=== PATIENT | female | born 1975 | race Caucasian/White ===

== ENCOUNTER 2023-06-22 08:17 | Outpatient (OUT) | payer OTHER, SELFPAY ==
--- NOTE | 2023-06-22 08:23 | MM_ITS ---
Patient Name: YAO HUYNH MR#: [id number] : 1975 Exam Date: 06/22/2023 Ordering Doctor: Non-Staff Physician RADIOLOGY REPORT PROCEDURE: MM TOMOSYNTHESIS SCREENING BI COMPARISON: MG MAMM SCREEN 3D MARIE CAD, 06/11/2022. MG MAMM SCREEN 3D MARIE CAD, 06/03/2021. MG MAMM SCREEN MARIE W CAD, 04/30/2020. MG MAMM MARIE SCRN W CAD DIG, 08/24/2013. INDICATIONS: Screening Calculator Name NCI Breast Cancer Risk Assessment Tool 5 Year Breast Cancer Risk Not Reported. Lifetime Breast Cancer Risk Not Reported. Personal Breast Cancer No Personal Ovarian Cancer No Treatments None Family Cancers None LOCATION: [facility] BREAST COMPOSITION: Extremely dense, which lowers the sensitivity of mammography. FINDINGS: DIAGNOSTIC CATEGORY 1--NEGATIVE. RIGHT BREAST: No significant suspicious finding. No significant change has occurred. LEFT BREAST: No significant suspicious finding. No significant change has occurred. RECOMMENDATIONS: ROUTINE MAMMOGRAM AND CLINICAL EVALUATION IN 12 MONTHS. PLEASE NOTE: A NORMAL MAMMOGRAM DOES NOT EXCLUDE THE POSSIBILITY OF BREAST CANCER. A CLINICALLY SUSPICIOUS PALPABLE LUMP SHOULD BE BIOPSIED. Dictated by: Jefry Fuentes M.D. on 06/22/2023 at 12:28 Approved by: Jefry Fuentes M.D. on 06/22/2023 at 12:30
== END 2023-06-22 08:18 | disposition home or self-care (01) ==
LOC: MAMMO 08:17
DX: Z12.31 Encounter for screening mammogram for malignant neoplasm of breast (principal)
CPT/HCPCS: 77063; 77067

== ENCOUNTER 2024-06-23 10:16 | Outpatient (OUT) | payer OTHER, SELFPAY ==
--- NOTE | 2024-06-23 10:19 | MM_ITS ---
Patient Name: YAO HUYNH MR#: [id number] : 1975 Exam Date: 06/23/2024 Ordering Doctor: Kaykay Adame RADIOLOGY REPORT PROCEDURE: MM TOMOSYNTHESIS SCREENING BI COMPARISON: MM TOMOSYNTHESIS SCREENING BI, 06/22/2023. MG MAMM SCREEN 3D MARIE CAD, 06/11/2022. MG MAMM SCREEN 3D MARIE CAD, 06/03/2021. MG MAMM MARIE SCRN W CAD DIG, 08/24/2013. INDICATIONS: Screening Calculator Name NCI Breast Cancer Risk Assessment Tool 5 Year Breast Cancer Risk Not Reported. Lifetime Breast Cancer Risk Not Reported. Personal Breast Cancer No Personal Ovarian Cancer No Treatments None Family Cancers None LOCATION: [facility] BREAST COMPOSITION: The breasts are extremely dense, which lowers the sensitivity of mammography. FINDINGS: DIAGNOSTIC CATEGORY 1--NEGATIVE. RIGHT BREAST: No significant suspicious finding. No significant change has occurred. LEFT BREAST: No significant suspicious finding. No significant change has occurred. RECOMMENDATIONS: ROUTINE MAMMOGRAM AND CLINICAL EVALUATION IN 12 MONTHS. PLEASE NOTE: A NORMAL MAMMOGRAM DOES NOT EXCLUDE THE POSSIBILITY OF BREAST CANCER. A CLINICALLY SUSPICIOUS PALPABLE LUMP SHOULD BE BIOPSIED. Dictated by: Jefry Fuentes M.D. on 06/23/2024 at 15:42 Approved by: Jefry Fuentes M.D. on 06/23/2024 at 15:44
--- OUTSIDE RECORDS SUMMARY | 2024-06-23 10:34 | XMS_ITS | CCD ---
Author Organization [facility] ion [facility] Care Team Providers Care Insight Leader Name Role Phone Poncho, Todd L Primary Care Provider [phone] MISC, DR ADDISON Attending Unavailable MISC, DR ADDISON Primary Care Unavailable MISC, DR ADDISON Admitting Unavailable BOSTON, DR CHALINO Baxter Consulting Unavailable MISC, DR ADDISON Consulting Unavailable Yonley DO, Todd L Primary Care Provider [phone] Yonley DO, Todd L. Primary Care Provider [phone] Yonley DO, Todd L. Primary Care Provider YONLEY, TODD L Referring Unavailable YONLEY, TODD L Primary Care Unavailable YONLEY, TODD L Primary Care Unavailable CARMEN JORGENSEN Attending Unavailable CARMEN JORGENSEN Admitting Unavailable YONLEY, TODD L. Primary Care Unavailable YONLEY, TODD L Primary Care Unavailable Yonley DO, Todd L Primary Care Provider [place], [place] Referring Unavailable YONLEY, TODD L Primary Care Unavailable YONLEY, TODD L Primary Care Unavailable [place], [place] Referring Unavailable [place], [place] Referring Unavailable YONLEY, TODD L Primary Care Unavailable JAELYN RAMON A Referring Unavailable YONLEY, TODD L Primary Care Unavailable TRISTEN, JAELYN A Referring Unavailable YONLEY, TODD L Primary Care Unavailable YONLEY, TODD L Referring Unavailable YONLEY, TODD L Primary Care Unavailable TRISTEN, JAELYN Referring Unavailable YONLEY, TODD L Primary Care Unavailable [place], [place] Referring Unavailable YONLEY, TODD L Primary Care Unavailable [place], [place] Referring Unavailable YONLEY, TODD L Primary Care Unavailable YONLEY, TODD L Referring Unavailable YONLEY, TODD L Primary Care Unavailable YONLEY, TODD L Referring Unavailable YONLEY, TODD L Primary Care Unavailable YONLEY, TODD L. Primary Care Unavailable ADLYWILNERNJ ADLY [place] Attending Unava ilable YOGURJITEY, TODD L. Referring Unavailable YONLEY, TODD L. Primary Care Unavailable JAELYN RAMON Attending Unavailable YONLEY, TODD L. Primary Care Unavailable ADLY, [place] ADLY [place] Attending Unava ilable YOGURJITEY, TODD L. Primary Care Unavailable ADLY, [place] ADLY [place] Attending Unava ilable YOGURJITEY, TODD L. Primary Care Unavailable ADLY, [place] ADLY [place] Attending Unava ilable Allergies Allergy Classification Reported Allergen(s) Allergy Type Date of Onset Reaction(s) Facility Macrolides (antibiotic) (1 source) Erythromycin Drug Allergy 07-14-2011 [facility] Penicillins (antibiotic) (1 source) Penicillins Drug Allergy 05-09-2020 [facility] (20 sources) Erythromycin; Translations: [ERYTHROMYCIN] Drug Allergy 07-14-2011 [place], [place] (3 sources) Penicillins; Translations: [PENICILLINS] Propensity to adverse reactions to drug 05-09-2020 [place], [place] (20 sources) Penicillins Propensity to adverse reactions to drug 05-09-2020 [facility] Medications Current Medications Medication Drug Class(es) Dates Sig (Normalized) Sig (Original) cephalexin 500 mg oral capsule (1 source) Cephalosporin Antibacterial Start: 05-06-2020 cephALEXin (KEFLEX) 500 MG capsule diclofenac sodium 75 mg delayed release oral tablet (6 sources) Nonsteroidal Anti-inflammatory Drug Start: 02-29-2020 diclofenac (VOLTAREN) 75 MG EC tablet 1 tab BID 0 02/29/2020 Active DULoxetine 60 mg delayed release oral capsule (20 sources) Serotonin and Norepinephrine Reuptake Inhibitor Start: 09-28-2023 take 1 capsule by mouth once daily DULoxetine (CYMBALTA) 60 MG extended release capsule 60 mg po daily 90 capsule 1 09/28/2023 Active Start: 08-19-2022 End: 11-27-2023 take 1 capsule by mouth once daily DULoxetine (CYMBALTA) 30 MG capsule 30 mg po daily 0 10/27/2022 11/27/2023 Discontinued (Patient's Request) hydrocortisone valerate 2 mg/ml topical cream (7 sources) Corticosteroid Start: 09-29-2013 hydrocortisone (WESTCORT) 0.2 % cream Apply topically 2 times daily. 60 g 3 09/29/2013 Active magnesium hydroxide 80 mg/ml oral suspension (20 sources) Start: 09-16-2021 magnesium hydroxide (MOM) 400 mg/5 mL Susp 30 mL po daily up to twice a week as needed for constipation 09/16/2021 Active methIMAzole 5 mg oral tablet (7 sources) Thyroid Hormone Synthesis Inhibitor Start: 08-28-2023 End: 03-16-2025 take 1 tablet by mouth once daily methIMAzole (TAPAZOLE) 5 MG tablet Indications: Hyperthyroidism Take 1 (one) tablet (5 mg total) by mouth daily . 30 tablet 11 03/16/2024 03/16/2025 Active 24 hr metoprolol succinate 50 mg extended release oral tablet (20 sources) beta-Adrenergic Manasa Start: 09-28-2023 take 1 tablet by mouth once daily metoprolol succinate (TOPROL XL) 50 MG extended release tablet Take 1 tablet by mouth daily 90 tablet 1 09/28/2023 Active Start: 11-03-2022 metoprolol suc cinate (TOPROL-XL) 50 MG 24 hr tablet 11/03/2022 Active Start: 10-27-2022 take 1 tablet by tre th once daily metoprolol succinate (TOPROL XL) 50 MG extended release tablet Take 1 tablet by mouth daily 90 tablet 3 10/27/2022 Active Start: 10-12-2020 take 1 tablet by tre th once daily metoprolol succinate (TOPROL XL) 50 MG extended release tablet Take 1 tablet by mouth daily 90 tablet 3 10/12/2020 Active Start: 04-26-2020 take 1 tablet by tre th once daily metoprolol succinate (TOPROL XL) 50 MG extended release tablet Take 1 tablet by mouth daily 90 tablet 3 04/26/2020 Active Start: 02-22-2020 take 1 tablet by tre th once daily metoprolol succinate (TOPROL XL) 50 MG extended release tablet 1 po qd 0 02/22/2020 Active phentermine hydrochloride 37.5 mg oral tablet (16 sources) Sympathomimetic Amine Anorectic Start: 10-27-2022 End: 11-27-2023 take 1 tablet by mouth once daily before breakfast phentermine (ADIPEX-P) 37.5 mg tablet TAKE 1 TABLET BY MOUTH EVERY MORNING before breakfast for 30 days 0 12/26/2022 11/27/2023 Discontinued (Patient's Request) polyethylene glycol 3350 15312 mg powder for oral solution (20 sources) Osmotic Laxative Start: 09-16-2021 polyethylene glycol (GLYCOLAX) 17 gram/dose powder 1/2 capful daily 09/16/2021 Active Start: 09-16-2021 polyethylene g lycol (GLYCOLAX) 17 GM/SCOOP powder 1/2 capful daily 510 g 09/16/2021 Active tacrolimus 0.001 mg/mg topical ointment (8 sources) Calcineurin Inhibitor Immunosuppressant Start: 12-26-2022 End: 11-27-2023 tacrolimus (PROTOPIC) 0.1 % ointment Apply topically 2 times daily. 60 g 1 12/26/2022 Active tiZANidine 4 mg oral tablet (6 sources) Central alpha-2 Adrenergic Agonist Start: 02-29-2020 tiZANidine (ZANAFLEX) 4 MG tablet 1 tab BID 0 02/29/2020 Active traMADol hydrochloride 50 mg oral tablet (5 sources) Opioid Agonist Start: 03-07-2020 traMADol (ULTR AM) 50 MG tablet 1-2 every 6 hours as needed for back pain 0 03/07/2020 Active triamcinolone acetonide 0.001 mg/mg topical ointment (16 sources) Corticosteroid Start: 10-27-2022 End: 11-27-2023 triamcinolone (KENALOG) 0.1 % ointment APPLY topically TWICE DAILY NEEDED for rash 0 10/27/2022 11/27/2023 Discontinued (Patient's Request) Start: 10-27-2022 triamcinolone (KENALOG) 0.1 % ointment Apply topically 2 times daily as needed (rash) 30 g 1 10/27/2022 Active Completed/Discontinued Medications Medication Drug Class(es) Dates Sig (Normalized) Sig (Original) ethinyl estradiol 0.035 mg / norethindrone 1 mg oral tablet (20 sources) Estrogen Start: 05-14-2022 take 1 tablet by mouth once daily NORTREL 1/35, 28, 1-35 MG-MCG per tablet TAKE 1 TABLET BY MOUTH DAILY 84 tablet 3 05/14/2022 Active Start: 05-14-2022 End: 08-28-2023 take 1 tablet by mouth once daily, then take [id number] tablet by mouth once norethindrone-ethinyl estradiol (Nortrel 1/35, 28,) 1-35 mg-mcg per tablet Take 1 (one) tablet by mouth daily . 0 05/14/2022 08/28/2023 Discontinued Start: 10-12-2020 take 1 tablet by tre th once daily, then take 0.64792404869654370-84 tablets by mouth once norethindrone-ethinyl estradiol (ORTHO-NOVUM 1/35, 28,) 1-35 MG-MCG per tablet Take 1 tablet by mouth daily 84 tablet 3 10/12/2020 Active Start: 04-26-2020 take 1 tablet by tre th once daily, then take 0.21636269265781242-05 tablets by mouth once norethindrone-ethinyl estradiol (ORTHO-NOVUM 1/35, 28,) 1-35 MG-MCG per tablet Take 1 tablet by mouth daily 84 tablet 3 04/26/2020 Active Start: 09-29-2013 take 1 tablet by tre th once daily, then take 0.76440273071400663-27 tablets by mouth once norethindrone-ethinyl estradiol (ORTHO-NOVUM 1/35, 28,) 1-35 MG-MCG per tablet Take 1 tablet by mouth daily. 84 tablet 3 09/29/2013 Active Problems Active Problems Problem Classification Problem Date Documented Da te Episodic/Chronic Diabetes mellitus without complication (1 source) Abnormal glucose level; Translations: [Other abnormal glucose] Episodic Headache; including migraine (19 sources) Migraine without aura, not refractory ; Translations: [Migraine without aura, not intractable, without status migrainosus] Onset: 07-14-2011 03-14-2020 Chronic Other female genital disorders (1 source) Vaginal discharge; Translations: [Vaginal discharge] Episodic Other nutritional; endocrine; and metabolic disorders (1 source) Weight gain; Translations: [Abnormal weight gain] Episodic Other screening for suspected conditions (not mental disorders or infectious disease) (10 sources) Encounter for screening mammogram for malignant neoplasm of breast; Translations: [Patient encounter status] Onset: 06-11-2022 Episodic Thyroid disorders (16 sources) Goiter; Translations: [Iodine-deficiency related diffuse (endemic) goiter] Onset: 12-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 Chronic Unclassified (1 source) Cancer cervix screening status; Translations: [Cervical cancer screening] Past or Other Problems Problem Classification Problem Date Documented Da te Episodic/Chronic Allergic reactions (20 sources) Contact dermatitis; Translations: [Unspecified contact dermatitis, unspecified cause] Onset: 07-14-2011 Resolved: 03-14-2020 03-14-2020 Episodic Other circulatory disease (10 sources) Feeling of lump in throat; Translations: [Other specified symptoms and signs involving the circulatory and respiratory systems] Onset: 01-08-2023 01-08-2023 Episodic Other ear and sense organ disorders (12 sources) Tinnitus of right ear; Translations: [Tinnitus, right ear] Onset: 01-08-2023 01-08-2023 Episodic Other gastrointestinal disorders (10 sources) Dysphagia; Translations: [Dysphagia, unspecified] Onset: 01-08-2023 01-08-2023 Episodic Otitis media and related conditions (10 sources) Disorder of right tympanic membrane; Translations: [Unspecified disorder of tympanic membrane, right ear] Onset: 01-08-2023 01-08-2023 Episodic Spondylosis; intervertebral disc disorders; other back problems (20 sources) Chronic low back pain; Translations: [Lumbago with sciatica, right side] Onset: 03-14-2020 03-14-2020 Episodic Results Test Name Value Interpretation Reference Range Facility Liver Profileon 05-20-2024 Albumin [Mass/Vol] 4.3 g/dL Normal 3.5-5.2 [facility] Comment on above: Performed By: #### T 3, FT4 #### [employer] [facility] [address] [place], [place] [id number] [employer]: Yadiel Torres MD #### TSH, LIVP #### [facility] [address] [place], [place] [id number] [employer]: Chalino Palmer MD Alkaline Phos 132 U/L High 35-104 [facility] Comment on above: Performed By: #### T 3, FT4 #### [facility] [address] [place] [address] [employer]: Yadiel Torres MD #### TSH, LIVP #### [facility] [address] [place] [address] [employer]: Chalino Palmer MD ALT [Catalytic activity/Vol] 53 U/L High 5-33 [facility] Comment on above: Performed By: #### T 3, FT4 #### [address] [address] [employer]: Yadiel Torres MD #### TSH, LIVP #### [facility] [address] [place] [address] [employer]: Chalino Palmer MD AST [Catalytic activity/Vol] 34 U/L High <32 [facility] Comment on above: Performed By: #### T 3, FT4 #### [address] [address] [employer]: Yadiel Torres MD #### TSH, LIVP #### [facility] [address] [place] [address] [employer]: Chalino Palmer MD Bilirubin [Mass/Vol] 0.2 mg/dL Low 0.3-1.2 [facility] Comment on above: Performed By: #### T 3, FT4 #### [address] [address] [employer]: Yadiel Torres MD #### TSH, LIVP #### [facility] [address] [place] [address] [employer]: Chalino Palmer MD Bilirubin, Indirect Can not be calculated Normal 0.0-1.0 [facility] Comment on above: Performed By: #### T 3, FT4 #### [facility] [address] [place], [place] [id number] [employer]: Yadiel Torres MD #### TSH, LIVP #### [facility] [address] [place], [place] [id number] [employer]: Chalino Palmer MD Bilirubin.indirect [Mass/Vol] mg/dL Normal <0.3 [facility] Comment on above: Performed By: #### T 3, FT4 #### [address] [id number] [employer]: Yadiel Torres MD #### TSH, LIVP #### [facility] [address] [place] [address] [employer]: Chalino Palmer MD Protein [Mass/Vol] 7.0 g/dL Normal 6.4-8.3 [facility] Comment on above: Performed By: #### T 3, FT4 #### [facility] [address] [place] [address] [id number] [employer]: Yadiel Torres MD #### TSH, LIVP #### [facility] [address] [place], [place] [phone] [employer]: Chalino Palmer MD Thyroid Stim. Horm.on 2023 Thyroid Stim. Horm. 1.71 uIU/mL Normal 0.30-5.00 [facility] Comment on above: Performed By: #### T 3, FT4 #### [address] [id number] [employer]: Yadiel Torres MD #### TSH, LIVP #### [facility] [address] [place] [address] [employer]: Chalino Palmer MD Thyroxine, Freeon 05-20-2024 Thyroxine, Free 0.9 ng/dL Low 0.92-1.68 [facility] Comment on above: Performed By: #### T 3, FT4 #### [address] [address] [employer]: Yadiel Torres MD #### TSH, LIVP #### [facility] [address] [place] [address] [employer]: Chalino Palmer MD Triiodothyronine T3on 2023 Triiodothyronine T3 87 ng/dL Normal 80-200 [facility] Comment on above: Performed By: #### T 3, FT4 #### [address] [address] [employer]: Yadiel Torres MD #### TSH, LIVP #### [facility] [address] [place] [address] [employer]: Chalino Palmer MD Liver Profileon 04-01-2024 Albumin [Mass/Vol] 4.1 g/dL Normal 3.5-5.2 [facility] Comment on above: Performed By: #### T 3, FT4 #### [address] [address] [employer]: Yadiel Torres MD #### TSH, LIVP #### [facility] [address] [place] [address] [employer]: Chalino Palmer MD Alkaline Phos 112 U/L High 35-104 [facility] Comment on above: Performed By: #### T 3, FT4 #### [address] [address] [employer]: Yadiel Torres MD #### TSH, LIVP #### [facility] [address] [place], [place] [phone] [employer]: Chalino Palmer MD ALT [Catalytic activity/Vol] 21 U/L Normal 5-33 [facility] Comment on above: Performed By: #### T 3, FT4 #### [address] [place] [address] [employer]: Yadiel Torres MD #### TSH, LIVP #### [facility] [address] [place], [place] [phone] [employer]: Chalino Palmer MD AST [Catalytic activity/Vol] 20 U/L Normal <32 [facility] Comment on above: Performed By: #### T 3, FT4 #### [address] [address] [employer]: Yadiel Torres MD #### TSH, LIVP #### [facility] [address] [place], [place] [phone] [employer]: Chalino Palmer MD Bilirubin [Mass/Vol] 0.4 mg/dL Normal 0.3-1.2 [facility] Comment on above: Performed By: #### T 3, FT4 #### [address] [address] [employer]: Yadiel Torres MD #### TSH, LIVP #### [facility] [address] [place] [address] [employer]: Chalino Palmer MD Bilirubin, Indirect Can not be calculated Normal 0.0-1.0 [facility] Comment on above: Performed By: #### T 3, FT4 #### [address] [address] [employer]: Yadiel Torres MD #### TSH, LIVP #### [facility] [address] [place] [place], [place] [phone] [employer]: Chalino Palmer MD Bilirubin.indirect [Mass/Vol] mg/dL Normal <0.3 [facility] Comment on above: Performed By: #### T 3, FT4 #### [facility] [address] [place], [place] [phone] [employer]: Yadiel Torres MD #### TSH, LIVP #### [facility] [address] [place] [place], [place] [id number] [employer]: Chalino Palmer MD Protein [Mass/Vol] 6.7 g/dL Normal 6.4-8.3 [facility] Comment on above: Performed By: #### T 3, FT4 #### [facility] [address] [place], [place] [phone] [employer]: Yadiel Torres MD #### TSH, LIVP #### [facility] [address] [place] [address] [employer]: Chalino Palmer MD Hepatic Function Panelon Albumin [Mass/Vol] 3.9 g/dL 3.5 - 5.2 g/dL [facility] ALP [Catalytic activity/Vol] 136 U/L High 35 - 104 U/L [facility] ALT [Catalytic activity/Vol] 68 U/L High 5 - 33 U/L [facility] AST [Catalytic activity/Vol] 49 U/L High NINF - 32 U/L [facility] Bilirubin [Mass/Vol] 0.3 mg/dL 0.3 - 1 .2 mg/dL [facility] Bilirubin.direct [Mass/Vol] mg/dL NINF - 0.3 mg/dL [facility] Bilirubin.indirect [Mass/Vol] Can not be calculated 0.0 - 1.0 mg/dL [facility] Interpretation and review of laboratory results Abnormal [facility] Protein [Mass/Vol] 6.7 g/dL 6.4 - 8.3 g/dL [facility] Liver Profileon 03-17-2024 Albumin [Mass/Vol] 3.9 g/dL Normal 3.5-5.2 [facility] Comment on above: Performed By: #### T 3, FT4 #### [facility] [address] [place] [address] [employer]: Yadiel Torres MD #### TSH, LIVP #### [facility] [address] [place] [address] [employer]: Chalino Palmer MD Alkaline Phos 136 U/L High 35-104 [facility] Comment on above: Performed By: #### T 3, FT4 #### [facility] [address] [place] [address] [employer]: Yadiel Torres MD #### TSH, LIVP #### [facility] [address] [place] [address] [employer]: Chalino Palmer MD ALT [Catalytic activity/Vol] 68 U/L High 5-33 [facility] Comment on above: Performed By: #### T 3, FT4 #### [facility] [address] [place] [address] [employer]: Yadiel Torres MD #### TSH, LIVP #### [facility] [address] [place] [address] [employer]: Chalino Palmer MD AST [Catalytic activity/Vol] 49 U/L High <32 [facility] Comment on above: Performed By: #### T 3, FT4 #### [facility] [address] [place] [address] [employer]: Yadiel Torres MD #### TSH, LIVP #### [facility] [address] [place] [address] [employer]: Chalino Palmer MD Bilirubin [Mass/Vol] 0.3 mg/dL Normal 0.3-1.2 [facility] Comment on above: Performed By: #### T 3, FT4 #### [facility] [address] [place] [address] [employer]: Yadiel Torres MD #### TSH, LIVP #### [facility] [address] [place], [place] [phone] [employer]: Chalino Palmer MD Bilirubin, Indirect Can not be calculated Normal 0.0-1.0 [facility] Comment on above: Performed By: #### T 3, FT4 #### [address] [place] [address] [employer]: Yadiel Torres MD #### TSH, LIVP #### [facility] [address] [place], [place] [phone] [employer]: Chalino Palmer MD Bilirubin.indirect [Mass/Vol] mg/dL Normal <0.3 [facility] Comment on above: Performed By: #### T 3, FT4 #### [address] [place] [address] [employer]: Yadiel Torres MD #### TSH, LIVP #### [facility] [address] [place], [place] [phone] [employer]: Chalino Palmer MD Protein [Mass/Vol] 6.7 g/dL Normal 6.4-8.3 [facility] Comment on above: Performed By: #### T 3, FT4 #### [address] [address] [employer]: Yadiel Torres MD #### TSH, LIVP #### [facility] [address] [place], [place] [phone] [employer]: Chalino Palmer MD No Panel Informationon 03-17 [facility] T3on 03-17-2024 T3 [Mass/Vol] 88 ng/dL 80 - 200 ng/dL [facility] T4, Freeon 03-17-2024 Free T4 [Mass/Vol] 1.0 ng/dL 0.92 - 1. 68 ng/dL [facility] TSHon 03-17-2024 TSH Qn 0.64 m[IU]/L [facility] Thyroid Stim. Horm.on 2023 Thyroid Stim. Horm. 0.64 uIU/mL Normal 0.30-5.00 [facility] Comment on above: Performed By: #### T 3, FT4 #### [address] [place] [address] [employer]: Yadiel Torres MD #### TSH, LIVP #### [facility] [address] [place], [place] [phone] [employer]: Chalino Palmer MD Thyroxine, Freeon 03-17-2024 Thyroxine, Free 1.0 ng/dL Normal 0.92-1.68 [facility] Comment on above: Performed By: #### T 3, FT4 #### [address] [place], [place] [phone] [employer]: Yadiel Torres MD #### TSH, LIVP #### [facility] [address] [place], [place] [phone] [employer]: Chalino Palmer MD Triiodothyronine T3on 2023 Triiodothyronine T3 88 ng/dL Normal 80-200 [facility] Comment on above: Performed By: #### T 3, FT4 #### [address] [id number] [employer]: Yadiel Torres MD #### TSH, LIVP #### [facility] [address] [place], [place] [phone] [employer]: Chalino Palmer MD Liver Profileon 02-01-2024 Albumin [Mass/Vol] 4.2 g/dL Normal 3.5-5.2 [facility] Comment on above: Performed By: #### T 3, FT4 #### [facility] [address] [place] [address] [employer]: Yadiel Torres MD #### TSH, LIVP #### [facility] [address] [place] [address] [employer]: Chalino Palmer MD Alkaline Phos 127 U/L High 35-104 [facility] Comment on above: Performed By: #### T 3, FT4 #### [facility] [address] [place] [address] [employer]: Yadiel Torres MD #### TSH, LIVP #### [facility] [address] [place] [address] [employer]: Chalino Palmer MD ALT [Catalytic activity/Vol] 25 U/L Normal 5-33 [facility] Comment on above: Performed By: #### T 3, FT4 #### [facility] [address] [place] [address] [employer]: Yadiel Torres MD #### TSH, LIVP #### [facility] [address] [place] [address] [employer]: Chalino Palmer MD AST [Catalytic activity/Vol] 24 U/L Normal <32 [facility] Comment on above: Performed By: #### T 3, FT4 #### [facility] [address] [place] [address] [employer]: Yadiel Torres MD #### TSH, LIVP #### [facility] [address] [place] [address] [employer]: Chalino Palmer MD Bilirubin [Mass/Vol] 0.5 mg/dL Normal 0.3-1.2 [facility] Comment on above: Performed By: #### T 3, FT4 #### [address] [id number] [employer]: Yadiel Torres MD #### TSH, LIVP #### [facility] [address] [place], [place] [phone] [employer]: Chalino Palmer MD Bilirubin, Indirect Can not be calculated Normal 0.0-1.0 [facility] Comment on above: Performed By: #### T 3, FT4 #### [address] [address] [employer]: Yadiel Torres MD #### TSH, LIVP #### [facility] [address] [place], [place] [phone] [employer]: Chalino Palmer MD Bilirubin.indirect [Mass/Vol] mg/dL Normal <0.3 [facility] Comment on above: Performed By: #### T 3, FT4 #### [address] [address] [employer]: Yadiel Torres MD #### TSH, LIVP #### [facility] [address] [place], [place] [id number] Fisher Swordfish: Chalino Palmer MD Protein [Mass/Vol] 6.8 g/dL Normal 6.4-8.3 [facility] Comment on above: Performed By: #### T 3, FT4 #### [address] [address] Fisher [employer]fish: Yadiel Torres MD #### TSH, LIVP #### [facility] [address] [place] [address] Fisher [employer]fish: Chalino Palmer MD Thyroid Stim. Horm.on 2023 Thyroid Stim. Horm. 0.08 uIU/mL Low 0.30-5.00 [facility] Comment on above: Performed By: #### T 3, FT4 #### [address] [place], [place] [id number] Fisher [employer]fish: Yadiel Torres MD #### TSH, LIVP #### [facility] [address] [place], [place] [id number] Fisher [employer]fish: Chalino Palmer MD Thyroxine, Freeon 02-01-2024 Thyroxine, Free 1.2 ng/dL Normal 0.92-1.68 [facility] Comment on above: Performed By: #### T 3, FT4 #### [facility] [address] [place], [place] [id number] Fisher Swordfish: Yadiel Torres MD #### TSH, LIVP #### [facility] [address] [place], [place] [id number] Fisher [employer]fish: Chalino Palmer MD Triiodothyronine T3on 2023 Triiodothyronine T3 90 ng/dL Normal 80-200 [facility] Comment on above: Performed By: #### T 3, FT4 #### [address] [id number] Fisher [employer]: Yadiel Torres MD #### TSH, LIVP #### [facility] [address] [place], [place] [phone] Fisher [employer]fish: Chalino Palmer MD Hepatic Function Panelon Albumin [Mass/Vol] 4.1 g/dL 3.5 - 5.2 g/dL [facility] ALP [Catalytic activity/Vol] 114 U/L High 35 - 104 U/L [facility] ALT [Catalytic activity/Vol] 29 U/L 5 - 33 U/L [facility] AST [Catalytic activity/Vol] 26 U/L [facility] - 32 U/L [facility] Bilirubin [Mass/Vol] 0.4 mg/dL 0.3 - 1 .2 mg/dL [facility] Bilirubin.direct [Mass/Vol] mg/dL NINF - 0.3 mg/dL [facility] Bilirubin.indirect [Mass/Vol] Can not be calculated 0.0 - 1.0 mg/dL [facility] Protein [Mass/Vol] 6.2 g/dL Low 6.4 - 8.3 g/dL [facility] Liver Profileon 12-21-2023 Albumin [Mass/Vol] 4.1 g/dL Normal 3.5-5.2 [facility] Comment on above: Performed By: #### T 3, FT4 #### [facility] [address] [place] [address] Fisher [employer]fish: Yadiel Torres MD #### TSH, LIVP #### [facility] [address] [place], [place] [id number] Fisher [employer]fish: Chalino Palmer MD Alkaline Phos 114 U/L High 35-104 [facility] Comment on above: Performed By: #### T 3, FT4 #### [address] [address] Fisher [employer]fish: Yadiel Torres MD #### TSH, LIVP #### [facility] [address] [place], [place] [id number] Fisher Swordfish: Chalino Palmer MD ALT [Catalytic activity/Vol] 29 U/L Normal 5-33 [facility] Comment on above: Performed By: #### T 3, FT4 #### [facility] [address] [place] [address] Fisher [employer]: Yadiel Torres MD #### TSH, LIVP #### [facility] [address] [place], [place] [phone] Fisher [employer]fish: Chalino Palmer MD AST [Catalytic activity/Vol] 26 U/L Normal <32 [facility] Comment on above: Performed By: #### T 3, FT4 #### [address] [address] [employer]fish: Yadiel Torres MD #### TSH, LIVP #### [facility] [address] [place], [place] [phone] Fisher [employer]fish: Chalino Palmer MD Bilirubin [Mass/Vol] 0.4 mg/dL Normal 0.3-1.2 [facility] Comment on above: Performed By: #### T 3, FT4 #### [address] [phone] [employer]: Yadiel Torres MD #### TSH, LIVP #### [facility] [address] [place], [place] [phone] Fisher [employer]fish: Chalino Palmer MD Bilirubin, Indirect Can not be calculated Normal 0.0-1.0 [facility] Comment on above: Performed By: #### T 3, FT4 #### [address] [id number] Fisher [employer]: Yadiel Torres MD #### TSH, LIVP #### [facility] [address] [place], [place] [phone] Fisher [employer]fish: Chalino Palmer MD Bilirubin.indirect [Mass/Vol] mg/dL Normal <0.3 [facility] Comment on above: Performed By: #### T 3, FT4 #### [address] [address] Fisher [employer]fish: Yadiel Torres MD #### TSH, LIVP #### [facility] [address] [place], [place] [phone] Fisher [employer]fish: Chalino Palmer MD Protein [Mass/Vol] 6.2 g/dL Low 6.4-8.3 [facility] Comment on above: Performed By: #### T 3, FT4 #### [address] [address] Fisher [employer]: Yadiel Torres MD #### TSH, LIVP #### [facility] [address] [place], [place] 1744990 Fisher [employer]fish: Chalino Palmer MD No Panel Informationon 12-20 [facility] Interpretation and review of laboratory results Abnormal [facility] T3on 12-21-2023 T3 [Mass/Vol] 100 ng/dL 80 - 200 ng/dL [facility] T4, Freeon 12-21-2023 Free T4 [Mass/Vol] 1.1 ng/dL 0.92 - 1. 68 ng/dL [facility] TSHon 12-21-2023 TSH Qn 0.01 m[IU]/L Low [facility] Thyroid Stim. Horm.on 2023 Thyroid Stim. Horm. 0.01 uIU/mL Low 0.30-5.00 [facility] Comment on above: Performed By: #### T 3, FT4 #### [address] [id number] Fisher [employer]fish: Yadiel Torres MD #### TSH, LIVP #### [facility] [address] [place] [address] Fisher Swordfish: Chalino Palmer MD Thyroxine, Freeon 12-21-2023 Thyroxine, Free 1.1 ng/dL Normal 0.92-1.68 [facility] Comment on above: Performed By: #### T 3, FT4 #### [address] [address] Fisher [employer]fish: Yadiel Torres MD #### TSH, LIVP #### [facility] [address] [place] [address] Fisher [employer]fish: Chalino Palmer MD Triiodothyronine T3on 2023 Triiodothyronine T3 100 ng/dL Normal 80-200 [facility] Comment on above: Performed By: #### T 3, FT4 #### [address] [address] Fisher [employer]fish: Yadiel Torres MD #### TSH, LIVP #### [facility] [address] [place] [address] Fisher [employer]fish: Chalino Palmer MD Liver Profileon 11-23-2023 Albumin [Mass/Vol] 3.8 g/dL Normal 3.5-5.2 [facility] Comment on above: Performed By: #### T 3, FT4 #### [address] [place] [address] Fisher [employer]fish: Yadiel Torres MD #### TSH, LIVP #### [facility] [address] [place], [place] [phone] Fisher [employer]fish: Chalino Palmer MD Alkaline Phos 138 U/L High 35-104 [facility] Comment on above: Performed By: #### T 3, FT4 #### [address] [address] Fisher [employer]fish: Yadiel Torres MD #### TSH, LIVP #### [facility] [address] [place] [address] Fisher [employer]fish: Chalino Palmer MD ALT [Catalytic activity/Vol] 51 U/L High 5-33 [facility] Comment on above: Performed By: #### T 3, FT4 #### [address] [address] Fisher [employer]fish: Yadiel Torres MD #### TSH, LIVP #### [facility] [address] [place] [address] Fisher Swordfish: Chlaino Palmer MD AST [Catalytic activity/Vol] 38 U/L High <32 [facility] Comment on above: Performed By: #### T 3, FT4 #### [address] [address] Fisher [employer]fish: Yadiel Torres MD #### TSH, LIVP #### [facility] [address] [place], [place] [phone] Fisher [employer]fish: Chalino Palmer MD Bilirubin [Mass/Vol] 0.3 mg/dL Normal 0.3-1.2 [facility] Comment on above: Performed By: #### T 3, FT4 #### [address] [address] Fisher [employer]fish: Yadiel Torres MD #### TSH, LIVP #### [facility] [address] [place], [place] [phone] Fisher Swordfish: Chalino Palmer MD Bilirubin, Indirect Can not be calculated Normal 0.0-1.0 [facility] Comment on above: Performed By: #### T 3, FT4 #### [address] [id number] Fisher [employer]: Yadiel Torres MD #### TSH, LIVP #### [facility] [address] [place], [place] [phone] Fisher [employer]fish: Chalino Palmer MD Bilirubin.indirect [Mass/Vol] mg/dL Normal <0.3 [facility] Comment on above: Performed By: #### T 3, FT4 #### [address] [address] Fisher [employer]fish: Yadiel Torres MD #### TSH, LIVP #### [facility] [address] [place], [place] 1223490 Fisher Swordfish: Chalino Palmer MD Protein [Mass/Vol] 6.6 g/dL Normal 6.4-8.3 [facility] Comment on above: Performed By: #### T 3, FT4 #### [address] [address] Fisher [employer]fish: Yadiel Torres MD #### TSH, LIVP #### [facility] [address] [place] [address] Fisher Swordfish: Chalino Palmer MD Thyroid Stim. Horm.on 2023 Thyroid Stim. Horm. 0.01 uIU/mL Low 0.30-5.00 [facility] Comment on above: Performed By: #### T 3, FT4 #### [address] [id number] Fisher [employer]fish: Yadiel Torres MD #### TSH, LIVP #### [facility] [address] [place] [address] Fisher Swordfish: Chalino Palmer MD Thyroxine, Freeon 11-23-2023 Thyroxine, Free 1.3 ng/dL Normal 0.92-1.68 [facility] Comment on above: Performed By: #### T 3, FT4 #### [address] [id number] Fisher [employer]fish: Yadiel Torres MD #### TSH, LIVP #### [facility] [address] [place] [address] Fisher [employer]fish: Chalino Palmer MD Triiodothyronine T3on 2023 Triiodothyronine T3 102 ng/dL Normal 80-200 [facility] Comment on above: Performed By: #### T 3, FT4 #### [address] [id number] Fisher [employer]fish: Yadiel Torres MD #### TSH, LIVP #### [facility] [address] [place] [address] Fisher Swordfish: Chalino Palmer MD Thyroid Stim. Horm.on 2023 Thyroid Stim. Horm. <0.01 Low 0.30-5.00 [facility] Comment on above: Performed By: #### T 3, FT4 #### [address] [id number] Fisher [employer]fish: Yadiel Torres MD #### TSH, LIVP #### [facility] [address] [place] [address] Fisher Swordfish: Chalino Palmer MD Thyroxine, Freeon 10-26-2023 Thyroxine, Free 1.3 ng/dL Normal 0.92-1.68 [facility] Comment on above: Performed By: #### T 3, FT4 #### [facility] [address] [place] [address] Fisher Swordfish: Yadiel Torres MD #### TSH, LIVP #### [facility] [address] [place] [address] Fisher Swordfish: Chalino Palmer MD Triiodothyronine T3on 2023 Triiodothyronine T3 106 ng/dL Normal 80-200 [facility] Comment on above: Performed By: #### T 3, FT4 #### [address] [place] [address] Fisher Swordfish: Yadiel Torres MD #### TSH, LIVP #### [facility] [address] [place] [address] Fisher Swordfish: Chalino Palmer MD SURGICALon 10-22-2023 SURGICAL [place] SARA HUYNH [id number] Assoc. Page 1 of [address] [place] [address] PROC: 10/22/2023 [facility] RECV: 10/28/2023 [address] 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 Received in formalin is an unoriented punch biopsy of skin measuring about 0.3 cm in diameter x 0.2 cm. The specimen is submitted as received. 1 ns. ALP/DKR:[id number] Microscopic Examination: Sections show a mildly acanthotic and spongiotic epidermis with patchy parakeratosis. Within the superficial dermis is a brisk perivascular and interstitial infiltrate of lymphocytes and histiocytes. There are no eosinophils. Foci of erythrocyte extravasation are noted. 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 And eczematous process such as atopic or contact dermatitis cannot be excluded. Clinical correlation is recommended. [id number] BEE MENDOZA M.D., F.C.A.P [facility] Printed on: 10/29/[address] [place] [address] Original print date: 10/29/2023 Normal [facility] Liver Profileon 09-28-2023 Albumin [Mass/Vol] 3.9 g/dL Normal 3.5-5.2 [facility] Comment on above: Performed By: #### T 3, FT4 #### [address] [place] [address] Fisher [employer]fish: Yadiel Torres MD #### TSH, LIVP #### [facility] [address] [place] [address] Fisher Swordfish: Chalino Palmer MD Alkaline Phos 139 U/L High 35-104 [facility] Comment on above: Performed By: #### T 3, FT4 #### [facility] [address] [place] [address] Fisher Swordfish: Yadiel Torres MD #### TSH, LIVP #### [facility] [address] [place] [address] Fisher Swordfish: Chalino Palmer MD ALT [Catalytic activity/Vol] 39 U/L High 5-33 [facility] Comment on above: Performed By: #### T 3, FT4 #### [facility] [address] [place] [address] Fisher [employer]fish: Yadiel Torres MD #### TSH, LIVP #### [facility] [address] [place] [address] Fisher Swordfish: Chalino Palmer MD AST [Catalytic activity/Vol] 25 U/L Normal <32 [facility] Comment on above: Performed By: #### T 3, FT4 #### [facility] [address] [place] [address] Fisher [employer]fish: Yadiel Torres MD #### TSH, LIVP #### [facility] [address] [place] [address] Fisher Swordfish: Chalino Palmer MD Bilirubin [Mass/Vol] 0.5 mg/dL Normal 0.3-1.2 [facility] Comment on above: Performed By: #### T 3, FT4 #### [facility] [address] [place] [address] Fisher [employer]fish: Yadiel Torres MD #### TSH, LIVP #### [facility] [address] [place] [address] Fisher Swordfish: Chalino Palmer MD Bilirubin, Indirect Can not be calculated Normal 0.0-1.0 [facility] Comment on above: Performed By: #### T 3, FT4 #### [facility] [address] [place] [address] Fisher [employer]fish: Yadiel Torres MD #### TSH, LIVP #### [facility] [address] [place] [address] Fisher [employer]fish: Chalino Palmer MD Bilirubin.indirect [Mass/Vol] mg/dL Normal <0.3 [facility] Comment on above: Performed By: #### T 3, FT4 #### [facility] [address] [place] [address] Fisher [employer]fish: Yadiel Torres MD #### TSH, LIVP #### [facility] [address] [place], [place] [phone] Fisher Swordfish: Chalino Palmer MD Protein [Mass/Vol] 6.2 g/dL Low 6.4-8.3 [facility] Comment on above: Performed By: #### T 3, FT4 #### [address] [address] Fisher [employer]fish: Yadiel Torres MD #### TSH, LIVP #### [facility] [address] [place], [place] [id number] Fisher [employer]fish: Chalino Palmer MD Thyroid Stim. Horm.on 2023 Thyroid Stim. Horm. 0.01 uIU/mL Low 0.30-5.00 [facility] Comment on above: Performed By: #### T 3, FT4 #### [address] [address] Fisher Swordfish: Yadiel Torres MD #### TSH, LIVP #### [facility] [address] [place], [place] 1186090 Fisher Swordfish: Chalino Palmer MD Thyroxine, Freeon 09-28-2023 Thyroxine, Free 1.4 ng/dL Normal 0.93-1.70 [facility] Comment on above: Performed By: #### T 3, FT4 #### [address] [address] Fisher Swordfish: Yadiel Torres MD #### TSH, LIVP #### [facility] [address] [place], [place] [id number] Fisher Swordfish: Chalino Palmer MD Triiodothyronine T3on 2023 Triiodothyronine T3 120 ng/dL Normal 80-200 [facility] Comment on above: Performed By: #### T 3, FT4 #### [facility] [address] [place] [address] Fisher Swordfish: Yadiel Torres MD #### TSH, LIVP #### [facility] [address] [place] [address] Fisher Swordfish: Chalino Palmer MD Thyroid stimulating immunogl obulinon 09-01-2023 Interpretation and review of laboratory results Abnormal [facility] Thyroid Stimulating Immumoglobulin 5.2 High NINF [facility] Comment on above: Test Performed by: [facility] [address] [place] [address] Fisher [employer]fish: Laz Landon M.D. Ph.D.; CLIA# [id number] [facility] CBC panel Auto (Bld)on 08-28 Erythrocyte distribution width (RBC) [Entitic vol] 12.8 % 11.6 - 14.8 % [facility] Hematocrit (Bld) [Volume fraction] 45.5 % 36.0 - 46.0 % [facility] Hemoglobin (Bld) [Mass/Vol] 14.3 g/dL 12.0 - 16.0 g/dL [facility] MCH (RBC) [Entitic mass] 29.0 pg 26.0 - 34.0 pg [facility] MCHC (RBC) [Mass/Vol] 31.4 g/dL 31.0 - 37.0 g/dL [facility] MCV (RBC) [Entitic vol] 92.3 fL 80.0 - 100.0 fL [facility] Nucleated RBC (Bld) [#/Vol] 0.00 10*3/uL [facility] Nucleated RBC/100 WBC (Bld) [Ratio] 0.0 % [facility] Platelet mean volume (Bld) [Entitic vol] 9.8 fL 9.4 - 12.4 fL [facility] Platelets (Bld) [#/Vol] 251 10*3/uL [facility] RBC (Bld) [#/Vol] 4.93 10*6/uL [facility] WBC (Bld) [#/Vol] 4.91 10*3/uL [facility] 2000 panelo n 08-28-2023 Albumin [Mass/Vol] 3.7 g/dL 3.2 - 5.2 g/dL [facility] ALP [Catalytic activity/Vol] 142 U/L 40 - 150 U/L [facility] ALT [Catalytic activity/Vol] 112 U/L High 14 - 65 U/L [facility] AST [Catalytic activity/Vol] 74 U/L High 0-35 U/L [facility] Bilirubin [Mass/Vol] 0.5 mg/dL 0.0 - 1 .3 mg/dL [facility] Bilirubin.conjugated [Mass/Vol] 0.1 mg/dL 0.0 - 0.4 mg/dL [facility] Protein [Mass/Vol] 6.8 g/dL 6.0 - 8.0 g/dL [facility] No Panel Informationon 08-28 Interpretation and review of laboratory results Abnormal [facility] T3on 08-28-2023 T3 [Mass/Vol] 242 ng/dL High 72 - 170 ng/dL [facility] T3 [Mass/Vol]on 08-28-2023 Interpretation and review of laboratory results Abnormal [facility] T4, freeon 08-28-2023 Free T4 [Mass/Vol] 2.2 ng/dL High 0.7 - 1.7 ng/dL [facility] TSH DL <= 0.005 mIU/L Qnon 0 08-28-2023 TSH Qn Low [facility] Thyroid Antibodieson 024 Anti-Thy Peroxidase 79.0 IU/mL High 0.0-25.0 [facility] Comment on above: Result Comment: Reference Range: <25.0 Negative 25.0-35.0 Equivocal >35.0 Positive When results are Equivocal, it is recommended to retest after 8-12 weeks. Performed By: #### T SH #### [facility] [address] [place] [address] Fisher [employer]fish: Chalino Palmer MD #### ATRAB #### [facility] [address] [place] [address] [employer]fish: Yevgeniy Cueto MD #### THYAMS, FT3, FT4 #### [employer] [address] [place] [address] [id number] Fisher [employer]fish: Yadiel Torres MD Thyroglobulin Ab Qn 275.0 [IU]/mL High 0.0-40.0 [facility] Comment on above: Result Comment: Reference Range: <40.0 Negative 40.0-60.0 Equivocal >60.0 Positive When results are Equivocal, it is recommended to retest after 8-12 weeks. Performed By: #### T SH #### [facility] [address] [place] [address] [employer]fish: Chalino Palmer MD #### ATRAB #### [address] [address] [employer]: Yevgeniy Cueto MD #### THYAMS, FT3, FT4 #### [address] [address] [employer]fish: Yadiel Torres MD Thyroid Stm.Physical Design Engineer Abon 08-18 TRABA 4.96 IU/L High <=1.75 [facility] Comment on above: Result Comment: (NOT E) Performed By: [facility] [address] [place] [address] [employer] Supervisor: Mikey Fritz MD, PhD CLIA Number: [id number] Performed By: #### T 3, FT4 #### [address] [id number] [employer]: Yadiel Torres MD #### TSH, LIVP #### [facility] [address] [place] [address] Fisher Swordfish: Chalino Palmer MD T3, Freeon 08-17-2023 Free T3 [Mass/Vol] 6.03 pg/mL High 2.02-4.43 [facility] Comment on above: Performed By: #### T SH #### [facility] [address] [place] [address] Fisher Swordfish: Chalino Palmer MD #### ATRAB #### [facility] [address] [place], [place] [id number] Fisher [employer]fish: Yevgeniy Cueto MD #### THYAMS, FT3, FT4 #### [address] [id number] [employer]: Yadiel Torres MD Thyroid Stim. Horm.on 2023 Thyroid Stim. Horm. <0.01 Low 0.30-5.00 [facility] Comment on above: Performed By: #### T SH #### [facility] [address] [place] [address] Fisher Swordfish: Chalino Palmer MD #### ATRAB #### [facility] [address] [place], [place] [id number] Fisher Swordfish: Yevgeniy Cueto MD #### THYAMS, FT3, FT4 #### [address] [id number] [employer]: Yadiel Torres MD Thyroxine, Freeon 08-17-2023 Thyroxine, Free 2.2 ng/dL High 0.9-1.7 [facility] Comment on above: Performed By: #### T SH #### [facility] [address] [place], [place] [phone] Fisher Swordfish: Chalino Palmer MD #### ATRAB #### [facility] [address] [place], [place] [id number] [employer]: Yevgeniy Cueto MD #### THYAMS, FT3, FT4 #### [address] [id number] Fisher [employer]: Yadiel Torres MD Thyroid Stim. Horm.on 2022 Thyroid Stim. Horm. 0.01 uIU/mL Low 0.30-5.00 [facility] Comment on above: Performed By: #### F T4 #### [address] [place] [address] Fisher [employer]fish: Yadiel Torres MD #### TSH #### [facility] [address] [place] [address] Fisher Swordfish: Chalino Palmer MD Thyroxine, Freeon 07-03-2023 Thyroxine, Free 1.8 ng/dL High 0.9-1.7 [facility] Comment on above: Performed By: #### F T4 #### [facility] [address] [place] [address] Fisher [employer]fish: Yadiel Torres MD #### TSH #### [facility] [address] [place] [address] Fisher Swordfish: Chalino Palmer MD HCG Screen, Bloodon 06-17-20 HCG Screen, Blood Negative Normal NEG [facility] Comment on above: Result Comment: Spec imens with hCG levels near the threshold of the test (25 mIU/mL) may give a negative or indeterminate result. In such cases, another test should be performed with a new specimen in 48-72 hours. If early is suspected clinically in this setting, correlation with quantitative serum b-hCG level is suggested. [facility] has confirmed the use of plasma for this test. This has not been cleared or approved by the U.S. Food and Drug Administration. The FDA has determined that such clearance is not necessary. Performed By: #### H CG #### [facility] [address] [place] [address] Fisher Swordfish: Chalino Palmer MD Surgical Pathology Reporton 06-17-2023 Surgical Pathology Report (NOTE) Path Number: [id number] -- Diagnosis -- POLYP, SIGMOID COLON, POLYPECTOMY:-POLYPO IDAL COLONIC MUCOSA WITH SLIGHT HYPERPLASTIC CHANGES AND SUBEPITHELIAL LYMPHOID AGGREGATES. Deysi Weiner Electronically Signed Out /06/23/2023 Clinical Information Pre-op Diagnosis: COLON CANCER SCREENING Operative Findings: SIGMOID POLYP Operation Performed: COLONOSCOPY POLYPECTOMY SNARE/COLD BIOPSY kb Source of Specimen A: SIGMOID POLYP Gross Description SARA HEIBERTSHAUSEN, SIGMOID POLYP Received in formalin are two pink-sullivan tissue fragments, 0.2 and 0.6 cm and are 0.8 x 0.3 x 0.2 cm in aggregate. Entirely 1 cs. jj mj SF/kb2:06/18/2023 Microscopic Description Microscopic evaluation performed. Processing Lab: [address] [id number] Interpretation Performed at [address] [id number] SURGICAL PATHOLOGY CONSULTATION Patient Name: SARA HUYNH Rec: [id number] [facility] ANATOMIC PATHOLOGY [address] [place] [id number] Normal [facility] US THYROIDon 12-02-2022 US THYROID EXAMINATION: THYROID ULTRASOUND 12/01/2022 COMPARISON: None. HISTORY: ORDERING SYSTEM PROVIDED HISTORY: Thyromegaly TECHNOLOGIST PROVIDED HISTORY: This procedure can be scheduled via [employer]. Access your [employer] account by visiting [employer]. thyromegaly FINDINGS: Right thyroid lobe: 50 x 12 x 18 mm Left thyroid lobe: 46 x 13 x 16 mm Isthmus: 2 mm Thyroid Gland: Thyroid gland demonstrates normal echotexture and vascularity. Nodules: No thyroid nodules are present. Cervical lymphadenopathy: No abnormal lymph nodes in the imaged portions of the neck. IMPRESSION: Unremarkable thyroid ultrasound. Interpreted by: Dannie Nicole DO Signed by: Dannie Nicole DO 12/02/22 Final result Normal [facility] Unremarkable thyroid ultrasound. [facility] EXAMINATION: THYROID ULTRASOUND 12/01/2022 COMPARISON: None. HISTORY: ORDERING SYSTEM PROVIDED HISTORY: Thyromegaly TECHNOLOGIST PROVIDED HISTORY: This procedure can be scheduled via [employer]. Access your [employer] account by visiting [employer]. thyromegaly FINDINGS: Right thyroid lobe: 50 x 12 x 18 mm Left thyroid lobe: 46 x 13 x 16 mm Isthmus: 2 mm Thyroid Gland: Thyroid gland demonstrates normal echotexture and vascularity. Nodules: No thyroid nodules are present. Cervical lymphadenopathy: No abnormal lymph nodes in the imaged portions of the neck. [facility] Dannie Nicole DO - 12/02/2022 EXAMINATION: THYROID ULTRASOUND 12/01/2022 COMPARISON: None. HISTORY: ORDERING SYSTEM PROVIDED HISTORY: Thyromegaly TECHNOLOGIST PROVIDED HISTORY: This procedure can be scheduled via [employer]. Access your [employer] account by visiting [employer]. thyromegaly FINDINGS: Right thyroid lobe: 50 x 12 x 18 mm Left thyroid lobe: 46 x 13 x 16 mm Isthmus: 2 mm Thyroid Gland: Thyroid gland demonstrates normal echotexture and vascularity. Nodules: No thyroid nodules are present. Cervical lymphadenopathy: No abnormal lymph nodes in the imaged portions of the neck. IMPRESSION: Unremarkable thyroid ultrasound. [employer] Phone: US THYROIDOrdered By: Dannie Nicole on 12-02-2022 [employer] Phone: US THYROIDon 12-01-2022 Radiology Study observation (narrative) [employer] Phone: Basic Metabolic Panelon - Anion gap [Moles/Vol] 8 mmol/L Low 9 - 17 mmol/L [employer] Calcium [Mass/Vol] 8.5 mg/dL Low 8.6 - 10. 4 mg/dL [employer] Chloride [Moles/Vol] 103 mmol/L 98 - 10 7 mmol/L [employer] CO2 [Moles/Vol] 25 mmol/L 20 - 31 mmol/L [employer] [facility] Creatinine [Mass/Vol] 0.76 mg/dL 0.50 - 0.90 mg/dL [employer] GFR/1.73 sq M.predicted MDRD (S/P/Bld) [Vol rate/Area] - PINF [employer] Comment on above: These results are not intended for use in patients <18 years of age. eGFR results are calculated without a race factor using the 2020 CKD-EPI equation. Careful clinical correlation is recommended, particularly when comparing to results calculated using previous equations. The CKD-EPI equation is less accurate in patients with extremes of muscle mass, extra-renal metabolism of creatine, excessive creatine ingestion, or following therapy that affects renal tubular secretion. Glucose [Mass/Vol] 103 mg/dL High 70 - 99 mg/dL [facility] Interpretation and review of laboratory results Abnormal [facility] Potassium [Moles/Vol] 4.3 mmol/L 3.7 - 5.3 mmol/L [facility] Sodium [Moles/Vol] 136 mmol/L 135 - 144 mmol/L [facility] Urea nitrogen [Mass/Vol] 13 mg/dL 6 - 20 mg/dL [facility] Urea nitrogen/Creatinine (Bld) [Mass ratio] 17 9 - 20 [facility] Hemoglobin A1Con 10-27-2022 Average glucose Estimated from glycated hemoglobin (Bld) [Mass/Vol] 108 mg/dL [facility] Comment on above: The ADA and AACC rec ommend providing the estimated average glucose result to permit better patient understanding of their HBA1c result. HbA1c (Bld) [Mass fraction] 5.4 % 4.0 - 6.0 % [facility] No Panel Informationon 10-27 [facility] TSH with Reflexon 10-27-2022 TSH Qn 2.27 m[IU]/L [facility] MG MAMM SCREEN 3D MARIE CADon 06-11-2022 MG MAMM SCREEN 3D MARIE CAD Patient: SARA HUYNH Exam Date: 06/11/2022 : 1975 Gender:F Ordering : DR. TODD ISAAC D.O. Admission #: [id number] Family : Order #: [id number] CLICK HERE TO VIEW EXAM RADIOLOGY REPORT PROCEDURE: MAMMOGRAM SCREENING 3D BILATERAL CAD COMPARISON: MG MAMM SCREEN 3D MARIE CAD, 06/03/2021. MG MAMM SCREEN MARIE W CAD, 04/30/2020. INDICATIONS: Screening mammography Calculator Name NCI Breast Cancer Risk Assessment Tool 5 Year Breast Cancer Risk Not Reported. Lifetime Breast Cancer Risk Not Reported. Personal Breast Cancer No Personal Ovarian Cancer No Treatments None Family Cancers None LOCATION: [facility] BREAST COMPOSITION: Extremely dense, which lowers the sensitivity of mammography. FINDINGS: DIAGNOSTIC CATEGORY 1--NEGATIVE. NO CHANGE FROM COMPARISON ASSESSMENT. Scattered benign-appearing calcifications are present. Scattered benign-appearing lymph nodes are present. RIGHT BREAST: No significant suspicious finding. LEFT BREAST: No significant suspicious finding. RECOMMENDATIONS: ROUTINE MAMMOGRAM AND CLINICAL EVALUATION IN 12 MONTHS. PLEASE NOTE: A NORMAL MAMMOGRAM DOES NOT EXCLUDE THE POSSIBILITY OF BREAST CANCER. A CLINICALLY SUSPICIOUS PALPABLE LUMP SHOULD BE BIOPSIED. Dictated by: Chalino Tao MD on 06/11/2022 at 10:39 Approved by: Chalino Tao MD on 06/11/2022 at 10:40 Normal [facility] MRI LUMBAR SPINE WO CONTRAST Ordered By: Todd Isaac on 12-14-2020 1. 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 Radiographic correlation would be recommended prior to any potential intervention. 2. At the L4/L5 level there is a small midline disc protrusion with annular fissure causing slight effacement of the ventral thecal sac. 3. At the L5/S1 level there is disc space narrowing, disc bulging, and a small midline disc protrusion causing slight effacement of the ventral thecal sac and mild encroachment upon the left neural foramen. 4. No acute osseous abnormality. [employer] Phone: EXAM: MRI LUMBAR SPINE WO CONTRAST HISTORY: Reason for exam:->severe low back pain. COMPARISON: Lumbar radiograph 01/13/2020. TECHNIQUE: Multiplanar, multisequence MR imaging of the lumbar spine was performed without intravenous contrast. FINDINGS: There is transitional anatomy at the lumbosacral junction with partial lumbarization of the presumed S1 vertebral body and a small rudimentary disc space at S1/S2. Lumbar spine is in anatomic alignment with preservation of the vertebral body heights and disc spaces. Bone marrow signal is within normal limits with no acute fracture or dislocation. The conus terminates at lower L1 level and is unremarkable in contour and signal. No paraspinal mass or fluid collection. The visualized abdominal aorta is unremarkable in contour. The upper sacroiliac joint spaces are unremarkable. T2 hyperintense lesions are seen within the kidneys, not fully characterized but statistically most likely reflecting cysts. T12/L1: Negative. L1/L2: Negative. L2/L3: Negative. L3/L4: Negative. L4/L5: Disc space narrowing, disc bulging, and a small broad-based midline disc protrusion with annular fissure causing slight effacement of the ventral thecal sac. L5/S1: Disc space narrowing, disc bulging, facet arthropathy, and small midline disc protrusion causing slight effacement of the ventral thecal sac and mild encroachment upon the left neural foramen. S1/S2: Small rudimentary disc space. No stenosis. [employer] Work Phone: Roque, pn Incoming Radiant Results From [employer] - 12/14/2020 4:33 PM EDT EXAM: MRI LUMBAR SPINE WO CONTRAST HISTORY: Reason for exam:->severe low back pain. COMPARISON: Lumbar radiograph 01/13/2020. TECHNIQUE: Multiplanar, multisequence MR imaging of the lumbar spine was performed without intravenous contrast. FINDINGS: There is transitional anatomy at the lumbosacral junction with partial lumbarization of the presumed S1 vertebral body and a small rudimentary disc space at S1/S2. Lumbar spine is in anatomic alignment with preservation of the vertebral body heights and disc spaces. Bone marrow signal is within normal limits with no acute fracture or dislocation. The conus terminates at lower L1 level and is unremarkable in contour and signal. No paraspinal mass or fluid collection. The visualized abdominal aorta is unremarkable in contour. The upper sacroiliac joint spaces are unremarkable. T2 hyperintense lesions are seen within the kidneys, not fully characterized but statistically most likely reflecting cysts. T12/L1: Negative. L1/L2: Negative. L2/L3: Negative. L3/L4: Negative. L4/L5: Disc space narrowing, disc bulging, and a small broad-based midline disc protrusion with annular fissure causing slight effacement of the ventral thecal sac. L5/S1: Disc space narrowing, disc bulging, facet arthropathy, and small midline disc protrusion causing slight effacement of the ventral thecal sac and mild encroachment upon the left neural foramen. S1/S2: Small rudimentary disc space. No stenosis. IMPRESSION: 1. 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 Radiographic correlation would be recommended prior to any potential intervention. 2. At the L4/L5 level there is a small midline disc protrusion with annular fissure causing slight effacement of the ventral thecal sac. 3. At the L5/S1 level there is disc space narrowing, disc bulging, and a small midline disc protrusion causing slight effacement of the ventral thecal sac and mild encroachment upon the left neural foramen. 4. No acute osseous abnormality. [employer] Work Phone: [employer] Work Phone: XR LUMBAR SPINE (MIN 4 VIEWS )on 03-15-2020 1. No acute fracture or malalignment. 2. 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 Mild facet arthropathy in the lower lumbar spine. [employer] EXAM: XR LUMBAR SPINE (MIN 4 VIEWS) HISTORY: Reason for exam:->pain COMPARISON: None. TECHNIQUE: 5 views of the lumbar spine were obtained. FINDINGS: There is transitional type vertebral anatomy with partial sacralization of L5 and no ribs at T12. No acute fracture or malalignment. Mild facet arthropathy is present in the lower lumbar spine. Intervertebral disc spaces are maintained. Sacroiliac joints appear unremarkable. Osseous structures are well mineralized. Visualized bowel gas pattern appears unremarkable. [employer] Roque, [employer] Incoming Radiant Results From [employer] - 03/15/2020 3:24 PM EDT EXAM: XR LUMBAR SPINE (MIN 4 VIEWS) HISTORY: Reason for exam:->pain COMPARISON: None. TECHNIQUE: 5 views of the lumbar spine were obtained. FINDINGS: There is transitional type vertebral anatomy with partial sacralization of L5 and no ribs at T12. No acute fracture or malalignment. Mild facet arthropathy is present in the lower lumbar spine. Intervertebral disc spaces are maintained. Sacroiliac joints appear unremarkable. Osseous structures are well mineralized. Visualized bowel gas pattern appears unremarkable. IMPRESSION: 1. No acute fracture or malalignment. 2. 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 Mild facet arthropathy in the lower lumbar spine. [employer] Vital Signs Date Time Vital Sign Value Performing Clinician Faci lity 03-22-2024 08:00-0400 Body mass index (BMI) [Ratio] 27.41 kg/m2 Nj Paul MD Work Phone: [facility] 03-22-2024 08:00-0400 Body weight 84.19 kg Nj Paul MD Work Phone: [facility] 03-22-2024 08:00-0400 Diastolic blood pressure 74 mm[Hg] Nj Paul MD Work Phone: [facility] 03-22-2024 08:00-0400 Heart rate 58 /min Nj Paul MD Work Phone: [facility] 03-22-2024 08:00-0400 Systolic blood pressure 111 mm[Hg] Nj Paul MD Work Phone: [facility] 11-27-2023 07:54-0400 Body mass index (BMI) [Ratio] 26.82 kg/m2 Nj Paul MD Work Phone: [facility] 11-27-2023 07:54-0400 Body weight 82.37 kg Nj Paul MD Work Phone: [facility] 11-27-2023 07:54-0400 Diastolic blood pressure 67 mm[Hg] Nj Paul MD Work Phone: [facility] 11-27-2023 07:54-0400 Heart rate 71 /min Nj Paul MD Work Phone: [facility] 11-27-2023 07:54-0400 Systolic blood pressure 102 mm[Hg] Nj Paul MD Work Phone: [facility] 08-28-2023 09:36-0500 Body height 175.3 cm Jaelyn Ramon CNP Work Phone: [facility] 08-28-2023 09:36-0500 Body mass index (BMI) [Ratio] 27.91 kg/m2 Jaelyn Ramon CNP Work Phone: [facility] 08-28-2023 09:36-0500 Body weight 85.73 kg Jaelyn Ramon CNP Work Phone: [facility] 08-28-2023 09:36-0500 Diastolic blood pressure 77 mm[Hg] Jaelyn Ramon CNP Work Phone: [facility] 08-28-2023 09:36-0500 Heart rate 73 /min Jaelyn Ramon WIN Work Phone: [facility] 08-28-2023 09:36-0500 Systolic blood pressure 112 mm[Hg] Jaelyn Ramon PLUMBING ASSEMBLER INSTALLER Work Phone: [facility] 01-08-2023 09:35-0400 Body height 176.5 cm Wenceslao Becker DO Work Phone: [facility] 01-08-2023 09:35-0400 Body mass index (BMI) [Ratio] 33.77 kg/m2 Wenceslao Solorzanode DO Work Phone: [facility] 01-08-2023 09:35-0400 Body temperature 97.9 [degF] Wenceslao Solorzanode DO Work Phone: [facility] 01-08-2023 09:35-0400 Body weight 105.23 kg Wenceslao Becker DO Work Phone: [facility] 01-08-2023 09:35-0400 Diastolic blood pressure 84 mm[Hg] Wenceslao Solorzanode DO Work Phone: [facility] 01-08-2023 09:35-0400 Heart rate 83 /min Wenceslao Becker DO Work Phone: [facility] 01-08-2023 09:35-0400 Systolic blood pressure 122 mm[Hg] Wenceslao Solorzanode DO Work Phone: [facility] Encounters Encounter Date Encounter Type Care Provider Facility Start: 05-23-2024 ambulatory TODD DomiTheo [facility] Ambulatory Start: 05-20-2024 End: 05-20-2024 ambulatory [facility] Start: 04-01-2024 End: 04-01-2024 ambulatory [place] [facility] Start: 03-22-2024 End: 03-22-2024 Office outpatient visit 15 minutes Nj Paul MD Work Phone: [facility] Comment on above: Graves disease (Prim lila Dx); Elevated LFTs Start: 03-22-2024 End: 03-22-2024 ambulatory TODD L. [facility] Start: 03-17-2024 End: 03-17-2024 ambulatory [place] [facility] Start: 03-17-2024 End: 03-17-2024 Subsequent hospital visit by physician Todd Isaac DO Work Phone: [facility] Start: 03-16-2024 End: 03-16-2024 Refill Jaelyn Ramon CNP Work Phone: [facility] Comment on above: Hyperthyroidism (Tanisha torie Dx) Start: 02-01-2024 End: 02-01-2024 ambulatory TODD [facility]OWELLEVA [facility] Start: 12-30-2023 ambulatory TODD Fink [facility]ulatory Start: 12-21-2023 End: 12-21-2023 ambulatory [place] [facility] Start: 12-21-2023 End: 12-21-2023 Subsequent hospital visit by physician Todd Isaac DO Work Phone: [facility] Start: 11-27-2023 End: 11-27-2023 Office outpatient visit 25 minutes Nj Paul MD Work Phone: [facility] Comment on above: Graves disease (Prim lila Dx) Start: 11-27-2023 End: 11-27-2023 ambulatory TODD Fink [facility] Start: 11-23-2023 End: 11-23-2023 ambulatory JAELYN [facility] Start: 10-30-2023 Orders Only Jaelyn irby CNP Work Phone: [facility] Comment on above: Graves disease (Prim lila Dx) Start: 10-27-2023 ambulatory TODD Duron [facility] Start: 10-26-2023 End: 10-26-2023 ambulatory JAELYN [facility] Start: 10-22-2023 End: 10-22-2023 ambulatory TODD [facility]VA [facility] Start: 09-28-2023 End: 09-28-2023 ambulatory JAELYN [facility] Start: 08-28-2023 End: 09-01-2023 ambulatory TODD Fink [facility] Start: 08-28-2023 End: 08-28-2023 Office outpatient new 60 minutes Jaelyn Ramon [employer]UMBING [employer]SEMBLER INSTALLER Work Phone: [facility] Comment on above: Hyperthyroidism (Tanisha torie Dx) Start: 08-28-2023 End: 08-28-2023 ambulatory TODD Fink [facility] Start: 08-17-2023 End: 08-17-2023 ambulatory [facility]D [facility] Start: 07-03-2023 End: 07-03-2023 ambulatory [facility] Start: 06-17-2023 End: 06-17-2023 [facility] Start: 01-08-2023 End: 01-08-2023 Clinical Support Sana Moreno Work Phone: [facility] Comment on above: Tinnitus of right ea r (Primary Dx); Right-sided tinnitus Start: 01-08-2023 End: 01-08-2023 Office outpatient new 45 minutes Wenceslao Nicolejun Eugenio DO Work Phone: [facility] ENT Physicians Comment on above: Globus sensation (Pr imary Dx); Right-sided tinnitus; Abnormal tympanic membrane of right ear; Dysphagia, unspecified type Start: 12-12-2022 End: 12-12-2022 Subsequent hospital visit by physician Nickie Correa PT [facility] Comment on above: Arrived Start: 12-04-2022 End: 12-04-2022 Subsequent hospital visit by physician Renetta Alvarez [facility] Comment on above: Arrived Start: 12-01-2022 End: 12-04-2022 ambulatory TODD L PONCHO [facility] Start: 12-01-2022 End: 12-03-2022 Subsequent hospital visit by physician [facility] Ultrasound Room [facility] Ultrasound Comment on above: Thyromegaly Start: 12-01-2022 End: 12-01-2022 Subsequent hospital visit by physician Renetta Alvarez [facility] Comment on above: Arrived Start: 11-24-2022 End: 11-24-2022 Subsequent hospital visit by physician Renetta Alvarez [facility] Comment on above: Arrived Start: 11-20-2022 End: 11-20-2022 Subsequent hospital visit by physician Nickie Correa PT [facility] Comment on above: Arrived Start: 11-19-2022 End: 11-19-2022 Subsequent hospital visit by physician Nickie Correa PT [facility] Comment on above: Arrived Start: 11-11-2022 End: 11-11-2022 Subsequent hospital visit by physician Nickie Correa PT [facility] Comment on above: Arrived Start: 11-07-2022 End: 11-07-2022 Subsequent hospital visit by physician Nickie Correa PT [facility] Comment on above: Arrived Start: 10-27-2022 End: 10-27-2022 Subsequent hospital visit by physician Todd Isaac DO Work Phone: [facility] Comment on above: Weight gain; Abnormal glucose; Screening for cardiovascular condition Start: 06-11-2022 End: 06-12-[address] DOCTOR SCOTT Facility: Start: 12-14-2020 End: 12-16-2020 Subsequent hospital visit by physician [facility] Mri [facility]anner [facility] MRI Comment on above: 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; Severe low back pain Start: 05-09-2020 End: 05-09-2020 Subsequent hospital visit by physician Todd Isaac [facility] Comment on above: Vaginal discharge; Cervical cancer screening Start: 04-02-2020 End: 04-02-2020 Subsequent hospital visit by physician Nickie Correa [facility] Comment on above: Arrived Start: 03-27-2020 End: 03-27-2020 Subsequent hospital visit by physician Nickie Correa [facility] Comment on above: Arrived Start: 03-19-2020 End: 03-19-2020 Subsequent hospital visit by physician Nickie Correa [facility] Comment on above: Arrived Start: 03-14-2020 End: 03-16-2020 Subsequent hospital visit by physician [facility] Additional Xray At [facility] Comment on above: Chronic bilateral lo w back pain without sciatica Procedures Date Procedure Procedure Detail Performing Clinician Start: 03-17-2024 Assay of free thyroxine Nj Paul MD Work Phone: Start: 03-17-2024 Hepatic function panel Nj Paul MD Work Phone: Start: 12-21-2023 Assay of free thyroxine Nj Paul MD Work Phone: Start: 12-21-2023 Hepatic function panel Nj Paul MD Work Phone: Start: 08-28-2023 Assay of free thyroxine Jaelyn Ramon [employer]SEM[employer]ER Work Phone: Start: 08-28-2023 Hepatic function panel Jaelyn Ramon [employer]UMB[employer] ASSEM[employer]ER INSTALLER Work Phone: Start: 06-22-2023 Mammography Jaelyn varela [employer]SEM[employer] IN[employer]ER Work Phone: Start: 06-17-2023 Colonoscopy Todd avina DO Work Phone: Start: 12-01-2022 Us soft tissue head & neck real time imge docm Todd Isaac DO Work Phone: Start: 10-27-2022 Basic metabolic pane l calcium total Todd Isaac DO Work Phone: Start: 05-21-2021 Microscopic observat ion [Identifier] in Cervix by Cyto stain Todd Isaac DO Work Phone: Start: 12-14-2020 Mri spinal canal lum bar w/o contrast material Todd Isaac DO Work Phone: Start: 03-14-2020 Radex spine lumbosac ral minimum 4 views Todd Isaac Work Phone: Plan of Treatment Date Care Activity Detail Author Start: 06-17-2033 Screening for malignant neoplasm of colon [facility] Start: 06-19-2028 Lipid panel Lipids [facility] Start: 05-21-2026 Screening for malignant neoplasm of cervix [facility] Start: 10-27-2025 Diabetes screen Diabetes screen [facility] Start: 06-22-2025 Screening for malignant neoplasm of breast Breast cancer screen [facility] Start: 09-28-2024 Depression Screen Depression Screen [facility] Start: 07-04-2024 End: 07-04-2024 Patient encounter procedure 07/04/2024 8:45 AM EST Office Visit [facility] [address] [facility] [place] [address] Nj Paul MD [address] [place] [id number] [facility] Start: 06-22-2024 Screening for malignant neoplasm of breast Mammogram [facility] Start: 05-21-2024 Screening for malignant neoplasm of cervix Pap smear [facility] Start: 04-03-2024 Influenza vaccination Influenza Vaccine (#1) [facility] Start: 03-28-2024 End: 03-28-2024 Patient encounter procedure 03/28/2024 8:00 AM EDT Office Visit [facility] BILL [address] [place] [address] Todd Isaac, [address] [place] [address] 6 mos - Anxiety [facility] BILL Comment on above: 6 mos - Anxiety Start: 03-22-2024 End: 03-22-2024 Patient encounter procedure 03/22/2024 8:00 AM EDT [facility] [facility] [address] [facility] [place] [address] Nj Paul MD [address] [place] [address] [id number] [facility] Start: 03-03-2024 Influenza vaccination Flu vaccine (#1) [facility] Start: 11-27-2023 End: 11-27-2023 Patient encounter procedure 11/27/2023 8:00 AM EDT Office Visit [facility] [address] [facility] [place] [address] Nj Paul MD [address] [place] [address] [facility] Start: 11-23-2023 End: 10-29-2024 Hepatic function 2000 panel - Serum or Plasma Hepatic function panel Lab Routine Graves disease Expected: 11/23/2023, Expires: 10/29/2024 [facility] Work Phone: Comment on above: Expected: 11/23/2023, Expires: Start: 10-28-2023 Depression Screen Depression Screen [facility] Start: 2023 Administration of herpes zoster vaccine Zoster Vaccines (1 of 2) [facility] Start: 2023 Screening for malignant neoplasm of colon Flexible sigmoidoscopy [facility] Start: 2023 Shingles vaccine (1 of 2) Shingles vaccine (1 of 2) [facility] Start: 06-17-2023 End: 06-17-2023 Admission to same day surgery center 06/17/2023 Surgery IP Unit Carmen Jorgensen MD [address] [place] [id number] COLORECTAL CANCER SCREENING, HIGH RISK [facility] Comment on above: COLORECTAL CANCER SCREENING, HIGH RISK Start: 06-17-2023 End: 06-17-2023 Colorectal scrn; hi risk ind COLORECTAL CANCER SCREENING, HIGH RISK Colon cancer screening 06/17/2023 2:45 PM [facility] Start: 06-17-2023 Subsequent hospital visit by physician 06/17/2023 Hospital Encounter IP Unit Carmen Jorgensen MD [address] [place] [address] [facility] Start: 04-03-2023 COVID-19 Vaccine () COVID-19 Vaccine () [facility] Start: 12-26-2022 End: 12-26-2022 Patient encounter procedure 12/26/2022 Office Visit Family Medicine Todd Isaac, DO [address] [place] [id number] [facility] Start: 12-12-2022 End: 12-12-2022 Patient encounter procedure 12/12/2022 Appointment Physical Therapy Nickie Correa, PT [facility] Start: 12-09-2022 End: 12-09-2022 Patient encounter procedure [facility] Start: 12-08-2022 End: 12-08-2022 Patient encounter procedure 12/08/2022 Appointment Physical Therapy Renetta Alvarez [facility] Start: 12-04-2022 End: 12-04-2022 Patient encounter procedure 12/04/2022 Appointment Physical Therapy Renetta Alvarez [facility] Start: 12-04-2022 Subsequent hospital visit by physician 12/04/2022 Hospital Encounter Physical Renetta Mckeon [facility] Start: 12-01-2022 End: 12-01-2022 Patient encounter procedure 12/01/2022 Appointment Physical Renetta Mckeon [facility] Start: 11-28-2022 End: 11-28-2022 Patient encounter procedure 11/28/2022 Appointment Physical Therapy Nickie Correa, PT [facility] Start: 11-26-2022 End: 11-26-2022 Patient encounter procedure 11/26/2022 Office Visit Family Todd Solomon, DO [address] [place] [phone] [facility] Start: 11-24-2022 End: 11-24-2022 Patient encounter procedure 11/24/2022 Appointment Physical Therapy Renetta Alvarez [facility] Start: 11-20-2022 End: 11-20-2022 Patient encounter procedure 11/20/2022 Appointment Physical Therapy Nickie Correa, PT [facility] Start: 11-19-2022 End: 11-19-2022 Patient encounter procedure 11/19/2022 Appointment Physical Therapy Nickie Correa, PT [facility] Start: 11-13-2022 End: 11-13-2022 Patient encounter procedure 11/13/2022 Appointment Physical Therapy Nickie Correa, PT [facility] Start: 11-11-2022 End: 11-11-2022 Patient encounter procedure 11/11/2022 Appointment Physical Therapy Nickie Correa, PT [facility] Start: 05-21-2022 History and physical examination, annual for health maintenance Wellness Visit [facility] Start: 05-09-2021 DTaP/Tdap/Td vaccine (1 - Tdap) DTaP/Tdap/Td vaccine (1 - Tdap) [place] Comment on above: Postponed from 1992 (Patient Refus ed) Start: 05-09-2021 Influenza vaccination [place] Comment on above: Postponed from 04/03/2020 (Patient Refus ed) Postponed from 04/03 (Patient Refused) Start: 05-09-2021 Screening for malignant neoplasm of cervix Cervical cancer screen [facility] [employer] Work Phone: Start: 04-25-2020 End: 04-25-2020 Office Visit 04/25/2020 Office Visit Family Medicine Todd Isaac DO [address] [place] [address] [facility] Start: 04-03-2020 Influenza vaccination Flu vaccine (#1) [place] Start: 04-02-2020 End: 04-02-2020 Appointment 04/02/2020 Appointment Physical Therapy Nickie Correa, PT [facility] Start: 03-27-2020 End: 03-27-2020 Appointment 03/27/2020 Appointment Physical Therapy Nickie Correa, PT [facility] Start: 03-19-2020 End: 03-19-2020 Appointment 03/19/2020 Appointment Physical Therapy Nickie Correa, PT [facility] Start: 2018 Screening for malignant neoplasm of colon [facility] [employer] Start: 09-26-2016 Screening for malignant neoplasm of cervix Cervical cancer screen [place] Start: 2013 Diabetes screen Diabetes screen [place] Start: 2013 Lipid panel [facility] Start: 2013 Screening for malignant neoplasm of breast Mammogram [facility] Start: 2003 Screening for malignant neoplasm of cervix [facility] Start: 1994 Screening for malignant neoplasm of cervix Pap Smear [facility] Start: 1992 DTaP/Tdap/Td vaccine (1 - Tdap) DTaP/Tdap/Td vaccine (1 - Tdap) [facility] Start: 1992 Hepatitis B vaccine (1 of 3 - 19+ 3-dose series) Hepatitis B vaccine (1 of 3 - 19+ 3-dose series) [facility] Start: 1991 Hepatitis C screening [facility] Start: 1988 HIV screening [facility] Start: 1985 Depression screening using PHQ-9 (Patient Health Questionnaire 9) score [facility] Start: 1973 Hepatitis B vaccine (1 of 3 - 3-dose series) Hepatitis B vaccine (1 of 3 - 3-dose series) [facility] Start: 1973 Hepatitis C screening Hepatitis C screen [facility] [employer] Work Phone: Start: 1973 Screening for malignant neoplasm of cervix Pap Smear [facility] Start: 1973 Screening for malignant neoplasm of colon [facility] Start: 1973 Tetanus vaccination Tetanus: Every 10yrs [facility] End: 05-09-2020 Chlamydia/GC DNA, Thin Prep Chlamydia/GC DNA, Thin Prep Microbiology Routine Vaginal discharge 1 Occurrences starting 05/09/2020 until 05/09/2020 [place] Comment on above: 1 Occurrences starting 05/09/2020 until 05/09/2020 Chlamydia/GC DNA, Th in Prep Chlamydia/GC DNA, Thin Prep Microbiology Routine Vaginal discharge 05/09/2020 11:07 AM EDT [facility] End: 05-09-2020 Cytopathology procedure, preparation of smear, genital source PAP Smear Lab Routine Cervical cancer screening 1 Occurrences starting 05/09/2020 until 05/09[facility]: 1 Occurrences starting 05/09/2020 until 05/09/2020 Hepatic function 200 0 panel - Serum or Plasma Hepatic function panel Lab Routine Hyperthyroidism Ordered: 09/02/2023 [facility] Work Phone: Comment on above: Ordered: 09/02/2023 End: 11-26-2024 Hepatic function 2000 panel - Serum or Plasma Hepatic function panel Lab Routine Graves disease 12 Occurrences starting 11/27/2023 until 11/26/2024 [facility] Comment on above: 12 Occurrences starting 11/27/2023 until 11/26/2024 Thyrotropin [Units/volume] in Serum or Plasma TSH Lab Routine Hyperthyroidism Ordered: 09/02/2023 [facility] Comment on above: Ordered: 09/02/2023 End: 11-26-2024 Thyrotropin [Units/volume] in Serum or Plasma TSH Lab Routine Graves disease 12 Occurrences starting 11/27/2023 until 11/26/2024 [facility] Work Phone: Comment on above: 12 Occurrences starting 11/27/2023 until 11/26/2024 Thyroxine (T4) free [Mass/volume] in Serum or Plasma T4, free Lab Routine Hyperthyroidism Ordered: 09/02/2023 [facility] Comment on above: Ordered: 09/02/2023 End: 11-26-2024 Thyroxine (T4) free [Mass/volume] in Serum or Plasma T4, free Lab Routine Graves disease 12 Occurrences starting 11/27/2023 until 11/26/2024 [facility] Comment on above: 12 Occurrences starting 11/27/2023 until 11/26/2024 Triiodothyronine (T3 ) [Mass/volume] in Serum or Plasma T3 Lab Routine Hyperthyroidism Ordered: 09/02/2023 [facility] Comment on above: Ordered: 09/02/2023 End: 11-26-2024 Triiodothyronine (T3) [Mass/volume] in Serum or Plasma T3 Lab Routine Graves disease 12 Occurrences starting 11/27/2023 until 11/26/2024 [facility] Comment on above: 12 Occurrences starting 11/27/2023 until 11/26/2024 Immunizations Immunization Date Immunization Notes Care Provider Deanna casey 06-19-2023 influenza, injectabl e, quadrivalent, preservative free Todd Yonley DO Work Phone: [facility] 06-19-2023 influenza virus vaccine, unspecified formulation Jaelyn Ramon [employer] Work Phone: [facility] 05-30-2022 influenza, injectabl e, quadrivalent, preservative free Todd Yonley DO [facility] Phone[facility] Work Phone: 05-24-2021 influenza, injectabl e, quadrivalent, preservative free Todd Yonley DO Work Phone[facility] Work Phone: 05-24-2021 Pfizer SARS-CoV-2 Vaccination Wenceslao Becker DO Work Phone: [facility] 11-23-2020 COVID-19, Pfizer, PF , 30mcg/0.3mL [facility] 11-02-2020 COVID-19, Pfizer, PF , 30mcg/0.3mL Mwh [facility] Work Phone: Payers Date Payer Category Payer Private Health Insurance MAYA TREJO [id number] 2022-Present [phone] [id number] [place] [id number] 1975 Unknown [id number] [id number] .593 1973 Unknown [id number] 2.16.840.1.345347.3.579.2 .173 1973 Unknown [id number] 2.16.840.1.377134.3.579.2 .173 1973 Unknown [id number] 2.16.840.1.164747.3.579.2 .903 1973 Unknown [id number] 2.16.840.1.582074.3.579.2 .93 1973 Unknown [id number] 2.16.840.1.412161.3.579.2 .174 1973 Unknown [id number] 2.16.840.1.786967.3.579.2 .174 1973 Unknown [id number] 2.16.840.1.769093.3.579.2 .174 1973 Unknown [id number] 2.16.840.1.853652.3.579.2 .174 1973 Unknown [id number] 2.16.840.1.090459.3.579.2 .174 1973 Unknown [id number] 2.16.840.1.238215.3.579.2 .174 1973 Unknown [id number] 2.16.840.1.721170.3.579.2 .174 1973 Unknown [id number] 2.16.840.1.248289.3.579.2 .174 1973 Unknown [id number] 2.16.840.1.574212.3.579.2 .174 1973 Unknown [id number] 2.16.840.1.053554.3.579.2 .174 1973 Unknown [id number] 2.16.840.1.059742.3.579.2 .174 1973 Unknown [id number] 2.16.840.1.239955.3.579.2 .903 1973 Unknown [id number] 2.16.840.1.765353.3.579.2 .903 1973 Unknown [id number] 2.16.840.1.536988.3.579.2 .903 1973 Unknown [id number] 2.16.840.1.695783.3.579.2 .903 1973 Unknown [id number] 2.16.840.1.804478.3.579.2 .903 1959 Unknown [id number] .[id number] Social History Date Type Detail Facility Start: 03-14-2020 End: 01-08-2023 Tobacco smoking status NHIS [facility] smoker [facility] [place] Start: 03-14-2020 End: 01-08-2023 Tobacco use and exposure Never used [place] Start: 03-14-2020 End: 03-22-2024 Alcohol intake Current drinker of alcohol (finding) [place] Start: 1975 Sex Assigned At Not on file [place] Start: 04-25-2020 End: 10-27-2022 History SDOH Financial 5 [facility] [place] Start: 04-25-2020 End: 10-27-2022 History SDOH Food Worry 1 [facility] [place] Start: 10-27-2022 History SDOH Transpo rt Non-Med 2 [employer] Work Phone: Start: 01-08-2023 [facility] Start: 01-08-2023 End: 11-27-2023 Gender identity Not on file [facility] Start: 01-08-2023 End: 11-27-2023 History of Social function [facility] Start: 08-28-2023 Alcohol Comment socially [facility] How hard is it for y ou to pay for the very basics like food, housing, medical care, and heating Not hard at all [employer] (I/We) worried wheth er (my/our) food would run out before (I/we) got money to buy more. Never true [employer] At any time in the past 12 months, were you homeless or living in [facility] [including now]? No [employer] Clinical Notes 11-07-2022 to 03-22-2024 Patient InstructionsNj Paul MD - 03/22/2024 8:00 AM EDTTelephone Encounter - Jaelyn RamonWIN - 03/16/2024 4:23 PM EDTPatient InstructionsPatient Instructions Note Date & Type Note Facility 03-22-2024 Instructions Nj Paul MD - 03/22/2024 8:28 AM EDT Keep on methimazole 5 mg daily for now. Please have the liver function tests repeated in ~1-2 weeks to make sure they are not worsening. Let me know in case of abdominal pain, nausea/vomiting, change in eye/urine/stool color. Have the thyroid tests repeated in ~2 months if symptoms are stable. In case of change in symptoms as discussed today, please have the thyroid labs checked sooner. documented in this encounter [facility] 03-22-2024 History of Present illness Narrative Images from the original note were not included. Reason for visit/chief complaint: hyperthyroidism Date: 03/22/2024 Referring Provider: No ref. provider found Primary Care Provider: Todd Isaac DO HPI: Interval hx/subjective: 03/22/2024: She has been on MMI 5 mg daily. No missed doses. No side effects. No abdominal pain, nausea, decreased appetite, bloating, change in urine/stool/eye color. No fatigue, palpitations, tremors. No heat/cold intolerance. Bms are normal. Weight has been stable. No hair loss, dry skin. Leg rash is improving. No eye symptoms. No neck compressive symptoms. No biotin/MVI. No E supplementation. 11/27/2023: She has not been taking any biotin/MVI supplements even before she started having those abnormal thyroid labs. She has been on MMI 5 mg daily since 08/2023. No missed doses. No side effects noticed. No fatigue, palpitations, tremors, heat/cold intolerance. Has chronic constipation (stable over long time). She has been intentionally working on losing weight. No dry skin/hair loss. Doesn't smoke and no one smokes at home. No eye symptoms. No neck compressive symptoms. She takes metoprolol for many years for migraine. She had leg rash biopsy and saw dermatology who didn't think it's related to Graves. No estrogen supplements. Background from the initial consult note from 08/28/2023: Ms. Huynh is a 48 y.o. female with hx of Migraine, chronic back pain and newly found hyperthyroidism. Hyperthyroidism was initially noted on workplace health screening labs in June of 2023. Prior to these labs, she had normal TSH levels in 2019 and october of 2022. Patient notes in December of 2022, PCP felt neck looked enlarged. Thyroid ultrasound was ordered at that time. No nodules or increased vascularity or enlargement noted. Patient denies symptoms or complaints of changes in her neck/dysphagia, etc. at the time of the ultrasound. Her TSH was normal in October of 2022 (and the next available TSH was suppressed in June of 2023.). No biotin supplements. No hormone therapy (OC stopped in January). No recent steroids. Ms. Huynh endorses constipation and tremors palpitations--chronic constipation and occ palpitations, mild, both unchanged for years now. The tremor is new/very slight when applying eye makeup. Does note increased facial sweating post showering since the summer--odd for her in the winter. Rash bilateral lower extremities since spring. No fatigue, cold intolerance, constipation, dry skin, hair loss, muscle weakness/pain, menstrual abnormalities, diarrhea/hyperdefecation, heat intolerance, excessive anxiety/nervousness, or weight change. Has gradually lost weight , explained by efforts to lose she states, no unexplained weight loss. She has No red/dry eyes, bulging eyes, or double vision. In regards to mechanical/obstructive symptoms, She endorses No neck lump/swelling, neck pain, dysphagia, choking on food, voice changes, or pressure/choking sensation. Rash anterior bilateral shins--itchy intermittent, since spring--has tried topical steroids without improvement Risk factors: -Hx of autoimmune diseases: no -Family hx of thyroid disease/cancer: father hypothyroid, maternal aunt thyroid disorder/cousin's daughter thyroid cancer -Hx of thyroid surgery: no -Hx of high risk/interfering medications: no -Recent URI/: no/ no (LMP 08/17/23 dari) -Hx of head/neck irradiation: no -Smoking: no Prior liver or hematologic disorders: None Review of Systems: as per HPI Medical History: Past Medical History: Diagnosis Date Anxiety Migraines Seizures (HCC) Surgical History: Past Surgical History: Procedure Laterality Date TONSILLECTOMY WISDOM TOOTH EXTRACTION Family History: Family History Problem Relation Age of Onset Hypothyroidism Father Cancer Sister Cancer Maternal Aunt Cancer Maternal Grandmother Social History: Social History Socioeconomic History Marital status: Tobacco Use Smoking status: Never Smokeless tobacco: Never Vaping Use Vaping status: Never Used Substance and Sexual Activity Alcohol use: Yes Comment: socially Drug use: Never Social Determinants of Health Financial Resource Strain: Low Risk (10/27/2022) Received from [facility] Overall Financial Resource Strain (CARDIA) Difficulty of Paying Living Expenses: Not hard at all Food Insecurity: No Food Insecurity (10/27/2022) Received from [facility] Hunger Vital Sign Worried About Running Out of Food in the Last Year: Never true Ran Out of Food in the Last Year: Never true Transportation Needs: Unknown (10/27/2022) Received from [facility] PRAPARE - Transportation Lack of Transportation (Non-Medical): No Housing Stability: Unknown (10/27/2022) Received from [facility] Housing Stability Vital Sign Unstable Housing in the Last Year: No Allergies: Allergies Allergen Reactions Erythromycin Hives Penicillins Hives Current Medications: Current Outpatient Medications Medication Sig Dispense Refill DULoxetine (CYMBALTA) 60 MG capsule Take 1 (one) capsule (60 mg total) by mouth daily . magnesium hydroxide (MOM) 400 mg/5 mL Susp 30 mL po daily up to twice a week as needed for constipation methIMAzole (TAPAZOLE) 5 MG tablet Take 1 (one) tablet (5 mg total) by mouth daily . 30 tablet 11 metoprolol succinate (TOPROL-XL) 50 MG 24 hr tablet polyethylene glycol (GLYCOLAX) 17 gram/dose powder 1/2 capful daily No current facility-administered medications for this visit. Patient is not taking Norethindrone since 01/23. Physical Exam: Vitals: BP 111/74 Pulse (!) 58 Wt 84.2 kg (185 lb 9.6 oz) BMI 27.41 kg/m , Body mass index is 27.41 kg/m ., Wt Readings from Last 3 Encounters: 03/22/24 84.2 kg (185 lb 9.6 oz) 11/27/23 82.4 kg (181 lb 9.6 oz) 08/28/23 85.7 kg (189 lb) General/Constitutional: , well-developed and in no distress Eyes: no proptosis, mild redness Cardiovascular: regular rhythm Pulmonary/Chest: effort normal Neurological: alert and oriented, no focal deficits, no tremors, DTRs normal Skin: warm, tiny dark spot on the R leg only Psychiatric: appropriate affect Lab/Imaging Data: Lab Results Component Value Date WBC 4.91 08/28/2023 HGB 14.3 08/28/2023 HCT 45.5 08/28/2023 MCV 92.3 08/28/2023 PLT 251 08/28/2023 No results found for: GLUCOSE , NA , K , CL , BUN , CREATININE Lab Results Component Value Date ALT 112 (H) 08/28/2023 AST 74 (H) 08/28/2023 ALKPHOS 142 08/28/2023 BILITOT 0.5 08/28/2023 Lab Results Component Value Date TSH <0.01 (L) 08/28/2023 [id number] 242 (H) 08/28/2023 No results found for: PTH , CALCIUM , YUDITH , PHOS No results found for: LDLCALC , CHOL , HDL , TRIG , CHOLHDL THYROID ULTRASOUND 12/01/2022: COMPARISON: None. HISTORY: ORDERING SYSTEM PROVIDED HISTORY: Thyromegaly TECHNOLOGIST PROVIDED HISTORY: This procedure can be scheduled via [employer]. Access your [employer] account by visiting [employer]. thyromegaly FINDINGS: Right thyroid lobe: 50 x 12 x 18 mm Left thyroid lobe: 46 x 13 x 16 mm Isthmus: 2 mm Thyroid Gland: Thyroid gland demonstrates normal echotexture and vascularity. Nodules: No thyroid nodules are present. Cervical lymphadenopathy: No abnormal lymph nodes in the imaged portions of the neck. 03/03/2019: TSH 2.260, creatinine 0.7, AST 17, ALT 11, alkaline phosphatase 61, total bilirubin 0.43. 10/27/2022: TSH 2.27, creatinine 0.76, EGFR greater than 60. 06/19/2023: TSH 0.01 07/03/2023: TSH 0.015, free T4 1.8 (0.9-1.7) 08/17/23: TSH less than 0.01, free T4 2.2 (0.9-1.7), free T3 6.03 (2.02-4.43), TRAb 4.96 (<1.75), TPO 79, thyroglobulin antibody 275 08/28/23: TSH <0.01, free T4-2.2, T3 242. AST 74, ALT 112, total bilirubin 0.5, direct bili 0.1, alkaline phosphatase 142. White blood cell count 4.91, hemoglobin 14.3, platelets 251,000. Thyroid-stimulating immunoglobulin, 5.2. 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 And eczematous process such as atopic or contact dermatitis cannot be excluded. Clinical correlation is recommended. 12/21/2023: TSH 0.01, FT4 1.1, T3 100, alb 4.1, marie 0.4, ALT 29, AST 26, ALP 114 (high, improving, range <104) 02/01/2024: TSH 0.08, FT4 1.2, T3 90, ALP 127 (range <104), other LFTs normal 03/17/2024: TSH 0.64, FT4 1, T3 88, ALP 136 (high, range <104), AST 49 (high, range <32), ALT 68 (high, range <33), marie 0.3, albumin 3.9 Assessment and plan: Ms. Huynh is a 48 y.o. female with hx of Migraines and chronic low back pain. She was recently found to have a low TSH on workplace screening labs late in 2022. Subsequent evaluation by PCP revealed suppressed TSH with elevated FT4 and FT3 and positive TRAB. She has minimal symptoms that may be related to hyperthyroidism but denies severe symptoms and by clinical examination appears euthyroid. Her thyroid gland is mildly irregular to palpation but does not feel enlarged or nodular. She did have a thyroid ultrasound done in December of 2022--this was prior to known abnormal thyroid function tests (noted in June of 2023). No nodules, enlargement or increased vascularity noted on December 2022 thyroid ultrasound. Her findings are most consistent with Graves hyperthyroidism with TSH suppression, elevated FT4 and 3 and postive TRAB. Today will check TFTs with TSI and baseline CBC and LFTs in anticipation of methimazole initiation. May consider repeat thyroid ultrasound as prior was done before abnormal TFTs were found. Increased vascularity on the ultrasound and elevated TSI would also support diagnosis of Graves disease. Discussed with patient the causes of hyperthyroidism and treatment options including anti-thyroid medication (methimazole) or RUEDA therapy. We discussed that methimazole treatment for 1-2 years is preferred with hope that she would go into remission. Reviewed possible side effects of methimazole and medication precautions during treatment. We also discussed other possible manifestations of Graves disease to monitor for and report (especially changes in the appearance of eyes or vision changes). Will follow up with patient after additional test results rec'd. Patient prefers to do future labs/imaging at local facility. Post visit labs 08/28/23: TSH less than 0.01, free T4-2.2, T3 242. AST 74, ALT 112, total bilirubin 0.5, direct bili 0.1, alkaline phosphatase 142. White blood cell count 4.91, hemoglobin 14.3, platelets 251,000. Thyroid-stimulating immunoglobulin, 5.2. Reviewed with Dr. Paul: We do not need to repeat the ultrasound given positive antibodies indicative of Graves'. Will start methimazole 5 mg once daily. Elevated liver function test could possibly be related to her hyperthyroidism, will monitor closely and hopefully will improve with improved thyroid levels. Patient notified via [employer] message. Repeat liver enzymes, TFT orders mailed to patient to do in 4 weeks. Patient is advised to notify us of any symptom changes or possible signs of side effects related to the medication interim. 11/27/2023: FT4 and T3 have normalized after starting MMI 5 mg daily in late 08/2023, and remained stable till now, TSH is still low fluctuating between <001 and 0.01; last result was 0.01 in 11/2023. Since TSH can take a long time to normalize, I will keep her on same Mmi dose of 5 mg daily for now. LFTs still show some mild elevation in enzymes with normal marie and alb (already had some elevation before starting MMI, but without high ALP). Will repeat TFTs along with LFTs in 1 month. Instructed patient to to hold the medicine and let us know right away in case of developing concerning side effects. She saw dermatology for her leg rash and was not thought to be related to Graves per patient. 03/22/2024: TFTs continued to improve and in 03/2024, TSH normalized on the same MMI dose 5 mg daily. LFTs show some elevation in enzymes (below or at 2 times ULN, but ALT/AST increased compared to last time) with normal marie and albumin. Will keep on same MMI dose for now and keep a close eye on LFTs; will repeat LFTs after ~1-2 weeks to make sure not worsening, and planning to repeat TFTs after 2 months to make sure they will remain stable; sooner in case of change in symptoms. Counseled on avoiding exposure to smoking. Return in about 4 months (around 07/22/2024) for Graves f/u. Time spent reviewing chart, during the encounter, putting orders and coordinating care on the encounter day is 20 minutes. Nj Paul MD Endocrinology documented in this encounter [facility] 03-22-2024 Note Reason for visit/chi ef complaint: hyperthyroidism Date: 03/22/2024 Referring Provider: No ref. provider found Primary Care Provider: Todd Isaac DO HPI: Interval hx/subjective: 03/22/2024: She has been on MMI 5 mg daily. No missed doses. No side effects. No abdominal pain, nausea, decreased appetite, bloating, change in urine/stool/eye color. No fatigue, palpitations, tremors. No heat/cold intolerance. Bms are normal. Weight has been stable. No hair loss, dry skin. Leg rash is improving. No eye symptoms. No neck compressive symptoms. No biotin/MVI. No E supplementation. 11/27/2023: She has not been taking any biotin/MVI supplements even before she started having those abnormal thyroid labs. She has been on MMI 5 mg daily since 08/2023. No missed doses. No side effects noticed. No fatigue, palpitations, tremors, heat/cold intolerance. Has chronic constipation (stable over long time). She has been intentionally working on losing weight. No dry skin/hair loss. Doesn't smoke and no one smokes at home. No eye symptoms. No neck compressive symptoms. She takes metoprolol for many years for migraine. She had leg rash biopsy and saw dermatology who didn't think it's related to Graves. No estrogen supplements. Background from the initial consult note from 08/28/2023: Ms. Huynh is a 48 y.o. female with hx of Migraine, chronic back pain and newly found hyperthyroidism. Hyperthyroidism was initially noted on workplace health screening labs in June of 2023. Prior to these labs, she had normal TSH levels in 2018 and october of 2022. Patient notes in December of 2022, PCP felt neck looked enlarged. Thyroid ultrasound was ordered at that time. No nodules or increased vascularity or enlargement noted. Patient denies symptoms or complaints of changes in her neck/dysphagia, etc. at the time of the ultrasound. Her TSH was normal in October of 2022 (and the next available TSH was suppressed in June of 2023.). No biotin supplements. No hormone therapy (OC stopped in January). No recent steroids. Ms. Huynh endorses constipation and tremors palpitations--chronic constipation and occ palpitations, mild, both unchanged for years now. The tremor is new/very slight when applying eye makeup. Does note increased facial sweating post showering since the summer--odd for her in the winter. Rash bilateral lower extremities since spring. No fatigue, cold intolerance, constipation, dry skin, hair loss, muscle weakness/pain, menstrual abnormalities, diarrhea/hyperdefecation, heat intolerance, excessive anxiety/nervousness, or weight change. Has gradually lost weight , explained by efforts to lose she states, no unexplained weight loss. She has No red/dry eyes, bulging eyes, or double vision. In regards to mechanical/obstructive symptoms, She endorses No neck lump/swelling, neck pain, dysphagia, choking on food, voice changes, or pressure/choking sensation. Rash anterior bilateral shins--itchy intermittent, since spring--has tried topical steroids without improvement Risk factors: -Hx of autoimmune diseases: no -Family hx of thyroid disease/cancer: father hypothyroid, maternal aunt thyroid disorder/cousin's daughter thyroid cancer -Hx of thyroid surgery: no -Hx of high risk/interfering medications: no -Recent URI/: no/ no (LMP 08/17/23 dari) -Hx of head/neck irradiation: no -Smoking: no Prior liver or hematologic disorders: None Review of Systems: as per HPI Medical History: Past Medical History: Diagnosis Date Anxiety Migraines Seizures (HCC) Surgical History: Past Surgical History: Procedure Laterality Date TONSILLECTOMY WISDOM TOOTH EXTRACTION Family History: Family History Problem Relation Age of Onset Hypothyroidism Father Cancer Sister Cancer Maternal Aunt Cancer Maternal Grandmother Social History: Social History Socioeconomic History Marital status: Tobacco Use Smoking status: Never Smokeless tobacco: Never Vaping Use Vaping status: Never Used Substance and Sexual Activity Alcohol use: Yes Comment: socially Drug use: Never Social Determinants of Health Financial Resource Strain: Low Risk (10/27/2022) Re[facility] from [facility] Overall Financial Resource Strain (CARDIA) Difficulty of Paying Living Expenses: Not hard at all Food Insecurity: No Food Insecurity (10/27/2022) Received from [facility] Hunger Vital Sign Worried About Running Out of Food in the Last Year: Never true Ran Out of Food in the Last Year: Never true Transportation Needs: Unknown (10/27/2022) Received from [facility] PRAPARE - Transportation Lack of Transportation (Non-Medical): No Housing Stability: Unknown (10/27/2022) Received from [facility] (more content not included)... [facility] 03-16-[address] Paul, could you please renew for patient since you saw patient last? Thank you [facility] 03-16-[address] Paul, could you please renew for patient since you saw patient last? Thank you documented in this encounter [facility] 11-27-2023 Instructions Nj Paul MD - 11/27/2023 8:40 AM EDT Please have labs repeated in 1 month (liver and thyroid). Methimazole: This medicine is usually well tolerated, but you need to be aware of possible side effects including decrease in blood cell counts, liver dysfunction, joint/muscle aches, rash, nausea, altered taste sensation. Let me know if you develop sore throat, fever, any infection, abdominal pain/bloating, loss of appetite, nausea, vomiting, change in urine/stool color, yellowish eye discoloration (if, so you will also need to hold methimazole transiently till we make sure your labs are good). Let me know right away if you develop any concerning side effects otherwise. documented in this encounter [facility] 11-27-2023 History of Present illness Narrative Images from the original note were not included. Reason for visit/chief complaint: hyperthyroidism Date: 11/27/2023 Referring Provider: No ref. provider found Primary Care Provider: Todd Isaac DO HPI: Interval hx/subjective: 11/27/2023: She has not been taking any biotin/MVI supplements even before she started having those abnormal thyroid labs. She has been on MMI 5 mg daily since 08/2023. No missed doses. No side effects noticed. No fatigue, palpitations, tremors, heat/cold intolerance. Has chronic constipation (stable over long time). She has been intentionally working on losing weight. No dry skin/hair loss. Doesn't smoke and no one smokes at home. No eye symptoms. No neck compressive symptoms. She takes metoprolol for many years for migraine. She had leg rash biopsy and saw dermatology who didn't think it's related to Graves. No estrogen supplements. Background from the initial consult note from 08/28/2023: Ms. Huynh is a 48 y.o. female with hx of Migraine, chronic back pain and newly found hyperthyroidism. Hyperthyroidism was initially noted on workplace health screening labs in June of 2023. Prior to these labs, she had normal TSH levels in 2018 and october of 2022. Patient notes in December of 2022, PCP felt neck looked enlarged. Thyroid ultrasound was ordered at that time. No nodules or increased vascularity or enlargement noted. Patient denies symptoms or complaints of changes in her neck/dysphagia, etc. at the time of the ultrasound. Her TSH was normal in October of 2022 (and the next available TSH was suppressed in June of 2023.). No biotin supplements. No hormone therapy (OC stopped in January). No recent steroids. Ms. Huynh endorses constipation and tremors palpitations--chronic constipation and occ palpitations, mild, both unchanged for years now. The tremor is new/very slight when applying eye makeup. Does note increased facial sweating post showering since the summer--odd for her in the winter. Rash bilateral lower extremities since spring. No fatigue, cold intolerance, constipation, dry skin, hair loss, muscle weakness/pain, menstrual abnormalities, diarrhea/hyperdefecation, heat intolerance, excessive anxiety/nervousness, or weight change. Has gradually lost weight , explained by efforts to lose she states, no unexplained weight loss. She has No red/dry eyes, bulging eyes, or double vision. In regards to mechanical/obstructive symptoms, She endorses No neck lump/swelling, neck pain, dysphagia, choking on food, voice changes, or pressure/choking sensation. Rash anterior bilateral shins--itchy intermittent, since spring--has tried topical steroids without improvement Risk factors: -Hx of autoimmune diseases: no -Family hx of thyroid disease/cancer: father hypothyroid, maternal aunt thyroid disorder/cousin's daughter thyroid cancer -Hx of thyroid surgery: no -Hx of high risk/interfering medications: no -Recent URI/: no/ no (LMP 08/17/23 dari) -Hx of head/neck irradiation: no -Smoking: no Prior liver or hematologic disorders: None Review of Systems: as per HPI Medical History: Past Medical History: Diagnosis Date Anxiety Migraines Seizures (HCC) Surgical History: Past Surgical History: Procedure Laterality Date TONSILLECTOMY WISDOM TOOTH EXTRACTION Family History: Family History Problem Relation Age of Onset Hypothyroidism Father Cancer Sister Cancer Maternal Aunt Cancer Maternal Grandmother Social History: Social History Socioeconomic History Marital status: Tobacco Use Smoking status: Never Smokeless tobacco: Never Vaping Use Vaping Use: Never used Substance and Sexual Activity Alcohol use: Yes Comment: socially Drug use: Never Allergies: Allergies Allergen Reactions Erythromycin Hives Penicillins Hives Current Medications: Current Outpatient Medications Medication Sig Dispense Refill DULoxetine (CYMBALTA) 60 MG capsule Take 1 (one) capsule (60 mg total) by mouth daily . magnesium hydroxide (MOM) 400 mg/5 mL Susp 30 mL po daily up to twice a week as needed for constipation methIMAzole (TAPAZOLE) 5 MG tablet Take 1 (one) tablet (5 mg total) by mouth daily . 30 tablet 6 metoprolol succinate (TOPROL-XL) 50 MG 24 hr tablet polyethylene glycol (GLYCOLAX) 17 gram/dose powder 1/2 capful daily No current facility-administered medications for this visit. Patient is not taking Norethindrone since 01/23. Physical Exam: Vitals: BP 102/67 (BP Location: Right arm) Pulse 71 Wt 82.4 kg (181 lb 9.6 oz) BMI 26.82 kg/m , Body mass index is 26.82 kg/m ., Wt Readings from Last 3 Encounters: 11/27/23 82.4 kg (181 lb 9.6 oz) 08/28/23 85.7 kg (189 lb) 01/08/23 105.2 kg (232 lb) General/Constitutional: , well-developed and in no distress Eyes: no lid retraction (stare), no remarkable proptosis, non-icteric, no limitation in eye movement, mild redness Neck: supple, normal range of motion. No remarkable thyromegaly appreciated Cardiovascular: regular rhythm Pulmonary/Chest: effort normal Neurological: alert and oriented, no focal deficits, no tremors, DTRs normal Skin: warm and dry, small rough pinkish areas on shins Psychiatric: appropriate affect Lab/Imaging Data: Lab Results Component Value Date WBC 4.91 08/28/2023 HGB 14.3 08/28/2023 HCT 45.5 08/28/2023 MCV 92.3 08/28/2023 PLT 251 08/28/2023 No results found for: GLUCOSE , NA , K , CL , BUN , CREATININE Lab Results Component Value Date ALT 112 (H) 08/28/2023 AST 74 (H) 08/28/2023 ALKPHOS 142 08/28/2023 BILITOT 0.5 08/28/2023 Lab Results Component Value Date TSH <0.01 (L) 08/28/2023 [id number] 242 (H) 08/28/2023 No results found for: PTH , CALCIUM , YUDITH , PHOS No results found for: LDLCALC , CHOL , HDL , TRIG , CHOLHDL THYROID ULTRASOUND 12/01/2022: COMPARISON: None. HISTORY: ORDERING SYSTEM PROVIDED HISTORY: Thyromegaly TECHNOLOGIST PROVIDED HISTORY: This procedure can be scheduled via [employer]. Access your [employer] account by visiting [employer]. thyromegaly FINDINGS: Right thyroid lobe: 50 x 12 x 18 mm Left thyroid lobe: 46 x 13 x 16 mm Isthmus: 2 mm Thyroid Gland: Thyroid gland demonstrates normal echotexture and vascularity. Nodules: No thyroid nodules are present. Cervical lymphadenopathy: No abnormal lymph nodes in the imaged portions of the neck. 03/03/2019: TSH 2.260, creatinine 0.7, AST 17, ALT 11, alkaline phosphatase 61, total bilirubin 0.43. 10/27/2022: TSH 2.27, creatinine 0.76, EGFR greater than 60. 06/19/2023: TSH 0.01 07/03/2023: TSH 0.015, free T4 1.8 (0.9-1.7) 08/17/23: TSH less than 0.01, free T4 2.2 (0.9-1.7), free T3 6.03 (2.02-4.43), TRAb 4.96 (<1.75), TPO 79, thyroglobulin antibody 275 08/28/23: TSH <0.01, free T4-2.2, T3 242. AST 74, ALT 112, total bilirubin 0.5, direct bili 0.1, alkaline phosphatase 142. White blood cell count 4.91, hemoglobin 14.3, platelets 251,000. Thyroid-stimulating immunoglobulin, 5.2. 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 And eczematous process such as atopic or contact dermatitis cannot be excluded. Clinical correlation is recommended. Assessment and plan: Ms. Huynh is a 48 y.o. female with hx of Migraines and chronic low back pain. She was recently found to have a low TSH on workplace screening labs late in 2022. Subsequent evaluation by PCP revealed suppressed TSH with elevated FT4 and FT3 and positive TRAB. She has minimal symptoms that may be related to hyperthyroidism but denies severe symptoms and by clinical examination appears euthyroid. Her thyroid gland is mildly irregular to palpation but does not feel enlarged or nodular. She did have a thyroid ultrasound done in December of 2022--this was prior to known abnormal thyroid function tests (noted in June of 2023). No nodules, enlargement or increased vascularity noted on December 2022 thyroid ultrasound. Her findings are most consistent with Graves hyperthyroidism with TSH suppression, elevated FT4 and 3 and postive TRAB. Today will check TFTs with TSI and baseline CBC and LFTs in anticipation of methimazole initiation. May consider repeat thyroid ultrasound as prior was done before abnormal TFTs were found. Increased vascularity on the ultrasound and elevated TSI would also support diagnosis of Graves disease. Discussed with patient the causes of hyperthyroidism and treatment options including anti-thyroid medication (methimazole) or RUEDA therapy. We discussed that methimazole treatment for 1-2 years is preferred with hope that she would go into remission. Reviewed possible side effects of methimazole and medication precautions during treatment. We also discussed other possible manifestations of Graves disease to monitor for and report (especially changes in the appearance of eyes or vision changes). Will follow up with patient after additional test results rec'd. Patient prefers to do future labs/imaging at local facility. Post visit labs 08/28/23: TSH less than 0.01, free T4-2.2, T3 242. AST 74, ALT 112, total bilirubin 0.5, direct bili 0.1, alkaline phosphatase 142. White blood cell count 4.91, hemoglobin 14.3, platelets 251,000. Thyroid-stimulating immunoglobulin, 5.2. Reviewed with Dr. Paul: We do not need to repeat the ultrasound given positive antibodies indicative of Graves'. Will start methimazole 5 mg once daily. Elevated liver function test could possibly be related to her hyperthyroidism, will monitor closely and hopefully will improve with improved thyroid levels. Patient notified via [employer] message. Repeat liver enzymes, TFT orders mailed to patient to do in 4 weeks. Patient is advised to notify us of any symptom changes or possible signs of side effects related to the medication interim. 11/27/2023: FT4 and T3 have normalized after starting MMI 5 mg daily in late 08/2023, and remained stable till now, TSH is still low fluctuating between <001 and 0.01; last result was 0.01 in 11/2023. Since TSH can take a long time to normalize, I will keep her on same Mmi dose of 5 mg daily for now. LFTs still show some mild elevation in enzymes with normal marie and alb (already had some elevation before starting MMI, but without high ALP). Will repeat TFTs along with LFTs in 1 month. Instructed patient to to hold the medicine and let us know right away in case of developing concerning side effects. She saw dermatology for her leg rash and was not thought to be related to Graves per patient. Return in about 3 months (around 03/03/2024) for Graves f/u. Time spent reviewing chart, during the encounter, putting orders and coordinating care on the encounter day is 35 minutes. Nj Paul MD Endocrinology I am managing Sara Huynh for complex chronic condition(s) serving as the focal point for the patient's care for consistency and continuity over time. . documented in this encounter [facility] 08-28-2023 Instructions Jaelyn Ramon CNP - 08/28/2023 10:20 AM EST Please have labs done today. documented in this encounter [facility] 08-28-2023 History of Present illness Narrative Reason for visit/chief complaint: hyperthyroidism Date: 08/28/2023 Referring Provider: Todd Isaac DO Primary Care Provider: Todd Isaac DO HPI: Ms. Huynh is a 48 y.o. female with hx of Migraine, chronic back pain and newly found hyperthyroidism. Hyperthyroidism was initially noted on workplace health screening labs in June of 2023. Prior to these labs, she had normal TSH levels in 2018 and october of 2022. Patient notes in December of 2022, PCP felt neck looked enlarged. Thyroid ultrasound was ordered at that time. No nodules or increased vascularity or enlargement noted. Patient denies symptoms or complaints of changes in her neck/dysphagia, etc. at the time of the ultrasound. Her TSH was normal in October of 2022 (and the next available TSH was suppressed in June of 2023.). No biotin supplements. No hormone therapy (OC stopped in January). No recent steroids. Ms. Huynh endorses constipation and tremors palpitations--chronic constipation and occ palpitations, mild, both unchanged for years now. The tremor is new/very slight when applying eye makeup. Does note increased facial sweating post showering since the summer--odd for her in the winter. Rash bilateral lower extremities since spring. No fatigue, cold intolerance, constipation, dry skin, hair loss, muscle weakness/pain, menstrual abnormalities, diarrhea/hyperdefecation, heat intolerance, excessive anxiety/nervousness, or weight change. Has gradually lost weight , explained by efforts to lose she states, no unexplained weight loss. She has No red/dry eyes, bulging eyes, or double vision. In regards to mechanical/obstructive symptoms, She endorses No neck lump/swelling, neck pain, dysphagia, choking on food, voice changes, or pressure/choking sensation. Risk factors: -Hx of autoimmune diseases: no -Family hx of thyroid disease/cancer: father hypothyroid, maternal aunt thyroid disorder/cousin's daughter thyroid cancer -Hx of thyroid surgery: no -Hx of high risk/interfering medications: no -Recent URI/: no/ no (LMP 08/17/23 dari) -Hx of head/neck irradiation: no -Smoking: no Prior liver or hematologic disorders: None Review of Systems: as per HPI, otherwise negative Rash anterior bilateral shins--itchy intermittent, since spring--has tried topical steroids without improvement Medical History: Past Medical History: Diagnosis Date Anxiety Migraines Seizures (HCC) Surgical History: Past Surgical History: Procedure Laterality Date TONSILLECTOMY WISDOM TOOTH EXTRACTION Family History: Family History Problem Relation Age of Onset Hypothyroidism Father Cancer Sister Cancer Maternal Aunt Cancer Maternal Grandmother Social History: Social History Socioeconomic History Marital status: Tobacco Use Smoking status: Never Smokeless tobacco: Never Vaping Use Vaping Use: Never used Substance and Sexual Activity Alcohol use: Yes Comment: socially Drug use: Never Allergies: Allergies Allergen Reactions Erythromycin Hives Penicillins Hives Current Medications: Current Outpatient Medications Medication Sig Dispense Refill DULoxetine (CYMBALTA) 60 MG capsule Take 1 (one) capsule (60 mg total) by mouth daily . magnesium hydroxide (MOM) 400 mg/5 mL Susp 30 mL po daily up to twice a week as needed for constipation metoprolol succinate (TOPROL-XL) 50 MG 24 hr tablet polyethylene glycol (GLYCOLAX) 17 gram/dose powder 1/2 capful daily triamcinolone (KENALOG) 0.1 % ointment APPLY topically TWICE DAILY NEEDED for rash DULoxetine (CYMBALTA) 30 MG capsule 30 mg po daily phentermine (ADIPEX-P) 37.5 mg tablet TAKE 1 TABLET BY MOUTH EVERY MORNING before breakfast for 30 days tacrolimus (PROTOPIC) 0.1 % ointment Apply topically 2 times daily. No current facility-administered medications for this visit. Patient is not taking Norethindrone since 01/23. Physical Exam: Vitals: BP 112/77 (BP Location: Left arm, Patient Position: Sitting, BP Cuff Size: Adult) Pulse 73 Ht 5' 9 Wt 85.7 kg (189 lb) BMI 27.91 kg/m , Body mass index is 27.91 kg/m ., Wt Readings from Last 3 Encounters: 08/28/23 85.7 kg (189 lb) 01/08/23 105.2 kg (232 lb) General/Constitutional: , well-developed and in no distress. Head: atrautmatic, no facial leasions observed Mouth/Throat: mucus membranes moist Eyes: no lid retraction (stare), no proptosis, no lid lag, non-icteric, no limitation in eye movement. Neck: supple, normal range of motion. no thyromegaly present, no pain, no bruit. Thyroid gland is slightly irregular without discrete nodularity palpable. Cardiovascular: normal rate, regular rhythm, normal heart sounds , no edema. Pulmonary/Chest: effort normal and breath sounds normal, no respiratory distress Musculoskeletal: normal muscle mass and strength, ambulatory Neurological: alert and oriented, no focal deficits, very minimal tremor outstretched hands, DTRs normal--lower extremities brisk and 2+ bilateral; upper extremities 1+ bilateral. Skin: warm and dry, flat patches bilateral upper anterior tibia, no scale, minimal redness. Psychiatric: appropriate affect Lab/Imaging Data: THYROID ULTRASOUND 12/01/2022 COMPARISON: None. HISTORY: ORDERING SYSTEM PROVIDED HISTORY: Thyromegaly TECHNOLOGIST PROVIDED HISTORY: This procedure can be scheduled via [employer]. Access your [employer] account by visiting [employer]. thyromegaly FINDINGS: Right thyroid lobe: 50 x 12 x 18 mm Left thyroid lobe: 46 x 13 x 16 mm Isthmus: 2 mm Thyroid Gland: Thyroid gland demonstrates normal echotexture and vascularity. Nodules: No thyroid nodules are present. Cervical lymphadenopathy: No abnormal lymph nodes in the imaged portions of the neck. No results found for: WBC , HGB , HCT , MCV , PLT No results found for: GLUCOSE , NA , K , CL , BUN , CREATININE No results found for: ALT , AST , GGT , ALKPHOS , BILITOT No results found for: TSH , Y9HNTWR , THYROIDAB No results found for: PTH , CALCIUM , YUDITH , PHOS No results found for: LDLCALC , CHOL , HDL , TRIG , CHOLHDL 03/03/2019: TSH 2.260, creatinine 0.7, AST 17, ALT 11, alkaline phosphatase 61, total bilirubin 0.43. 10/27/2022: TSH 2.27, creatinine 0.76, EGFR greater than 60. 06/19/2023: TSH 0.01 07/03/2023: TSH 0.015, free T4 1.8 (0.9-1.7) 08/17/23: TSH less than 0.01, free T4 2.2 (0.9-1.7), free T3 6.03 (2.02-4.43), TRAb 4.96 (<1.75), TPO 79, thyroglobulin antibody 275 Assessment and plan: Ms. Huynh is a 48 y.o. female with hx of Migraines and chronic low back pain. She was recently found to have a low TSH on workplace screening labs late in 2022. Subsequent evaluation by PCP revealed suppressed TSH with elevated FT4 and FT3 and positive TRAB. She has minimal symptoms that may be related to hyperthyroidism but denies severe symptoms and by clinical examination appears euthyroid. Her thyroid gland is mildly irregular to palpation but does not feel enlarged or nodular. She did have a thyroid ultrasound done in December of 2022--this was prior to known abnormal thyroid function tests (noted in June of 2023). No nodules, enlargement or increased vascularity noted on December 2022 thyroid ultrasound. Her findings are most consistent with Graves hyperthyroidism with TSH suppression, elevated FT4 and 3 and postive TRAB. Today will check TFTs with TSI and baseline CBC and LFTs in anticipation of methimazole initiation. May consider repeat thyroid ultrasound as prior was done before abnormal TFTs were found. Increased vascularity on the ultrasound and elevated TSI would also support diagnosis of Graves disease. Discussed with patient the causes of hyperthyroidism and treatment options including anti-thyroid medication (methimazole) or RUEDA therapy. We discussed that methimazole treatment for 1-2 years is preferred with hope that she would go into remission. Reviewed possible side effects of methimazole and medication precautions during treatment. We also discussed other possible manifestations of Graves disease to monitor for and report (especially changes in the appearance of eyes or vision changes). Will follow up with patient after additional test results rec'd. Patient prefers to do future labs/imaging at local facility. Return in about 3 months (around 11/27/2023) for MD visit. Post visit labs 08/28/23: TSH less than 0.01, free T4-2.2, T3 242. AST 74, ALT 112, total bilirubin 0.5, direct bili 0.1, alkaline phosphatase 142. White blood cell count 4.91, hemoglobin 14.3, platelets 251,000. Thyroid-stimulating immunoglobulin, 5.2. Reviewed with Dr. Paul: We do not need to repeat the ultrasound given positive antibodies indicative of Graves'. Will start methimazole 5 mg once daily. Elevated liver function test could possibly be related to her hyperthyroidism, will monitor closely and hopefully will improve with improved thyroid levels. Patient notified via [employer] message. Repeat liver enzymes, TFT orders mailed to patient to do in 4 weeks. Patient is advised to notify us of any symptom changes or possible signs of side effects related to the medication interim. . documented in this encounter [facility] 01-30-2023 History of Present illness Narrative Images from the original note were not included. 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 (+) decreased hearing Also, has abnormal TM, right ear. Pressure/discomfort in right ear x 3 months tinnitus Patient states she feels soreness on right neck. Sometimes, she has to stop speaking due to sensation her airway is cut off. She states this feeling started before the right ear complaint. She denies sore throats, denies swallowing difficulty. 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 The following portions of the patient's history were reviewed and updated as appropriate: allergies, current medications, past family history, past medical history, past social history, past surgical history, and problem list. Review of Systems Constitutional: Negative for chills and diaphoresis. HENT: Positive for sore throat and tinnitus. Negative for ear discharge and ear pain. Eyes: Negative for discharge and redness. Respiratory: Negative for apnea and cough. Cardiovascular: Negative for chest pain and palpitations. Genitourinary: Positive for dysuria. Musculoskeletal: Negative for neck pain and neck stiffness. Skin: Negative for color change and pallor. Allergic/Immunologic: Negative for immunocompromised state. Neurological: Negative for facial asymmetry and numbness. Hematological: Does not bruise/bleed easily. Psychiatric/Behavioral: Negative for agitation and confusion. Objective Physical Exam Vitals and nursing note reviewed. Constitutional: Appearance: Normal appearance. She is well-developed. Comments: The patient is well-developed and well-nourished without obvious deformity. HENT: Head: Normocephalic and atraumatic. Right Ear: Tympanic membrane, ear canal and external ear normal. Left Ear: Tympanic membrane, ear canal and external ear normal. Nose: Nose normal. Mouth/Throat: Mouth: Mucous membranes are moist. Eyes: General: Lids are normal. Conjunctiva/sclera: Conjunctivae normal. Left eye: No chemosis. Pupils: Pupils are equal, round, and reactive to light. Neck: Thyroid: No thyromegaly. Trachea: No tracheal deviation. Cardiovascular: Rate and Rhythm: Normal rate and regular rhythm. Heart sounds: Normal heart sounds. Pulmonary: Effort: Pulmonary effort is normal. Breath sounds: Normal breath sounds. No stridor. Musculoskeletal: Cervical back: Normal range of motion and neck supple. Lymphadenopathy: Head: Right side of head: No submental, submandibular, preauricular, posterior auricular or occipital adenopathy. Left side of head: No submental, submandibular, preauricular, posterior auricular or occipital adenopathy. Cervical: No cervical adenopathy. Right cervical: No superficial cervical adenopathy. Left cervical: No superficial or deep cervical adenopathy. Skin: General: Skin is warm and dry. Neurological: Mental Status: She is alert and oriented to person, place, and time. Coordination: Coordination normal. Gait: Gait normal. Comments: III, IV, : EOM normal V: 1,2,3: normal sensation VII: Normal strength in all divisions. IX, X: Normal voice, palatal elevation and sensation XI: Shoulder strength normal XII: Tongue mobility normal Psychiatric: Mood and Affect: Mood is not anxious. Affect is not angry. Speech: Speech is not delayed or slurred. Behavior: Behavior normal. Behavior is not agitated or aggressive. Behavior is cooperative. Assessment/Plan: Diagnoses and all orders for this visit: Globus sensation Right-sided tinnitus - Ambulatory referral to ENT - Ambulatory referral to Audiology; Future I have discussed the etiology of the patient's tinnitus as it relates to loss of outer hair cells within the cochlea. This loss of cells is testable through the audiogram which was also reviewed with the patient. Unfortunately, there is no cure for tinnitus though 1 in 10 patients have stated they have improvement with lipoflavenoid vitamin supplements. Currently, the best treatment for tinnitus is called masking techniques. This involves background noise to mask or decrease attention on the noise in the ears. This involves having a tv, or radio, or fan on in the background to produce ambient noise. However, any time you start focusing on the sound it will seem louder, if you are startled and your fight or flight system kicks in it will be louder as all your senses are heightened, the more I discuss the sound the more you will focus on it and it will seem louder. I have independently reviewed the patient's audiologic evaluation and discussed the results with them. I spent at least 48 minutes prepping the chart, charting, interviewing and interacting with patient, and post visit charting. Abnormal tympanic membrane of right ear - Ambulatory referral to ENT Normal tympanic membranes bilaterally Dysphagia, unspecified type Likely secondary to elevated stressors through work which we discussed. documented in this encounter [facility] 01-08-2023 Instructions Wenceslao Becker DO - 01/08/2023 10:38 AM EDT Assessment/Plan: Diagnoses and all orders for this visit: Globus sensation Right-sided tinnitus - Ambulatory referral to ENT - Ambulatory referral to Audiology; Future I have discussed the etiology of the patient's tinnitus as it relates to loss of outer hair cells within the cochlea. This loss of cells is testable through the audiogram which was also reviewed with the patient. Unfortunately, there is no cure for tinnitus though 1 in 10 patients have stated they have improvement with lipoflavenoid vitamin supplements. Currently, the best treatment for tinnitus is called masking techniques. This involves background noise to mask or decrease attention on the noise in the ears. This involves having a tv, or radio, or fan on in the background to produce ambient noise. However, any time you start focusing on the sound it will seem louder, if you are startled and your fight or flight system kicks in it will be louder as all your senses are heightened, the more I discuss the sound the more you will focus on it and it will seem louder. Abnormal tympanic membrane of right ear - Ambulatory referral to ENT Normal tympanic membranes bilaterally Dysphagia, unspecified type Likely secondary to elevated stressors through work which we discussed. documented in this encounter [facility] 01-08-2023 Instructions Wenceslao Becker DO - 01/08/2023 10:38 AM EDT Assessment/Plan: Diagnoses and all orders for this visit: Globus sensation Right-sided tinnitus - Ambulatory referral to ENT - Ambulatory referral to Audiology; Future I have discussed the etiology of the patient's tinnitus as it relates to loss of outer hair cells within the cochlea. This loss of cells is testable through the audiogram which was also reviewed with the patient. Unfortunately, there is no cure for tinnitus though 1 in 10 patients have stated they have improvement with lipoflavenoid vitamin supplements. Currently, the best treatment for tinnitus is called masking techniques. This involves background noise to mask or decrease attention on the noise in the ears. This involves having a tv, or radio, or fan on in the background to produce ambient noise. However, any time you start focusing on the sound it will seem louder, if you are startled and your fight or flight system kicks in it will be louder as all your senses are heightened, the more I discuss the sound the more you will focus on it and it will seem louder. Abnormal tympanic membrane of right ear - Ambulatory referral to ENT Normal tympanic membranes bilaterally Dysphagia, unspecified type Likely secondary to elevated stressors through work which we discussed. documented in this encounter [facility] 01-08-2023 History of Present illness Narrative Images from the original note were not included. [facility] [address] [place] [address] Name: Sara Huynh : 1975 Date: 01/08/23 History & Purpose of Evaluation: Ms. Huynh was seen today for audiologic evaluation at the kind request of Dr. Becker. Ms. Huynh reports having tinnitus at right ear and muffled hearing. She reports the tinnitus is constant, high-pitched ringing, and non-bothersome. She also reports having abnormal TM at right ear and pressure/discomfort in right ear for 3 months. Please see below for other pertinent case history information as reported by Ms. Huynh. 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 Skills Ear Surgery R L Vertigo [] [x] Appropriate [x] [] PE Tubes [] [] Dizziness [] [x] In Therapy [] [x] Mastoidectomy [] [] Imbalance [] [x] Social Acoustic Neuroma [] [] Vestibular Rehab [] [x] Depression [] [x] Tympanoplasty [] [] Other: Results: Otoscopy: Performed by Dr. Becker prior to testing. Pure[employer] Air [employer] Bone Conduction Audiometry: Hearing within normal limits, bilaterally. Speech Audiometry: Speech recognition threshold is in good agreement with puretone thresholds, bilaterally. Word recognition is excellent (100%) when assessed at a normal conversational loudness level. Immittance Audiometry: Tympanometry revealed normal tympanic membrane mobility and middle ear pressure, Type A, bilaterally. Distortion Product Otoacoustic Emissions (DPOAE; 1500-6k Hz): Did not assess. Impression: Today's results reveal essentially normal hearing, bilaterally. Ms. Schreibers hearing should be adequate for speech understanding in most listening situations. Middle ear testing is consistent with a normal middle ear system, bilaterally. Ms. Huynh is not hearing aid candidate at this time. Discussed tinnitus management strategies and encouraged her to use them prn. Encouraged use of hearing protection prn. Recommendations: Follow up with Dr. Becker. Re-evaluate upon referral. Use of hearing protection prn and tinnitus management strategies prn is recommended. The above was explained to the patient and/or their guardian and they expressed understanding. Electronically Signed by: Josh Hines, [facility] 01/08/23 9:59 AM documented in this encounter [facility] 01-08-2023 History of Present illness Narrative 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 (+) decreased hearing Also, has abnormal TM, right ear. Pressure/discomfort in right ear x 3 months tinnitus Patient states she feels soreness on right neck. Sometimes, she has to stop speaking due to sensation her airway is cut off. She states this feeling started before the right ear complaint. She denies sore throats, denies swallowing difficulty. 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 The following portions of the patient's history were reviewed and updated as appropriate: allergies, current medications, past family history, past medical history, past social history, past surgical history, and problem list. Review of Systems Constitutional: Negative for chills and diaphoresis. HENT: Positive for sore throat and tinnitus. Negative for ear discharge and ear pain. Eyes: Negative for discharge and redness. Respiratory: Negative for apnea and cough. Cardiovascular: Negative for chest pain and palpitations. Genitourinary: Positive for dysuria. Musculoskeletal: Negative for neck pain and neck stiffness. Skin: Negative for color change and pallor. Allergic/Immunologic: Negative for immunocompromised state. Neurological: Negative for facial asymmetry and numbness. Hematological: Does not bruise/bleed easily. Psychiatric/Behavioral: Negative for agitation and confusion. Objective Physical Exam Vitals and nursing note reviewed. Constitutional: Appearance: Normal appearance. She is well-developed. Comments: The patient is well-developed and well-nourished without obvious deformity. HENT: Head: Normocephalic and atraumatic. Right Ear: Tympanic membrane, ear canal and external ear normal. Left Ear: Tympanic membrane, ear canal and external ear normal. Nose: Nose normal. Mouth/Throat: Mouth: Mucous membranes are moist. Eyes: General: Lids are normal. Conjunctiva/sclera: Conjunctivae normal. Left eye: No chemosis. Pupils: Pupils are equal, round, and reactive to light. Neck: Thyroid: No thyromegaly. Trachea: No tracheal deviation. Cardiovascular: Rate and Rhythm: Normal rate and regular rhythm. Heart sounds: Normal heart sounds. Pulmonary: Effort: Pulmonary effort is normal. Breath sounds: Normal breath sounds. No stridor. Musculoskeletal: Cervical back: Normal range of motion and neck supple. Lymphadenopathy: Head: Right side of head: No submental, submandibular, preauricular, posterior auricular or occipital adenopathy. Left side of head: No submental, submandibular, preauricular, posterior auricular or occipital adenopathy. Cervical: No cervical adenopathy. Right cervical: No superficial cervical adenopathy. Left cervical: No superficial or deep cervical adenopathy. Skin: General: Skin is warm and dry. Neurological: Mental Status: She is alert and oriented to person, place, and time. Coordination: Coordination normal. Gait: Gait normal. Comments: III, IV, : EOM normal V: 1,2,3: normal sensation VII: Normal strength in all divisions. IX, X: Normal voice, palatal elevation and sensation XI: Shoulder strength normal XII: Tongue mobility normal Psychiatric: Mood and Affect: Mood is not anxious. Affect is not angry. Speech: Speech is not delayed or slurred. Behavior: Behavior normal. Behavior is not agitated or aggressive. Behavior is cooperative. Assessment/Plan: Diagnoses and all orders for this visit: Globus sensation Right-sided tinnitus - Ambulatory referral to ENT - Ambulatory referral to Audiology; Future I have discussed the etiology of the patient's tinnitus as it relates to loss of outer hair cells within the cochlea. This loss of cells is testable through the audiogram which was also reviewed with the patient. Unfortunately, there is no cure for tinnitus though 1 in 10 patients have stated they have improvement with lipoflavenoid vitamin supplements. Currently, the best treatment for tinnitus is called masking techniques. This involves background noise to mask or decrease attention on the noise in the ears. This involves having a tv, or radio, or fan on in the background to produce ambient noise. However, any time you start focusing on the sound it will seem louder, if you are startled and your fight or flight system kicks in it will be louder as all your senses are heightened, the more I discuss the sound the more you will focus on it and it will seem louder. I have independently reviewed the patient's audiologic evaluation and discussed the results with them. I spent at least 48 minutes prepping the chart, charting, interviewing and interacting with patient, and post visit charting. Abnormal tympanic membrane of right ear - Ambulatory referral to ENT Normal tympanic membranes bilaterally Dysphagia, unspecified type Likely secondary to elevated stressors through work which we discussed. documented in this encounter [facility] 12-12-2022 History of Present illness Narrative Images from the original note were not included. [facility] Outpatient Physical Therapy Daily Note Date: 12/12/2022 Patient Name: Sara Huynh : 1975 (47 y.o.) Referring Provider (secondary): Dr. Isaac Diagnosis: Chronic bilateral low back pain without sciatica Treatment Diagnosis: Back Pain Onset Date: 10/27/22 PT Insurance Information: [employer] Total # of Visits Approved: 12 Per Physician Order Total # of Visits to Date: 11 Plan of Care/Certification Expiration Date: 12/19/22 Pre-Treatment Pain: 2/10 Assessment Assessment: Patient reports back pain 2/10 today. Pain varies 2-5/10, uncertain why pain acts up at times. Completed therex and manual therapy per Doc Flow. Reviewed HEP, patient independent. Trunk ROM WFL all planes. Strength B LE 5/5. Oswestry score 17/50. Discharged. Plan Discharge Exercises/Modalities/Manual: See DocFlow Sheet Education: Goals (Total # of Visits to Date: 11) Short Term Goals Time Frame for Short Term Goals: 8 Short Term Goal 1: Patient to be independent with HEP to improve trunk flexibility/ ROM-Met Short Term Goal 2: Increase ROM trunk flexion to 75% WFL, hands to schultz bone-met Short Term Goal 3: Increase trunk ROM B rotation to WFL-met Correction Goals Time Frame for Correction Goals : 12 Correction Goal 1: Decrease back pain 2/10 at worst x3 days- Not Met Correction Goal 2: Patient to transfer sit to stand with normal body mechanics without hand support-Met [employer] Goal 3: Improve functional mobility with Oswestry score < 9/45-Not Met Post Treatment Pain: 2/10 Time In: 7:30 Time Out : 8:05 Timed Code Treatment Minutes: 35 Minutes Total Treatment Time: 35 Minutes Nickie Correa, PT Date: 12/12/2022 documented in this encounter [facility] [employer] [facility] [employer] Work Phone: 05-12-2023 Hospital course Narrative Images from the original note were not included. [facility] Outpatient Physical Therapy Discharge Summary Patient: Sara Huynh : 1975 Referring Provider (secondary): Dr. Isaac Diagnosis: Chronic bilateral low back pain without sciatica Date Treatment Initiated: 11/07/22 Date of Last Treatment: 12/12/22 PT Visit Information Onset Date: 10/27/22 PT Insurance Information: [employer] Total # of Visits Approved: 12 Total # of Visits to Date: 11 Plan of Care/Certification Expiration Date: 12/19/22 Frequency/Duration Days: 2 times per week Weeks: 6 weeks Treatment Received Patient Education/HEP, Back Education, Therapeutic Exercise, Manual Therapy: Myofacial Release/Cupping, and Manual Therapy: Mobilization/Manipulation Pain Level: 2 Assessment Assessment: Patient reports back pain 2/10 today. Pain varies 2-5/10, uncertain why pain acts up at times. Completed therex and manual therapy per Doc Flow. Reviewed HEP, patient independent. Trunk ROM WFL all planes. Strength B LE 5/5. Oswestry score 17/50. Discharged. Reason for Discharge Completion of Prescribed visits and Optimal Function Achieved Comments: Thank you for this referral Nickie Correa, PT Date: 12/12/2022 documented in this encounter [facility] [employer] Phone: 12-04-2022 History of Present illness Narrative Images from the original note were not included. [facility] Outpatient Physical Therapy Daily Note Date: 12/04/2022 Patient Name: Sara Huynh : 1975 (47 y.o.) Referring Provider (secondary): Dr. Isaac Diagnosis: Chronic bilateral low back pain without sciatica Treatment Diagnosis: Back Pain Onset Date: 10/27/22 PT Insurance Information: [employer] Total # of Visits Approved: 12 Per Physician Order Total # of Visits to Date: 9 Plan of Care/Certification Expiration Date: 12/19/22 Pre-Treatment Pain: 4-5/10 Assessment Assessment: Pt reports yesterday she had increased thoracic pain and then the lower back pain increased .She is compliant with HEP which she did prior to session. Performed ex's in clinic that she had not yet done at home , progressed with stair hip flexor stretch as pt can perform at home. Manual therapy for thoracic and lumbar moiblity and soft tissue release. Pt with no improvement after session. Plan Continue with current plan of care Exercises/Modalities/Manual: See DocFlow Sheet Education: hip flexor stretch, heat/ice Goals (Total # of Visits to Date: 9) Short Term Goals Time Frame for Short Term Goals: 8 Short Term Goal 1: Patient to be independent with HEP to improve trunk flexibility/ ROM-Met Short Term Goal 2: Increase ROM trunk flexion to 75% WFL, hands to schultz bone-met Short Term Goal 3: Increase trunk ROM B rotation to WFL-met Correction Goals Time Frame for Correction Goals : 12 Correction Goal 1: Decrease back pain 2/10 at worst x3 days [employer] Goal 2: Patient to transfer sit to stand with normal body mechanics without hand support [employer] Goal 3: Improve functional mobility with Oswestry score < 9/45 Post Treatment Pain: 4-5/10 Time In: 0730 Time Out : 0805 Timed and total 35 min Renetta Alvarez DIRECTOR OF CAMPUS RECREATION Date: 12/04/2022 documented in this encounter [facility] [employer] Phone: 12-01-2022 History of Present illness Narrative Images from the original note were not included. [facility] Outpatient Physical Therapy Daily Note Date: 12/01/2022 Patient Name: Sara Huynh : 1975 (47 y.o.) Referring Provider (secondary): Dr. Isaac Diagnosis: Chronic bilateral low back pain without sciatica Treatment Diagnosis: Back Pain Onset Date: 10/27/22 PT Insurance Information: [facility] Total # of Visits Approved: 12 Per Physician Order Total # of Visits to Date: 8 Plan of Care/Certification Expiration Date: 12/19/22 Pre-Treatment Pain: 2-3/10 Assessment Assessment: Pain 2-3/10. She notes feeling like she is over the hump with her pain. Current pain is her normal . Performed ex as outlined for strength and flexibility. Good overall natalio to session after manual therapy pt notes no increased pain. Will cont. Plan Continue with current plan of care Exercises/Modalities/Manual: See DocFlow Sheet Education: posture Goals (Total # of Visits to Date: 8) Short Term Goals Time Frame for Short Term Goals: 8 Short Term Goal 1: Patient to be independent with HEP to improve trunk flexibility/ ROM-Met Short Term Goal 2: Increase ROM trunk flexion to 75% WFL, hands to schultz bone-met Short Term Goal 3: Increase trunk ROM B rotation to WFL-met [employer] Goals Time Frame for [employer] Goals : 12 Correction Goal 1: Decrease back pain 2/10 at worst x3 days Correction Goal 2: Patient to transfer sit to stand with normal body mechanics without hand support Correction Goal 3: Improve functional mobility with Oswestry score < 9/45 Post Treatment Pain: 2-3/10 Time In: 0727 Time Out : 0805 Timed Code Treatment Minutes: 38 Minutes Total Treatment Time: 38 Minutes Renetta Alvarez DIRECTOR OF CAMPUS RECREATION Date: 12/01/2022 documented in this encounter [facility] [employer] Work Phone: 11-24-2022 History of Present illness Narrative Images from the original note were not included. [facility] Outpatient Physical Therapy Daily Note Date: 11/24/2022 Patient Name: Sara Huynh : 1975 (47 y.o.) Referring Provider (secondary): Dr. Isaac Diagnosis: Chronic bilateral low back pain without sciatica Treatment Diagnosis: Back Pain Onset Date: 10/27/22 PT Insurance Information: [facility] Total # of Visits Approved: 12 Per Physician Order Total # of Visits to Date: 6 Plan of Care/Certification Expiration Date: 12/19/22 Pre-Treatment Pain: 3/10 Assessment Assessment: Pt rates pain 3/10, no known cause of increased pain .Overall notes no real progress.She is compliant with HEP. Performed ex as outlined for strength and flexibility, manual therapy for soft tissue release and joint mobility. Will monitor. Plan Continue with current plan of care Exercises/Modalities/Manual: See DocFlow Sheet Education: heat, hydration Goals (Total # of Visits to Date: 6) Short Term Goals Time Frame for Short Term Goals: 8 Short Term Goal 1: Patient to be independent with HEP to improve trunk flexibility/ ROM-Met Short Term Goal 2: Increase ROM trunk flexion to 75% WFL, hands to schultz bone Short Term Goal 3: Increase trunk ROM B rotation to WFL [employer] Goals Time Frame for [employer] Goals : 12 Correction Goal 1: Decrease back pain 2/10 at worst x3 days [employer] Goal 2: Patient to transfer sit to stand with normal body mechanics without hand support [employer] Goal 3: Improve functional mobility with Oswestry score < 9/45 Post Treatment Pain: 4-5/10 Time In: 0729 Time Out : 0809 Timed and total 40 min Renetta Alvarez DIRECTOR OF CAMPUS RECREATION Date: 11/24/2022 documented in this encounter [facility] [employer] Work Phone: 11-20-2022 History of Present illness Narrative Images from the original note were not included. [facility] Outpatient Physical Therapy Daily Note Date: 11/20/2022 Patient Name: Sara Huynh : 1975 (47 y.o.) Referring Provider (secondary): Dr. Isaac Diagnosis: Chronic bilateral low back pain without sciatica Treatment Diagnosis: Back Pain Onset Date: 10/27/22 PT Insurance Information: [facility] Total # of Visits Approved: 12 Per Physician Order Total # of Visits to Date: 5 Plan of Care/Certification Expiration Date: 12/19/22 Pre-Treatment Pain: 08/12 Assessment Assessment: Pain 1/10 low back, feeling a little better. Patient has improved posture with less side shift. However, Trunk flexion 50% limited still. Completed therex and manual therapy per Doc Flow. Pain increased after session 10/10. Plan Continue with current plan of care Exercises/Modalities/Manual: See DocFlow Sheet Education: Goals (Total # of Visits to Date: 5) Short Term Goals Time Frame for Short Term Goals: 8 Short Term Goal 1: Patient to be independent with HEP to improve trunk flexibility/ ROM-Met Short Term Goal 2: Increase ROM trunk flexion to 75% WFL, hands to schultz bone Short Term Goal 3: Increase trunk ROM B rotation to WFL [employer] Goals Time Frame for Correction Goals : 12 [employer] Goal 1: Decrease back pain 2/10 at worst x3 days Correction Goal 2: Patient to transfer sit to stand with normal body mechanics without hand support [employer] Goal 3: Improve functional mobility with Oswestry score < 9/45 Post Treatment Pain: 10 Time In: 7:30 Time Out : 8:14 Timed Code Treatment Minutes: 44 Minutes Total Treatment Time: 44 Minutes Nickie Correa PT Date: 11/20/2022 documented in this encounter [facility] [employer] Phone: 11-19-2022 History of Present illness Narrative Images from the original note were not included. [facility] Outpatient Physical Therapy Daily Note Date: 11/19/2022 Patient Name: Sara Huynh : 1975 (47 y.o.) Referring Provider (secondary): Dr. Isaac Diagnosis: Chronic bilateral low back pain without sciatica Treatment Diagnosis: Back Pain Onset Date: 10/27/22 PT Insurance Information: [employer] Total # of Visits Approved: 12 Per Physician Order Total # of Visits to Date: 4 Plan of Care/Certification Expiration Date: 12/19/22 Pre-Treatment Pain: 2/10 Assessment Assessment: Pain 2/10 low back. Patient reports overall no change in symptoms. Completed therex and manual therapy per Doc Flow. R lumbar thoracic junction stiff/ decrease mobility- concentrated manual therapy on this area. Patient remains fearful and caution with bending forward; she can flex trunk hands to knees/ 50% ROM. Continue per plan. Plan Continue with current plan of care Exercises/Modalities/Manual: See DocFlow Sheet Education: Goals (Total # of Visits to Date: 4) Short Term Goals Time Frame for Short Term Goals: 8 Short Term Goal 1: Patient to be independent with HEP to improve trunk flexibility/ ROM-Met Short Term Goal 2: Increase ROM trunk flexion to 75% WFL, hands to schultz bone Short Term Goal 3: Increase trunk ROM B rotation to WFL Correction Goals Time Frame for [employer] Goals : 12 [employer] Goal 1: Decrease back pain 2/10 at worst x3 days [employer] Goal 2: Patient to transfer sit to stand with normal body mechanics without hand support Correction Goal 3: Improve functional mobility with Oswestry score < 9/45 Post Treatment Pain: 2/10 Time In: 7:28 Time Out : 8:10 Timed Code Treatment Minutes: 42 Minutes Total Treatment Time: 42 Minutes Nickie Correa, PT Date: 11/19/2022 documented in this encounter [facility] [employer] Work Phone: 11-11-2022 History of Present illness Narrative Images from the original note were not included. [facility] Outpatient Physical Therapy Daily Note Date: 11/11/2022 Patient Name: Sara Huynh : 1975 (47 y.o.) Referring Provider (secondary): Dr. Isaac Diagnosis: Chronic bilateral low back pain without sciatica Treatment Diagnosis: Back Pain Onset Date: 10/27/22 PT Insurance Information: [employer] Total # of Visits Approved: 12 Per Physician Order Total # of Visits to Date: 2 Plan of Care/Certification Expiration Date: 12/19/22 Pre-Treatment Pain: 2/10 Assessment Assessment: Pain 2/10 low back today. Reports a little increase pain after last session that lasted one day. Completed manual therapy and therex per Doc Flow. Reviewed HEP and progressed therex with fair tolerance. Pain 4/10 at end of session. Plan Continue with current plan of care Exercises/Modalities/Manual: See DocFlow Sheet Education: Reviewed HEP; education on spinal mechanics for normal motion Goals (Total # of Visits to Date: 2) Short Term Goals Time Frame for Short Term Goals: 8 Short Term Goal 1: Patient to be independent with HEP to improve trunk flexibility/ ROM Short Term Goal 2: Increase ROM trunk flexion to 75% WFL, hands to schultz bone Short Term Goal 3: Increase trunk ROM B rotation to WFL Correction Goals Time Frame for [employer] Goals : 12 [employer] Goal 1: Decrease back pain 2/10 at worst x3 days [employer] Goal 2: Patient to transfer sit to stand with normal body mechanics without hand support Correction Goal 3: Improve functional mobility with Oswestry score < 9/45 Post Treatment Pain: 4/10 Time In: 7:30 Time Out : 8:15 Timed Code Treatment Minutes: 45 Minutes Total Treatment Time: 45 Minutes Nickie Correa PT Date: 11/11/2022 documented in this encounter [facility] [employer] Work Phone: 11-07-2022 History of Present illness Narrative Images from the original note were not included. [facility] Outpatient Physical Therapy Evaluation Date: 11/07/2022 Patient: Sara Huynh : 1975 Referring Provider (secondary): Dr. Isaac Diagnosis: Chronic bilateral low back pain without sciatica Treatment Diagnosis: Back Pain Onset Date: 10/27/22 PT Insurance Information: [employer] Total # of Visits Approved: 12 Per Physician Order Total # of Visits to Date: 1 Subjective Additional Pertinent Hx: Back pain started about 8 years ago, pain was intermittent for years, but now is constant. Pain worse in morning. Sit to stand most painful.See chiropractor regularly, once every 3-4 weeks. Takes muscle relaxer and antiinflammatory as needed. Laying down releives pain. Patient fearful and guarded with movements due to afraid of severe pain flaring up. Pain radiates to buttock, but not down leg. In mornings pain 6-8/10. Pain 1-2/10 throughout day if sitting or laying. Sit to stand 6/10 pain. MRI- . 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 Objective Spine Lumbar: flexion limited 75%, extension limited 25%, Sidebend R limted 50% / L 25% , rotation R limited 50%, L 25% Joint Mobility Spine: very tight L2-L3 and L3-L4, tightness in lower and mid thoracic as well Strength RLE Strength RLE: WFL AROM RLE (degrees) RLE AROM: WFL Strength LLE Strength LLE: WFL AROM LLE (degrees) LLE AROM : WFL AROM RLE (degrees) RLE AROM: WFL AROM LLE (degrees) LLE AROM : WFL PROM LLE (degrees) LLE PROM: WFL PROM RLE (degrees) RLE PROM: WFL Additional Measures Special Tests: Oswestry score 15/45 WB Status: antalgic, poor posture with lateral shift Assessment Body Structures, Functions, Activity Limitations Requiring Skilled Therapeutic Intervention: Decreased functional mobility , Decreased ROM, Increased pain, Decreased posture Assessment: Patient presents with intermiitent chronic back pain with lateral shift and guarded movements due to fearful of pain. Completed manual therapy and therex per Doc Flow. Educated on and issued HEP handout. Plan for therex, HEP, back ed, manual therapy. Therapy Prognosis: Good Clinical Presentation: Evolving The Following Comorbities will impact the patient s progression and Plan of Care: Previous Orthopedic Injury/Surgery Medium Complexity Education: On POC and HEP [employer] Exercises - Cat Cow to Child's Pose - 1 x daily - 7 x weekly - 3 sets - 10 hold - Quadruped Thoracic Rotation - Reach Under - 1 x daily - 7 x weekly - 3 sets - 10 hold - Quadruped Thoracic Lumbar Side Bend - 1 x daily - 7 x weekly - 3 sets - 10 hold - Seated Flexion Stretch - 1 x daily - 7 x weekly - 3 sets - 10 hold - Seated Trunk Rotation Stretch - 1 x daily - 7 x weekly - 3 sets - 10 hold Goals Short Term Goals Time Frame for Short Term Goals: 8 Short Term Goal 1: Patient to be independent with HEP to improve trunk flexibility/ ROM Short Term Goal 2: Increase ROM trunk flexion to 75% WFL, hands to schultz bone Short Term Goal 3: Increase trunk ROM B rotation to WFL Correction Goals Time Frame for [employer] Goals : 12 Correction Goal 1: Decrease back pain 2/10 at worst x3 days Correction Goal 2: Patient to transfer sit to stand with normal body mechanics without hand support Correction Goal 3: Improve functional mobility with Oswestry score < 9/45 Patient's Goal: Patient wants to be rid of back pain and be able to do activities/ movements normally without being fearful of pain Timed Code Treatment Minutes: 20 Minutes Total Treatment Time: 55 Time In: 7:30 Time Out: 8:25 Nickie Correa, PT Date: 11/07/2022 documented in this encounter [employer] Phone: Evaluation note Diagnosis Chronic bilateral low back pain with right-sided sciatica Severe low back pain Lumbago documented in this encounter [employer] Phone: evaluation note* Diagnosis Weight gain Abnormal weight gain Abnormal glucose Other abnormal glucose Screening for cardiovascular condition Screening for other and unspecified cardiovascular conditions documented in this encounter [facility] Phone: evaluation note* Diagnosis Thyromegaly Goiter, unspecified documented in this encounter [employer] [facility] Phone: evaluation note* Diagnosis Globus sensation- Primary Gastrointestinal malfunction arising from mental factors Right-sided tinnitus Unspecified tinnitus Abnormal tympanic membrane of right ear Dysphagia, unspecified type [facility] Tinnitus of right ear- Primary Right-sided tinnitus Unspecified tinnitus [facility] Diagnosis Globus sensation- Primary Gastrointestinal malfunction arising from mental factors Right-sided tinnitus Unspecified tinnitus Abnormal tympanic membrane of right ear Dysphagia, unspecified type [facility]* Diagnosis Hyperthyroidism- Primary Thyrotoxicosis without mention of goiter or other cause, without mention of thyrotoxic crisis or storm [facility]* Diagnosis Graves disease- Primary Toxic diffuse goiter without mention of thyrotoxic crisis or storm [facility]* Diagnosis Graves disease- Primary Toxic diffuse goiter without mention of thyrotoxic crisis or storm [facility] Diagnosis Hyperthyroidism- Primary Thyrotoxicosis without mention of goiter or other cause, without mention of thyrotoxic crisis or storm [facility] Diagnosis Graves disease- Primary Toxic diffuse goiter without mention of thyrotoxic crisis or storm Elevated LFTs Other abnormal blood chemistry documented [facility] encounter [facility] Assessments Diagnosis Chronic bilateral low back pain without sciatica Diagnosis Vaginal discharge Leukorrhea, not specified as infective Cervical cancer screening Screening for malignant neoplasm of the cervix Advance Directives No Advanced Directives Records FoundDocuments on File Type Date Recorded Patient Rn Acls Expl anation Advance Directives and Living Will Power of Claims Account Manager Documents on File Type Date Recorded Patient Rn Acls Expl anation Advance Directives and Living Will Power of Claims Account Manager Documents on File Type Date Recorded Patient Rn Acls Expl anation ACP-Advance Directive ACP-Power of Claims Account Manager Documents on File Type Date Recorded Patient Rn Acls Expl anation ACP-Advance Directive ACP-Power of Claims Account Manager Healthcare Agents on File Name Relationship Healthcare Agent Relationship Communication Redd Sheri Spouse Primary Decision Maker (Mobile) Healthcare Agents on File Name Relationship Healthcare Agent Relationship Communication Redd Sheri Spouse Primary Decision Maker ([employer]) Healthcare Agents on File Name Relationship Healthcare Agent Relationship Communication Redd Sheri Spouse Primary Decision Maker ([employer]) Healthcare Agents on File Name Relationship Healthcare Agent Relationship Communication Redd Sheri Spouse Primary Decision Maker ([employer]) Healthcare Agents on File Name Relationship Healthcare Agent Relationship Communication Redd Huynh Spouse Primary Decision Maker ([employer]) Healthcare Agents on File Name Relationship Healthcare Agent Relationship Communication Redd Huynh Spouse Primary Decision Maker ([employer]) Healthcare Agents on File Name Relationship Healthcare Agent Relationship Communication Redd Huynh Spouse Primary Decision Maker ([employer]) History of Present Illness * Nickie Correa, PT - 03/19/2020 8:00 AM EDT [facility] Outpatient Physical Therapy Evaluation Date: 03/19/2020 Patient: Sara Huynh : 1975 Referring Practitioner: Dr. Todd Isaac Referral Date : 03/14/20 Diagnosis: Chronic bilateral low back pain without sciatica Treatment Diagnosis: Back Pain Onset Date: 03/14/20(Referral) PT Insurance Information: [employer] Total # of Visits Approved: 4 Per Physician Order Total # of Visits to Date: 1 Subjective Additional Pertinent Hx: 4 years ago had started having back pain after bending over and lifting light box. Saw chiropractor, pain resolved. Patient c/o intermittent episodes of recurrent back pain in past 4 years, and each episode more severe. Last episode was end of February 2020, with sit to stand motion causing immediate severe pain across low back. Pain across bilateral back, buttocks and hips 8/10, but denies radiating symptoms. Saw and is taking muscle relaxer and antiinflammatory currently. Pain has let off last week after meds and chirpractor; pain 0/10 today. Patient works at [employer] in [place]. Hx- not significant other than recurrent back pain. 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 Objective Spine Lumbar: WFL Special Tests: SLR- negative Joint Mobility Spine: signs of instability lower lumbar Strength RLE Strength RLE: WFL AROM RLE (degrees) RLE AROM: WFL Strength LLE Strength LLE: WFL AROM LLE (degrees) LLE AROM : WFL AROM RLE (degrees) RLE AROM: WFL AROM LLE (degrees) LLE AROM : WFL PROM LLE (degrees) LLE PROM: WFL PROM RLE (degrees) RLE PROM: WFL Ambulation 1 Quality of Gait: WF Assessment Body structures, Functions, Activity limitations: Decreased functional mobility , Decreased strength, Increased pain, Decreased posture Prognosis: Good Decision Making: Low Complexity History: as above Exam: Oswestry score 4/50 Clinical Presentation: Stable/Uncomplicated The Following Comorbities will impact the patient s progression and Plan of Care: Previous Orthopedic Injury/Surgery Education: On POC and HEP handout Goals Short term goals Time Frame for Short term goals: NA senior living goals Time Frame for senior living goals : 4 senior living goal 1: Patient to be independent with HEP for core strengthening senior living goal 2: Patient to denmonstrate correct body mechanics with lifting following back education long term care social worker goal 3: No pain in low back x 2 week with return to normal activities Patient's Goal: To be able to complete normal activities without recurrence of back pain Timed Code Treatment Minutes: 15 Minutes Total Treatment Time: 45 Time In: 8:00 Time Out: 8:45 Nickie Correa PT Date: 03/19/2020 documented in this encounter* Nickie Correa, PT - 03/27/2020 8:00 AM EDT [facility] Outpatient Physical Therapy Daily Note Date: 03/27/2020 Patient Name: Sara Huynh : 1975 (44 y.o.) Referring Practitioner: Dr. Todd Isaac Referral Date : 03/14/20 Diagnosis: Chronic bilateral low back pain without sciatica Treatment Diagnosis: Back Pain Onset Date: 03/14/20(Referral) PT Insurance Information: [employer] Total # of Visits Approved: 4 Per Physician Order Total # of Visits to Date: 2 Plan of Care/Certification Expiration Date: 04/20/20 Pre-Treatment Pain: 0/10 Assessment Assessment: Patient reports back pain 0/10. Reviewed HEP and progress therex. Educated on and issued second HEP handout and G t-band, Back education on posture and completed therex to facilitate proper posture. Patient educated on correct lifting technique and practiced cratelifts. Plan to review back ed and HEP next session.. Patient to return to walking program at home as tolerated. Chart Reviewed: Yes Plan Plan: Continue with current plan Exercises/Modalities/Manual: See DocFlow Sheet Education: Goals (Total # of Visits to Date: 2) Short Term Goals - Time Frame for Short term goals: NA Correction Goals - Time Frame for senior living goals : 4 senior living goal 1: Patient to be independent with HEP for core strengthening senior living goal 2: Patient to denmonstrate correct body mechanics with lifting following back education long term care social worker goal 3: No pain in low back x 2 week with return to normal activities Post Treatment Pain: 0/10 Time In: 8:00 Time Out : 8:45 Timed Code Treatment Minutes: 45 Minutes Total Treatment Time: 45 Minutes Nickie Correa, PT Date: 03/27/2020 documented in this encounter* Nickie Correa, PT - 04/02/2020 8:00 AM EDT [facility] Outpatient Physical Therapy Daily Note Date: 04/02/2020 Patient Name: Sara Huynh : 1975 (44 y.o.) Referring Practitioner: Dr. Todd Isaac Referral Date : 03/14/20 Diagnosis: Chronic bilateral low back pain without sciatica Treatment Diagnosis: Back Pain Onset Date: 03/14/20(Referral) PT Insurance Information: [employer] Total # of Visits Approved: 4 Per Physician Order Total # of Visits to Date: 3 Plan of Care/Certification Expiration Date: 04/20/20 Pre-Treatment Pain: 0/10 Assessment Assessment: No pain x 2 week per patient. Patient walked a lot this weekend without pain. Completedtherex per Doc Flow. Education on proper body mechanics and HEP. Patient independent and compliant with HEP. Patient met all goals, discharged. Chart Reviewed: Yes Plan Plan: Discharge Exercises/Modalities/Manual: See DocFlow Sheet Education: Goals (Total # of Visits to Date: 3) Short Term Goals - Time Frame for Short term goals: NA [employer] Captain Goals - Time Frame for senior living goals : 4 senior living goal 1: Patient to be independent with HEP for core strengthening-Met long term care social worker goal 2: Patient to denmonstrate correct body mechanics with lifting following back education-[facility] senior living goal 3: No pain in low back x 2 week with return to normal activities-Met Post Treatment Pain: 0/10 Time In: 8:00 Time Out : 8:45 Timed Code Treatment Minutes: 45 Minutes Total Treatment Time: 45 Minutes Nickie Correa PT Date: 04/02/2020 documented in this encounter Hospital Course * Nickie Correa PT - 04/02/2020 8:00 AM EDT [facility] Outpatient Physical Therapy Discharge Summary Patient: Sara Huynh : 1975 Referring Practitioner: Dr. Todd Isaac Diagnosis: Chronic bilateral low back pain without sciatica Date Treatment Initiated: 03/19/20 Date of Last Treatment: 04/02/20 PT Visit Information Onset Date: 03/14/20(Referral) PT Insurance Information: [employer] Total # of Visits Approved: 4 Total # of Visits to Date: 3 Plan of Care/Certification Expiration Date: 04/20/20 Frequency/Duration Days: 1 times per week Weeks: 4 weeks Treatment Received Patient Education/HEP, Back Education and Therapeutic Exercise Assessment Assessment: No pain 0/10 x 2 week per patient. Patient walked a lot this weekend without pain. Education on proper body mechanics and HEP. Patient independent and compliant with HEP. Oswestry score 4/50. Patient met all goals, discharged. Ambulation 1 Quality of Gait: WFL Reason for Discharge Goals Met Comments: Thank you for this referral Nickie Correa Date: 04/02/2020 documented in this encounter Reason for Referral Status Reason Specialty Diagnoses / Procedures Referre d By Contact Referred To Contact Closed Radiology Diagnoses Chronic bilateral low back pain with right-sided sciatica Severe low back pain Procedures MRI LUMBAR SPINE WO CONTRAST [id number] Todd Isaac, DO [address] [address] [facility] [address] [address] Specialty Diagnoses / Procedures Referred By Contac t Referred To Contact Radiology Diagnoses Thyromegaly Procedures US THYROID RayTodd avina, DO [address] [place] [address] Referral ID Status Reason Start Date Expiration Date Visits Re quested Visits Authorized [id number] Open 11/26/2022 11/26/2023 1 1 Specialty Diagnoses / Procedures Referred By Contact Referred To Contact Audiology / Otolaryngology Diagnoses Right-sided tinnitus Eugenio Wenceslao Richardson, DO [address] [place] [address] Sana Ward, AuD [address] [place] [address] Referral ID Status Reason Start Date Expiration Date V isits Requested Visits Authorized [id number] Closed Specialty Services Required/Conchita ent's Best Interest 01/08/2023 01/08/2024 1 1 Summary Purpose Family History No Family History Records FoundNo Family History Records FoundNo Family History Records FoundNo Family History Records FoundNo Family History Records FoundNo Family History Records Found Additional Source Comments Reason for Visit (unrecogniz ed section and content) Status Reason Specialty Diagnoses / Procedures Referred By Contact Referred To Contact Open Specialty Services Required Physical Therapy Diagnoses Chronic bilateral low back pain without sciatica Todd Isaac, DO [address] [place] [address] [facility] [address] [place] [address] Status Reason Specialty Diagnoses / Procedures Referre d By Contact Referred To Contact Closed Radiology Diagnoses Chronic bilateral low back pain with right-sided sciatica Severe low back pain Procedures MRI LUMBAR SPINE WO CONTRAST [id number] Todd Isaac, DO [address] [place] [address] [facility] [address] [place] [address] Specialty Diagnoses / Procedures Referred By Contac t Referred To Contact Physical Therapist / Physical Therapy Diagnoses Chronic bilateral low back pain without sciatica Todd Isaac, DO [address] [place] [address] [facility] [address] [place] [address] Referral ID Status Reason Start Date Expiration Date V isits Requested Visits Authorized [id number] Open Specialty Services Required 10/27/2022 10/27/2023 1 1 Specialty Diagnoses / [facility]erred To Contact Radiology Diagnoses Thyromegaly Procedures US THYROID Todd Isaac, DO [address] [place] [address] Referral ID Status Reason Start Date Expiration Date Visits Re quested Visits Authorized [id number] Open 11/26/2022 11/26/2023 1 1 Reason Comments 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 Isaac refer ral for tinnitus, right ear. (+) decreased hearing Also, has abnormal TM, right ear. Pressure/discomfort in right ear x 3 months tinnitusPatient states she feels soreness on right neck. Sometimes, she has to stop speaking due to sensation her airway is cut off. She states this feeling started before the right ear complaint. She denies sore throats, denies swallowing difficulty. 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 Specialty Diagnoses / Procedures [facility] Referred To Contact Otolaryngology Diagnoses Right-sided tinnitus Abnormal tympanic membrane of right ear Todd Isaac, DO [address] [place] [address] Wenceslao Becker, DO [address] [place] [address] Referral ID Status Reason Start Date Expiration Date V isits Requested Visits Authorized [id number] Closed Specialty Services Required/Conchita ent's Best Interest 01/01/2023 01/01/2024 1 1 Specialty Diagnoses / Procedures Referred By Contact Referred To Contact Audiology / Otolaryngology Diagnoses Right-sided tinnitus Wenceslao Becker, DO [address] [place] [address] Sana Ward, AuD [address] [place] [address] Referral ID Status Reason Start Date Expiration Date V isits Requested Visits Authorized [id number] Closed Specialty Services Required/Conchita ent's Best Interest 01/08/2023 01/08/2024 1 1 Specialty Diagnoses / Procedures Referred By Contac t Referred To Contact Otolaryngology Diagnoses Right-sided tinnitus Abnormal tympanic membrane of right ear Todd Isaac, DO [address] [place] [address] Wenceslao Becker, DO [address] [place] [address] Reason Comments Hyperthyroidism Specialty Diagnoses / Procedures Referred By Contac t Referred To Contact Endocrinology Diagnoses Hyperthyroidism Todd Isaac, DO [address] [place] [address] Nj Paul MD [address] [place] [address] Referral ID Status Reason Start Date Expiration Date Visits Re quested Visits Authorized [id number] Closed 08/25/2023 08/24/2024 1 1 Reason Onset Date Comments Medication Refill 03/16/2024 Reason Comments Graves' Disease INFORMATION SOURCE (unrecogn ized section and content) DATE CREATED AUTHOR 06/16/2022 [facility] DATE CREATED AUTHOR AUTHOR'S ORGANIZ ATION 06/25/2023 [facility] DATE CREATED AUTHOR AUTHOR'S ORGANIZ ATION 09/02/2023 [facility] DATE CREATED AUTHOR AUTHOR'S ORGANIZ ATION 10/30/2023 [facility] DATE CREATED AUTHOR AUTHOR'S ORGANIZ ATION 05/22/2024 [facility] DATE CREATED AUTHOR AUTHOR'S ORGANIZ ATION 05/25/2024 [facility] Teams (unrecognized sec tion and content) Insight Leader Relationship Specialty Start Date End Date Todd Isaac DO [address] [place] [address] PCP - General Family Medicine 03/14/20 Insight Leader Relationship Specialty Start Date End Date Todd Isaac DO [address] [place] [address] PCP - General Family Medicine 03/14/20 Insight Leader Relationship Specialty Start Date End Date Todd Isaac DO [address] [place] [address] PCP - General Family Medicine 03/14/20 Insight Leader Relationship Specialty Start Date End Date Todd Isaac DO [address] [place] [address] PCP - General Family Medicine 03/14/20 Insight Leader Relationship Specialty Start Date End Date Todd Isaac DO [address] [place] [address] PCP - General Family Medicine 03/14/20 Insight Leader Relationship Specialty Start Date End Date Todd Isaac DO [address] [place] [address] PCP - General Family Medicine 01/01/23 Insight Leader Relationship Specialty Start Date End Date Todd Isaac DO [address] [place] [address] PCP - General Family Medicine 01/01/23 Insight Leader Relationship Specialty Start Date End Date Todd Isaac DO [address] [place] [address] PCP - General Family Medicine 01/01/23 Insight Leader Relationship Specialty Start Date End Date Todd Isaac DO [address] [place] [id number] PCP - General Family Medicine 01/01/23 Insight Leader Relationship Specialty Start Date End Date Todd Isaac DO [address] [place] [id number] PCP - General Family Medicine 01/01/23 Insight Leader Relationship Specialty Start Date End Date Todd Isaac DO [address] [place] [id number] PCP - General Family Medicine 01/01/23 Insight Leader Relationship Specialty Start Date End Date Todd Isaac DO [address] [place] [id number] PCP - General Family Medicine 03/14/20 Insight Leader Relationship Specialty Start Date End Date Todd Isaac DO [address] [place] [address] PCP - General Family Medicine 01/01/23 FOR RECORDS PERTAINING TO PATIENTS WHO ARE OR HAVE BEEN ENROLLED IN A CHEMICAL DEPENDENCY/SUBSTANCEABUSE PROGRAM, SOME INFORMATION MAY BE OMITTED. This clinical summary was aggregated from multiple sources. Caution should be exercised in using it in the provision of clinical care. This summary normalizes information from multiple sources, and as a consequence, information in this document may materially change the coding, format and clinical context of patient data. In addition, data may be omitted in some cases. CLINICAL DECISIONS SHOULD BE BASED ON THE PRIMARY CLINICAL RECORDS. [facility] [employer] [facility]. provides no warranty or guarantee of the accuracy or completeness of information in this document.
== END 2024-06-23 10:17 | disposition home or self-care (01) ==
LOC: MAMMO 10:16
PROVIDERS: Visit Provider Student in an Organized Health Care Education/Training Program
DX: Z12.31 Encounter for screening mammogram for malignant neoplasm of breast (principal)
CPT/HCPCS: 77063; 77067

== ENCOUNTER 2025-06-26 10:43 | Outpatient (OUT) | payer OTHER, SELFPAY ==
--- OUTSIDE RECORDS SUMMARY | 2025-06-12 08:00 | XMS_ITS | Encounter Summary ---
Author Organization [facility] Address [address] [place] [address] Care Team Providers Care [employer] Name Role Phone Kaykay Adame DO Primary Care Provider [phone] Reason for Referral * Diagnostic Imaging (Routine) - AuthorizedSpecialtyDiagnoses / Procedures Referred By ContactReferred To ContactRadiology Diagnoses Graves disease Thyroid nodule Procedures US Soft Tissue Neck and Thyroid Nj Paul MD [address] [place] [address] Phone: tel: fax: Referral IDStatusReasonStart DateExpiration DateVisits RequestedVisits [id number] Reason for Visit * ReasonCommentsGraves' Disease Encounter Details DateTypeDepartmentCare Team (Latest Contact Info)Ukilmjlarfg44/10/2025 8:00 AM ESTOffice Visit [facility] [address] [facility] [place] [address] Nj Paul MD [address] [place] [address] Graves disease (Primary Dx); Thyroid nodule Social History Tobacco UseTypesPacks/DayYears UsedDateSmoking Tobacco: NeverSmokeless Tobacco: Never Tobacco Cessation:Counseling Given: Not Answered Alcohol UseStandard Drinks/WeekCommentsYes0 (1 standard drink = 0.6 oz pure alcohol)sociallyCommentsUnknownSex and Gender InformationValueDate RecordedSex Assigned at BirthNot on fileLegal ImcLuavnr68/26/2023 4:55 PM EDT Gender IdentityNot on fileSexual OrientationNot on filedocumented as of this encounter Last Filed Vital Signs Vital SignReadingTime TakenCommentsBlood Tcljieno781/8806/12/2025 7:48 AM EST Jlira772106/12/2025 7:48 AM ESTTemperature--Respiratory Rate--Oxygen Saturation-- Inhaled Oxygen Concentration--Nwcspd043.5 kg (248 lb)06/12/2025 7:48 AM EST Height--Body Mass Index36.62008/28/2023 9:36 AM ESTdocumented in this encounter Patient Instructions * Patient Instructions* Nj Paul MD - 06/12/2025 8:09 AM EST Keep on same methimazole dose. Labs and ultrasound in December 2025 before next visit. Hold biotin supplements for hair/nail health for 1 week before labs (if taking). Hold multivitamins/B-complex with biotin for ~2-3 days before labs (if taking). Let me know sooner in case of change in symptoms (significant fatigue, racing heart, tremors, change in bowel movements, feeling colder/warmer, remarkable weight change,..). Let me know sooner if there is change in neck symptoms like enlarging neck lump, new/worsening difficulty swallowing, voice changes, choking/pressure sensation. Methimazole: -This medicine is usually well tolerated, but you need to be aware of possible side effects including decrease in blood cell counts, liver dysfunction, joint/muscle aches, rash, nausea, altered tastesensation. -Let me know if you develop sore throat, fever, any infection, abdominal pain/bloating, loss of appetite, nausea, vomiting, change in urine/stool color, yellowish eye discoloration (if, so you will also need to hold methimazole transiently till we make sure your labs are good). Let me know if you develop any concerning side effects otherwise. documented in this encounter Progress Notes * Nj Paul MD - 06/12/2025 8:00 AM EST Images from the original note were not included. Reason for visit/chief complaint: hyperthyroidism Date: 06/12/2025 Referring Provider: No ref. provider found Primary Care Provider: Kaykay Adame DO HPI: Interval hx/subjective: 06/12/2025: She has been on MMI 5 mg 4 days a week. Taking regularly. No side effects/change in symptoms. No palpitations/tremors. Bms are normal. No significant fatigue. No heat/cold intolerance. Noneck lumps/compressive symptoms. Noticed eyes are red in the morning. No double vision, bulging eyes or dry eyes. No biotin, MVI, B-complex, no estrogen containing pills. 02/06/2025: She has been on MMI 5 mg 5 days a week. No missed doses. No side effects. No significant fatigue, palpitations, tremors. No heat/cold intolerance. Bms are normal. Has gainedweight compared to last visit. No neck lumps or compressive symptoms, but may just feel pills and food (certain foods) going down her throat without dysphagia (stable compared to last visit, not worsening). No biotin, MVI, B-complex, no estrogen containing pills. 11/22/2024: She has been on MMI 5 mg 5 days a week. No missed doses. No side effects. No significant fatigue, palpitations, tremors. No heat/cold intolerance. Bms are normal. Has been gaining some weight. No hair loss, dry skin. Leg rash went away. No eye symptoms. No exposure to smoking. No neck lumps or compressive symptoms, but may just feel pills and food (certain foods) going down her throat without dysphagia, more often than not in the last ~2 months. No biotin, MVI, B-complex, no estrogen containing pills. 09/20/2024: She has been on MMI 5 mg 5 days a week. No missed doses. No side effects. No significant fatigue, palpitations, tremors. No heat/cold intolerance. Bms are normal. Has gainedsome weight since last visit. No hair loss, dry skin. Leg rash is improving. No eye symptoms. No exposure to smoking. No neck lumps or compressive symptoms. No biotin, MVI, B-complex, no estrogen containing pills. 07/04/2024: She has been on MMI 5 mg 5 days a week since ~05/23/2024 (skipping Mon/thurs). No misseddoses. No side effects. No abdominal pain, nausea, decreased appetite, bloating, change in urine/stool/eye color. No significant fatigue, palpitations, tremors. No heat/cold intolerance. Bms are normal. She has gained some weight which she attributes to stress. No hair loss, dry skin. Leg rash is improving. No eye symptoms. No neck compressive symptoms. Saw eye doctor recently; no concerns. No biotin, MVI, B-complex, no estrogen containing pills. 03/22/2024: She has been on MMI 5 [...] since 08/2023. No missed doses. No side effectsnoticed. No fatigue, palpitations, tremors, heat/cold intolerance. Has chronic constipation (stableover long time). She has been intentionally working [...] the initial consult note from 08/28/2023: Ms. Wade is a 49 y.o. female with hx of Migraine, chronic back pain and newly found hyperthyroidism. Hyperthyroidism was initially noted on workplace health screening labs in June of 2023. Prior to these labs, she had normal TSH levels in 2018 and october of 2022. Patient notes in December of 2022, PCP felt neck looked enlarged. Thyroid ultrasound was ordered at thattime. No nodules or increased vascularity or enlargement noted. Patient denies symptoms or complaints of changes in her neck/dysphagia, etc. at the time of the ultrasound. Her TSH was normal in October of 2022 (and the next available TSH was suppressed in June of 2023.). No biotin supplements. No hormone therapy (OC stopped in January). No recent steroids. Ms. Wade endorses constipation and tremors palpitations--chronic constipation and [...] bilateral shins--itchy intermittent, since spring--has tried topical steroidswithout improvement Risk factors: -Hx of autoimmune diseases: [...] History: Past Medical History: Diagnosis Date Anxiety Graves disease 08/2023 Migraines Seizures (HCC) Surgical History: Past Surgical History: Procedure Laterality Date TONSILLECTOMY US THYROID BIOPSY WITH FNA 12/22/2024 US THYROID BIOPSY WITH FNA 12/22/2024 Danielito Lagunas DO ULTRASOUND WISDOM TOOTH EXTRACTION Family History: Family History Problem Relation Age of Onset Hypothyroidism Father Cancer Sister Cancer Maternal Aunt Cancer Maternal Grandmother Social History: Social History Socioeconomic History Marital status: Tobacco Use Smoking status: Never Smokeless tobacco: Never Vaping Use Vaping status: Never Used Substance and Sexual Activity Alcohol use: Yes Comment: socially Drug use: Never Social Drivers of Health Financial Resource Strain: Low Risk (03/25/2024) Received from [facility] Overall Financial Resource Strain (CARDIA) Difficulty of Paying Living Expenses: Not hard at all Food Insecurity: No Food Insecurity (09/25/2024) Received from [facility] Hunger Vital Sign Worried About Running Out of Food in the Last Year: Never true Ran Out of Food in the Last Year: Never true Transportation Needs: No Transportation Needs (09/25/2024) Received from [facility] PRAPARE - Transportation Lack of Transportation (Medical): No Lack of Transportation (Non-Medical): No Housing Stability: Low Risk (09/25/2024) Received from [facility] Housing Stability Vital Sign Unable to Pay for Housing in the Last Year: No Number of Times Moved in the Last Year: 0 Homeless in the Last Year: No Allergies: Allergies Allergen Reactions Erythromycin Hives Penicillins Hives Current Medications: Current Outpatient Medications Medication Sig Dispense Refill busPIRone (BUSPAR) 5 MG tablet Take 1 (one) tablet (5 mg total) by mouth 2 (two) times a day . DULoxetine (CYMBALTA) 60 MG capsule Take 1 (one) capsule (60 mg total) by mouth daily . magnesium hydroxide (MOM) 400 mg/5 mL Susp 30 mL po daily up to twice a week as needed for constipation methIMAzole (TAPAZOLE) 5 MG tablet Take daily for only 4 days a week and skip 3 days in the week . 18 tablet 11 metoprolol succinate (TOPROL-XL) 50 MG 24 hr tablet polyethylene glycol (GLYCOLAX) 17 gram/dose powder 1/2 capful daily No current facility-administered medications for this visit. Patient is not taking Norethindrone since 01/23. Physical Exam: Vitals: BP (P) 124/88 (Patient Position: Sitting) Pulse 71 Wt 112.5 kg (248 lb) BMI 36.62 kg/m?? , Body mass index is 36.62 kg/m??., Wt Readings from Last 3 Encounters: 06/12/25 112.5 kg (248 lb) 02/06/25 109.3 kg (241 lb) 11/22/24 103 kg (227 lb) General/Constitutional: , well-developed and in no distress Eyes: no proptosis, no jaundice, there is very little congestion Cardiovascular: regular rhythm Pulmonary/Chest: effort normal Neurological: alert and oriented, no focal deficits, no remarkable tremors Skin: warm Psychiatric: appropriate affect Lab/Imaging Data: Lab Results Component Value Date WBC 4.91 08/28/2023 HGB 14.3 08/28/2023 HCT 45.5 08/28/2023 MCV 92.3 08/28/2023 PLT 251 08/28/2023 No results found for: GLUCOSE , NA , K , CL , BUN , CREATININE Lab Results Component Value Date ALT 27 11/16/2024 AST 31 11/16/2024 ALKPHOS 98 11/16/2024 BILITOT 0.4 11/16/2024 Lab Results Component Value Date TSH 0.92 06/03/2025 [id number] 242 (H) 08/28/2023 No results found for: PTH , CALCIUM , YUDITH , PHOS No results found for: LDLCALC , CHOL , HDL , TRIG , CHOLHDL THYROID ULTRASOUND 12/01/2022: COMPARISON: None. HISTORY: ORDERING SYSTEM PROVIDED HISTORY: Thyromegaly TECHNOLOGIST PROVIDED HISTORY: This procedure can be scheduled via Feedtrace. Access your Feedtrace account by visiting [email or web address]. thyromegaly FINDINGS: Right thyroid lobe: 50 x [...] (0.9-1.7), free T3 6.03 (2.02-4.43), TRAb 4.96 (<1.75),TPO 79, thyroglobulin antibody 275 08/28/23: TSH <0.01, free T4-2.2, T3 242. AST 74, ALT 112, total bilirubin 0.5, direct bili 0.1, alkaline phosphatase 142. White blood cell count 4.91, hemoglobin 14.3, platelets 251,000. Thyroid-stimulating immunoglobulin, 5.2. 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 And eczematous process such as atopic or contact dermatitis cannot be excluded. Clinical correlation is recommended. 12/21/2023: TSH 0.01, FT4 1.1, T3 100, alb 4.1, edilia 0.4, ALT 29, AST 26, ALP 114 (high, improving, range <104) 02/01/2024: TSH 0.08, FT4 1.2, T3 90, ALP 127 (range <104), other LFTs normal 03/17/2024: TSH 0.64, FT4 1, T3 88, ALP 136 (high, range <104), AST 49 (high, range <32), ALT 68 (high, range <33), edilia 0.3, albumin 3.9 04/01/2024: AST 20, ALT 21, ALP 112 (high, range 104), edilia 0.4, albumin 4.1 05/20/2024: ALP 132 (high, range < 104), AST 34 (high, range <32), ALT 53 (high, range <33), alb 4.3, edilia 0.2, TSH 1.71, FT4 0.9 (low, range 0.92-1.68), T3 87 (range 80-200) 07/01/2024: alb 4.2, ALT 63 (high), AST 40 (high), ALP 120 (high), edilia 0.3, protein 6.7, TSH 1.27, FT4 1 (range 0.92-1.68), T3 93 (range 80-200). 07/29/2024: LFTs normal except ALP 105 (normal <104) 09/14/2024: LFTs normal, TSH 0.93, FT4 0.9 (low normal), T3 99 (range 80-200), TRAb 2.21 (high, range <1.75), TSI 4.23 (high, range <0.54) 11/16/2024: TSH 0.91, FT4 1, T3 104, LFTs normal, TSI 3.91 (high), TRAb 1.55 (normal) Neck US 11/26/2024: COMPARISON: 12/01/2022 ultrasound report. FINDINGS: Ultrasound of the thyroid and neck. Thyroid gland is normal in size with heterogeneous echotexture and diffuse increased vascularity. Right thyroid lobe measures 4.5 x 1.6 x 1.8 cm. Isthmus measures 0.2 cm in AP dimension. Left thyroidlobe measures 4.5 x 1.3 x 1.5 cm. Left mid thyroid lobe hypoechoic solid nodule measures 2.0 x 0.6 x 0.9 cm. TR4 classification. Mildly prominent left cervical level 1 lymph node measures 1.2 x 0.6 x 1.2 cm with mild lobulation and borderline cortical thickening measuring up to 3 mm. Likely relates to reactive adenopathy. Remaining cervical lymph nodes are unremarkable. IMPRESSION: Normal size, heterogeneous thyroid gland with increased vascularity, suggestive of underlying thyroiditis. Left mid thyroid lobe 2 cm nodule with TR4 classification. Review of 12/01/2022 thyroid ultrasound report mentions no thyroid nodules. Ultrasound-guided biopsy recommended. Mildly prominent left cervical 1 lymph node with lobulation and borderline cortical thickening. Favored to be reactive. Cervical lymph nodes are otherwise unremarkable. Pathology 12/22/24: A. Thyroid, Left Mid, fine needle aspiration (FNA) biopsy: BENIGN Consistent with a benign follicular nodule (includes adenomatoid nodule, colloid nodule, etc.). 01/31/2025: TSH 0.84, FT4 0.9 (low, range 0.92-1.68), T3 123 03/18/25: TSH 0.53, FT4 1, T3 108 06/03/2025: TSH 0.92, FT4 1, T3 117, TRAb 1.35 (normal, range <2), TSI 146 (high, range <140%) Assessment and plan: Ms. Wade is a 49 y.o. female with hx of Migraines and [...] Graves hyperthyroidism with TSH suppression, elevated FT4 and3 and postive TRAB. Today will check TFTs [...] remission. Reviewed possible side effects of methimazole andmedication precautions during treatment. We also discussed other [...] daily. Elevated liver function test could possibly berelated to her hyperthyroidism, will monitor closely and hopefully will improve with improved thyroid levels. Patient notified via Feedtrace message. Repeat liver enzymes, TFT orders mailed [...] some mild elevation in enzymes with normal edilia and alb (already had some elevation before [...] on the same MMI dose 5 mg daily.LFTs show some elevation in enzymes (below or at 2 times ULN, but ALT/AST increased compared to last time) with normal edilia and albumin. Will keep on same MMI dose for now and keep a close eye on LFTs; will repeat LFTs after ~1-2 weeks to make sure not worsening, and planning to repeat TFTs after 2 months to make sure they will remain stable; sooner in case of change in symptoms. Counseled on avoiding exposure to smoking. 07/04/2024: She has been on MMI 5 mg 5 days a week since ~05/23/2024. Repeat TFTs were normal in late 06/2024. LFTs mildly elevated <2 times ULN/fluctuating. Will keep on same MMI dose and repeat TFTs along with Abs/LFTs in 2 months (will also repeat LFTs after 1 more month to make sure they are stable). She will let me know sooner in case of change in symptoms. 09/20/2024: TFTs in 09/2024 are still normal (with low normal FT4/T3) but TRAb/TSI are still high. LFTs are normal. Will keep on same MMI dose 5 mg 5 days a week and repeat TFTs again in 2 more months,sooner in case of change in symptoms. 11/22/2024: Labs from 11/2024 show normal TFTs and LFTs TRAb normalized while TSI was still high (?why redrawn again now). Will keep on same MMI dose 5 mg 5 days a week and repeat labs again in ~3 months, sooner in case of change in symptoms. Planning to repeat Abs around 05/2025. Will get neck US given her swallowing complaints. Counseled on smoking exposure and eye disease. 02/06/2025: US in 11/2024 reported 2 cm ill defined hypoechoic nodule on L side, which was FNAd in 12/2024 and came back benign. Last TFTs from 01/2025 show normal TSH 0.84 and T3 123 but baely low FT4 0.9 (range 0.92-1.68). Will decrease MMI to 5 mg 4 days a week and repeat TFTs in ~6 more weeks at a different lab. Planning to repeat TFTs and Abs in 06/2025 before next visit. Plan is to repeat US in 11/2025, sooner in case of change in symptoms. 06/12/2025: TFTs in -06/2025 were normal, TRAb was -ve in 06/2025 but TSI is still mildly high (seems to have improved remarkably). Will keep patient on same MMI dose 5 mg 4 days a week and repeat TFTs/Abs in 6 months, with repeat US, sooner in case of change in symptoms. She would like to keep onMMI at this time rather than exploring RUEDA/surgery. 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 Return in about 6 months (around 12/10/2025) for Graves and thyroid nodule f/u. Nj Paul MD Endocrinology documented in this encounter Plan of Treatment DateTypeDepartmentCare Team (Latest Contact Info)Dcvbcupidqx91/04/2026 8:00 AM EDTAppointProMedica Fost[facility] Ul[facility] [address] [place] [phone] Nj Paul MD [address] [place] [id number] 12/11/2025 8:00 AM EDTOffice Visit [facility] [address] [place] [address] [place] [address] Nj Paul MD [address] [place] [id number] NameTypePriorityAssociated DiagnosesOrder ScheduleTSHLabRoutine Graves disease Thyroid nodule Expected: 12/01/2025, Expires: 06/12/2026T4, freeLabRoutine Graves disease Thyroid nodule Expected: 12/01/2025, Expires: 06/12/20264098P4FegAdjkslw Graves disease Thyroid nodule Expected: 12/01/2025, Expires: 06/12/2026US Soft Tissue Neck and ThyroidImaging Routine Graves disease Thyroid nodule Expected: 12/01/2025, Expires: 06/12/2026Thyrotropin Receptor AntibodyLabRoutine Graves disease Thyroid nodule Expected: 12/01/2025, Expires: 06/12/2026Thyroid stimulating immunoglobulinLab Routine Graves disease Thyroid nodule Expected: 12/01/2025, Expires: 06/12/2026documented as of this encounter Visit Diagnoses Diagnosis Graves disease- Primary Toxic diffuse goiter without mention of thyrotoxic crisis or storm Thyroid nodule Nontoxic uninodular goiter documented in this encounter Care Teams Team MemberRelationshipSpecialtyStart DateEnd Date Kaykay Adame DO [address] [place] [address] PCP - GeneralFamily Medicine01/01/23documented as of this encounter
--- OUTSIDE RECORDS SUMMARY | 2025-06-26 10:46 | XMS_ITS | Clinical Summary ---
Author Organization [facility] Address [address] [place] [address] Care Team Providers Care [employer] Name Role Phone Wenceslao Rangel MD Primary Care Provider [phone] Social History Tobacco UseTypesPacks/DayYears UsedDateSmoking Tobacco: Never Assessed CommentsUnknownSex and Gender InformationValueDate RecordedSex Assigned at Not on fileLegal TcdEcysfh76/15/2023 7:25 PM EDTGender IdentityNot on fileSexual OrientationNot on file Last Filed Vital Signs Vital SignReadingTime TakenCommentsBlood Teftytjs625/7807 12:00 PM EDT Pulse--Temperature--Respiratory Rate--Oxygen Saturation--Inhaled Oxygen Concentration--Bwheqk03 kg (187 lb 6.4 oz)03/03/2019 12:00 PM KNASstitg976.1 cm (4' 10.7 )02/29/2020 12:00 PM EDTBody Mass Index38.2408 12:00 PM EDT Plan of Treatment Not on file Care Teams Team MemberRelationshipSpecialtyStart DateEnd Date Wenceslao Rangel MD [address] [facility] [address] [place] [address] PCP - GeneralInternal Medicine12/09/22
--- OUTSIDE RECORDS SUMMARY | 2025-06-26 10:46 | XMS_ITS | Clinical Summary ---
Author Organization [facility] Address [address] [place] [address] Care Team Providers Care Health Care Legal Assistant Name Role Phone Kaykay Adame DO Primary Care Provider [phone] Allergies Active AllergyReactionsCriticalityNoted SuonPswvgmzyZanmrydrwmxhUsfzy87/12/2011 FecckgmrlcuPugdm83/07/2020 Medications MedicationSigDispense QuantityRefillsLast FilledStart DateEnd DateStatus magnesium hydroxide (MOM) 400 mg/5 mL Susp 30 mL po daily up to twice a week as needed for ynfdbtgthzus58/14/2022ctive metoprolol succinate (TOPROL-XL) 50 MG 24 hr tablet 11/03/2022ctive polyethylene glycol (GLYCOLAX) 17 gram/dose powder 1/2 capful daily09/16/2021ctive DULoxetine (CYMBALTA) 60 MG capsule Take 1 (one) capsule (60 mg total) by mouth daily .Active busPIRone (BUSPAR) 5 MG tablet Take 1 (one) tablet (5 mg total) by mouth 2 (two) times a day .06/20/2024ctive methIMAzole (TAPAZOLE) 5 MG tablet Indications:HyperthyroidismTake daily for only 4 days a week and skip 3 days in the week . 18 tablet 1105Active Active Problems ProblemNoted DateDiagnosed DateRight-sided heqwboel79/08/2023bnormal tympanic membrane of right ear01/08/2023lobus ozmvolrgi69/08/1401Qrqcqgopo05/08/2023 Encounters DateTypeDepartmentCare GlxgAlzzpuwwmif80/05/2025 8:00 AM ESTOffice Visit [facility] [address] [facility] [place] [address] Nj Paul MD Graves disease (Primary Dx); Thyroid qwcesu7806/07/20253776Ovzswl61/31/2025Travelfrom Last 3 Months Immunizations ImmunizationAdministration DatesNext DuePfizer SARS-CoV-2 Ycixanjvfaj68/22/2021, 11/23/2020,11/02/2020 Family History Medical HistoryRelationCommentsHypothyroidismFatherCancerMaternal AuntCancer Maternal GrandmotherCancerSisterRelationStatusCommentsFatherMaternal Aunt Maternal GrandmotherSister Social History Tobacco UseTypesPacks/DayYears UsedDateSmoking Tobacco: NeverSmokeless Tobacco: Never Tobacco Cessation:Counseling Given: Not Answered Alcohol UseStandard Drinks/WeekCommentsYes0 (1 standard drink = 0.6 oz pure alcohol)sociallyCommentsUnknownSex and Gender InformationValueDate RecordedSex Assigned at BirthNot on fileLegal AliWdssqw40/26/2023 4:55 PM EDT Gender IdentityNot on fileSexual OrientationNot on file Last Filed Vital Signs Vital SignReadingTime TakenCommentsBlood Reqtlofo508/8806/12/2025 7:48 AM EST Oiryg905006/12/2025 7:48 AM OBJYenpqbkpbvu09.6 ??C (97.9 ??F)01/08/2023 9:35 AM EDTRespiratory Rate--Oxygen Saturation--Inhaled Oxygen Concentration--Weight 112.5 kg (248 lb)06/12/2025 7:48 AM FTILoqbjh228.3 cm (5' 9 )08/28/2023 9:36 AM ESTBody Mass Index36.62008/28/2023 9:36 AM EST Plan of Treatment DateTypeDepartmentCare Team (Latest Contact Info)Jvhwgxyxieg73/04/2026 8:00 AM EDTAppointment [facility] [address] [place] [address] Nj Paul MD [address] [place] [address] 12/11/2025 8:00 AM EDTOffice Visit [facility] [address] [facility] [place] [address] Nj Paul MD [address] [place] [address] Health MaintenanceDue DateLast DoneCommentsCT Dxqrbdfsfjmw1973Fecal DNA 1973Fecal occult blood test (FOBT,FIT)1973MMR Vaccines (1 of 1 - Standard series)1974Depression Screening/Follow-Up (PHQ-09/11)1985HIV Cxjucnmge20/22/1988Hepatitis C Ngwqbrdxa18/22/1991Hepatitis B Vaccines (1 of 3 - 19+ 3-dose series)1992Tetanus/Diphtheria/Pertussis (1 - Tdap)1992 Wellness Visit, 05/09/2020Flexible wdmvlwuduedhc16/22/2023 Pneumococcal Vaccine: 50+ Years (1 of 1 - PCV)2023Zoster Vaccines (1 of 2) 3Pap Smear/OVID-19 Vaccine ( season) /08/2023, 05/30/2022, 05/24/2021, Additional history existsInfluenza Vaccine (#1)/08/2023, 06/19/2023, 05/30/2022, Additional history ekzkjbArfuviwwy19/21/202511/, 06/22/2023, 04/30/2020Cervical Cancer Tpzqduqly31/19/2026HPV/Repxzc21613803Fwcjfnfojod60 Colorectal Cancer Screening/Nqvvtayuwv61/15/2033RSV Vaccines (1 - 1-dose 75+ series)2048HIB VaccinesAged OutNo longer eligible based on patient's age to complete this topicHPV VaccinesAged OutNo longer eligible based on patient's age to complete this topicHepatitis A VaccinesAged OutNo longer eligible based on patient's age to complete this topicIPV VaccinesAged OutNo longer eligible based on patient's age to complete this topicMeningococcal ACWY VaccineAged Out No longer eligible based on patient's age to complete this topicMeningococcal B VaccineAged OutNo longer eligible based on patient's age to complete this topic Rotavirus VaccinesAged OutNo longer eligible based on patient's age to complete this topic Procedures Procedure NamePriorityDate/TimeAssociated DiagnosisCommentsTHYROID STIMULATING GHKNZOCVKLMRDFUpasaqm19/01/2025 8:19 AM EDT Hyperthyroidism Graves disease THYROTROPIN RECEPTOR CZXGYNNWXfoogcw38/01/2025 8:19 AM EDT Hyperthyroidism Graves disease JNXDjhmefa43/01/2025 8:19 AM EDT Hyperthyroidism Graves disease T4, JMOXVrlztod84/01/2025 8:18 AM EDT Hyperthyroidism Graves disease L2Qearcuc00/01/2025 8:18 AM EDT Hyperthyroidism Graves disease from Last 3 Months Results * (ABNORMAL) Thyroid stimulating immunoglobulin (06/03/2025 8:19 AM EDT) ComponentValueRef RangeTest MethodAnalysis TimePerformed AtPathologist SignatureThyroid Stimulating Immunoglob (Quest)146(H)<140 % baselineQST [facility]/[place] CHANTILLYComment: Thyroid stimulating immunoglobulins (TSI) can engage the TSH receptors resulting in hyperthyroidism in Graves' disease patients. TSI levels can be useful in monitoring the clinical outcome of Graves' disease as well as assessing the potential for hyperthyroidism from maternal- transfer. TSI results greater than or equal to (>=) 140% of the Reference Control are considered positive. NOTE: A serum TSH level greater than 350 micro-International Units/mL can interfere with the TSI bioassay and potentially give false positive results. Patients who are and are suspected of having hyperthyroidism should have both TSI and human Chorionic Gonadotropin(hCG) tests measured. A serum hCG level greater than 40,625 mIU/mL can interfere with the TSI bioassay and may give false negative results. In these patients it is recommended that a second TSI be obtained when the hCG concentration falls below 40,625 mIU/mL (usually after approximately 20-weeks gestation). The analytical performance characteristics of this assay have been determined by [facility] [employer] [place], [place]. ??The modifications have not been cleared or approved by the FDA. ??This assay has been validated pursuant to the CLIA regulations and is used for clinical purposes. ? Specimen (Source)Anatomical Location / LateralityCollection Method / Volume Collection TimeReceived TimeBloodBLOOD SPECIMEN / Onuqnyz7406/03/2025 8:19 AM EDT 06/03/2025 8:19 AM EDT Narrative T Yedda/REA LOW - 06/08/2025 5:50 PM EST FASTING:NO FASTING: NO Authorizing ProviderResult TypeResult StatusNj DIAZ BLOOD ORDERABLESFinal ResultPerforming OrganizationAddressCity/State/ZIP Code Phone Number [facility] Yedda/LUCIA WABAN [address] [place] [address], * Thyrotropin Receptor Antibody (06/03/2025 8:19 AM EDT)ComponentValueRef Range Test MethodAnalysis TimePerformed AtPathologist SignatureTrab (Quest)1.35 <=2.00 IU/LQST [facility]/REA [facility] HOSPITALYComment: This test was performed using the TRAb Antibody RICARDO method which is standardized against the 1st International Standard 90/672 and is reported in International Units (IU/L). The reference range reported was established specifically for this test method. ? Specimen (Source)Anatomical Location / LateralityCollection Method / Volume Collection TimeReceived TimeBloodBLOOD SPECIMEN / Ksoukzq2906/03/2025 8:19 AM EDT 06/03/2025 8:19 AM EDT Narrative T Yedda/REA LOW - 06/07/2025 12:03 AM EST FASTING:NO FASTING: NO Authorizing ProviderResult TypeResult StatusNj DIAZ BLOOD ORDERABLESFinal ResultPerforming OrganizationAddressCity/State/ZIP Code Phone Number QST [facility]/REA [facility] HOSPITALLise [address] [place] [address], [place] * TSH (06/03/2025 8:19 AM EDT)ComponentValueRef RangeTest MethodAnalysis Time Performed AtPathologist SignatureTSH0.92mIU/LQUEST DI[facility]ICS [facility]OSPITALComment: ?Reference Range ? > or = 20 Years 0.40-4.50 ? Ranges ?First trimester ?0.26-2.66 ?Second trimester ?? 0.55-2.73 ?Third trimester ?0.43-2.91 Specimen (Source)Anatomical Location / LateralityCollection Method / Volume Collection TimeReceived TimeBloodBLOOD SPECIMEN / Whmljyf7206/03/2025 8:19 AM EDT 06/03/2025 8:19 AM EDT Narrative [facility] - 06/04/2025 6:57 AM EST FASTING:NO FASTING: NO Authorizing ProviderResult TypeResult StatusHussein Humberto DIAZ BLOOD ORDERABLESFinal ResultPerforming OrganizationAddressty/State/ZIP Code Phone Number [facility] [address] [place] [address], [place] * T3 (06/03/2025 8:18 AM EDT)ComponentValueRef RangeTest MethodAnalysis Time Performed AtPathologist SignatureT3, Total (Quest)75930 - 181 ng/dLQUEST DIAGNOSTICS [facility] HOSPITALSpecimen (Source)Anatomical Location / LateralityCollection Method / VolumeCollection TimeReceived TimeBloodBLOOD SPECIMEN / Obashso8006/03/2025 8:18 AM EDT108/03/2024 8:19 AM EDT Narrative [facility] - 06/04/2025 6:23 AM EST FASTING:NO FASTING: NO Authorizing ProviderResult TypeResult StatusHussein Adly Nj Adly MDLAB BLOOD ORDERABLESFinal ResultPerforming OrganizationAddressCity/State/ZIP Code Phone Number [facility] [place] [address], * T4, free (06/03/2025 8:18 AM EDT)ComponentValueRef RangeTest MethodAnalysis TimePerformed AtPathologist SignatureFree T41.00.8 - 1.8 ng/dLQUEST DIAGNOSTICS [facility] HOSPITALSpecimen (Source)Anatomical Location / LateralityCollection Method / VolumeCollection TimeReceived TimeBloodBLOOD SPECIMEN / Gvnybye7606/03/2025 8:18 AM EDT108/03/2024 8:19 AM EDT Narrative [facility] - 06/04/2025 6:23 AM EST FASTING:NO FASTING: NO Authorizing ProviderResult TypeResult StatusNj DIAZ BLOOD ORDERABLESFinal ResultPerforming OrganizationAddressCity/State/ZIP Code Phone Number [facility] [address] [place] [address], from Last 3 Months Insurance Advance Directives For more information, please contact: [phone] * Full Code (Latest Code Status on File) Date ActivatedDate InactivatedComments12/22/2024 9:11 AM12/23/2024 3:44 AM Care Teams Team MemberRelationshipSpecialtyStart DateEnd Date Kaykay Adame DO [address] [place] [address] PCP - [facility]01/01/23
--- OUTSIDE RECORDS SUMMARY | 2025-06-26 10:46 | XMS_ITS | Clinical Summary ---
Author Organization [facility] Address [address], [address] [place] [address] Care Team Providers Care Fulfillment Specialist Name Role Phone Kaykay Adame DO Primary Care Provider [phone] Allergies Active AllergyReactionsCriticalityNoted NntyAhsdzmvtTgyuvxenubgd02/12/2011 Uxcukznnodi58/07/2020 Medications MedicationSigDispense QuantityRefillsLast FilledStart DateEnd DateStatus polyethylene glycol (GLYCOLAX) 17 GM/SCOOP powder 1/2 capful daily 510 g 09/16/2021ctive magnesium hydroxide (MILK OF MAGNESIA) 400 MG/5ML suspension 30 mL po daily up to twice a week as needed for constipation 473 mL 09/16/2021ctive tiZANidine (ZANAFLEX) 4 MG tablet Take 2 tablets by mouth nightly as needed (muscle pain) 60 tablet 5Active cyclobenzaprine (FLEXERIL) 10 MG tablet Take 1 tablet by mouth nightly as needed for Muscle spasms 60 tablet 5Active DULoxetine (CYMBALTA) 60 MG extended release capsule 60 mg po daily 90 capsule 5Active metoprolol succinate (TOPROL XL) 50 MG extended release tablet Take 1 tablet by mouth daily 90 tablet 5Active methIMAzole (TAPAZOLE) 5 MG tablet Take 1 (one) tablet (5 (FIVE) mg total) by mouth daily For only 4 days a week 30 tablet 5Active busPIRone (BUSPAR) 10 MG tablet Indications:AnxietyTake 1 tablet by mouth 2 times daily 180 tablet 5Active Active Problems ProblemNoted DateDiagnosed DateChronic bilateral low back pain without sciatica 03/14/2020Migraine without aura and without status migrainosus, not intractable 07/14/2011 Resolved Problems ProblemNoted DateDiagnosed DateResolved DateContact dermatitis and other eczema, due to unspecified cause Encounters DateTypeDepartmentCare KhlqMkuiruqrzmh06/23/2025bstract [address] [address] Kaykay Adame, DO 04/18/2025Refill [address] [phone] Kaykay Adame, DO Medication Flmeye9704/11/2025Telephone [address] [address] Kaykay Adame, DO Swqguj9003/31/2025 7:40 AM EDTOffice Visit [address] [address] Kaykay Adame, DO Neck pain (Primary Dx); Chronic bilateral low back pain without sciatica; Anxiety; Hyperthyroidism; Moderate binge-eating disorder; Other screening mammogramfrom Last 3 Months Immunizations ImmunizationAdministration DatesNext DueCOVID-19, Inactive, PFIZER PURPLE top, DILUTE for use, (age 12 y+)05/24/2021,11/23/2020,11/02/2020Influenza Trivalent 06/03/2024Influenza, FLUARIX, FLULAVAL, FLUZONE (age 6 mo+) and AFLURIA, (age 3 y+), Quadv PF, 0.5mL06/19/2023,05/30/2022,05/24/2021 Family History Medical HistoryRelationNameCommentsColon CancerMaternal AuntRuth annRelationName StatusCommentsMaternal AuntRuth sera Social History Tobacco UseTypesPacks/DayYears UsedDateSmoking Tobacco: NeverSmokeless Tobacco: NeverAlcohol UseStandard Drinks/WeekCommentsYes0 (1 standard drink = 0.6 oz pure alcohol)[facility] UtilitiesAnswerDate RecordedIn the past 12 months has the [employer], gas, oil, or water Computime threatened to shut off services in your home?No 09/25/2024Overall Financial Resource Strain (CARDIA)AnswerDate RecordedHow hard is it for you to pay for the very basics like food, housing, medical care, and heating?Not hard at all03/25/2024HQ-2AnswerDate RecordedPHQ-9 Total Score0 02/17/2025Hunger Vital SignAnswerDate RecordedWithin the past 12 months, you worried that your food would run out before you got the money to buymore.Never true09/25/2024Within the past 12 months, the food you bought just didn't last and you didn't have money to get more.Never true09/25/2024PRAPARE - TransportationAnswerDate RecordedIn the past 12 months, has lack of transportation kept you from medical appointments or from getting medications?No 09/25/2024In the past 12 months, has lack of transportation kept you from meetings, work, or from getting things needed for daily living?No09/25/2024 Housing Stability Vital SignAnswerDate RecordedUnable to Pay for Housing in the Last YearNot on file10/27/2022Number of Places Lived in the Last YearNot on file 10/27/2022In the last 12 months, was there a time when you did not have a steady place to sleep or slept in ashelter (including now)?No10/27/2022Housing Stability Vital SignAnswerDate RecordedIn the last 12 months, was there a time when you were not able to pay the mortgage or rent on time?No09/25/2024In the past 12 months, how many times have you moved where you were living? At any time in the past 12 months, were you homeless or living in a usp (including now)?No09/25/2024Food InsecurityAnswerDate RecordedWithin the past 12 months, you worried that your food would run out before you got the money to buy more.Within the past 12 months, the food you bought just didn't last and you didn't have money to get more.Interpersonal Safety Domain Source: IP Abuse ScreeningAnswerDate RecordedRead-Only, Retired: Physical Abuse Zmkmws9306/17/2023Read-Only, Retired: Verbal VtuanOqjneh27/15/2023Read-Only, Retired: Emotional nqxgxKzakmv66/15/2023Read-Only, Retired: Financial Abuse Xiglqi4306/17/2023Read-Only, Retired: Sexual hfmhpTdndwu28/15/2023Comments NoSex and Gender InformationValueDate RecordedSex Assigned at BirthFemale 12/25/2024 9:32 AM EDTLegal QjnQxwitu44/10/2013 5:52 PM ESTGender IdentityNot on fileSexual OrientationNot on file Last Filed Vital Signs Vital SignReadingTime TakenCommentsBlood Ngxfszqf529/6208 7:40 AM EDT Mlozc948703/31/2025 7:40 AM KVXJczqpfcmtet90.1 ??C (97 ??F)06/17/2023 11:15 AM EST Respiratory Acsh475708/17/2022 1:34 PM ESTOxygen Avtsarjkde03%03/31/2025 7:40 AM EDTInhaled Oxygen Concentration--Zkdvjl965 kg (247 lb)03/31/2025 7:40 AM EDT Bhssqb227.8 cm (5' 10 )03/31/2025 7:40 AM EDTBody Mass Index35.44003/31/2025 7:40 AM EDT Plan of Treatment DateTypeDepartmentCare Team (Latest Contact Info)Vukqddouali34/27/2026 7:40 AM ESTOffice Visit [facility] [place] [address] [place] [address] Kaykay Adame [place] [phone] 6 mos - AnxietyHealth MaintenanceDue DateLast DoneCommentsHIV dkojev7606/24/1988 Hepatitis C zlnuds4306/24/1991DTaP/Tdap/Td vaccine (1 - Tdap)1992Hepatitis B vaccine (1 of 3 - 19+ 3-dose series)1992FIT/FOBT: Average risk2018 Fecal-DNA (Cologuard): Average risk2018Sigmoidoscopy/CT colonography 2018Pneumococcal 50+ years Vaccine (1 of 1 - PCV)2023Shingles vaccine (1 of 2)3Pap smear41, 05/09/2020, 09/26/2013, Additional history existsFlu vaccine (#1)5108/03/2023, 06/19/2023, 05/30/2022, Additional history existsDepression Jmsyvd75/, 5Cervical cancer oglevw7005/21/2026HPV (without or with Pap)05/21/2026 05/21/2021, 05/09/2020A1C test (Diabetic or Prediabetic), 06/03/2024, 06/19/2023, Additional history existsBreast cancer ugzbdv8606/23/2026 06/23/2024, 06/23/2024, 06/22/2023, Additional history vicwvtPkuisy98/31/2030 06/02/2025, 06/03/2024, 06/19/20233833Qtdhifcvgml21, 06/17/2023 Colorectal Cancer Uildpm373COVID-19 QjlhcssIdbuylvks41/01/2024, 05/30/2022, 05/24/2021, Additional history existsDiabetes screenDiscontinued 06/02/2025, 06/19/2023, 03/27/2023Hepatitis A vaccineAged OutNo longer eligible based on patient's age to complete this topicHib vaccineAged OutNo longer eligible based on patient's age to complete this topicMeningococcal (ACWY) vaccineAged OutNo longer eligible based on patient's age to complete this topic Meningococcal B vaccineAged OutNo longer eligible based on patient's age to complete this topicPolio vaccineAged OutNo longer eligible based on patient's age to complete this topic Procedures Procedure NamePriorityDate/TimeAssociated JbtuecsrkSyyczehzMVKVzfipnh36/31/2025 COMPREHENSIVE METABOLIC ZKZTHPwiebox62/31/2025 LIPID OUCDCMuytxgc69/31/2025 NRBNtmcjqy75/31/2025 HEMOGLOBIN J1XUrwazib95/31/2025 HM CEKCWLMBWWJYnddxdc08/21/2024 COLONOSCOPY GBGSAQCGTKutzxhs17/15/2023 11:11 AM EST HUMAN PAPILLOMAVIRUS (HPV) DNA PROBE THIN PREP HIGH RCYRZrvphmf20/19/2021 8:00 PM EDT ATHLETIC COACH FJZLRPGROobtooa75/19/2021 10:20 AM EDT from Last 3 Months or Most Recently Relevant to Health Maintenance Results * CBC (06/02/2025)ComponentValueRef RangeTest MethodAnalysis TimePerformed At Pathologist SignatureWBC6.410^3/vCYcpnbrpisn99.112.0 - 16.0 g/iGDatusxuboa23.6 36 - 46 %Rfsykzobu393J/??LNeutrophils %Lymphocytes %Monocytes %Eosinophils % Basophils %Neutrophils AbsoluteLymphocytes AbsoluteMonocytes Absolute Eosinophils AbsoluteBasophils AbsoluteRBC4.9110^6/??GSLC42jBUYF58.2reBSNQ88.3 g/pPDPQ630eUFwhymhba (Source)Anatomical Location / LateralityCollection Method / VolumeCollection TimeReceived TimeBloodBLOOD SPECIMEN / Cfszxii84/ Narrative Authorizing ProviderResult TypeResult StatusHistorical Provider MDHEMATOLOGY ORDERABLESFinal Result * TSH (06/02/2025)ComponentValueRef RangeTest MethodAnalysis TimePerformed At Pathologist SignatureTSH1.28uIU/mLSpecimen (Source)Anatomical Location / LateralityCollection Method / VolumeCollection TimeReceived TimeBloodBLOOD SPECIMEN / Hvtjxih0906/02/2025 Narrative Authorizing ProviderResult TypeResult StatusHistorical Provider MDCHEMISTRY ORDERABLESFinal Result * Hemoglobin A1C (06/02/2025)ComponentValueRef RangeTest MethodAnalysis Time Performed AtPathologist SignatureHemoglobin A1C5.7%Estimated Avg Glucose Specimen (Source)Anatomical Location / LateralityCollection Method / Volume Collection TimeReceived TimeBloodBLOOD SPECIMEN / Ecifrbv9606/02/2025 Narrative Authorizing ProviderResult TypeResult StatusHistorical Provider MDCHEMISTRY ORDERABLESFinal Result * Lipid Panel (06/02/2025)ComponentValueRef RangeTest MethodAnalysis Time Performed AtPathologist SignatureCholesterol, Nhraf830bv/kTJEK8701 - 70 mg/dL LDL Shaxuvsbziz082Fpbqphfuqlrhx15gk/dLChol/HDL Ratio3.6DUPW38hr/dLCholesterol non HDLSpecimen (Source)Anatomical Location / LateralityCollection Method / VolumeCollection TimeReceived TimeBloodBLOOD SPECIMEN / Vnvpazy0406/02/2025 Narrative Authorizing ProviderResult TypeResult StatusHistorical Provider MDCHEMISTRY ORDERABLESFinal Result * Comprehensive Metabolic Panel (06/02/2025)ComponentValueRef RangeTest Method Analysis TimePerformed AtPathologist HqlnvfhspMevzsb914gwzy/TRsfocmsf079dktu/L Potassium4.2mmol/ABIU24ak/dLCreatinine0.81mg/hRKrswbwb81cw/tTQRS15D/SHIL00H/L Calcium9.4mg/dLTotal Protein7.36.4 - 8.2 g/lWPM241ovds/LAlbumin4.7g/dLAlkaline Yhnnbbhlqcc756I/LTotal Bilirubin0.40.1 - 1.4 mg/dLEst, Glom Filt RateAnion Gap Specimen (Source)Anatomical Location / LateralityCollection Method / Volume Collection TimeReceived TimeBloodBLOOD SPECIMEN / Ckshudb6106/02/2025 Narrative Authorizing ProviderResult TypeResult StatusHistorical Provider MDCHEMISTRY ORDERABLESEdited Result - Final * HM MAMMOGRAPHY (06/23/2024)ComponentValueRef RangeTest MethodAnalysis Time Performed AtPathologist SignatureMammography, ExternalnormalComment:Carlos A Anatomical RegionLateralityModalityOther Narrative Authorizing ProviderResult TypeResult StatusHistorical Provider MDHEALTH MAINTENANCEFinal Result * Colonoscopy (06/17/2023 11:11 AM EST)Specimen (Source)Anatomical Location / LateralityCollection Method / VolumeCollection TimeReceived Time Narrative Epic, User - 06/17/2023 11:11 AM EST No dictation Authorizing ProviderResult TypeResult StatusVivian N Jameel MDENDOSCOPY ORDERABLESFinal Result * Human papillomavirus (HPV) DNA probe thin prep high risk (05/21/2021 8:00 PM EDT)ComponentValueRef RangeTest MethodAnalysis TimePerformed AtPathologist SignatureSpecimen Description.ARGFVJ9705/21/2021 8:00 PM EDTMERCSigmatix HPV Sample.THIN PREP05/21/2021 8:00 PM EDTMERCY LABORATORIESHPV, Genotype 16 Not DetectedNot Uyfovacc00/19/2021 8:00 PM EDTMERCY LABORATORIESHPV, Genotype 18Not DetectedNot Jsbnffkz95/19/2021 8:00 PM EDTMERCY LABORATORIESHPV, High Risk OtherNot DetectedNot Uistbykb58/19/2021 8:00 PM EDTMERCY LABORATORIESHPV, Reqhctpjyprski25/19/2021 8:00 PM EDTMERCY LABORATORIESComment: This test amplifies and detects DNA of 14 high-risk HPV types associated with cervical cancer and its precursor lesions (HPV types 16,18, 31, 33, 35, 39, 45, 51, 52, 56, 58, 59, 66, and 68). ? Sensitivity may be affected by specimen collection methods, stage of infection, and the presence of interfering substances. Results should be interpreted in conjunction with other available laboratory and clinical data. A negative high-risk HPV result does not exclude the possibility of future cytologic HSIL or underlying CIN2-3 or cancer. ? This test is intended for medical purposes only and is not valid for the evaluation of suspected sexual abuse or for other forensic purposes. Specimen (Source)Anatomical Location / LateralityCollection Method / Volume Collection TimeReceived TimeCERVICAL SWAB / Asnxblp8205/21/2021 8:00 PM EDT 05/21/2021 8:00 PM EDT Narrative Authorizing ProviderResult TypeResult StatusJessstephanie Domi Coychloe DOHEMATOLOGY ORDERABLESFinal ResultPerforming OrganizationAddressCity/State/ZIP CodePhone Number [facility] [address] [place] [address], [facility] [phone] [facility] [address] [place] [address], [facility] [phone] * ATHLETIC COACH Cytology (05/21/2021 10:20 AM EDT)ComponentValueRef RangeTest Method Analysis TimePerformed AtPathologist SignatureCytology ReportINTERPRETATION Cervical material, (ThinPrep vial, Imaging-assisted review): Specimen Adequacy: ? Satisfactory for evaluation. ? - Endocervical/transformation zone component present. Descriptive Diagnosis: ? Negative for intraepithelial lesion or malignancy. Comments: ? High Risk HPV testing was ordered. Public Safety Teacher: ?? Villeda(ASCP) Electronically Signed Out av/05/24/2021 Procedure/Addendum HPV Procedure Report ? Date Ordered: ? 05/22/2021 ? Status: Signed Out ? Date Complete: ? 05/22/2021 ? By: Cleopatra Mclean CT(ASCP) ? Date Reported: ? 05/24/2021 ? INTERPRETATION Tomeka HPV DNA High Risk ? HPV Sample ? Thin Prep ?(Ref Range) HPV Type 16 ? Not Detected ?(Not Detected) HPV Type 18 ? Not Detected ?(Not Detected) Other High Risk HPV ?Not Detected ?(Not Detected) ?? This test amplifies and detects DNA of 14 high-risk HPV types associated with cervical cancer and its precursor lesions (HPV types 16, 18, 31, 33, 35, 39, 45, 51, 52, 56, 58, 59, 66, and 68). Sensitivity may be affected by specimen collection methods, stage of infection, and the presence of interfering substances. ??Results should be interpreted in conjunction with other available laboratory and clinical data. ??A negative high-risk HPV result does not exclude the possibility of future cytologic HSIL or underlying CIN2-3 or cancer. This test is intended for medical purposes only and is not valid for the evaluation of suspected sexual abuse or for other forensic purposes. ? Source: 1: Cervical material, (ThinPrep vial, Imaging-assisted review) Clinical History Contraceptive use Z12.4 Encounter for screening for malignant neoplasm of cervix Co-Test: ??ThinPrep Pap with high risk HPV testing GYNECOLOGIC CYTOLOGY REPORT Patient Name: SARA WADE [facility] Rec: [id number] Number: [id number] [facility] ??LABORATORIES CONSULTING PATHOLOGISTS [facility] ANATOMIC PATHOLOGY [address] [place] [address]. ??[place] [phone] [facility] LABORATORIESSpecimen (Source)Anatomical Location / LateralityCollection Method / VolumeCollection TimeReceived Time05/21/2021 10:20 AM EDT1 10:20 AM EDT Narrative Authorizing ProviderResult TypeResult StatusJessstephanie Adame DO PATHOLOGY/CYTOLOGY ORDERABLESEdited Result - FinalPerforming OrganizationAddress City/State/ZIP CodePhone Number [facility] [address] [place] [address], [facility] [phone] [address], [facility] [phone] from Last 3 Months or Most Recently Relevant to Health Maintenance Insurance * Guarantor: MarcelalexiahueyfioanSara Vu TypeRelation to PatientDate of PhoneBilling AddressPersonal/EnivzzWnbc1975 [id number] [address] * Guarantor: Sara Wade TypeRelation to PatientDate of PhoneBilling AddressPersonal/UammadNyel1975 [id number] [address] Advance Directives NameRelationshipHealthcare Agent RelationshipCommunicationTom Sheri SpousePrimary Decision Maker* * Care Teams Team MemberRelationshipSpecialtyStart DateEnd Date Kaykay Adame DO [address] [place] [address] PCP - GeneralFamily Medicine03/14/20
--- NOTE | 2025-06-26 10:47 | MM_ITS ---
Patient Name: YAO HUYNH MR#: [id number] : 1975 Exam Date: 06/26/2025 Ordering Doctor: TODD ISAAC RADIOLOGY REPORT PROCEDURE: MM TOMOSYNTHESIS SCREENING BI COMPARISON: MM TOMOSYNTHESIS SCREENING BI, 06/23/2024. MM TOMOSYNTHESIS SCREENING BI, 06/22/2023. MG MAMM SCREEN 3D MARIE CAD, 06/11/2022. MG MAMM MARIE SCRN W CAD DIG, 08/24/2013. INDICATIONS: Screening Calculator Name NCI Breast Cancer Risk Assessment Tool 5 Year Breast Cancer Risk Not Reported. Lifetime Breast Cancer Risk Not Reported. Personal Breast Cancer No Personal Ovarian Cancer No Treatments None Family Cancers None LOCATION: [facility] BREAST COMPOSITION: There are scattered areas of fibroglandular density. FINDINGS: DIAGNOSTIC CATEGORY 1--NEGATIVE. RIGHT BREAST: No significant suspicious finding. LEFT BREAST: No significant suspicious finding. RECOMMENDATIONS: ROUTINE MAMMOGRAM AND CLINICAL EVALUATION IN 12 MONTHS. Dictated by: Viraj Fernandes DO on 06/26/2025 at 11:43 Approved by: Viraj Fernandes DO on 06/26/2025 at 11:43
--- OUTSIDE RECORDS SUMMARY | 2025-06-26 10:56 | XMS_ITS | CCD ---
Author Organization [facility] ion [facility] Care Team Providers Care Bristle Machine Operator Name Role Phone Wendi, Kaykay L Primary Care Provider MISC, DR ADDISON Attending Unavailable MISC, DR ADDISON Primary Care Unavailable MISC, DR ADDISON Admitting Unavailable RANGELEY, DR CHALINO Baxter Consulting Unavailable MISC, DR ADDISON Consulting Unavailable Yonley DO, Kaykay L Primary Care Provider [phone] Yonley DO, Kaykay L. Primary Care Provider Yonley DO, Kaykay L. Primary Care Provider YONLEY, KAYKAY L Referring Unavailable YONLEY, KAYKAY L Primary Care Unavailable YONLEY, KAYKAY L Primary Care Unavailable CARMEN JORGENSEN Attending Unavailable MADDIECARMEN Admitting Unavailable YONLEY, KAYKAY L Primary Care Unavailable Yonley DO, Kaykay L Primary Care Provider ADLY, NJ ADLY NJ Referring Unava ilable ADLY, NJ ADLY NJ Attending Unava ilable YONLEY, KAYKAY L. Primary Care Unavailable YONLEY, KAYKAY L. Primary Care Unavailable ADLY, NJ ADLY NJ Referring Unava ilable ADLY, NJ ADLY NJ Attending Unava ilable ADLY, NJ Referring Unavailable YONLEY, KAYKAY L Primary Care Unavailable ADLY, NJ Referring Unavailable YONLEY, KAYKAY L Primary Care Unavailable ADLY, NJ Referring Unavailable YONLEY, KAYKAY L Primary Care Unavailable ADLY, NJ Referring Unavailable YONLEY, KAYKAY L Primary Care Unavailable ADLY, JN Referring Unavailable YONLEY, KAYKAY L Primary Care Unavailable YONLEY, KAYKAY L Primary Care Unavailable ADLY, NJ Referring Unavailable ADLY, NJ Referring Unavailable YONLEY, KAYKAY L Primary Care Unavailable ADLY, NJ Referring Unavailable YONLEY, KAYKAY L Primary Care Unavailable YONLEY, KAYKAY L. Primary Care Unavailable ADLY, NJ ADLY NJ Attending Unava ilable ADLY, NJ ADLY NJ Attending Unava ilable YONLEY, KAYKAY L. Primary Care Unavailable YONLEY, KAYKAY L. Primary Care Unavailable ADLY, NJ ADLY NJ Attending Unava ilable YONLEY, KAYKAY L. Primary Care Unavailable ADLY, NJ ADLY NJ Attending Unava ilable YONLEY, KAYKAY L. Primary Care Unavailable ADLY, NJ ADLY NJ Attending Unava ilable YONLEY, KAYKAY L. Primary Care Unavailable ADLY, NJ ADLY NJ Attending Unava ilable Yonley DO, Kaykay L. Primary Care Provider Allergies Allergy ClassificationReported Allergen(s)Allergy TypeDate of OnsetReaction(s) FacilityMacrolides (antibiotic) (1 source)ErythromycinDrug Yalopkr77-68-7124Bdimk HealthPenicillins (antibiotic) (1 source)PenicillinsDrug Kmchijs59-35-9708Yerwb [facility] (20 sources)Erythromycin; Translations: [ERYTHROMYCIN]Drug Tidctln87-47-8950 [place] (3 sources)Penicillins; Translations: [PENICILLINS]Propensity to adverse reactions to qhyl95-99-5460[place] (20 sources)PenicillinsPropensity to adverse reactions to bgjd08-61-2167KjhclKGPSovah Health - [facility] (3 sources)PenicillinsPropensity to adverse reactions to mgue62-01-3767Eyljd [facility] Medications Current Medications MedicationDrug Class(es)DatesSig (Normalized)Sig (Original)busPIRone hydrochloride 10 mg oral tablet (11 sources)Start: 19-72-5160vwpd 1 tablet by mouth twice dailybusPIRone (BUSPAR) 10 MG tablet Take 1 tablet by mouth 2 times daily 180 tablet 1 10/07/2024 ActiveStart: 07-67-0274zdku 1 tablet by mouth twice dailybusPIRone (BUSPAR) 5 MG tablet Take 1 (one) tablet (5 mg total) by mouth 2 (two) times a day . 06/20/2024 Activecephalexin 500 mg oral capsule (1 source)Cephalosporin AntibacterialStart: 36-04-1820vdzlDNAMib (KEFLEX) 500 MG capsulediclofenac sodium 75 mg delayed release oral tablet (6 sources)Nonsteroidal Anti-inflammatory DrugStart: 00-80-0144dxsdrvneco (VOLTAREN) 75 MG EC tablet 1 tab BID 0 02/29/2020 ActiveDULoxetine 60 mg delayed release oral capsule (20 sources)Serotonin and Norepinephrine Reuptake InhibitorStart: 78-37-9198npki 1 capsule by mouth once dailyDULoxetine (CYMBALTA) 60 MG extended release capsule 60 mg po daily 90 capsule 1 09/28/2024 ActiveStart: 08-19-2022 End: 70-08-0760rjub 1 capsule by mouth once dailyDULoxetine (CYMBALTA) 30 MG capsule 30 mg po daily 0 10/27/2022 11/27/2023 Discontinued (Patient's Request) hydrocortisone valerate 2 mg/ml topical cream (7 sources)CorticosteroidStart: 06-87-4237hathsskjaszqln (WESTCORT) 0.2 % cream Apply topically 2 times daily. 60 g 3 09/29/2013 Activemagnesium hydroxide 80 mg/ml oral suspension (20 sources)Start: 07-37-6652tvzezssti hydroxide (MOM) 400 mg/5 mL Susp 30 mL po daily up to twice a week as needed for constipation 09/16/2021 Active methIMAzole 5 mg oral tablet (20 sources)Thyroid Hormone Synthesis InhibitorStart: 10-24-6727jhwyWGLlgdn (TAPAZOLE) 5 MG tablet Indications: Hyperthyroidism Take daily for only 4 days a week and skip 3 days in the week . 18 tablet 11 02/06/2025 ActiveStart: 08-28-2023 End: 78-49-0511rwxo 1 tablet by mouth once dailymethIMAzole (TAPAZOLE) 5 MG tablet Indications: Hyperthyroidism Take 1 (one) tablet (5 mg total) bymouth daily For only 5 days a week and skip 2 days in the week . 22 tablet 11 07/04/2024 02/06/2025Discontinued (Reorder (Suppress CancelRx Message to Pharmacy))24 hr metoprolol succinate 50 mg extended release oral tablet (20 sources)beta-Adrenergic BlockerStart: 93-60-6644uacq 1 tablet by mouth once dailymetoprolol succinate (TOPROL XL) 50 MG extended release tablet Take 1 tablet by mouth daily 90 tablet 1 09/28/2024 ActiveStart: 92-32-7023ttev 1 tablet by mouth once dailymetoprolol succinate (TOPROL XL) 50 MG extended release tablet Take 1 tablet by mouth daily 90 tablet 1 03/28/2024 ActiveStart: 86-84-4999buqc 1 tablet by mouth once dailymetoprolol succinate (TOPROL XL) 50 MG extended release tablet Take 1 tablet by mouth daily 90 tablet 1 09/28/2023 ActiveStart: 00-58-3384urykiftzhj succinate (TOPROL-XL) 50 MG 24 hr tablet 11/03/2022 ActiveStart: 88-88-0502keck 1 tablet by mouth once dailymetoprolol succinate (TOPROL XL) 50 MG extended release tablet Take 1 tablet by mouth daily 90 tablet 3 10/27/2022 ActiveStart: 19-21-6834wvbh 1 tablet by mouth once daily metoprolol succinate (TOPROL XL) 50 MG extended release tablet Take 1 tablet by mouth daily 90 tablet 3 10/12/2020 ActiveStart: 27-09-4497vgay 1 tablet by mouth once dailymetoprolol succinate (TOPROL XL) 50 MG extended release tablet Take 1 tablet by mouth daily 90 tablet 3 04/26/2020 ActiveStart: 26-46-1189idxr 1 tablet by mouth once dailymetoprolol succinate (TOPROL XL) 50 MG extended release tablet 1 po qd 0 02/22/2020 Activephentermine hydrochloride 37.5 mg oral tablet (16 sources)Sympathomimetic Amine AnorecticStart: 10-27-2022 End: 53-16-1506dzzg 1 tablet by mouth once daily before breakfastphentermine (ADIPEX-P) 37.5 mg tablet TAKE 1 TABLET BY MOUTH EVERY MORNING before breakfast for 30 days 0 12/26/2022 11/27/2023 Discontinued (Patient's Request)polyethylene glycol 3350 95474 mg powder for oral solution (20 sources)Osmotic LaxativeStart: 95-63-5568nelrjkjmieci glycol (GLYCOLAX) 17 gram/dose powder 1/2 capful daily 09/16/2021 ActiveStart: 43-83-6718pxbsokmypvhz glycol (GLYCOLAX) 17 GM/SCOOP powder 1/2 capful daily 510 g 09/16/2021 Active tacrolimus 0.001 mg/mg topical ointment (11 sources)Calcineurin Inhibitor ImmunosuppressantStart: 12-26-2022 End: 58-33-1462nrcojzakaf (PROTOPIC) 0.1 % ointment Apply topically 2 times daily. 60 g 1 12/26/2022 ActivetiZANidine 4 mg oral tablet (6 sources)Central alpha-2 Adrenergic AgonistStart: 88-18-4284lwPCVcmpyl (ZANAFLEX) 4 MG tablet 1 tab BID 0 02/29/2020 ActivetraMADol hydrochloride 50 mg oral tablet (5 sources)Opioid AgonistStart: 40-34-1602jhvVFBsv (ULTRAM) 50 MG tablet 1-2 every 6 hours as needed for back pain 0 03/07/2020 Activetriamcinolone acetonide 0.001 mg/mg topical ointment (16 sources)CorticosteroidStart: 10-27-2022 End: 07-51-5692tcksswqjdswyk (KENALOG) 0.1 % ointment APPLY topically TWICE DAILY NEEDED for rash 0 10/27/2022 11/27/2023 Discontinued (Patient's Request)Start: 28-75-2426hrxyvuhpliobn (KENALOG) 0.1 % ointment Apply topically 2 times daily as needed (rash) 30 g 1 10/27/2022 Active Completed/Discontinued Medications MedicationDrug Class(es)DatesSig (Normalized)Sig (Original)ethinyl estradiol 0.035 mg / norethindrone 1 mg oral tablet (20 sources)EstrogenStart: 71-13-7391bhhw 1 tablet by mouth once dailyNORTREL 1/35, 28, 1-35 MG-MCG per tablet TAKE 1 TABLET BY MOUTH DAILY 84 tablet 3 05/14/2022 ActiveStart: 05-14-2022 End: 36-55-6594nfct 1 tablet by mouth once daily, then take 0.41161445126542890 tablet by mouth oncenorethindrone-ethinyl estradiol (Nortrel 1/35, 28,) 1-35 mg- mcg per tablet Take 1 (one) tablet by mouth daily . 0 05/14/2022 08/28/2023 DiscontinuedStart: 41-28-8611tjsr 1 tablet by mouth once daily, then take 0.36567428454570050-16 tablets by mouth oncenorethindrone-ethinyl estradiol (ORTHO-NOVUM 1/35, 28,) 1-35 MG-MCG per tablet Take 1 tablet by mouth daily 84 tablet 3 10/12/2020 ActiveStart: 61-70-9905rybk 1 tablet by mouth once daily, then take 0.06992525709643906-90 tablets by mouth oncenorethindrone-ethinyl estradiol (ORTHO-NOVUM 1/35, 28,) 1-35 MG-MCG per tablet Take 1 tablet by mouth daily 84 tablet 3 04/26/2020 ActiveStart: 96-53-0843gdur 1 tablet by mouth once daily, then take 0.33631746088985511-47 tablets by mouth oncenorethindrone- ethinyl estradiol (ORTHO-NOVUM 1/35, 28,) 1-35 MG-MCG per tablet Take 1 tablet by mouth daily. 84 tablet 3 09/29/2013 Active Problems Active Problems Problem ClassificationProblemDateDocumented DateEpisodic/ChronicDiabetes mellitus without complication (1 source)Abnormal glucose level; Translations: [Other abnormal glucose]Episodic Headache; including migraine (20 sources)Migraine without aura, not refractory ; Translations: [Migraine without aura, not intractable, without status migrainosus]Onset: 07-14-2011 03-69-9487YsnqrhrGpqvc female genital disorders (1 source)Vaginal discharge; Translations: [Vaginal discharge]EpisodicOther gastrointestinal disorders (2 sources)Swallowing finding; Translations: [Dysphagia, unspecified]11-22-2024 EpisodicOther gastrointestinal disorders (2 sources)Aphagia; Translations: [Aphagia]Onset: 47-77-6188BuksoybbIycmf nutritional; endocrine; and metabolic disorders (1 source)Weight gain; Translations: [Abnormal weight gain]EpisodicThyroid disorders (20 sources)Goiter; Translations: [Iodine-deficiency related diffuse (endemic) goiter]Onset: 07-81-9856UthcyfoYbfwclesqegq (1 source)Cancer cervix screening status; Translations: [Cervical cancer screening] Past or Other Problems Problem ClassificationProblemDateDocumented DateEpisodic/ChronicAllergic reactions (20 sources)Contact dermatitis; Translations: [Unspecified contact dermatitis, unspecified cause]Onset: 07-14-2011 Resolved: 862196-96-5780BdrpnwogOqwtz circulatory disease (16 sources)Feeling of lump in throat; Translations: [Other specified symptoms and signs involving the circulatory and respiratory systems]Onset: 01-08-2023 86-04-5806HadjqcvgNqzjh ear and sense organ disorders (18 sources)Tinnitus of right ear; Translations: [Tinnitus, right ear]Onset: 634098-10-6727AlniextsHgagt gastrointestinal disorders (16 sources)Dysphagia; Translations: [Dysphagia, unspecified]Onset: 01-08-2023 84-61-0007HxxdvluoRwgbz gastrointestinal disorders (4 sources)Dysphagia, unspecified; Translations: [Dysphagia, unspecified]Onset: 06-88-8995YmadhuzaIahoo screening for suspected conditions (not mental disorders or infectious disease) (13 sources)Encounter for screening mammogram for malignant neoplasm of breast; Translations: [Patient encounter status]Onset: 57-23-7806GtsyqkkaAnndrq media and related conditions (16 sources)Disorder of right tympanic membrane; Translations: [Unspecified disorder of tympanic membrane, right ear]Onset: 799998-33-2068Kouobcna Spondylosis; intervertebral disc disorders; other back problems (20 sources)Chronic low back pain; Translations: [Lumbago with sciatica, right side]Onset: 969171-23-4369Pyrbndhp Results Test NameValueInterpretationReference RangeFacilityTRABon 53-99-2052OTDS9.35 IU/LNormal<=2.00Quest DiagnosticsComment on above:Result Comment: This test was performed using the TRAb Antibody RICARDO method which is standardized against the 1st International Standard 90/672 and is reported in International Units (IU/L). The reference range reported was established specifically for this test method.Performed By: #### [id number], [id number] #### [employer] [facility] [address] [place] Applications Architect: Bee Guillen M.D.,PhDTSI (THYROID STIMULATING IMMUNOGLOBULIN)on 85-48-7810GHL919 % baselineHigh<140Quest DiagnosticsComment on above:Order Comment: FASTING:NO FASTING: NOResult Comment: Thyroid stimulating immunoglobulins (TSI) can engage the [...] of this assay have been determined by [employer] [place], [place]. The modifications have not been cleared or approved by the FDA. This assay has been validated pursuant to the CLIA regulations and is used for clinical purposes.Performed By: #### [id number], 78895 #### [employer] [facility] [address] [place] Applications Architect: Bee Guillen M.D.,PhDT3, TOTALon 71-93-5220L9, HLCJD326 ng/bBUejzfq34-113Kugeb DiagnosticsComment on above:Order Comment: FASTING:NO FASTING: NOPerformed By: #### 629, 156 #### [employer] [place], [address] [place] [address] Applications Architect: Rao LOMAS4, [facility] 56-19-3554Olxg T4 [Mass/Vol]1.0 ng/dLNormal0.8-1.8Quest DiagnosticsComment on above:Performed By: #### 859, 866 #### [facility] [address], [address] [place] [address] Applications Architect: Rao ESTRELLAKaiser Permanente Santa [facility] 34-49-8512ADV Qn0.92 m[IU]/LNormalQuest DiagnosticsComment on above:Order Comment: FASTING:NO FASTING: NOResult Comment: Reference Range > or = 20 Years 0.40-4.50 Ranges First trimester 0.26-2.66 Second trimester 0.55-2.73 Third trimester 0.43-2.91Performed By: #### 899 #### [facility] [place] [address] Applications Architect: Rao Muñiz MDT3, [facility] 53-74-5667T3, GJNOG063 ng/dLNormal 76-181Quest DiagnosticsComment on above:Order Comment: FASTING:NO FASTING: NOPerformed By: #### 859, 866, 899 #### [facility] [place] [address] Applications Architect: Rao LOMAS4, [facility] 30-13-1943Ldjs T4 [Mass/Vol]1.0 ng/dLNormal0.8-1.8Quest DiagnosticsComment on above:Performed By: #### 859, 866, 899 #### [facility] [place] [address] Applications Architect: Rao Muñiz MDAbrazo [facility] 20-58-8138ZKY Qn0.53 m[IU]/LNormalQuest DiagnosticsComment on above:Result Comment: Reference Range > or = 20 Years 0.40-4.50 Ranges First trimester 0.26-2.66 Second trimester 0.55-2.73 Third trimester 0.43-2.91Performed By: #### 859, 866, 899 #### [facility] [address] , [address] [place] [id number] Applications Architect: Rao Muñiz MDNo Panel Informationon 17-35-6727Jww Summa HealthT3on 49-42-4691P0 [Mass/Vol]123 ng/dL80 - 200 ng/dLBon Summa HealthT4, Freeon 54-36-6582Qzxq T4 [Mass/Vol]0.9 ng/dLLow0.92 - 1.68 ng/dLBon Summa HealthInterpretation and review of laboratory resultsAbnormalBon Summa HealthTSHon 63-19-3539WRK Qn0.84 m[IU]/LBon [facility] Bon Summa HealthThyroid Stim. Horm.on 54-20-1733Skktwmy Stim. Horm.0.84 uIU/mLNormal0.27-4.20[facility] For RehabilitationComment on above:Performed By: #### TSH, LIVP #### [facility] [address] [place] [address] Machine Sander: Chalino Palmer MD #### T3, FT4 #### [facility] [employer] [facility] [place] [address] Machine Sander: Yadiel Torres MDThyroxine, [facility] 22-07-8741Nlimxxefj, Free0.9 ng/dLLow0.92-1.68[facility] Hospital For RehabilitationComment on above:Performed By: #### TSH, LIVP #### [facility] [address] [place] [address] Machine Sander: Chalino Palmer MD #### T3, FT4 #### [facility] [employer] [address] [place], [place] [id number] Machine Sander: Yadiel Torres MDTriiodothyronine T3on 29-55-4517Tobxpjjntprildis T3123 ng/oBDccmkd82-899JshfuChildren'S Hospital For RehabilitationComment on above:Performed By: #### TSH, LIVP #### [facility] [address] [place] [address] Machine Sander: Chalino Palmer MD #### T3, FT4 #### [facility] [address] [place] [address] Machine Sander: Yadiel Torres MDFINE NEEDLE ASPIRATIONon 99-76-3752VHUI NEEDLE ASPIRATIONMedical Cytology Report Case: [id number] Authorizing Provider: Nj Paul Collected: 12/22/2024 08:21 AM MD Nj Ordering Location: [facility] Received: 12/22/2024 10:01 AM Ultrasound Pathologist: Kaykay Vail MD Specimen: Thyroid, Left Mid, Left thyroid mid, TR4, 2.0cm nodule A. Thyroid, Left Mid, fine needle aspiration (FNA) biopsy: BENIGN Consistent with a benign follicular nodule (includes adenomatoid nodule, colloid nodule, etc.). at 1649 EDT A. Rapid On-Site Evaluation: Left Mid Thyroid Evaluation episode #1: Not Adequate. Results discussed with Dr. Lagunas. JR:jke Satisfactory for evaluation A. Received fresh, designated Thyroid. LefFine Needle As , are 12 mL of pink fluid, and 12 air-dried smears. 6 air-dried smear(s) Diff-Quik stained, 6 air- dried smear(s) Pap stained, 1 ThinPrep slide(s) Pap stained prepared. LM Cytology preparations processed at: [facility] - [address] [place] [id number] Christ HospitalComkalkaska memorial health center on above:Performed By: #### [id number] #### LAB [address] [place] [address] Mikey Keene M.D. [id number] THYROID BIOPSY WITH FNAon 05-98-2857BQ THYROID BIOPSY WITH FNA EXAMINATION: Ultrasound-guided left thyroid lobe nodule FNA (FINE-NEEDLE ASPIRATION). HISTORY: 49-year-old female with TI-RADS 4 nodule in the left lobe of the thyroid. COMPARISON: Thyroid ultrasound 11/26/2024. TECHNIQUE AND FINDINGS: After explaining the risk, benefits, and alternatives to the procedure, an informed consent was obtained. The patient was brought to the ultrasound suite and placed in a supine position. A time-out and pause/confirm was performed. All elements of maximal sterile barrier protection were performed including sterile preparation and covering of the ultrasound probe. Following cutaneous anesthesia with lidocaine, with real-time ultrasound guidance 6 fine needle aspirates were obtained from the left thyroid lobe nodule by making 6 separate 25 gauge needle passes into the targeted nodule. Good ultrasound visualization of each echogenic needle tip within the nodule was noted and images were obtained. The specimens were submitted to the cytopathology senior quality technician for immediate preparation. Manual pressure was applied. The patient tolerated the procedure well without complication. IMPRESSION: Successful ultrasound-guided left thyroid lobe nodule fine needle aspiration as detailed above. Workstation ID: [id number] Dictated by: BRIAN LAGUNAS on ThuDecember 22, 2024 10:02:06 AM EDT Transcribed by: BRIAN LAGUNAS on ThuDecember 22, 2024 10:02:06 AM EDT Finalized by: BRIAN LAGUNAS on ThuDecember 22, 2024 10:02:06 AM EDTThe Christ HospitalComment on above:Order Comment: To be done by IR please. Thanks Injury/Trauma or Illness?:Illness/Other How long have you had these symptoms (acute/chronic)?:Acute Reason for exam?:thyroid nodule History of cancer?:u Surgeries, chemotherapy, or radiation?:u Type of Exam?:Ongoing Additional signs and symptoms?:noneUS SOFT TISSUE NECK AND THYROIDon 11-26-2024 US SOFT TISSUE NECK AND THYROIDEXAMINATION: US SOFT TISSUE NECK AND THYROID HISTORY: ORDERING SYSTEM PROVIDED HISTORY: patient with possible dysphagia, please evaluate for thyroid nodules, enlarged lymph nodes or other neck masses, TECHNOLOGIST PROVIDED HISTORY: Illness/Other Reason for exam: Graves AND Possible Dysphagia Cancer History: u Surgery, RadiationHistory: u Encounter Type: Subsequent/Follow-up Additional signs and symptoms: none ORDERING SYSTEM PROVIDED DIAGNOSIS CODES: E05.00 Graves disease R13.10 Swallowing problem COMPARISON: 12/01/2022 ultrasound report. FINDINGS: Ultrasound of the thyroid and neck. Thyroid gland is normal in size with heterogeneous echotexture and diffuse increased vascularity. Right thyroid lobe measures 4.5 x 1.6 x 1.8 cm. Isthmus measures 0.2 cm in AP dimension. Left thyroid lobe measures 4.5 x 1.3 x 1.5 cm. [...] reactive. Cervical lymph nodes are otherwise unremarkable. [employer] Workstation ID: [id number] Dictated by: TIMOTEO MICHEL on ThuNov 29, 2024 9:40:07 AM EDT Transcribed by: DEDRA EDGAR on ThuNov 29, 2024 9:46:52 AM EDT Finalized by: TIMOTEO MICHEL on ThuNov 29, 2024 9:47:24 PM EDTCleveland Clinic Akron General on above:Order Comment: Injury/Trauma or Illness?:Illness/Other How long have you had these symptoms (acute/chronic)?:Chronic Reason for exam?:Graves AND Possible Dysphagia History of cancer?:u Surgeries, chemotherapy, or radiation?:u Type of Exam?:Subsequent/Follow-up Additional signs and symptoms?:noneThyr Stim Immunoglobon 88-09-2925Bruf Stim Immunoglob3.91 IU/LHigh<=0.54[facility] on above:Result Comment: (NOTE) INTERPRETIVE INFORMATION: Thyroid Stimulating Immunoglobulin (TSI) 0.54 IU/L or less.........Consistent with healthy thyroid function or non-Graves thyroid or autoimmune disease. Those with healthy thyroid function typically have results less than 0.1 IU/L. 0.55 IU/L or greater......Consistent with Graves disease (autoimmune hyperthyroidism) This assay specifically detects thyroid stimulating autoantibodies. For diagnostic purposes, the results obtained from this assay should be used in combination with clinical examination, patient medical history, and other findings. Performed By: [employer] [address] [place], [place] [id number] [employer] Inspector: Mikey Fritz MD, PhD CLIA Number: [id number] By: #### TSH, LIVP #### [facility] [address] [place] [address] Machine Sander: Chalino Palmer MD #### T3, FT4 #### [place] [address] [place] [address] Machine Sander: Yadiel Torres MDThyroid Stm.Bulk Sealer Abon 03-79-1430SWZWB3.55 IU/L Normal<=1.75[facility] Hospital For RehabilitationComment on above:Result Comment: (NOTE) Performed By: [employer] [address] [place], [place] [id number] [employer] Inspector: Mikey Fritz MD, PhD CLIA Number: [id number] By: #### TSH, LIVP #### [facility] [address] [place] [address] Machine Sander: Chalino Palmer MD #### T3, FT4 #### [place] [address] [place], [place] [id number] Machine Sander: Yadiel Torres MDHepatic Function Panelon 58-18-0130Dqpylah [Mass/Vol]3.9 g/dL3.5 - 5.2 g/dLBon Summa HealthAlbumin/Globulin [Mass ratio]1.5 {ratio}1.0 - 2.5Bon Summa HealthALP [Catalytic activity/Vol]98 U/L35 - 104 U/LBon Summa HealthALT [Catalytic activity/Vol]27 U/L5 - 33 U/LBon [facility] HealthAST [Catalytic activity/Vol]31 U/LNINF - 32 U/LBon Summa HealthBilirubin [Mass/Vol]0.4 mg/dL0.3 - 1.2 mg/dLBon Summa HealthBilirubin.direct [Mass/Vol]0.2 mg/dLNINF - 0.3 mg/dLBon Summa HealthBilirubin.indirect [Mass/Vol]0.2 mg/dL0.0 - 1.0 mg/dLBon Summa HealthGlobulin (S) [Mass/Vol]2.6 g/dL1.5 - 3.8 g/dLBon [facility]ma HealthProtein [Mass/Vol]6.5 g/dL6.4 - 8.3 g/dLBon Summa HealthLiver Profileon 52-43-4735Vsfjimp [Mass/Vol]3.9 g/dLNormal3.5-5.2MMagruder Memorial HospitalComment on above:Performed By: #### TSH, LIVP #### [facility] [address] [place], [place] [id number] Machine Sander: Chalino Palmer MD #### T3, FT4 #### [place] [id number] Machine Sander: Yadiel Torres MDAlbumin/Glob Ratio1.9Ayeuod5.0-2.5[facility] Hospital For RehabilitationComment on above:Performed By: #### TSH, LIVP #### [facility] [address] [place] [address] Machine Sander: Chalino Palmer MD #### T3, FT4 #### [address] [address] Machine Sander: Yadiel Torres MDAlkaline Phos98 U/FXunska57-645ZxomeChildren'S Hospital For RehabilitationComkalkaska memorial health center on above:Performed By: #### TSH, LIVP #### [facility] [address] [place] [address] Machine Sander: Chalino Palemr MD #### T3, FT4 #### [address] [phone] Machine Sander: Yadiel Torres MDALT [Catalytic activity/Vol]27 U/LNormal5-33 [facility] on above:Performed By: #### TSH, LIVP #### [facility] [address] [place], [place] [id number] Machine Sander: Chalino Palmer MD #### T3, FT4 #### [address] [phone] Machine Sander: Yadiel Torres MDAST [Catalytic activity/Vol]31 U/LNormal<32[facility] on above:Performed By: #### TSH, LIVP #### [facility] [address] [place], [place] 2600590 Machine Sander: Chalino Palmer MD #### T3, FT4 #### [address] [id number] Machine Sander: Yadiel Torres MDBilirubin [Mass/Vol]0.4 mg/dLNormal0.3-1.2MWay[facility] on above:Performed By: #### TSH, LIVP #### [facility] [address] [place], [place] [id number] Machine Sander: Chalino Palmer MD #### T3, FT4 #### [address] [phone] Machine Sander: Yadiel Torres MDBilirubin, Indirect0.2 mg/dLNormal0.0-1.0[facility] on above:Performed By: #### TSH, LIVP #### [facility] [address] [place], [place] [id number] Machine Sander: Chalino Palmer MD #### T3, FT4 #### [address] [id number] Machine Sander: Yadiel Madoff, MDBilirubin.indirect [Mass/Vol]0.2 mg/dLNormal<0.3 [facility] Hospital For RehabilitationComment on above:Performed By: #### TSH, LIVP #### [facility] [address] [place] [address] Machine Sander: Chalino Palmer MD #### T3, FT4 #### [address] [phone] Machine Sander: Yadiel Torres MDGlobulin (S) [Mass/Vol]2.6 g/dLNormal1.5-3.8 [facility] For RehabilitationComment on above:Performed By: #### TSH, LIVP #### [facility] [address] [place] 6951490 Machine Sander: Chalino Palmer MD #### T3, FT4 #### [place] 9521608 Machine Sander: ROBERTA Deckerrotein [Mass/Vol]6.5 g/dLNormal6.4-8.3MMagruder Memorial HospitalComment on above:Performed By: #### TSH, LIVP #### [facility] [address] [place] [address] Machine Sander: Chalino Palmer MD #### T3, FT4 #### [place] 9521608 Machine Sander: Yadiel Torres MDNo Panel Informationon [id number] Summa HealthBon Summa HealthT3on 25-78-9684H1 [Mass/Vol]104 ng/dL80 - 200 ng/dLBon Summa HealthT4, Freeon 85-14-2097Smdo T4 [Mass/Vol]1.0 ng/dL0.92 - 1.68 ng/dLBon Summa HealthTSHon 14-29-1285XGQ Qn0.91 m[IU]/L Bon [facility]ma HealthThyroid Stim. Horm.on 76-77-1128Aeadihz Stim. Horm.0.91 uIU/mLNormal0.27-4.20[facility] Hospital For RehabilitationComment on above:Performed By: #### TSH, LIVP #### [facility] [address] [place] [phone] Machine Sander: Chalino Palmer MD #### T3, FT4 #### [facility] [employer] [address] [place] [address] [id number] Machine Sander: Yadiel Torres MDThyroxine, Freeon 53-06-8408Vazhypifs, Free1.0 ng/dLNormal0.92-1.68[facility] Hospital For RehabilitationComkalkaska memorial health center on above:Performed By: #### TSH, LIVP #### [facility] [address] [place] [phone] Machine Sander: Chalino Palmer MD #### T3, FT4 #### [address] [phone] Machine Sander: Yadiel Torres MDTriiodothyronine T3on 04-83-2986Ptqvvslrdakeernw T3104 ng/fDBzvnat07-782UqpqeChildren'S Hospital For RehabilitationComkalkaska memorial health center on above:Performed By: #### TSH, LIVP #### [facility] [address] [place] 6951490 Machine Sander: Chalino Palmer MD #### T3, FT4 #### [address] [phone] Machine Sander: Yadiel Torres MDThyr Stim Immunoglobon 74-58-1233Beya Stim Immunoglob4.23 IU/LHigh<=0.54[facility] Hospital For RehabilitationComkalkaska memorial health center on above:Result Comment: (NOTE) INTERPRETIVE INFORMATION: Thyroid Stimulating Immunoglobulin (TSI) 0.54 IU/L or less.........Consistent with healthy thyroid function or non-Graves thyroid or autoimmune disease. Those with healthy thyroid function typically have results less than 0.1 IU/L. 0.55 IU/L or greater......Consistent with Graves disease (autoimmune hyperthyroidism) This assay specifically detects thyroid stimulating autoantibodies. For diagnostic purposes, the results obtained from this assay should be used in combination with clinical examination, patient medical history, and other findings. Performed By: [employer] [address] [place], [place] [id number] [employer] Inspector: Mikey Fritz MD, PhD CLIA Number: [id number] By: #### TSH, LIVP #### [facility] [address] [place] [address] Machine Sander: Chalino Palmer MD #### T3, FT4 #### [facility] [employer] [facility] [place] [address] Machine Sander: Yadiel Torres MDThyroid Stm.Bulk Sealer Abon 37-89-1625BTMNQ8.21 IU/L High<=1.75[facility]S Hospital For RehabilitationComment on above:Result Comment: (NOTE) Performed By: [employer] [address] [place], [place] [id number] [employer] Inspector: Mikey Fritz MD, PhD CLIA Number: [id number] By: #### TSH, LIVP #### [facility] [address] [place] [address] Machine Sander: Chalino Palmer MD #### T3, FT4 #### [facility] [employer] [facility] [place] [address] Machine Sander: Yadiel Torres MDHepatic Function Panelon 73-23-5086Mgzpjzm [Mass/Vol]4.1 g/dL3.5 - 5.2 g/dLBon Summa HealthAlbumin/Globulin [Mass ratio]1.6 {ratio}1.0 - 2.5Bon [facility] HealthALP [Catalytic activity/Vol]98 U/L35 - 104 U/LBon [facility] HealthALT [Catalytic activity/Vol]29 U/L5 - 33 U/LBon [facility] HealthAST [Catalytic activity/Vol]24 U/LNINF - 32 U/LBon [facility] HealthBilirubin [Mass/Vol]0.3 mg/dL0.3 - 1.2 mg/dLBon [facility] HealthBilirubin.direct [Mass/Vol]0.2 mg/dLNINF - 0.3 mg/dLBon [facility] HealthBilirubin.indirect [Mass/Vol]0.1 mg/dL0.0 - 1.0 mg/dLBon [facility] HealthGlobulin (S) [Mass/Vol]2.5 g/dL1.5 - 3.8 g/dLBon [facility] HealthProtein [Mass/Vol]6.6 g/dL6.4 - 8.3 g/dLBon [facility]ma HealthLiver Profileon 53-74-6567Tjyunyx [Mass/Vol]4.1 g/dLNormal3.5-5.2MercAdventist Medical CenterComment on above:Performed By: #### ATSCAITLIN ATRAB #### [facility] [address] [place], [place] [id number] Machine Sander: Yevgeniy Cueto MD #### T3, FT4 #### [facility] [address] [place], [place] 1647708 Machine Sander: Yadiel Torres MD #### TSH, LIVP #### [facility] [address] [place] [address] Machine Sander: Chalino Palmer MDAlbumin/Glob Ratio1.2Entwxs1.0-2.5Children'S Hospital For RehabilitationComment on above:Performed By: #### ATSCAITLIN ATRAB #### [facility] [address] [place], [place] [address] Machine Sander: Yevgeniy Cueto MD #### T3, FT4 #### [facility] [address] [place], [place] 2416308 Machine Sander: Yadiel Torres MD #### TSH, LIVP #### [facility] [address] [place] [address] Machine Sander: Placido Jacksno Phos98 U/OWhzeib87-236DapziHighland District Hospital on above:Performed By: #### ATSCAITLIN, ATRAB #### [facility] [address] [place] [address] Machine Sander: Yevgeniy Cueto MD #### T3, FT4 #### [facility] [address] [place] [address] Machine Sander: Yadiel Torres MD #### TSH, LIVP #### [facility] [address] [place], [place] [phone] Machine Sander: Chalino Palmer MDALT [Catalytic activity/Vol]29 U/LNormal5-33[facility] on above:Performed By: #### YENNY ATRAB #### [facility] [address] [place] [address] Machine Sander: Yevgeniy Cueto MD #### T3, FT4 #### [facility] [address] [place] [address] Machine Sander: Yadiel Torres MD #### TSH, LIVP #### [facility] [address] [place] [address] Machine Sander: Chalino Palmer MDAST [Catalytic activity/Vol]24 U/LNormal<32[facility] on above:Performed By: #### ATSIG, ATRAB #### [facility] [address] [place] [address] Machine Sander: Yevgeniy Cueto MD #### T3, FT4 #### [address] [address] Machine Sander: Yadiel Torres MD #### TSH, LIVP #### [facility] [address] [place] [address] Machine Sander: Chalino Palmer MDBilirubin [Mass/Vol]0.3 mg/dLNormal0.3-1.2MMagruder Memorial HospitalComment on above:Performed By: #### ATSIG, ATRAB #### [facility] [address] [place] [address] Machine Sander: Yevgeniy Cueto MD #### T3, FT4 #### [facility] [address] [place] [address] Machine Sander: Yadiel Torres MD #### TSH, LIVP #### [facility] [address] [place] [address] Machine Sander: Chalino Palmer MDBilirubin, Indirect0.1 mg/dLNormal0.0-1.0Children[facility] Hospital For RehabilitationComment on above:Performed By: #### ATSIG, ATRAB #### [facility] [address] [place] [address] Machine Sander: Yevgeniy Cueto MD #### T3, FT4 #### [facility] [address] [place] [address] Machine Sander: Yadiel Torres MD #### TSH, LIVP #### [facility] [address] [place] [address] Machine Sander: Chalino Palmer MDBilirubin.indirect [Mass/Vol]0.2 mg/dLNormal<0.3 [facility] For RehabilitationComkalkaska memorial health center on above:Performed By: #### ATSIG, ATRAB #### [facility] [address] [place] [address] Machine Sander: Yevgeniy Cueto MD #### T3, FT4 #### [facility] [address] [place] [address] Machine Sander: Yadiel Torres MD #### TSH, LIVP #### [facility] [address] [place] [address] Machine Sander: Chalino Palmer MDGlobulin (S) [Mass/Vol]2.5 g/dLNormal1.5-3.8Children[facility] Hospital For RehabilitationComment on above:Performed By: #### ATSCAITLIN, ATRAB #### [facility] [address] [place], [place] [id number] Machine Sander: Yevgeniy Cueto MD #### T3, FT4 #### [facility] [address] [place] [address] [id number] Machine Sander: Yadiel Torres MD #### TSH, LIVP #### [facility] [address] [place] [address] Machine Sander: ROBERTA Jacksonrotein [Mass/Vol]6.6 g/dLNormal6.4-8.3MercAdventist Medical CenterComment on above:Performed By: #### ATSCAITLIN, ATRAB #### [facility] [address] [place], [place] [id number] Machine Sander: Yevgeniy Cueto MD #### T3, FT4 #### [facility] [address] [place] [address] [phone] Machine Sander: Yadiel Torres MD #### TSH, LIVP #### [facility] [address] [place] [address] Machine Sander: Chalino Palmer MDNo Panel Informationon 08-38-7853Kkk Summa HealthT3on 23-91-4464F9 [Mass/Vol]99 ng/dL80 - 200 ng/dLBon [facility] Avera HealthT4, Freeon 71-76-7848Fojl T4 [Mass/Vol]0.9 ng/dL 0.9 - 1.7 ng/dLBon [facility] / Avera HealthTSHon 09-14-2024 TSH Qn0.93 m[IU]/LBon [facility] HealthThyroid Stim. Horm.on 09-14-2024 Thyroid Stim. Horm.0.93 uIU/mLNormal0.27-4.20[facility] Hospital For RehabilitationComkalkaska memorial health center on above:Performed By: #### TSH, LIVP #### [facility] [address] [place] 6951490 Machine Sander: Chalino Palmer MD #### T3, FT4 #### [place] 9521608 Machine Sander: Yadiel Torres MDThyroxine, Freeon 25-15-1509Afikospba, Free0.9 ng/dLNormal0.9-1.7Children[facility] Hospital For RehabilitationComment on above:Performed By: #### TSH, LIVP #### [facility] [address] [place] [address] Machine Sander: Chalino Palmer MD #### T3, FT4 #### [place] 9521608 Machine Sander: Yadiel Torres MDTriiodothyronine T3on 29-48-6600Zrdsbtjlrsfrlmbs T399 ng/nASgilrf84-984KzbzjChildren'S Hospital For RehabilitationComment on above:Performed By: #### TSH, LIVP #### [facility] [address] [place] [address] Machine Sander: Chalino Palmer MD #### T3, FT4 #### [place] [address] Machine Sander: Yadiel Torres MDHepatic Function Panelon [id number] [Mass/Vol]4.0 g/dL3.5 - 5.2 g/dLBon [facility] HealthALP [Catalytic activity/Vol]105 U/LHigh35 - 104 U/LBon [facility] HealthALT [Catalytic activity/Vol]31 U/L5 - 33 U/LBon [facility] HealthAST [Catalytic activity/Vol]26 U/LNINF - 32 U/LBon [facility] HealthBilirubin [Mass/Vol]0.2 mg/dLLow0.3 - 1.2 mg/dLBon [facility] HealthBilirubin.direct [Mass/Vol]mg/dL NINF - 0.3 mg/dLBon [facility] HealthBilirubin.indirect [Mass/Vol]Can not be calculated0.0 - 1.0 mg/dLBon [facility] HealthInterpretation and review of laboratory resultsAbnormalCarilion Roanoke Memorial HospitalProtein [Mass/Vol]6.6 g/dL6.4 - 8.3 g/dLBon [facility] Avera HealthLiver Profileon [id number] [Mass/Vol]4.0 g/dLNormal3.5-5.2MMagruder Memorial HospitalComment on above:Performed By: #### LIVP #### [facility] [address] [place] 6951490 Machine Sander: Phan Jacksonkagosia Leqm689 U/RJuhc25-141JggreChildren'S Hospital For RehabilitationComment on above:Performed By: #### LIVP #### [facility] [address] [place] 6951490 Machine Sander: Chalino Palmer MDALT [Catalytic activity/Vol]31 U/LNormal5-33[facility] Hospital For RehabilitationComkalkaska memorial health center on above:Performed By: #### LIVP #### [facility] [address] [place] [address] Machine Sander: Chalino Palmer MDAST [Catalytic activity/Vol]26 U/LNormal<32[facility] Hospital For RehabilitationComkalkaska memorial health center on above:Performed By: #### LIVP #### [facility] [address] [place] 6951490 Machine Sander: Chalino Palmer MDBilirubin [Mass/Vol]0.2 mg/dLLow0.3-1.2MMagruder Memorial HospitalComment on above:Performed By: #### LIVP #### [facility] [address] [place] 6951490 Machine Sander: Chalino Palmer MDBilirubin, IndirectCan not be calculatedNormal 0.0-1.0[facility] Hospital For RehabilitationComment on above:Performed By: #### LIVP #### [facility] [address] [place] [address] Machine Sander: Chalino Palmer MDBilirubin.indirect [Mass/Vol]mg/dLNormal<0.3MercAdventist Medical CenterComment on above:Performed By: #### LIVP #### [facility] [address] [place] [address] Machine Sander: ROBERTA Jacksonrotein [Mass/Vol]6.6 g/dLNormal6.4-8.3MercAdventist Medical CenterComment on above:Performed By: #### LIVP #### [facility] [address] [place] [address] Machine Sander: Chalino Palmer MDHepatic Function Panelon [id number] [Mass/Vol]4.2 g/dL3.5 - 5.2 g/dLBon [facility] HealthALP [Catalytic activity/Vol]120 U/LHigh35 - 104 U/LBon [facility] HealthALT [Catalytic activity/Vol]63 U/LHigh5 - 33 U/LBon [facility] HealthAST [Catalytic activity/Vol]40 U/LHighNINF - 32 U/LBon [facility] HealthBilirubin [Mass/Vol] 0.3 mg/dL0.3 - 1.2 mg/dLBon [facility] HealthBilirubin.direct [Mass/Vol]mg/dL NINF - 0.3 mg/dLBon [facility] HealthBilirubin.indirect [Mass/Vol]Can not be calculated0.0 - 1.0 mg/dLBon [facility] HealthInterpretation and review of laboratory resultsAbnormalBon [facility] HealthProtein [Mass/Vol]6.7 g/dL6.4 - 8.3 g/dLBon [facility] Hospitaly HealthLimelissa memorial hospital Profileon 08-07-8798Pscctiz [Mass/Vol]4.2 g/dLNormal3.5-5.2[facility] Simpson General HospitalComment on above:Performed By: #### TSH, LIVP #### [facility] [address] [place], [place] 6971090 Machine Sander: Chalino Palmer MD #### T3, FT4 #### [facility] [address] [place], [place] 8792108 Machine Sander: Placido Decker [id number] U/PEauo33-438BeuucChildren'S Hospital For RehabilitationComkalkaska memorial health center on above:Performed By: #### TSH, LIVP #### [facility] [address] [place], [place] 5508790 Machine Sander: Chalino Palmer MD #### T3, FT4 #### [address] [id number] Machine Sander: Yadiel Torres MDALT [Catalytic activity/Vol]63 U/LHigh5-33[facility] on above:Performed By: #### TSH, LIVP #### [facility] [address] [place] [address] Machine Sander: Chalino Palmer MD #### T3, FT4 #### [address] [address] Machine Sander: Yadiel Torres MDAST [Catalytic activity/Vol]40 U/LHigh<32[facility] on above:Performed By: #### TSH, LIVP #### [facility] [address] [place], [place] [id number] Machine Sander: Chalino Palmer MD #### T3, FT4 #### [address] 0370108 Machine Sander: Yadiel Torres MDBilirubin [Mass/Vol]0.3 mg/dLNormal0.3-1.2MMagruder Memorial HospitalComment on above:Performed By: #### TSH, LIVP #### [facility] [address] [place], [place] 65025[address] Machine Sander: Chalino Palmer MD #### T3, FT4 #### [address] [phone] Machine Sander: Yadiel Torres MDBilirubin, IndirectCan not be calculatedNormal 0.0-1.0[facility] Hospital For RehabilitationComment on above:Performed By: #### TSH, LIVP #### [facility] [address] [place], [place] 5082590 Machine Sander: Chalino Palmer MD #### T3, FT4 #### [address] [id number] Machine Sander: Yadiel Torres MDBilirubin.indirect [Mass/Vol]mg/dLNormal<0.3 [facility] For RehabilitationComment on above:Performed By: #### TSH, LIVP #### [facility] [address] [place], [place] 8143990 Machine Sander: Chalino Palmer MD #### T3, FT4 #### [address] [address] Machine Sander: ROBERTA Deckerrotein [Mass/Vol]6.7 g/dLNormal6.4-8.3MMagruder Memorial HospitalComment on above:Performed By: #### TSH, LIVP #### [facility] [address] [place], [place] 3470490 Machine Sander: Chalino Palmer MD #### T3, FT4 #### [address] [address] Machine Sander: Yadiel Torres MDT3on 16-02-1858O4 [Mass/Vol]93 ng/dL80 - 200 ng/dLBon [facility] / Avera HealthT4, Freeon 10-65-3051Zomo T4 [Mass/Vol]1.0 ng/dL0.92 - 1.68 ng/dLBon [facility] / Avera HealthTSHon 42-54-6809CCS Qn1.27 m[IU]/LBon [facility] / Avera HealthThyroid Stim. Horm.on 25-78-4827Pdvhjtj Stim. Horm.1.27 uIU/mLNormal 0.30-5.00[facility] Hospital For RehabilitationComment on above:Performed By: #### TSH, LIVP #### [facility] [address] [place] 69514[address] Machine Sander: Chalino Palmer MD #### T3, FT4 #### [place] 9521608 Machine Sander: Yadiel Torres MDThyroxine, Freeon 92-87-6051Nafsdfrxc, Free1.0 ng/dLNormal0.92-1.68[facility] Hospital For RehabilitationComment on above:Performed By: #### TSH, LIVP #### [facility] [address] [place] 6[address]1490 Machine Sander: Chalino Palmer MD #### T3, FT4 #### [place] 9[address]1608 Machine Sander: Yadiel Torres MDTriiodothyronine T3on 03-92-7469Ojqczmnrjcqwutql T393 ng/jFSukunc40-020SbtvxChildren'S Hospital For RehabilitationComkalkaska memorial health center on above:Performed By: #### TSH, LIVP #### [facility] [address] [place] [address] Machine Sander: Chalino Palmer MD #### T3, FT4 #### [place] 9521608 Machine Sander: Yadiel Torres MDLiver Profileon 00-29-8022Oajgazw [Mass/Vol]4.3 g/dLNormal3.5-5.2MWayne HealthCare [facility] on above:Performed By: #### TSH, LIVP #### [facility] [address] [place] [address] Machine Sander: Chalino Palmer MD #### T3, FT4 #### [facility] [address] [place] [address] Machine Sander: Placido Decker [id number] U/IIsqa46-878PrrpnHighland District Hospital on above:Performed By: #### TSH, LIVP #### [facility] [address] [place] [address] Machine Sander: Chalino Palmer MD #### T3, FT4 #### [facility] [address] [place] [address] Machine Sander: DELORIS Decker [Catalytic activity/Vol]53 U/LHigh5-33[facility] on above:Performed By: #### TSH, LIVP #### [facility] [address] [place] [address] Machine Sander: Chalino Palmer MD #### T3, FT4 #### [facility] [address] [place] [address] Machine Sander: Yadiel Torres MDAST [Catalytic activity/Vol]34 U/LHigh<32[facility] on above:Performed By: #### TSH, LIVP #### [facility] [address] [place] [address] Machine Sander: Chalino Palmer MD #### T3, FT4 #### [address] [address] Machine Sander: Yadiel Torres MDBilirubin [Mass/Vol]0.2 mg/dLLow0.3-1.2MMagruder Memorial HospitalComment on above:Performed By: #### TSH, LIVP #### [facility] [address] [place], [place] 8723390 Machine Sander: Chalino Palmer MD #### T3, FT4 #### [address] 0353308 Machine Sander: Yadiel Torres MDBilirubin, IndirectCan not be calculatedNormal 0.0-1.0[facility] Hospital For RehabilitationComment on above:Performed By: #### TSH, LIVP #### [facility] [address] [place] [address] Machine Sander: Chalino Palmer MD #### T3, FT4 #### [address] [id number] Machine Sander: Yadiel Torres MDBilirubin.indirect [Mass/Vol]mg/dLNormal<0.3 [facility] For RehabilitationComment on above:Performed By: #### TSH, LIVP #### [facility] [address] [place] [address] Machine Sander: Chalino Palmer MD #### T3, FT4 #### [address] [id number] Machine Sander: ROBERTA Deckerrotein [Mass/Vol]7.0 g/dLNormal6.4-8.3MMagruder Memorial HospitalComment on above:Performed By: #### TSH, LIVP #### [facility] [address] [place], [place] 9944190 Machine Sander: Chalino Palmer MD #### T3, FT4 #### [address] [id number] Machine Sander: Yadiel Torres MDThyroid Stim. Horm.on 24-67-0266Mufqoaf Stim. Horm.1.71 uIU/mLNormal0.30-5.00[facility] Hospital For RehabilitationComment on above:Performed By: #### TSH, LIVP #### [facility] [address] [place], [place] 6009790 Machine Sander: Chalino Palmer MD #### T3, FT4 #### [address] [id number] Machine Sander: Yadiel Torres MDThyroxine, Freeon 57-81-4681Vxuyuednd, Free0.9 ng/dLLow0.92-1.68[facility] Hospital For RehabilitationComment on above:Performed By: #### TSH, LIVP #### [facility] [address] [place] [address] Machine Sander: Chalino Palmer MD #### T3, FT4 #### [address] [id number] Machine Sander: Yadiel Torres MDTriiodothyronine T3on 25-47-5585Shooqqhanoknmhrq T387 ng/gTGvdfep79-386EyceqChildren'S Hospital For RehabilitationComment on above:Performed By: #### TSH, LIVP #### [facility] [address] [place] 6951490 Machine Sander: Chalino Palmer MD #### T3, FT4 #### [address] [id number] Machine Sander: Yadiel Torres MDLiver Profileon 33-70-6339Fjwtqyo [Mass/Vol]4.1 g/dLNormal3.5-5.2Mer[facility] Simpson General HospitalComment on above:Performed By: #### TSH, LIVP #### [facility] [address] [place] 6951490 Machine Sander: Chalino Palmer MD #### T3, FT4 #### [address] [id number] Machine Sander: Placido Decker Vokn402 U/VLfie20-948AkfhsHighland District Hospital on above:Performed By: #### TSH, LIVP #### [facility] [address] [place], [place] 2043090 Machine Sander: Chalino Pamler MD #### T3, FT4 #### [address] 1986708 Machine Sander: Yadiel Torres MDALT [Catalytic activity/Vol]21 U/LNormal5-33 [facility] on above:Performed By: #### TSH, LIVP #### [facility] [address] [place], [place] 4055090 Machine Sander: Chalino Palmer MD #### T3, FT4 #### [address] [id number] Machine Sander: SHANI Decker [Catalytic activity/Vol]20 U/LNormal<32[facility] on above:Performed By: #### TSH, LIVP #### [facility] [address] [place], [place] 0794190 Machine Sander: Chalino Palmer MD #### T3, FT4 #### [address] [id number] Machine Sander: Yadiel Torres MDBilirubin [Mass/Vol]0.4 mg/dLNormal0.3-1.2MWayne HealthCare [facility] on above:Performed By: #### TSH, LIVP #### [facility] [address] [place], [place] 7337190 Machine Sander: Chalino Palmer MD #### T3, FT4 #### [facility] [address] [place], [place] 7982408 Machine Sander: Yadiel Torres MDBilirubin, IndirectCan not be calculatedNormal 0.0-1.0[facility] on above:Performed By: #### TSH, LIVP #### [facility] [address] [place], [place] [id number] Machine Sander: Chalino Palmer MD #### T3, FT4 #### [address] [place], [place] [id number] Machine Sander: Yadeil Torres MDBilirubin.indirect [Mass/Vol]mg/dLNormal<0.3 [facility] on above:Performed By: #### TSH, LIVP #### [facility] [address] [place] [address] Machine Sander: Chalino Palmer MD #### T3, FT4 #### [address] [place], [place] [id number] Machine Sander: ROBERTA Deckerrotein [Mass/Vol]6.7 g/dLNormal6.4-8.3M[facility] on above:Performed By: #### TSH, LIVP #### [facility] [address] [place] [address] Machine Sander: Chalino Palmer MD #### T3, FT4 #### [facility] [address] [place], [place] [id number] Machine Sander: Yadiel Torres MDHepatic Function Panelon 81-94-6526Kevtuuy [Mass/Vol]3.9 g/dL3.5 - 5.2 g/dLBON [facility] HEALTHALP [Catalytic activity/Vol]136 U/LHigh35 - 104 U/LBON [facility]ITALALT [Catalytic activity/Vol]68 U/LHigh5 - 33 U/LBON [facility] HOSPITALAST [Catalytic activity/Vol]49 U/LHighNINF - 32 U/LBON [facility] HOSPITALBilirubin [Mass/Vol] 0.3 mg/dL0.3 - 1.2 mg/dLBON [facility] COMMUNITY HOSPITALBilirubin.direct [Mass/Vol]mg/dL NINF - 0.3 mg/dLBON [facility] COMMUNITY HOSPITALBilirubin.indirect [Mass/Vol]Can not be calculated0.0 - 1.0 mg/dLBON [facility] HOSPITALInterpretation and review of laboratory resultsAbnormalBON [facility] HOSPITALProtein [Mass/Vol]6.7 g/dL6.4 - 8.3 g/dLBON AULT[facility]IANCE COMMUNITY HOSPITALLiver Profileon 54-82-4821Necgila [Mass/Vol] 3.9 g/dLNormal3.5-5.2MMagruder Memorial HospitalComment on above:Performed By: #### TSH, LIVP #### [facility] [address] [place] [address] Machine Sander: Chalino Palmer MD #### FT4, T3 #### [address] [id number] Machine Sander: Placido Decker Fhhz919 U/QAndd40-552NslkuChildren'S Hospital For RehabilitationComkalkaska memorial health center on above:Performed By: #### TSH, LIVP #### [facility] [address] [place] [address] Machine Sander: Chalino Palmer MD #### FT4, T3 #### [facility] [address] [place], [place] [id number] Machine Sander: Yadiel Torres MDALT [Catalytic activity/Vol]68 U/LHigh5-33[facility] on above:Performed By: #### TSH, LIVP #### [facility] [address] [place], [place] [id number] Machine Sander: Chalino Palmer MD #### FT4, T3 #### [address] [address] Machine Sander: Yadiel Torres MDAST [Catalytic activity/Vol]49 U/LHigh<32[facility] on above:Performed By: #### TSH, LIVP #### [facility] [address] [place] [address] Machine Sander: Chalino Palmer MD #### FT4, T3 #### [address] [address] Machine Sander: Yadiel Torres MDBilirubin [Mass/Vol]0.3 mg/dLNormal0.3-1.2MWay[facility] on above:Performed By: #### TSH, LIVP #### [facility] [address] [place] [address] Machine Sander: Chalino Palmre MD #### FT4, T3 #### [address] [address] Machine Sander: Yadiel Torres MDBilirubin, IndirectCan not be calculatedNormal 0.0-1.0[facility] on above:Performed By: #### TSH, LIVP #### [facility] [address] [place] [address] Machine Sander: Chalino Palmer MD #### FT4, T3 #### [address] [address] Machine Sander: Yadiel Torres MDBilirubin.indirect [Mass/Vol]mg/dLNormal<0.3 [facility] on above:Performed By: #### TSH, LIVP #### [facility] [address] [place] [address] Machine Sander: Chalino Palmer MD #### FT4, T3 #### [address] [address] Machine Sander: ROBERTA Deckerrotein [Mass/Vol]6.7 g/dLNormal6.4-8.3MMagruder Memorial HospitalComment on above:Performed By: #### TSH, LIVP #### [facility] [address] [place], [place] [address] Machine Sander: Chalino Palmer MD #### FT4, T3 #### [facility] [employer] [address] [place] [address] [id number] Machine Sander: Yadiel Torres MDNo Panel Informationon [id number] [facility] HOSPITALBON [facility] COMMUNITY HOSPITALT3on 49-39-6768T3 [Mass/Vol]88 ng/dL80 - 200 ng/dLBON A[facility]ANCE COMMUNITY HOSPITALT4, Freeon 49-35-0111Kmla T4 [Mass/Vol]1.0 ng/dL 0.92 - 1.68 ng/dLBON AULT[facility]IANCE COMMUNITY HOSPITALTSHon 98-09-0569JQZ Qn0.64 m[IU]/LBON [facility] COMMUNITY HOSPITALThyroid Stim. Horm.on 04-99-9640Uoptqnd Stim. Horm.0.64 uIU/mLNormal0.30-5.00[facility] Hospital For RehabilitationComment on above:Performed By: #### TSH, LIVP #### [facility] [address] [place] [address] Machine Sander: Chalino Palmer MD #### FT4, T3 #### [facility] [employer] [address] [place] [phone] Machine Sander: Yadiel Torres MDThyroxine, Freeon 23-54-5285Yvwgemike, Free1.0 ng/dLNormal0.92-1.68[facility] Hospital For RehabilitationComkalkaska memorial health center on above:Performed By: #### TSH, LIVP #### [facility] [address] [place] [address] Machine Sander: Chalino Palmer MD #### FT4, T3 #### [facility] [address] [place], [place] [address] Machine Sander: Yadiel Torres MDTriiodothyronine T3on 12-91-2210Twxugoxpkfbekbpu T388 ng/wDQazvda96-432TnynnChildren'S Hospital For RehabilitationComment on above:Performed By: #### TSH, LIVP #### [facility] [address] [place] [address] Machine Sander: Chalino Palmer MD #### FT4, T3 #### [facility] [address] [place], [place] [phone] Machine Sander: Yadiel Torres MDHepatic Function Panelon 20-69-0673Kawqtux [Mass/Vol]4.1 g/dL3.5 - 5.2 g/dLBON SECOCH[facility] HEALTHALP [Catalytic activity/Vol]114 U/LHigh35 - 104 U/LBON [facility] HEALTHALT [Catalytic activity/Vol]29 U/L5 - 33 U/LBON [facility] HEALTHAST [Catalytic activity/Vol]26 U/LNINF - 32 U/LBON [facility] HEALTHBilirubin [Mass/Vol]0.4 mg/dL0.3 - 1.2 mg/dLBON SECMULTICARE VALLEY HOSPITALY HEALTHBilirubin.direct [Mass/Vol]mg/dLNINF - 0.3 mg/dLBON SECOCHSNER [facility]ENTER HEALTHBilirubin.indirect [Mass/Vol]Can not be calculated0.0 - 1.0 mg/dLBON [facility]ENTERY HEALTHProtein [Mass/Vol]6.2 g/dLLow 6.4 - 8.3 g/dLBON [facility]ICAL CENTERY HEALTHNo Panel Informationon [id number] [facility] HOSPITALInterpretation and review of laboratory resultsAbnormalBON SEC[facility] CENTERY HEALTHBON [facility]OCHSNER [facility] QMKLXNV1do 76-19-7725S6 [Mass/Vol]100 ng/dL80 - 200 ng/dLBON SECMERCY HEALTH FAIRFIELD HOSPITALT4, Freeon 78-13-9710Lzht T4 [Mass/Vol]1.1 ng/dL0.92 - 1.68 ng/dLBON SECOCHSNER [facility]ENTER HEALTHTSHon 45-73-3988YFT Qn0.01 m[IU]/HayleewBON AULT[facility]ANCE COMMUNITY HOSPITALSURGICALon 10-33-2214REYDWQLLRljg Pathology SARA HUYNH [id number] Assoc. Page 1 of [address] [place] [address] PROC: 10/22/2023 [facility] [place] [facility] RECV: 10/28/[address] RPTD: 10/29/2023 [place] [address] LOC: [facility] ACCT: SEX: F [id number] AGE: 48 Y : 1975 PATHOLOGY REPORT ATTN: KAYKAY ISAAC REQ: KAYKAY ISAAC Clinical Information: DERMATITIS OF UNKNOWN ETIOLOGY [...] cannot be excluded. Clinical correlation is recommended. [id number] BEE MENDOZA M.D., F.C.A.P [facility]/ [facility] Printed on: 10/29/2023 [address] [place], [place] [address] Original print date: 10/29/2023NoTexas Health Presbyterian Hospital Flower MoundThyroid stimulating immunoglobulinon 26-05-3217Ubqzbuxpdrpruh and review of laboratory resultsAbnormalOhioHealthThyroid Stimulating Immumoglobulin5.2HighNINFOhioHealth Comment on above: Test Performed by: [facility] [address] [place] [address] Machine Sander: Laz Landon M.D. Ph.D.; IA# [id number] OhioHealthCBC panel Auto (Bld)on 73-07-1677Xwrmngwfmzu distribution width (RBC) [Entitic vol]12.8 %11.6 - 14.8 %OhioHealthHematocrit (Bld) [Volume fraction]45.5 %36.0 - 46.0 %OhioHealthHemoglobin (Bld) [Mass/Vol]14.3 g/dL12.0 - 16.0 g/dL OhioHealthMCH (RBC) [Entitic mass]29.0 pg26.0 - 34.0 pgOhioHealthMCHC (RBC) [Mass/Vol]31.4 g/dL31.0 - 37.0 g/dLOhioHealthMCV (RBC) [Entitic vol]92.3 fL80.0 - 100.0 fLOhioHealthNucleated RBC (Bld) [#/Vol]0.00 10*3/uLOhioHealthNucleated RBC/100 WBC (Bld) [Ratio]0.0 %OhioHealthPlatelet mean volume (Bld) [Entitic vol] 9.8 fL9.4 - 12.4 fLOhioHealthPlatelets (Bld) [#/Vol]251 10*3/uLOhioHealthRBC (Bld) [#/Vol]4.93 10*6/uLOhioHealthWBC (Bld) [#/Vol]4.91 10*3/uLOhioHealth OhioHealthHepatic function 2000 panelon 54-86-7657Mlhvseg [Mass/Vol]3.7 g/dL3.2 - 5.2 g/dLOhioHealthALP [Catalytic activity/Vol]142 U/L40 - 150 U/LOhioHealthALT [Catalytic activity/Vol]112 U/LHigh14 - 65 U/LOhioHealthAST [Catalytic activity/Vol]74 U/LHigh0-35 U/LOhioHealthBilirubin [Mass/Vol]0.5 mg/dL0.0 - 1.3 mg/dLOhioHealthBilirubin.conjugated [Mass/Vol]0.1 mg/dL0.0 - 0.4 mg/dLOhioHealth Protein [Mass/Vol]6.8 g/dL6.0 - 8.0 g/dLOhioHealthNo Panel Informationon 41-58-9153Lojtcmwlfoyrif and review of laboratory resultsAbnormalOhioHealth RtmmChemjiI3qz 89-40-6109S8 [Mass/Vol]242 ng/kAHcrq61 - 170 ng/dLOhioHealthT3 [Mass/Vol]on 97-01-3678Rvpclcbekgklzd and review of laboratory resultsAbnormal OhioHealthOhioHealthT4, freeon 47-81-9760Fzjv T4 [Mass/Vol]2.2 ng/dLHigh0.7 - 1.7 ng/dLOhioHealthTSH DL <= 0.005 mIU/L Qnon 67-05-5615KZC QnLowOhioHealthHCG Screen, Bloodon 83-51-0910IWQ Screen, BloodNegativeNormalNEGMercy New Milford HospitalComment on above:Result Comment: Specimens with hCG levels near the threshold of the test (25 mIU/mL) may give a negative or indeterminate result. In such cases, another test should be performed with a new specimen in 48-72 hours. If early is suspected clinically in this setting, correlation with quantitative serum b-hCG level is suggested. [facility] HospitalPersonSpot [facility] has confirmed the use of plasma for this test. This has not been cleared or approved by the U.S. Food and Drug Administration. The FDA has determined that such clearance is not necessary.Performed By: #### HCG #### [address] [place] [address] Machine Sander: Chalino Palmer [facility] Pathology Reporton [id number] Pathology Report(NOTE) Path Number: [id number] -- Diagnosis -- POLYP, SIGMOID COLON, POLYPECTOMY:-POLYPOIDAL COLONIC MUCOSA WITH SLIGHT HYPERPLASTIC CHANGES AND SUBEPITHELIAL LYMPHOID AGGREGATES. Deysi Weiner Electronically Signed Out /06/23/2023 Clinical Information Pre-op Diagnosis: COLON CANCER SCREENING Operative Findings: SIGMOID POLYP Operation Performed: COLONOSCOPY POLYPECTOMY SNARE/COLD BIOPSY kb Source of Specimen A: SIGMOID POLYP Gross Description SARA HUYNH, SIGMOID POLYP Received in formalin are two pink-sullivan tissue fragments, 0.2 and 0.6 cm and are 0.8 x 0.3 x 0.2 cm in aggregate. Entirely 1 cs. jj mj SF/kb2:06/18/2023 Microscopic Description Microscopic evaluation performed. Processing Lab: [address] [address] Interpretation Performed at [address] [address] SURGICAL PATHOLOGY CONSULTATION Patient Name: SARA HUYNH Rec: [id number] [facility] ANATOMIC PATHOLOGY [address] [place] [phone] NoThe [facility] THYROIDon 02-85-7460AM THYROID EXAMINATION: THYROID ULTRASOUND 12/01/2022 COMPARISON: None. HISTORY: ORDERING SYSTEM PROVIDED HISTORY: Thyromegaly TECHNOLOGIST PROVIDED HISTORY: This procedure can be scheduled via [employer]. Access your [employer] account by visiting [employer]. thyromegaly FINDINGS: Right thyroid lobe: 50 x [...] Signed by: Dannie Nicole DO 12/02/22 Final resultNoUniversity Hospitals Elyria Medical CenterUnremarkable thyroid ultrasound. [facility] RIS CONSOLIDATEDEXAMINATION: THYROID ULTRASOUND 12/01/2022 COMPARISON: None. HISTORY: ORDERING SYSTEM PROVIDED HISTORY: Thyromegaly TECHNOLOGIST PROVIDED HISTORY: This procedure can be scheduled via [employer]. Access your [employer] account by visiting [employer]. thyromegaly FINDINGS: Right thyroid lobe: 50 x 12 x 18 mm Left thyroid lobe: 46 x 13 x 16 mm Isthmus: 2 mm Thyroid Gland: Thyroid gland demonstrates normal echotexture and vascularity. Nodules: No thyroid nodules are present. Cervical lymphadenopathy: No abnormal lymph nodes in the imaged portions of the neck. [facility] Dannie Singh DO - 12/02/2022 EXAMINATION: THYROID ULTRASOUND 12/01/2022 COMPARISON: None. HISTORY: ORDERING SYSTEM PROVIDED HISTORY: Thyromegaly TECHNOLOGIST PROVIDED HISTORY: This procedure can be scheduled via [employer]. Access your [employer] account by visiting [employer]. thyromegaly FINDINGS: Right thyroid lobe: 50 x 12 x 18 mm Left thyroid lobe: 46 x 13 x 16 mm Isthmus: 2 mm Thyroid Gland: Thyroid gland demonstrates normal echotexture and vascularity. Nodules: No thyroid nodules are present. Cervical lymphadenopathy: No abnormal lymph nodes in the imaged portions of the neck. IMPRESSION: Unremarkable thyroid ultrasound. [employer] Phone: US THYROIDOrdered By: Dannie Nicole on 20-13-0038MGK ZENT Phone: us THYROIDon 82-67-7343Kfocisqsq Study observation (narrative)[employer] Phone: basic Metabolic Panelon 71-47-0404Balti gap [Moles/Vol]8 mmol/LLow9 - 17 mmol/LBON IDOMOTICSCalcium [Mass/Vol]8.5 mg/dLLow8.6 - 10.4 mg/dLBON Glowbl HEALTHChloride [Moles/Vol]103 mmol/L 98 - 107 mmol/LBON IDOMOTICSCO2 [Moles/Vol]25 mmol/L20 - 31 mmol/LBON IDOMOTICSCreatinine [Mass/Vol]0.76 mg/dL0.50 - 0.90 mg/dLBON IDOMOTICSGFR/1.73 sq M.predicted MDRD (S/P/Bld) [Vol rate/Area]- PINFBON IDOMOTICSComment on above: These results are not intended [...] therapy that affects renal tubular secretion. Glucose [Mass/Vol]103 mg/uZXuez78 - 99 mg/dLBON [facility] Interpretation and review of laboratory resultsAbnormalBON [facility] Potassium [Moles/Vol]4.3 mmol/L3.7 - 5.3 mmol/LBON AULT[facility] ALLIANCE COMMUNITY HOSPITALSodium [Moles/Vol]136 mmol/L135 - 144 mmol/LBON A[facility]IANCE COMMUNITY HOSPITALUrea nitrogen [Mass/Vol]13 mg/dL6 - 20 mg/dLBON A[facility]ANCE COMMUNITY HOSPITALUrea nitrogen/Creatinine (Bld) [Mass ratio]179 - 20BON [facility]ANCE COMMUNITY HOSPITALHemoglobin A1Con 10-27-2022 Average glucose Estimated from glycated hemoglobin (Bld) [Mass/Vol]108 mg/dLBON A[facility]ANCE COMMUNITY HOSPITALComment on above:The ADA and AACC recommend providing the estimated average glucose result to permit better patient understanding of their HBA1c result. HbA1c (Bld) [Mass fraction]5.4 %4.0 - 6.0 %[facility]ITALNo Panel Informationon [id number] [facility] COMM[facility] HOSPITALTSH with Reflexon 17-22-4596SUT Qn2.27 m[IU]/LBON [facility]ANCE COMMUNITY HOSPITALMG MAMM SCREEN 3D EDILIA CADon 57-13-2887CE MAMM SCREEN 3D EDILIA CADPatient: SARA HUYNH Exam Date: 06/11/2022 : 1975 Gender:F Ordering : DR. KAYKAY ISAAC D.O. Admission #: [id number] Family : Order #: [id number] CLICK HERE TO VIEW EXAM RADIOLOGY REPORT PROCEDURE: MAMMOGRAM SCREENING 3D BILATERAL CAD COMPARISON: MG MAMM SCREEN 3D EDILIA CAD, 06/03/2021. MG MAMM SCREEN EDILIA W CAD, 04/30/2020. INDICATIONS: Screening mammography Calculator Name NCI Breast Cancer Risk Assessment Tool 5 Year Breast Cancer Risk Not Reported. Lifetime Breast Cancer Risk Not Reported. Personal Breast Cancer No Personal Ovarian Cancer No Treatments None Family Cancers None LOCATION: [facility] BREAST COMPOSITION: Extremely dense, which lowers [...] by: Chalino Tao MD on 06/11/2022 at 10:40[facility] LUMBAR SPINE WO CONTRASTOrdered By: Kaykay Isaac on . 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 Radiographic correlation would be recommended prior to any potential intervention. 2. At the L4/L5 level there pastor small midline disc protrusion with annular fissure causing slight effacement of the ventral thecal sac. 3. At the L5/S1 level there is disc space narrowing, disc bulging, and a small midline disc protrusion causing slight effacement of the ventral thecal sac and mild encroachment upon the left neural foramen. 4. No acute osseous abnormality.H5 Phone: eXAM: MRI LUMBAR SPINE WO CONTRAST HISTORY: Reason for exam:->severe low back pain. COMPARISON: Lumbar radiograph 01/13/2020. TECHNIQUE: Multiplanar, multisequence MR imaging of the lumbar spine was performed without intravenous contrast. FINDINGS: There is transitional anatomy at the lumbosacraljunction with partial lumbarization of the presumed S1 vertebral body and a small rudimentary disc space at S1/S2. Lumbar spine is in anatomic alignment with preservation of the vertebral body heights and disc spaces. Bone marrow signal is within normal limits with no acute fracture or dislocation.The conus terminates at lower L1 level and is unremarkable in contour and signal. No paraspinal mass or fluid collection. The visualized abdominal aorta is unremarkable in contour. The upper sacroiliac joint spaces are unremarkable. T2 hyperintense lesions are seen within the kidneys, not fully characterized but statistically most likely reflecting cysts. T12/L1: Negative. L1/L2: Negative. L2/L3:Negative. L3/L4: Negative. L4/L5: Disc space narrowing, disc bulging, and a small broad-based midline disc protrusion with annular fissure causing slight effacement of the ventral thecal sac. L5/S1: Disc space narrowing, disc bulging, facet arthropathy, and small midline disc protrusion causing slight effacement of the ventral thecal sac and mild encroachment upon the left neural foramen. S1/S2: Small rudimentary disc space. No stenosis.[employer] Work Phone: edi, [facility] Incoming Radiant Results From [employer] - 12/14/2020 4:33 PM EDT EXAM: MRI [...] neural foramen. 4. No acute osseous abnormality. [employer] Work Phone: [facility] DriveHQ Work Phone: XR LUMBAR SPINE (MIN 4 VIEWS)on . No acute fracture or malalignment. 2. Transitional type vertebral anatomy with 6 nonrib- bearing lumbar-type vertebral bodies and partial sacralization of L5. Mild facet arthropathy in the lower lumbar spine.[employer] PRITESHEXAM: XR LUMBAR SPINE (MIN 4 VIEWS) HISTORY: Reason for exam:->pain COMPARISON: None. TECHNIQUE:5 views of the lumbar spine were obtained. FINDINGS: There is transitional type vertebral anatomy with partial sacralization of L5 and no ribs at T12. No acute fracture or malalignment. Mild facet arthropathy is present in the lower lumbar spine. Intervertebral disc spaces are maintained. Sacroiliac joints appear unremarkable. Osseous structures are well mineralized. Visualized bowel gas pattern appears unremarkable.[employer] Incoming Radiant Results From [employer] - 03/15/2020 3:24 PM EDT EXAM: XR [...] facet arthropathy in the lower lumbar spine. [employer] PRITESH Vital Signs Date TimeVital SignValuePerforming NrgejxtlpRfaukokf29-34-7589 07:48-0500Body mass index (BMI) [Ratio]36.62 kg/u9Tqohdrcweston Paul MD Work Phone: 1(775) [phone]tmhsb01-10-9775 07:48-0500Body .49 kg Nj Paul MD Work Phone: 1(830) [phone]hgabw69-92-6136 07:48-0500Diastolic blood mm[Hg]Nj Paul MD Work Phone: 1(733) [phone]cbbgr14-06-7927 07:48-0500Heart rate71 /min Nj Paul MD Work Phone: 1(478) [phone]Wjjuad14-05-8532 07:48-0500Systolic blood pressure 124 mm[Hg]Nj Paul MD Work Phone: 1(951) [phone]vvuye11-49-0003 13:10-0400Body mass index (BMI) [Ratio]35.59 kg/q5ZvlwwmbNj Paul MD Work Phone: 1(504) [phone]ikhvm73-53-4990 13:10-0400Body rxfapy783.32 kg Nj Paul MD Work Phone: 1(730) [phone]mbotp35-79-1103 13:10-0400Diastolic blood uvvbpzdk26 mm[Hg]Nj Paul MD Work Phone: 1(526) [phone]kekek32-01-4033 13:10-0400Heart rate71 /min Nj Paul MD Work Phone: 1(707) [phone]yqiry60-79-3111 13:10-0400Systolic blood pressure 110 mm[Hg]Nj Paul MD Work Phone: 1(783) [phone]drsjc78-20-4877 13:08-0400Body mass index (BMI) [Ratio]33.52 kg/j9AqxqmffNj Paul MD Work Phone: 1(348) [phone]dhhju57-70-1947 13:08-0400Body muujri295.97 kg Nj Paul MD Work Phone: 1(473) [phone]ufrzm59-91-1194 13:08-0400Diastolic blood ilnikdvh75 mm[Hg]Nj Paul MD Work Phone: 1(429) [phone]nxalz93-54-0856 13:08-0400Heart rate78 /min Nj Paul MD Work Phone: 1(106) [phone]hrrte80-66-8961 13:08-0400Systolic blood pressure 120 mm[Hg]Nj Paul MD Work Phone: 1(537) [phone]mvzew65-79-9870 12:51-0500Body mass index (BMI) [Ratio]32.36 kg/u5FkaazbdNj Paul MD Work Phone: 1(946) [phone]tkpbj75-18-9250 12:51-0500Body .38 kg Nj Paul MD Work Phone: 1(770) [phone]jhbxs01-65-7463 12:51-0500Diastolic blood irdvsmbb08 mm[Hg]Nj Paul MD Work Phone: 1(197) [phone]mbife37-65-9582 12:51-0500Heart rate78 /min Nj Paul MD Work Phone: 1(105) [phone]cyrsb76-11-4393 12:51-0500Systolic blood pressure 127 mm[Hg]Nj Paul MD Work Phone: 1(368) [phone]lkczl32-98-2407 08:38-0500Body mass index (BMI) [Ratio]30.24 kg/s8QsusrwbNj Paul MD Work Phone: 1(377) [phone]xdwmj87-40-4192 08:38-0500Body .9 kg Nj Paul MD Work Phone: 1(203) [phone]acdxw34-06-7502 08:38-0500Diastolic blood qqvyckeg58 mm[Hg]Nj Paul MD Work Phone: 1(336) [phone]ykncu66-05-4576 08:38-0500Heart rate69 /min Nj Paul MD Work Phone: 1(696) [phone]cggtd22-25-1196 08:38-0500Systolic blood pressure 103 mm[Hg]Nj Paul MD Work Phone: 1(935) [phone]wgxzx05-27-0791 08:00-0400Body mass index (BMI) [Ratio]27.41 kg/h6ZinqdsvNj Paul MD Work Phone: 1(710) [phone]nssbq06-04-9307 08:00-0400Body .19 kg Nj Paul MD Work Phone: 1(105) [phone]lemnh92-99-2447 08:00-0400Diastolic blood sijbagkw96 mm[Hg]Nj Paul MD Work Phone: 1(865) [phone]tgqty81-26-3769 08:00-0400Heart rate58 /min Nj Paul MD Work Phone: 1(644) [phone]dzbzh19-59-3951 08:00-0400Systolic blood pressure 111 mm[Hg]Nj Paul MD Work Phone: 1(170) [phone]iozet65-67-4689 07:54-0400Body mass index (BMI) [Ratio]26.82 kg/c1JniciioNj Paul MD Work Phone: 1(141) [phone]tuspu93-38-6553 07:54-0400Body tsgyfn33.37 kg Nj Paul MD Work Phone: 1(143) [phone]rnxtr24-21-6554 07:54-0400Diastolic blood rbfhekhh23 mm[Hg]Nj Paul MD Work Phone: 1(506) [phone]xzbtf78-75-0467 07:54-0400Heart rate71 /min Nj Paul MD Work Phone: 1(831) [phone]qPsmdzk93-51-4270 07:54-0400Systolic blood pressure 102 mm[Hg]Nj Paul MD Work Phone: 1(686) [phone]xwwzt86-15-8570 09:36-0500Body otqzyl196.3 cm Garima Dubose CNP Work Phone: 1(712) [phone]bfxil98-24-1892 09:36-0500Body mass index (BMI) [Ratio]27.91 kg/h9JrnbzGarima Dubose [employer] Work Phone: 1(268) [phone]apnni55-38-4941 09:36-0500Body .73 kg Garima Dubose [employer] Work Phone: [phone]wlumn29-63-9322 09:36-0500Diastolic blood tcevclim33 mm[Hg]Garima Dubose [employer] REPA[employer]ER Work Phone: [phone]zcfbc56-88-9472 09:36-0500Heart rate73 /minSdaron Dubose [employer]TIQUE CLOCK REPAIRER Work Phone: [phone]) [phone]gblRowetk49-32-6417 09:36-0500Systolic blood pressure 112 mm[Hg]Garima Dubose [employer] CL[employer] REPA[employer]ER Work Phone: 1([phone]) [phone]yhiti11-28-6435 09:35-0400Body wseonl132.5 cm Wenceslao Becker DO Work Phone: [phone]spfor99-80-2386 09:35-0400Body mass index (BMI) [Ratio]33.77 kg/l6Zbfgse Wade DO Work Phone: [phone]ihrdk92-67-7055 09:35-0400Body ghfzircsfys25.9 [degF]Wenceslao Becker DO Work Phone: [phone]vgrcr54-18-4044 09:35-0400Body mmcael190.23 kg Wenceslao Becker DO Work Phone: [phone]dvxtk44-91-1253 09:35-0400Diastolic blood jpytnyau31 mm[Hg]Wenceslao Eugenio DO Work Phone: [phone]reyss78-31-5739 09:35-0400Heart rate83 /minDjuan Becker DO Work Phone: [phone]fkuem59-34-8501 09:35-0400Systolic blood pressure 122 mm[Hg]Wenceslao Solorzanode DO Work Phone: [facility] Encounters Encounter DateEncounter TypeCare ProviderFacilityStart: 06-12-2025 End: 63-02-8950Pdoqyr outpatient visit 25 minutesHussjelena Paul MD Work Phone: [facility] Endocrinology PhysiciansComment on above: Graves disease (Primary Dx); Thyroid noduleStart: 06-12-2025 End: 07-51-8629bjvazebomyQZGTCNO MIRLANDE DOOLEYIN [facility] AmbulatoryStart: 02-06-2025 End: 82-43-9834Bxpnav outpatient visit 15 minutesNj Paul MD Work Phone: [facility] Endocrinology PhysiciansComment on above: Graves disease (Primary Dx); HyperthyroidismStart: 02-06-2025 End: 23-55-9547hwlcmmlsfkHDTUCBO L. [facility] AmbulatoryStart: 01-31-2025 End: 56-49-7992kekflfheatTNJXQDYSt. Francis Medical Center HospitalStart: 01-31-2025 End: 32-34-4721Snaimjiexp hospital visit by physicianKaykay Isaac DO Work Phone: mwhZ LaboratoryStart: 12-22-2024 End: 26-01-2566zohqtilpswYJGARCW [facility] HospitalStart: 11-26-2024 End: 53-16-3254nitiuefoulVZOOOKR ADLLise DARBYNJThe [facility] HospitalStart: 11-22-2024 End: 53-39-2558Eofvay outpatient visit 15 Emily Paul MD Work Phone: [facility] Endocrinology PhysiciansComment on above: Graves disease (Primary Dx); Swallowing problemStart: 11-22-2024 End: 22-69-0923nzvoeycxvkKCLTDHI L. [facility] AmbulatoryStart: 83-01-5346kelqmivmexJTJNPIT L. [facility] AmbulatoryStart: 11-16-2024 End: 50-33-8518lncfugdpxsZFFRZPNCincinnati Children's Hospital Medical Centertart: 11-16-2024 End: 65-84-4997Xtcqsnzgcm hospital visit by physicianKaykay Isaac DO Work Phone: mwhZ LaboratoryStart: 09-20-2024 End: 37-55-4395Jirntr outpatient visit 15 Emily Paul MD Work Phone: [facility] Endocrinology PhysiciansComment on above: Graves disease (Primary Dx)Start: 09-20-2024 End: 40-70-2246lklxmawlzjYCVMPXI LTheo [facility] AmbulatoryStart: 09-14-2024 End: 50-28-3848eunimzsjecIZBMKAFSt. Francis Medical Center HospitalStart: 09-14-2024 End: 54-94-4784Zldgwuihyr hospital visit by Walter Isaac DO Work Phone: mwh[facility] LaboratoryStart: 07-29-2024 End: 64-19-1832zwikebamofCHBKJEJSt. Francis Medical Center HospitalStart: 07-29-2024 End: 70-97-4007Kuhysndors hospital visit by Walter Isaac DO Work Phone: mwhZ LaboratoryStart: 07-04-2024 End: 33-80-1164Lnijyl outpatient visit 25 minutesNj Paul MD Work Phone: [facility] Endocrinology PhysiciansComment on above: Graves disease (Primary Dx); Elevated LFTs; HyperthyroidismStart: 07-04-2024 End: 13-14-7462xamksoadqoWBYZBEM L. [facility] AmbulatoryStart: 07-01-2024 End: 03-89-6404alskjdmgiyLNOLTVJ Domi GURJITEVAMedina Hospital HospitalStart: 07-01-2024 End: 01-10-5831Xuoiqkcpbh hospital visit by Walter Isaac DO Work Phone: mwhz LaboratoryStart: 05-20-2024 End: 39-94-2678qzydoezhpiLJQEUGTSt. Francis Medical Center HospitalStart: 04-01-2024 End: 98-63-5893dwdojoicbbFHOAJTQSt. Francis Medical Center HospitalStart: 03-22-2024 End: 29-04-3089Ccdfks outpatient visit 15 Emily Paul MD Work Phone: [facility] Endocrinology PhysiciansComment on above: Graves disease (Primary Dx); Elevated LFTsStart: 03-17-2024 End: 06-14-3107fzijcofcxdIFVASRO ADLnorth Moran HospitalStart: 03-17-2024 End: 35-95-1143Ovbgkwqmtw hospital visit by Walter Isaac DO Work Phone: mwhZ LaboratoryStart: 03-16-2024 End: 86-67-4402DngptrRouhc Anne Taylor ANTIQUE CLOCK REPAIRER Work Phone: [facility] Endocrinology PhysiciansComment on above: Hyperthyroidism (Primary Dx)Start: 12-21-2023 End: 63-18-1899Fzupyxmwxn hospital visit by Walter Isaac DO Work Phone: mwhz LaboratoryStart: 11-27-2023 End: 38-62-8908Zeocac outpatient visit 25 Emily Paul MD Work Phone: [facility] Endocrinology PhysiciansComment on above: Graves disease (Primary Dx)Start: 01-92-7067Sfxtqg Colten Dubose CNP Work Phone: [facility] Endocrinology PhysiciansComment on above: Graves disease (Primary Dx)Start: 53-11-0094fnuebjucreGNRXUQVJavi Cardenas 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 Work Phone: [facility] Endocrinology PhysiciansComment on above: Hyperthyroidism (Primary Dx)Start: 06-17-2023 End: 39-24-5218zpkevbuzhlXFDQIYXJavi Jonesfin HospitalStart: 01-08-2023 End: 31-43-3354Gsekfcfo Vince Moreno Work Phone: [facility] Physician Group AudiologyComment on above: Tinnitus of right ear (Primary Dx); Right-sided tinnitusStart: 01-08-2023 End: 45-37-4579Vygpod outpatient new 45 minutesDaniel Earnest Eugenio DO Work Phone: [facility] ENT PhysiciansComment on above:Globus sensation (Primary Dx); Right-sided tinnitus; Abnormal tympanic membrane of right ear; Dysphagia, unspecified typeStart: 12-12-2022 End: 13-73-8744Duvvjmrccb hospital visit by Samantha DON Physical TherapyComment on above:ArrivedStart: 12-04-2022 End: 17-44-7955Qlasagpwei hospital visit by Cecilio Solis Physical TherapyComment on above:ArrivedStart: 12-01-2022 End: 03-82-0565aprinkekklUGWVVGX [facility] Hospitaltart: 12-01-2022 End: 42-50-8119Ertbrnvula hospital visit by [facility] UltrasoundComment on above:ThyromegalyStart: 12-01-2022 End: 36-07-7242Wfsriepybt hospital visit by Cecilio Solis Physical TherapyComment on above:ArrivedStart: 11-24-2022 End: 94-36-2032Ggsmkuillu hospital visit by Cecilio Solis Physical TherapyComment on above:ArrivedStart: 11-20-2022 End: 02-37-3326Nejblwaqcf hospital visit by Samantha DON Physical TherapyComment on above:ArrivedStart: 11-19-2022 End: 59-99-7388Papticxyme hospital visit by Samantha DON Physical TherapyComment on above:ArrivedStart: 11-11-2022 End: 90-98-0090Diazcmigau hospital visit by Samantha DON Physical TherapyComment on above:ArrivedStart: 11-07-2022 End: 15-86-7031Rqapfkbqji hospital visit by Samantha DON Physical TherapyComment on above:ArrivedStart: 10-27-2022 End: 85-32-1837Skpuasirxj hospital visit by Walter Isaac DO Work Phone: [facility] LaboratoryComment on above:Weight gain; Abnormal glucose; Screening for cardiovascular conditionStart: 06-11-2022 End: 96-77-4901rliieebhwjQL DOCTOR MISCFacility:Y7Truzo: 12-14-2020 End: 41-46-5427Cikojkmhij hospital [facility] by physicianE[facility] M[facility] Scanner [facility] MRIComment on above:Chronic bilateral low back pain with right-sided sciatica; Severe low back painStart: 05-09-2020 End: 09-66-0091Xordwxjetg hospital visit by Walter Soriano LaboratoryComment on above:Vaginal discharge; Cervical cancer screeningStart: 04-02-2020 End: 24-62-4185Tojdfdwvaa hospital visit by Samantha Marquez Physical TherapyComment on above:ArrivedStart: 03-27-2020 End: 89-82-5834Drbvzsniuz hospital visit by Samantha Marquez Physical TherapyComment on above:ArrivedStart: 03-19-2020 End: 84-07-7047Sbaoxfeyla hospital visit by Samantha Marquez Physical TherapyComment on above:ArrivedStart: 03-14-2020 End: 34-65-0140Ilkorhrepp hospital visit by Parmjit Additional [facility] RadiologyComment on above:Chronic bilateral low back pain without sciatica Procedures DateProcedureProcedure DetailPerforming ClinicianStart: 10-86-6733Yvcfd of free thyroxineNj Paul MD Work Phone: Start: 68-81-5247Lwygk of free thyroxineNj Paul MD Work Phone: Start: 46-38-5170Cufrqtb function Nelson Paul MD Work Phone: Start: 09-18-1032Qsydi of free thyroxineNj Paul MD Work Phone: Start: 23-92-5519Pdbzjfx function Nelson Paul MD Work Phone: Start: 27-75-7974Skojijl function panelNj Paul MD Work Phone: Start: 19-83-8221Lkvrc of free thyroxineNj Paul MD Work Phone: Start: 52-65-3563Fcyxoge function panelNj Paul MD Work Phone: Start: 46-73-1273McwezfjrbtuCoseoce Adly MD Work Phone: Start: 35-14-5867Xjfzu of free thyroxineNj Paul MD Work Phone: Start: 58-08-8249Msjljkq function panelNj Paul MD Work Phone: Start: 04-62-6748Xrwqf of free thyroxineNj Paul MD Work Phone: Start: 36-19-3326Zezskls function panelNj Paul MD Work Phone: Start: 80-25-3529Aqndq of free thyroxineGarima Dubose [facility] Work Phone: Start: 10-27-3908Zoefvhq function panelSdaron Dubose [facility] Work Phone: Start: 35-05-9685HfnqcmabiriXaepp Taylor [facility] Work Phone: Start: 31-74-4318AwqcnzamlurUqpnqwv Wendi DO Work Phone: start: 35-09-6112Ed soft tissue head & neck real time imge docmJessica L Wendi DO Work Phone: start: 92-34-3886Psgbf metabolic panel calcium total Kaykay L Wendi DO Work Phone: start: 26-73-7525Tcxuwcwcnzo observation [Identifier] in Cervix by Cyto stainKaykay Isaac DO Work Phone: start: 62-87-3577Mzt spinal canal lumbar w/o contrast Mejia Isaac DO Work Phone: start: 35-57-9616Rtlwu spine lumbosacral minimum 4 viewsKaykay Isaac Work Phone: Plan of Treatment DateCare ActivityDetailAuthorStart: 08-15-1155SLR Vaccines (1 - 1-dose 75+ series)RSV Vaccines (1 - 1-dose 75+ series)[facility] CenterStart: 95-25-6733Flnwzyolh for malignant neoplasm of colonBON [facility]ITALStart: 09-42-4340Bsggj panelLipidsBon [facility] HealthStart: 28-71-1747Cjotu panelLipidsRIVERSIDE WALTER REED HOSPITALStart: 20-92-6859Xvtkuqywv for malignant neoplasm of breastBreast cancer screenBon [facility] Health Centerart: 15-05-7138Eitmakbmu for malignant neoplasm of cervixBON [facility]: 58-34-1578Dlofobexcd Screen Depression ScreenCarilion Roanoke Memorial HospitalStart: 12-11-2025 End: 33-62-4033Buwrlnb encounter iwjblqbbb18/11/2026 8:00 AM EDT Office Visit [facility] [address] [place] [address] [place] [address] Nj Paul MD [address] [place] [address] [facility] Endocrinology PhysiciansStart: 12-04-2025 End: 97-44-0440Xrstzdp encounter otgbnjkxu77/04/2026 8:00 AM EDT Appointment [facility] Ultrasound [address] [place] [address] Nj Paul MD [address] [place] [address] [facility] UltrasoundStart: 12-01-2025 End: 04-98-1484Whioysv stimulating immunoglobulinThyroid stimulating immunoglobulin Lab Routine Graves disease Thyroid nodule Expected: 12/01/2025, E xpires: 06/12/2026[facility]Comment on above:Expected: 12/01/2025, Expires: 06/12/2026Start: 12-01-2025 End: 03-64-3178Bovcuibqcsf [Units/volume] in Serum or PlasmaTSH Lab Routine Graves disease Thyroid nodule Expected: 12/01/2025, Expires: 06/12/2026 [facility] Work Phone: comment on above:Expected: 12/01/2025, Expires: 06/12/2026Start: 12-01-2025 End: 17-78-2155Jqlntwfhrzu binding inhibitory immunoglobulins measurement Thyrotropin Receptor Antibody Lab Routine Graves disease Thyroid nodule Expected: 12/01/2025, Expires: 06/12/2026[facility]Comment on above:Expected: 12/01/2025, Expires: 06/12/2026Start: 12-01-2025 End: 75-02-5557Kmuxantyx (T4) free [Mass/volume] in Serum or PlasmaT4, free Lab Routine Graves disease Thyroid nodule Expected: 12/01/2025, Expires: 06/12/2026 [facility] CenterComment on above:Expected: 12/01/2025, Expires: 06/12/2026Start: 12-01-2025 End: 46-75-4402Weuhdblnmempyisl (T3) [Mass/volume] in Serum or PlasmaT3 Lab Routine Graves disease Thyroid nodule Expected: 12/01/2025, Expires: 06/12/2026 [facility] HospitalComment on above:Expected: 12/01/2025, Expires: 06/12/2026Start: 12-01-2025 End: 40-54-7899HX Head and neck soft tissueUS Soft Tissue Neck and Thyroid Imaging Routine Graves disease Thyroid nodule Expected: 12/01/2025,Expires: 06/12/2026WaioHealthComment on above:Expected: 12/01/2025, Expires: 06/12/2026 Start: 45-45-4973Bcdmaqew screenDiabetes screenBON SECOURS [facility]OUNT [facility] HEALTH SYSTEMStart: 59-24-3633Tkqxgmxswt ScreenDepression ScreenBon Secours Mercy HealthStart: 69-66-5812Gbwfballu for malignant neoplasm of breastMammogramOhioHealthStart: 66-19-4718Ullelyhxu for malignant neoplasm of breastBreast cancer screenRIVERSIDE WALTER REED HOSPITALStart: 06-12-2025 End: 96-35-8413Pzqliti encounter vmhdecwvz72/10/2025 8:00 AM EST Office Visit [facility] [address] [facility] [place] [phone] Nj Paul MD [address] [place] [address] [facility] Endocrinology PhysiciansStart: 06-03-2025 End: 31-46-8524Nrodmks stimulating immunoglobulinThyroid stimulating immunoglobulin Lab Routine Hyperthyroidism Graves disease Expected: 06/03/2025, Expires: 02/06/2026[facility]Comment on above:Expected: 06/03/2025, Expires: 02/06/2026Start: 06-03-2025 End: 65-47-0913Jxrnjtowxyq [Units/volume] in Serum or PlasmaTSH Lab Routine Hyperthyroidism Graves disease Expected: 06/03/2025, Expires: 02/06/2026 [facility]Comment on above:Expected: 06/03/2025, Expires: 02/06/2026Start: 06-03-2025 End: 34-29-6554Prrdlhanuij binding inhibitory immunoglobulins measurement Thyrotropin Receptor Antibody Lab Routine Hyperthyroidism Graves disease Expected: 06/03/2025, Expires: 02/06/2026[facility]Comment on above:Expected: 06/03/2025, Expires: 02/06/2026Start: 06-03-2025 End: 95-73-8038Wquhxsmds (T4) free [Mass/volume] in Serum or PlasmaT4, free Lab Routine Hyperthyroidism Graves disease Expected: 06/03/2025, Expires: 02/06/2026 [facility]Comment on above:Expected: 06/03/2025, Expires: 02/06/2026Start: 06-03-2025 End: 18-59-9923Rdxtywndjraqrawu (T3) [Mass/volume] in Serum or PlasmaT3 Lab Routine Hyperthyroidism Graves disease Expected: 06/03/2025, Expires: 02/06/2026 [facility] CenterComment on above:Expected: 06/03/2025, Expires: 02/06/2026Start: 23-41-5721YOEHX-19 Vaccine ()COVID-19 Vaccine ()[facility]HealthStart: 98-48-4982Irtyogbnp vaccinationInfluenza Vaccine (#1) [facility] CenterStart: 03-31-2025 End: 78-24-4457Tcttlvl encounter wyuwekswz78/29/2025 7:40 AM EDT Office [place] [facility] [address] [place] [address] Kaykay Isaac DO [address] [place] [address] 3 mon checkMER[facility] Comment on above:3 mon checkStart: 62-03-8396Tszjvuwzcg ScreenDepression Screen [facility] HealthStart: 03-21-2025 End: 88-48-0391Nubjxzodvql [Units/volume] in Serum or PlasmaTSH Lab Routine Hyperthyroidism Graves disease Expected: 03/21/2025, Expires: 02/06/2026 [facility] Work Phone: comment on above:Expected: 03/21/2025, Expires: 02/06/2026Start: 03-21-2025 End: 74-11-8954Azvilzaqc (T4) free [Mass/volume] in Serum or PlasmaT4, free Lab Routine Hyperthyroidism Graves disease Expected: 03/21/2025, Expires: 02/06/2026 [facility] CenterComment on above:Expected: 03/21/2025, Expires: 02/06/2026Start: 03-21-2025 End: 42-48-2295Ptpvhfdzbuxvaywe (T3) [Mass/volume] in Serum or PlasmaT3 Lab Routine Hyperthyroidism Graves disease Expected: 03/21/2025, Expires: 02/06/2026 [facility] CenterComment on above:Expected: 03/21/2025, Expires: 02/06/2026Start: 80-38-3520Khsddscim vaccinationFlu vaccine (#1)[facility] HealthStart: 02-06-2025 End: 84-80-5966Llvtenq encounter nrcighdde77/07/2025 1:15 PM EDT Office Visit [facility]ocr[facility] Phys[facility] [address] [place] [address] [place] [address] Nj Paul MD [address] [place] [address] [facility] Endocrinology PhysiciansStart: 01-31-2025 End: 79-10-8537Dkqwnynblmk [Units/volume] in Serum or PlasmaTSH Lab Routine Graves disease Swallowing problem Expected: 01/31/2025, Expires: 11/22/2025 [facility] Work Phone: comment on above:Expected: 01/31/2025, Expires: 11/22/2025Start: 01-31-2025 End: 45-67-3001Afefriymd (T4) free [Mass/volume] in Serum or PlasmaT4, free Lab Routine Graves disease Swallowing problem Expected: 01/31/2025, Expires: 11/22/2025[facility]HealthComment on above:Expected: 01/31/2025, Expires: 11/22/2025 Start: 01-31-2025 End: 90-63-9530Jqonevktttnxrvfs (T3) [Mass/volume] in Serum or PlasmaT3 Lab Routine Graves disease Swallowing problem Expected: 01/31/2025, Expires: 11/22/2025OhioHealthComment on above:Expected: 01/31/2025, Expires: 11/22/2025 Start: 12-28-2024 End: 43-28-7801Udatdut encounter rqppdfnyk52/28/2025 7:20 AM EDT Office Visit [facility] [address] [place] [address] Kaykay Isaac, DO [address] [facility] [place] [phone] Return in about 3 months (around 12/26/2024) for anxiety.[facility] CARE WILLARDComment on above:Return in about 3 months (around 12/26/2024) for anxiety.Start: 11-26-2024 End: 02-09-1068Oftyvti encounter toxwnurrb64/26/2025 10:00 AM EDT Appointment [facility] Ultrasound [address] [place] [phone] Nj Paul MD [address] [place] [address] [facility] UltrasoundStart: 11-22-2024 End: 88-64-1179Atupehp encounter zesfkyjsx70/22/2025 1:15 PM EDT Office Visit [facility] Phys[facility] [address] [place] [address] [place] [address] Nj Paul MD [address] [place] [address] [facility] Endocrinology PhysiciansStart: 11-14-2024 End: 23-26-7137Tkvkxdacqaz [Units/volume] in Serum or PlasmaTSH Lab Routine Graves disease Expected: 11/14/2024, Expires: 09/20/2025[facility] Work Phone: comment on above:Expected: 11/14/2024, Expires: 09/20/2025Start: 11-14-2024 End: 58-53-8143Mvexowwlr (T4) free [Mass/volume] in Serum or PlasmaT4, free Lab Routine Graves disease Expected: 11/14/2024, Expires: 09/20/2025[facility] Comment on above:Expected: 11/14/2024, Expires: 09/20/2025Start: 11-14-2024 End: 27-18-9280Iaxnejshrulokige (T3) [Mass/volume] in Serum or PlasmaT3 Lab Routine Graves disease Expected: 11/14/2024, Expires: 09/20/2025[facility] Comment on above:Expected: 11/14/2024, Expires: 09/20/2025Start: 09-28-2024 Depression ScreenDepression ScreenBON SECOURS MOUNT CARMEL HEALTH SYSTEMStart: 09-28-2024 End: 72-53-2442Zbfejli encounter cilmajylx08/26/2025 7:40 AM EST Office Visit [facility] [address] [place] [address] Kaykay Isaac DO [address] [place] [address] Return in about 6 months (around 09/28/2024) for anxiety.[facility]:Return in about 6 months (around 09/28/2024) for anxiety.Start: 09-20-2024 End: 54-91-5579Ovyrjbu encounter xosygvokq11/18/2025 1:15 PM EST Office Visit [facility] [address] [place] [address] [place] [phone] Nj Paul MD [address] [place] [address] [facility] Endocrinology PhysiciansStart: 09-03-2024 End: 45-31-0684Tbvhnps function 2000 panel - Serum or PlasmaHepatic function panel Lab Routine Graves disease Elevated LFTs Expected: 09/03/2024, Expires: 07/04/2025OhioHealthComment on above:Expected: 09/03/2024, Expires: 07/04/2025 Start: 09-03-2024 End: 24-06-8222Vsvxdlk stimulating immunoglobulinThyroid stimulating immunoglobulin Lab Routine Graves disease Expected: 09/03/2024, Expires: 025OhioHealthComment on above:Expected: 09/03/2024, Expires: 07/04/2025Start: 09-03-2024 End: 02-57-7773Mliwpgflbrn [Units/volume] in Serum or PlasmaTSH Lab Routine Graves disease Elevated LFTs Expected: 09/03/2024, Expires: 07/04/2025[facility] Work Phone: comment on above:Expected: 09/03/2024, Expires: 07/04/2025Start: 09-03-2024 End: 12-01-5250Ktrihzmlbls binding inhibitory immunoglobulins measurement Thyrotropin Receptor Antibody Lab Routine Graves disease Expected: 09/03/2024, Expires: 07/04/2025OhioHealthComment on above:Expected: 09/03/2024, Expires: 07/04/2025Start: 09-03-2024 End: 61-48-5272Eholinxij (T4) free [Mass/volume] in Serum or PlasmaT4, free Lab Routine Graves disease Elevated LFTs Expected: 09/03/2024, Expires: 07/04/2025 [facility] CenterComment on above:Expected: 09/03/2024, Expires: 07/04/2025Start: 09-03-2024 End: 81-55-2067Cbrdjlgkjfhxfybl (T3) [Mass/volume] in Serum or PlasmaT3 Lab Routine Graves disease Elevated LFTs Expected: 09/03/2024, Expires: 07/04/2025 [facility]Comment on above:Expected: 09/03/2024, Expires: 07/04/2025Start: 08-03-2024 End: 07-51-7394Yepmxpz function 2000 panel - Serum or PlasmaHepatic function panel Lab Routine Graves disease Elevated LFTs Expected: 08/03/2024, Expires: 07/04/2025OhioHealthComment on above:Expected: 08/03/2024, Expires: 07/04/2025 Start: 07-04-2024 End: 05-79-3657Hkroesj encounter taqpjmxwh81/02/2024 8:45 AM EST Office Visit [facility] [address] [place] [address] [place] [address] Nj Paul MD [address] [place] [address] [facility] Endocrinology PhysiciansStart: 03-38-2648Vahrhbxsq for malignant neoplasm of breastMammogramOhioPaulding County HospitalStart: 36-09-8799Fjaitsrzm for malignant neoplasm of cervixPap smearBON [facility] HOSPITALStart: 05-71-2659ADXBU-19 Vaccine ()COVID-19 Vaccine ()[facility] HealthStart: 21-43-0627RLJZY-19 Vaccine ()COVID-19 Vaccine ()[facility]: 20-28-3018Uabehlorg vaccinationInfluenza Vaccine (#1)[facility] CenterStart: 03-28-2024 End: 53-24-3560Ecuvrvu encounter uoighmmvl66/26/2024 8:00 AM EDT Office Visit [facility] [address] [place] [phone] Kaykay Isaac, [address] [place] [phone] 6 mos - AnxietyMER[facility] Comment on above:6 mos - AnxietyStart: 03-22-2024 End: 49-52-1228Hmijyaj encounter besesacpf93/20/2024 8:00 AM EDT Office Visit [facility] [address] [place] [address] [place] [address] Nj Paul MD [address] [place] [address] [facility] PhysiciansStart: 95-87-7735Qwryuyjzf vaccinationFlu vaccine (#1)[facility]Start: 11-27-2023 End: 52-71-5981Gjvkkxb encounter shogucjao51/26/2024 8:00 AM EDT Office Visit [facility] [address] [facility] [place] [address] Nj Paul MD [address] [place] [address] [facility] Endocrinology PhysiciansStart: 11-23-2023 End: 40-89-8984Sttxjvv function 2000 panel - Serum or PlasmaHepatic function panel Lab Routine Graves disease Expected: 11/23/2023, Expires: 10/29/2024 [facility] Work Phone: comment on above:Expected: 11/23/2023, Expires: 10/29/2024Start: 93-58-5053Sopdslxagw ScreenDepression ScreenBON AULTMAN [facility]IANCE COMMUNITY HOSPITALStart: 23-34-4586Qyrmqhzjxgswoe of herpes zoster vaccineZoster Vaccines (1 of 2)[facility] CenterStart: 61-43-7530Trqhibhfmckk 50+ years Vaccine (1 of 1 - PCV) Pneumococcal 50+ years Vaccine (1 of 1 - PCV)[facility] HospitalStart: 50-74-5205Gforxvdkexds Vaccine: 50+ Years (1 of 1 - PCV)Pneumococcal Vaccine: 50+ Years (1 of 1 - PCV)[facility] CenterStart: 45-63-4254Puqowludfpcr Vaccine: Age 50+ (1 of 1 - PCV)Pneumococcal Vaccine: Age 50+ (1 of 1 - PCV)[facility] CenterStart: 89-01-6398Tpcchkpzv for malignant neoplasm of colonFlexible sigmoidoscopy [facility] CenterStart: 76-66-8225Kvosrhzm vaccine (1 of 2)Shingles vaccine (1 of 2)[facility]ITALStart: 06-17-2023 End: 86-02-9835Moniekeov to same day surgery qzaspk7506/17/2023 Surgery IP Unit Carmen Jorgensen MD [address] [place] [address] COLORECTAL CANCER SCREENING, HIGH RISKMTHZ ORComment on above:COLORECTAL CANCER SCREENING, HIGH RISKStart: 06-17-2023 End: 16-92-5284Vajekujmhh scrn; hi risk indCOLORECTAL CANCER SCREENING, HIGH RISK Colon cancer screening 06/17/2023 2:45 PM [facility] Start: 89-82-9922Nhffkisvti hospital visit by znigdhxjb60/15/2023 Hospital Encounter IP Unit Carmen Jorgensen MD [address] [place] [address] [facility] ORStart: 56-77-2826UEZPG-19 Vaccine ()COVID-19 Vaccine ()[facility] JerseyHealthStart: 12-26-2022 End: 28-71-2518Palqlej encounter kewxezapw12/26/2023 Office Visit Family Medicine Kaykay Isaac, [place] [address] [facility] PARKtart: 12-12-2022 End: 09-87-9558Kcuszrf encounter aovnjffja28/12/2023 Appointment Physical Therapy Nickie Correa PTMWHZ Physical TherapyStart: 12-09-2022 End: 60-23-0362Niwuzvf encounter [facility]: 12-08-2022 End: 89-03-3920Rqjtopk encounter zddlpudmj62/08/2023 Appointment Physical Therapy Renetta Alvarez Physical TherapyStart: 12-04-2022 End: 52-72-8522Wesjsmv encounter yghylmspg70/04/2023 Appointment Physical Therapy Renetta Alvarez Physical TherapyStart: 36-50-5309Vmvzaxenyr hospital visit by vhexemyeh83/04/2023 Hospital Encounter Physical Therapy Renetta Alvarez Physical TherapyStart: 12-01-2022 End: 68-09-8692Eltjhgj encounter xyngvgpkt89/01/2023 Appointment Physical Therapy Renetta Alvarez Physical TherapyStart: 11-28-2022 End: 21-82-1002Qhploap encounter vpnwvqupv86/28/2023 Appointment Physical Therapy Nickie Correa PTMWHZ Physical TherapyStart: 11-26-2022 End: 51-82-9143Tbtxpgp encounter inhpsloiw42/26/2023 Office Visit Family Medicine Kaykay Isaac DO [address] [place] [address] [facility]Start: 11-24-2022 End: 74-04-8296Xqhtllg encounter lrkevdsmj55/24/2023 Appointment Physical Therapy Renetta Alvarez DMWHValerio Physical TherapyStart: 11-20-2022 End: 96-41-6821Fjrnshk encounter ddkbcxega04/20/2023 Appointment Physical Therapy Nickie Correa PTMFLOYD Physical TherapyStart: 11-19-2022 End: 81-12-3797Nrhapvp encounter oqnegmvhe77/19/2023 Appointment Physical Therapy Nickie Correa PTMFLOYD Physical TherapyStart: 11-13-2022 End: 06-73-6222Vqljccv encounter /13/2023 Appointment Physical Therapy Nickie Correa PTMFLOYD Physical TherapyStart: 11-11-2022 End: 43-65-2214Zhopbss encounter kexdwovlj56/11/2023 Appointment Physical Therapy Nickie Correa PTMFLOYD Physical TherapyStart: 53-34-8634Iwuahvd and physical examination, annual for health maintenanceWellness VisitOhioHealth Start: 08-25-6937TIsD/Tdap/Td vaccine (1 - Tdap)DTaP/Tdap/Td vaccine (1 - Tdap) [facility] [place]Comment on above:Postponed from 1992 (Patient Refused) Start: 18-24-5382Ywuqihbve vaccinationK[facility] Hospital, KYComment on above: Postponed from 04/03/2020 (Patient Refused)Postponed from 04/03/2021 (Patient Refused)Start: 45-82-6482Weksycvzr for malignant neoplasm of cervixCervical cancer [facility] Work Phone: start: 04-25-2020 End: 13-11-0120Agjexr Visit04/25/2020 Office Visit Family Medicine Kaykay Isaac DO [address] [place] [address] [facility] WILLJARENtart: 26-22-5079Cxwcqfxeu vaccinationFlu vaccine (#1)[facility]: 04-02-2020 End: 66-73-6623Kbwlhqxlzph92/31/2020 Appointment Physical Therapy Nickie Correa PTMFLOYD Physical TherapyStart: 03-27-2020 End: 15-14-4015Edbzqfbmtna76/25/2020 Appointment Physical Therapy Nickie Correa PTMFLOYD Physical TherapyStart: 03-19-2020 End: 00-88-7797Hizcmbxcand31/17/2020 Appointment Physical Therapy Nickie Correa PTMFLOYD Physical TherapyStart: 12-55-2962Ebjtdeyqs for malignant neoplasm of colonRiverside Health System: 35-94-0858Mbpnzcmbk for malignant neoplasm of cervixCervical cancer [facility]: 03-59-6841Ilqptkxi screenDiabetes [facility]: 10-90-4244Pklnu panelRiverside Health System: 85-28-6753Xrevakkzt for malignant neoplasm of breast MammogramOhioPaulding County HospitalStlacey: 00-17-5734Uvxngihcc for malignant neoplasm of cervix [facility]: 85-48-5686Nnsigczgs for malignant neoplasm of cervixPap Smear [facility] CenterStart: 82-77-5451PKnI/Tdap/Td vaccine (1 - Tdap)DTaP/Tdap/Td vaccine (1 - Tdap)[facility]: 18-06-0473Nakvvlsqv B vaccination Hepatitis B Vaccines (1 of 3 - 19+ 3-dose series)[facility] CenterStlacey: 1992 Hepatitis B vaccine (1 of 3 - 19+ 3-dose series)Hepatitis B vaccine (1 of 3 - 19+ 3-dose series)[facility]: 17-00-9700Wnthzqzuyzc for diphtheria, pertussis, and tetanusTetanus/Diphtheria/Pertussis (1 - Tdap) [facility] CenterStlacey: 68-31-5075Qhwzptzkp C screeningRiverside Health System: 45-88-3888CWB screeningBON [facility]ult[facility]rville Hospitalart: 34-54-7256Yrqsogjgdo screening using PHQ-9 (Patient Health Questionnaire 9) scoreOhioHealthStart: 70-37-9168Qcjmmww-mumps-rubella vaccinationMMR Vaccines (1 of 1 - Standard series)[facility]HealthStart: 46-03-7342Rvzfhygqi B vaccine (1 of 3 - 3-dose series) Hepatitis B vaccine (1 of 3 - 3-dose series)[facility]ITALStart: 05-21-5649Rogpqqujk C screeningHepatitis C [facility] Work Phone: start: 69-08-1632Meyaavvsp for malignant neoplasm of cervixPap SmearOhioHealthStart: 86-62-8959Wvfrdbctd for malignant neoplasm of colonOhioHealthStart: 04-48-6402Cimvxxx vaccinationTetanus: Every 10yrs [facility] End: 56-37-2285Zygdbpkcz/GC DNA, Thin PrepChlamydia/GC DNA, Thin Prep Microbiology Routine Vaginal discharge 1 Occurrences starting 05/09/2020 until 05/09/2020[facility], [place]Comment on above:1 Occurrences starting 05/09/2020 until 05/09/2020Chlamydia/GC DNA, Thin PrepChlamydia/GC DNA, Thin Prep Microbiology Routine Vaginal discharge 05/09/2020 11:07 AM [facility], [place] End: 12-39-5571Vpssvuwfxdscq procedure, preparation of smear, genital sourcePAP Smear Lab Routine Cervical cancer screening 1 Occurrences starting 05/09/2020 until 05/09/2020[facility], [place]Comment on above:1 Occurrences starting 05/09/2020 until 05/09/2020Hepatic function 1999 panel - Serum or PlasmaHepatic function panel Lab Routine Hyperthyroidism Ordered: 09/02/2023[facility] Work Phone: comment on above:Ordered: 09/02/2023 End: 77-37-7176Gsytzda function 1999 panel - Serum or PlasmaHepatic function panel Lab Routine Graves disease 12 Occurrences starting 11/27/2023 until 11/26/2024OhioHealthComment on above:12 Occurrences starting 11/27/2023 until 11/26/2024 End: 51-23-8009Bpfabcp Stimulating ImmunoglobulinBon [facility]HouseL[facility] on above:Once for 1 Occurrences starting 09/14/2024 until 09/14/2024 End: 66-58-0946Xtmmakx Stimulating ImmunoglobulinBon [facility]HouseL[facility] on above:Once for 1 Occurrences starting 11/16/2024 until 11/16/2024 End: 06-49-8418Zlqcqoy Stimulating Receptor AntibodyBon [facility] HospitalP[facility] Phone: comment on above:Once for 1 Occurrences starting 09/14/2024 until 09/14/2024 End: 32-39-9719Wfstpae Stimulating Receptor AntibodyBon 2heuresavant Phone: comzxhz on above:Once for 1 Occurrences starting 11/16/2024 until 11/16/2024Thyrotropin [Units/volume] in Serum or PlasmaTSH Lab Routine Hyperthyroidism Ordered: 09/02/2023OhioHealthComment on above:Ordered: 09/02/2023 End: 09-99-5537Frhqvczsmaq [Units/volume] in Serum or PlasmaTSH Lab Routine Graves disease 12 Occurrences starting 11/27/2023 until 11/26/2024[facility] Work Phone: comsxob on above:12 Occurrences starting 11/27/2023 until 11/26/2024Thyroxine (T4) free [Mass/volume] in Serum or PlasmaT4, free Lab Routine Hyperthyroidism Ordered: 09/02/2023OhioHealthComment on above:Ordered: 09/02/2023 End: 64-72-5245Jhbsjvvxf (T4) free [Mass/volume] in Serum or PlasmaT4, free Lab Routine Graves disease 12 Occurrences starting 11/27/2023 until 11/26/2024 OhioHealthComment on above:12 Occurrences starting 11/27/2023 until 11/26/2024 Triiodothyronine (T3) [Mass/volume] in Serum or PlasmaT3 Lab Routine Hyperthyroidism Ordered: 09/02/2023OhioHealthComment on above:Ordered: 09/02/2023 End: 04-89-3668Cocjrxsityglbtje (T3) [Mass/volume] in Serum or PlasmaT3 Lab Routine Graves disease 12 Occurrences starting 11/27/2023 until 11/26/2024 OhioHealthComment on above:12 Occurrences starting 11/27/2023 until 11/26/2024 End: 80-11-2907ZK Head and neck soft tissueUS Soft Tissue Neck and Thyroid Imaging Routine Graves disease Swallowing problem 1 Occurrences starting 11/22/2024 until 11/22/2025OhioHealthComment on above:1 Occurrences starting 11/22/2024 until 11/22/2025 Immunizations Immunization DateImmunizationNotesCare IdnkxyovOkpmjwvn33-33-7703algojddtn virus vaccine, unspecified formulationJessica Yonley DO Work Phone: bon [facility] HealthXqvihr40-42-9372otnjgciud, injectable, quadrivalent, preservative freeJessica Yonley DO Work Phone: bon [facility] HOSPITALDBBUMW36-31-7891vznajusok virus vaccine, unspecified formulationSMission Regional Medical Center ANTIQUE CLOCK REPAIRER Work Phone: [phone]owewf91-72-8584yykzeyckv, injectable, quadrivalent, preservative freeJessica Yonley DO Work Phone: bon [facility] Work Phone: [phone]p, injectable, quadrivalent, preservative freeJessica Yonley DO Work Phone: b[facility] Work Phone: [phone] SARS-CoV-2 VaccinationDaniel Eugenio DO Work Phone: [phone]izmkd19-29-3183TLACN-86, Pfizer, PF, 30mcg/0.3mL [facility]04-02-2021COVID-19, Pfizer, PF, 30mcg/0.3mL [facility] Work Phone: Payers DatePayer CategoryPayerPolicy [id number] Care (private) or private health insurance (indemnity), not otherwise specifiedMERITAIN AETNA [id number] Health Insurance AETRED JULISSA AETNA [id number] 2022-Present [phone] [address] [place] [id number]. [id number] 2.0.1.895068.3.57[id number] 2.0.1.804469.3.57[id number] 2.0.1.422840.3.57[id number] 2.0.1.091633.3.5[id number] 2.840.1.014493.3.57[id number] 2.0.1.036371.3.57[id number] 2.840.1.999934.3.57[id number] 2.840.1.784773.3.57[id number] 2.16.840.1.926484.3.57[id number] 2.16.840.1.438626.3.57[id number] 2..840.1.829320.3.57[id number] 2..840.1.950381.3.57[id number] 2..840.1.739683.3.57[id number] 2.16.840.1.323983.3.57[id number] 2.840.1.471276.3.57[id number] 2..840.1.658781.3.57[id number] 2..840.1.414833.3.57[id number] 2.840.1.852650.3.579.[id number] 2.840.1.672095.3.57[id number] 2.840.1.930471.3.57[id number] 1.2.840.738956.1.13.239.2.7.3.694059.315 Social History DateTypeDetailFacilityStart: 03-14-2020 End: 09-43-8582Krlmjta smoking status MSISNeUniversity Hospitals [facility]: 03-14-2020 End: 86-22-6862Nccqcgm use and exposureNever usedUniversity Hospitals St. [facility]: 03-14-2020 End: 65-26-3705Hmpptha intakeCurrent drinker of alcohol (finding)[facility]: 53-55-6300Tdy Assigned At BirthNot on [place] Start: 04-25-2020 End: 19-95-0935Lzuxaih SDOH Hlcumbxyx4CzhhnBig Bear City, [place]Start: 04-25-2020 End: 31-39-5781Jbvcyiz SDOH Food Znmjz4DnpgnRiverview Health Instituteart: 10-27-2022 History SDOH Transport Non-K[address] [place] [address] Work Phone: start: 98-94-7363Jfdirra CommentoccasionalyOhioHealth Start: 01-08-2023 End: 42-54-8632Kgopxu identityNot on [facility] HospitalStart: 01-08-2023 End: 96-44-5867Nuyzgai of Social functionOhioHealthStart: 00-66-5884Yetvmoy CommentsociallyOhioHealthHow hard is it for you to pay for the very basics like food, housing, medical care, and heatingNot hard at allRIVERSIDE W[facility] (I/We) worried whether (my/our) food would run out before (I/we) got money to buy more.Never trueRIVERSIDE WALTER REED HOSPITALAt any time in the past 12 months, were you homeless or living in detention [including now]?NoRIVERSIDE WALTER REED HOSPITALStart: 64-59-3964AsoTvqvno (finding)[facility] HospitalStart: 51-78-9092Biw assigned at birthFebath va medical centereBRiverside Behavioral Health Center Clinical Notes 11-07-2022 to 06-12-2025 Note Date & HjwuNoroMufmxehu33-36-8624 Instructions* Patient Instructions* Nj Paul MD - 06/12/2025 [...] concerning side effects otherwise. documented in this [id number] History of Present illness Narrative* Nj Paul MD - 06/12/2025 8:00 AM EST Images from the original note were not included. Reason for visit/chief complaint: hyperthyroidism Date: 06/12/2025 Referring Provider: No ref. provider found Primary Care Provider: Kaykay Isaac DO HPI: Interval hx/subjective: 06/12/2025: She has [...] note from 08/28/2023: Ms. Huynh is a 49 y.o. female with hx [...] 12/22/2024 US THYROID BIOPSY WITH FNA 12/22/2024 Brian Lagunas DO ULTRASOUND WISDOM TOOTH EXTRACTION Family [...] Resource Strain: Low Risk (03/25/2024) Received from [facility] Overall Financial Resource Strain (CARDIA) Difficulty of Paying Living Expenses: Not hard at all Food Insecurity: No Food Insecurity (09/25/2024) [facility] from [facility] Hunger Vital Sign Worried About Running Out of Food in the Last Year: Never true Ran Out of Food in the Last Year: Never true Transportation Needs: No Transportation Needs (09/25/2024) [facility] PRAPARE - Transportation Lack of Transportation (Medical): No Lack of Transportation (Non-Medical): No Housing Stability: Low Risk (09/25/2024) [facility] Housing Stability Vital Sign Unable to Pay [...] Wt 112.5 kg (248 lb) BMI 36.62 kg/m , Body mass index is 36.62 kg/m ., Wt Readings from Last 3 Encounters: 06/12/25 [...] Results Component Value Date TSH 0.92 06/03/2025 [id number] 242 (H) 08/28/2023 No results found for: PTH , CALCIUM , YUDITH , PHOS No results found for: LDLCALC , CHOL , HDL , TRIG , CHOLHDL THYROID ULTRASOUND 12/01/2022: COMPARISON: None. HISTORY: ORDERING SYSTEM PROVIDED HISTORY: Thyromegaly TECHNOLOGIST PROVIDED HISTORY: This procedure can be scheduled via [facility]. Access your [facility] account by visiting [facility]. thyromegaly FINDINGS: Right thyroid lobe: 50 x [...] range <32), ALT 68 (high, range <33), deilia 0.3, albumin 3.9 04/01/2024: AST 20, ALT [...] (high, range <140%) Assessment and plan: Ms. Huynh is a 49 y.o. female with hx [...] with improved thyroid levels. Patient notified via [employer] message. 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 Return in about 6 months (around 12/10/2025) for Graves and thyroid nodule f/u. Nj Paul MD Endocrinology documented in this [id number] NoteReason for visit/chief complaint: hyperthyroidism Date: 06/12/2025 Referring Provider: No ref. provider found Primary Care Provider: Kaykay Isaac DO HPI: Interval hx/subjective: 06/12/2025: She has been on MMI 5 mg 4 days a week. Taking regularly. No side effects/change in symptoms. No palpitations/tremors. Bms are normal. No significant fatigue. No heat/cold intolerance. No neck lumps/compressive symptoms. Noticed eyes are red in the morning. No double vision, bulging eyes or dry eyes. No biotin, MVI, B-complex, no estrogen containing pills. 02/06/2025: She has been on MMI 5 mg 5 days a week. No missed doses. No side effects. No significant fatigue, palpitations, tremors. No heat/cold intolerance. Bms are normal. Has gained weight compared to last visit. No neck lumps [...] No heat/cold intolerance. Bms are normal. Has gained some weight since last visit. No hair loss, dry skin. Leg rash is improving. No eye symptoms. No exposure to smoking. No neck lumps or compressive symptoms. No biotin, MVI, B-complex, no estrogen containing pills. 07/04/2024: She has been on MMI 5 mg 5 days a week since ~05/23/2024 (skipping Mon/thurs). No missed doses. No side effects. No [...] note from 08/28/2023: Ms. Huynh is a 49 y.o. female with hx [...] weakness/pain, menstrual abnormalities, diarrhea/hyperdefecation, heat intolerance, excessive anxiety/nervo (more content not included)...[facility]07-07-2025 Instructions* Patient Instructions* Nj Paul MD - 02/06/2025 1:43 PM EDT Decrease methimazole to 5 mg 4 days a week (space them out throughout the week). And repeat labs after 6 weeks. They are good to be done on/after 03/21/25 at a different lab is possible. Hold biotin supplements for hair/nail health for 1 week before labs (if taking). Hold multivitamins/B-complex with biotin for ~2-3 days before labs (if taking). Plan is to repeat labs again in 06/2025 before next visit. Hold biotin supplements for [...] concerning side effects otherwise. documented in this [id number] History of Present illness Narrative* Nj Paul MD - 02/06/2025 1:15 PM EDT Images from the original note were not included. Reason for visit/chief complaint: hyperthyroidism Date: 02/06/2025 Referring Provider: No ref. provider found Primary Care Provider: Kaykay Isaac DO HPI: Interval hx/subjective: 02/06/2025: She has been on MMI 5 [...] note from 08/28/2023: Ms. Huynh is a 49 y.o. female with hx [...] 12/22/2024 US THYROID BIOPSY WITH FNA 12/22/2024 Brian Lagunas, ULTRASOUND WISDOM TOOTH EXTRACTION Family History: Family [...] Resource Strain: Low Risk (03/25/2024) Received from [facility] Overall Financial Resource Strain (CARDIA) Difficulty of Paying Living Expenses: Not hard at all Food Insecurity: No Food Insecurity (09/25/2024) Received from [facility] Hunger Vital Sign Worried About Running Out of Food in the Last Year: Never true Ran Out of Food in the Last Year: Never true Transportation Needs: No Transportation Needs (09/25/2024) Received from [facility] PRAPARE - Transportation Lack of Transportation (Medical): No Lack of Transportation (Non-Medical): No Housing Stability: Low Risk (09/25/2024) Received from [facility] Housing Stability Vital Sign Unable to [...] (GLYCOLAX) 17 gram/dose powder 1/2 capful daily methIMAzole (TAPAZOLE) 5 MG tablet Take daily for only 4 days a week and skip 3 days in the week . 18 tablet 11 No current facility-administered medications for this visit. Patient is not taking Norethindrone since 01/23. Physical Exam: Vitals: BP 110/76 (Patient Position: Sitting) Pulse 71 Wt 109.3 kg (241 lb) BMI 35.59 kg/m , Body mass index is 35.59 kg/m ., Wt Readings from Last 3 Encounters: 02/06/25 109.3 kg (241 lb) 11/22/24 103 kg (227 lb) 09/20/24 99.4 kg (219 lb 1.6 oz) General/Constitutional: , well-developed and in no distress Eyes: no proptosis, no jaundice, there is some congestion Neck: , no thyroid nodules appreciated, or enlarged LNs Cardiovascular: regular rhythm Pulmonary/Chest: effort normal Neurological: alert and oriented, no focal deficits, no remarkable tremors, DTRs normal Skin: warm Psychiatric: appropriate affect Lab/Imaging Data: [...] 11/16/2024 Lab Results Component Value Date TSH 0.91 11/16/2024 [id number] 242 (H) 08/28/2023 No results found for: PTH , CALCIUM , YUDITH , PHOS No results found for: LDLCALC , CHOL , HDL , TRIG , CHOLHDL THYROID ULTRASOUND 12/01/2022: COMPARISON: None. HISTORY: ORDERING SYSTEM PROVIDED HISTORY: Thyromegaly TECHNOLOGIST PROVIDED HISTORY: This procedure can be scheduled via [employer]. Access your [employer] account by visiting [facility] [employer]. thyromegaly FINDINGS: Right thyroid lobe: 50 x [...] FT4 0.9 (low, range 0.92-1.68), T3 123 Assessment and plan: Ms. Huynh is a 49 y.o. female with hx [...] with improved thyroid levels. Patient notified via [employer] message. Repeat liver enzymes, TFT orders mailed [...] sooner in case of change in symptoms. Return in about 18 weeks (around 06/12/2025) for Graves f/u. Nj Paul MD Endocrinology documented in this [id number] NoteReason for visit/chief complaint: hyperthyroidism Date: 02/06/2025 Referring Provider: No ref. provider found Primary Care Provider: Kaykay Isaac DO HPI: Interval hx/subjective: 02/06/2025: She has been on MMI 5 mg 5 days a week. No missed doses. No side effects. No significant fatigue, palpitations, tremors. No heat/cold intolerance. Bms are normal. Has gained weight compared to last visit. No neck lumps [...] No heat/cold intolerance. Bms are normal. Has gained some weight since last visit. No hair loss, dry skin. Leg rash is improving. No eye symptoms. No exposure to smoking. No neck lumps or compressive symptoms. No biotin, MVI, B-complex, no estrogen containing pills. 07/04/2024: She has been on MMI 5 mg 5 days a week since ~05/23/2024 (skipping Mon/thurs). No missed doses. No side effects. No [...] note from 08/28/2023: Ms. Huynh is a 49 y.o. female with hx [...] stopped in January). No recent steroids. Ms. uHynh endorses constipation and tremors palpitations--chronic constipation and [...] changes, or pressure/choking sensation. Rash anterior bilateral s (more content not included)...[facility] 12-22-2024 NoteVascular & Interventional Radiology Provided By [facility] (Diagnostic Radiology, Interventional and Neurointerventional Radiology and Vascular Medicine) Interventional Radiology Department [facility]: [phone] 23/02 VIR physician contact: [phone] Weekday VIR nurse practitioner contact @ [facility]: [phone] [facility]: [phone] [email or web address] [facility] STAFF RADIATION THERAPIST DIRECTORY PROCEDURE: Ultrasound guided left thyroid lobe nodule FNA FINDINGS: FNA was obtained x 6 passes PLAN: Cytology report will be issued separately by the pathology department Primarily debris noted by pathology in room; if bx non-diagnostic, would NOT recommend repeat biopsy. Date: 12/22/2024 Physician: Brian Norris Ea, DO Sedation: None [place] Protocol: Pre-Procedural verification: Correct patient, correct site and correct procedure confirmed. H&P or interval update complete and in medical record. Informed consent form completed and signed. Radiology images, labs and pathology reviewed with appropriate identifiers (when applicable). Site Marking: N/A Time Out: PERFORMED Complications: None Full report to follow AUTHENTICATED BY BRIAN NORRIS EA, ON 12/22/2024 09:12:24[facility] 11-22-2024 Instructions* Patient Instructions* Nj Paul MD - 11/22/2024 1:31 PM EDT Neck ultrasound now when possible. Keep on methimazole 5 mg 5 days a week. Repeat labs in 3 months. Let me know sooner in case of change in symptoms (significant fatigue, racing heart, tremors, change in bowel movements, feeling colder/warmer, remarkable weight change,..). Let me know sooner if there is change in neck symptoms like enlarging neck lump, new/worsening difficulty swallowing, voice changes, choking/pressure sensation. Hold biotin supplements for hair/nail health for 1 week before labs (if taking). Hold multivitamins/B-complex with biotin for ~2-3 days before labs (if taking). Methimazole: -This medicine is usually well tolerated, [...] concerning side effects otherwise. documented in this [id number] History of Present illness Narrative* Nj Paul MD - 11/22/2024 1:15 PM EDT Images from the original note were not included. Reason for visit/chief complaint: hyperthyroidism Date: 11/22/2024 Referring Provider: No ref. provider found Primary Care Provider: Kaykay Isaac DO HPI: Interval hx/subjective: 11/22/2024: She has been on MMI 5 [...] 5 days a week since ~05/23/2024 (skipping Mon/th). No misseddoses. No side effects. No abdominal [...] note from 08/28/2023: Ms. Huynh is a 49 y.o. female with hx [...] Resource Strain: Low Risk (03/25/2024) Received from [facility] Overall Financial Resource Strain (CARDIA) Difficulty of Paying Living Expenses: Not hard at all Food Insecurity: No Food Insecurity (09/25/2024) Received from [facility] Hunger Vital Sign Worried About Running Out of Food in the Last Year: Never true Ran Out of Food in the Last Year: Never true Transportation Needs: No Transportation Needs (09/25/2024) Received from [facility] PRAPARE - Transportation Lack of Transportation (Medical): No Lack of Transportation (Non-Medical): No Housing Stability: Low Risk (09/25/2024) Received from [facility] Housing Stability Vital Sign Unable to [...] tablet (5 mg total) by mouth daily For only 5 days a week and skip 2 days in the week . 22 tablet 11 metoprolol succinate (TOPROL-XL) 50 MG 24 hr tablet polyethylene glycol (GLYCOLAX) 17 gram/dose powder 1/2 capful daily No current facility-administered medications for this visit. Patient is not taking Norethindrone since 01/23. Physical Exam: Vitals: BP 120/83 (Patient Position: Sitting) Pulse 78 Wt 103 kg (227 lb) BMI 33.52 kg/m , Body mass index is 33.52 kg/m ., Wt Readings from Last 3 Encounters: 11/22/24 103 kg (227 lb) 09/20/24 99.4 kg (219 lb 1.6 oz) 07/04/24 92.9 kg (204 lb 12.8 oz) General/Constitutional: , well-developed and in no distress Eyes: no proptosis, no jaundice Neck: prominent thyroid Cardiovascular: regular rhythm Pulmonary/Chest: effort normal Neurological: alert and oriented, no focal deficits, no tremors, DTRs normal Skin: warm Psychiatric: appropriate affect Lab/Imaging Data: [...] 11/16/2024 Lab Results Component Value Date TSH 0.91 11/16/2024 [id number] 242 (H) 08/28/2023 No results found for: PTH , CALCIUM , YUDITH , PHOS No results found for: LDLCALC , CHOL , HDL , TRIG , CHOLHDL THYROID ULTRASOUND 12/01/2022: COMPARISON: None. HISTORY: ORDERING SYSTEM PROVIDED HISTORY: Thyromegaly TECHNOLOGIST PROVIDED HISTORY: This procedure can be scheduled via [facility]. Access your [facility] account by visiting [facility]. thyromegaly FINDINGS: Right thyroid lobe: 50 x [...] normal, TSI 3.91 (high), TRAb 1.55 (normal) Assessment and plan: Ms. Huynh is a 49 y.o. female with hx [...] with improved thyroid levels. Patient notified via [facility] message. Repeat liver enzymes, TFT orders mailed [...] Counseled on smoking exposure and eye disease. Return in about 3 months (around 02/27/2025) for Graves f/u. Nj Paul MD Endocrinology documented in this [id number] NoteReason for visit/chief complaint: hyperthyroidism Date: 11/22/2024 Referring Provider: No ref. provider found Primary Care Provider: Kaykay Isaac DO HPI: Interval hx/subjective: 11/22/2024: She has been on MMI 5 [...] No heat/cold intolerance. Bms are normal. Has gained some weight since last visit. No hair loss, dry skin. Leg rash is improving. No eye symptoms. No exposure to smoking. No neck lumps or compressive symptoms. No biotin, MVI, B-complex, no estrogen containing pills. 07/04/2024: She has been on MMI 5 mg 5 days a week since ~05/23/2024 (skipping Mon/thurs). No missed doses. No side effects. No [...] note from 08/28/2023: Ms. Huynh is a 49 y.o. female with hx [...] head/neck irradiation: no -Smoking: no Prior liver (more content not included)...[facility]02-18-2025 History of Present illness Narrative* Nj Paul MD - 09/20/2024 1:15 PM EST Images from the original note were not included. Reason for visit/chief complaint: hyperthyroidism Date: 09/20/2024 Referring Provider: No ref. provider found Primary Care Provider: Kaykay Isaac DO HPI: Interval hx/subjective: 09/20/2024: She has been on MMI 5 [...] note from 08/28/2023: Ms. Huynh is a 49 y.o. female with hx [...] Resource Strain: Low Risk (03/25/2024) Received from [facility] Overall Financial Resource Strain (CARDIA) Difficulty of Paying Living Expenses: Not hard at all Food Insecurity: No Food Insecurity (03/25/2024) Received from [facility] Hunger Vital Sign Worried About Running Out of Food in the Last Year: Never true Ran Out of Food in the Last Year: Never true Transportation Needs: Unknown (03/25/2024) Received from [facility] PRAPARE - Transportation Lack of Transportation (Non-Medical): No Housing Stability: Unknown (03/25/2024) Received from [facility] Housing Stability Vital Sign Homeless in the Last Year: No Allergies: [...] tablet (5 mg total) by mouth daily For only 5 days a week and skip 2 days in the week . 22 tablet 11 metoprolol succinate (TOPROL-XL) 50 MG 24 hr tablet polyethylene glycol (GLYCOLAX) 17 gram/dose powder 1/2 capful daily No current facility-administered medications for this visit. Patient is not taking Norethindrone since 01/23. Physical Exam: Vitals: BP 127/87 Pulse 78 Wt 99.4 kg (219 lb 1.6 oz) BMI 32.36 kg/m , Body mass index is 32.36 kg/m ., Wt Readings from Last 3 Encounters: 09/20/24 99.4 kg (219 lb 1.6 oz) 07/04/24 92.9 kg (204 lb 12.8 oz) 03/22/24 84.2 kg (185 lb 9.6 oz) General/Constitutional: , well-developed and in no distress Eyes: no proptosis, no jaundice Neck: prominent thyroid Cardiovascular: regular rhythm Pulmonary/Chest: effort normal Neurological: alert and oriented, no focal deficits, no tremors, DTRs normal Skin: warm Psychiatric: appropriate affect Lab/Imaging Data: Lab Results Component Value Date WBC 4.91 08/28/2023 HGB 14.3 08/28/2023 HCT 45.5 08/28/2023 MCV 92.3 08/28/2023 PLT 251 08/28/2023 No results found for: GLUCOSE , NA , K , CL , BUN , CREATININE Lab Results Component Value Date ALT 53 (H) 05/20/2024 AST 34 (H) 05/20/2024 ALKPHOS 132 (H) 05/20/2024 BILITOT 0.2 (L) 05/20/2024 Lab Results Component Value Date TSH 1.71 05/20/2024 [id number] 242 (H) 08/28/2023 No results found for: PTH , CALCIUM , YUDITH , PHOS No results found for: LDLCALC , CHOL , HDL , TRIG , CHOLHDL THYROID ULTRASOUND 12/01/2022: COMPARISON: None. HISTORY: ORDERING SYSTEM PROVIDED HISTORY: Thyromegaly TECHNOLOGIST PROVIDED HISTORY: This procedure can be scheduled via [facility]. Access your [facility] account by visiting [facility]. thyromegaly FINDINGS: Right thyroid lobe: 50 x [...] dermatosis (in particular, the eczematid-like purpura of Doucas-José type). And eczematous process such as atopic [...] normal, TSH 0.93, FT4 0.9 (low normal), T4 93 (range 80-200), TRAb 2.21 (high, range <1.75), TSI 4.23 (high, range <0.54) Assessment and plan: Ms. Huynh is a 49 y.o. female with hx [...] with improved thyroid levels. Patient notified via [facility] message. Repeat liver enzymes, TFT orders mailed [...] months,sooner in case of change in symptoms. Return in about 2 months (around 11/18/2024) for Graves f/u. Nj Paul MD Endocrinology documented in this [id number] NoteReason for visit/chief complaint: hyperthyroidism Date: 09/20/2024 Referring Provider: No ref. provider found Primary Care Provider: Kaykay Isaac DO HPI: Interval hx/subjective: 09/20/2024: She has been on MMI 5 mg 5 days a week. No missed doses. No side effects. No significant fatigue, palpitations, tremors. No heat/cold intolerance. Bms are normal. Has gained some weight since last visit. No hair loss, dry skin. Leg rash is improving. No eye symptoms. No exposure to smoking. No neck lumps or compressive symptoms. No biotin, MVI, B-complex, no estrogen containing pills. 07/04/2024: She has been on MMI 5 mg 5 days a week since ~05/23/2024 (skipping Mon/thurs). No missed doses. No side effects. No [...] note from 08/28/2023: Ms. Huynh is a 49 y.o. female with hx [...] Social History: Social History Socioeconomic History Marital status (more content not included)...[facility]02-18-2025 Instructions* Patient Instructions* Nj Paul MD - 09/20/2024 1:14 PM EST Keep on same methimazole dose and repeat labs on/after 11/12 before next visit. Hold biotin supplements for hair/nail health for 1 week before labs (if taking). Hold multivitamins/B-complex with biotin for ~2-3 days before labs (if taking). Let me know sooner in case of change in symptoms (significant fatigue, racing heart, tremors, change in bowel movements, feeling colder/warmer, remarkable weight change,..). Methimazole: -This medicine is usually well tolerated, [...] concerning side effects otherwise. documented in this [id number] Instructions* Patient Instructions* jN Paul MD - 07/04/2024 8:56 AM EST Keep on same methimazole dose; 5 mg 5 days a week. This medicine is usually well tolerated, but [...] you develop any concerning side effects otherwise. Labs after 1 month (liver functions). Labs again in early 09/2024 before next visit, at least ~1 week before visit. Hold biotin supplements for hair/nail health for 1 week before labs (if taking). Hold multivitamins/B-complex with biotin for ~3 days before labs (if taking). Let me know sooner in case of change in symptoms (significant fatigue, racing heart, tremors, change in bowel movements, feeling colder/warmer, remarkable weight change,..). Let me know sooner if there is change in neck symptoms like enlarging neck lump, new/worsening difficulty swallowing, voice changes, choking/pressure sensation. documented in this [id number] History of Present illness Narrative* Nj Paul MD - 07/04/2024 8:45 AM EST Images from the original note were not included. Reason for visit/chief complaint: hyperthyroidism Date: 07/04/2024 Referring Provider: No ref. provider found Primary Care Provider: Kaykay Isaac DO HPI: Interval hx/subjective: 07/04/2024: She has been on MMI 5 [...] note from 08/28/2023: Ms. Huynh is a 49 y.o. female with hx [...] Resource Strain: Low Risk (03/25/2024) Received from [facility] Overall Financial Resource Strain (CARDIA) Difficulty of Paying Living Expenses: Not hard at all Food Insecurity: No Food Insecurity (03/25/2024) Received from [facility] Hunger Vital Sign Worried About Running Out of Food in the Last Year: Never true Ran Out of Food in the Last Year: Never true Transportation Needs: Unknown (03/25/2024) Received from [facility] PRAPARE - Transportation Lack of Transportation (Non-Medical): No Housing Stability: Unknown (03/25/2024) Received from [facility] Housing Stability Vital Sign Homeless in the Last Year: No Allergies: [...] (GLYCOLAX) 17 gram/dose powder 1/2 capful daily methIMAzole (TAPAZOLE) 5 MG tablet Take 1 (one) tablet (5 mg total) by mouth daily For only 5 days a week and skip 2 days in the week . 22 tablet 11 No current facility-administered medications for this visit. Patient is not taking Norethindrone since 01/23. Physical Exam: Vitals: BP 103/72 (BP Location: Right arm, Patient Position: Sitting) Pulse 69 Wt 92.9 kg (204 lb 12.8 oz) BMI 30.24 kg/m , Body mass index is 30.24 kg/m ., Wt Readings from Last 3 Encounters: 07/04/24 92.9 kg (204 lb 12.8 oz) 03/22/24 84.2 kg (185 lb 9.6 oz) 11/27/23 82.4 kg (181 lb 9.6 oz) General/Constitutional: , well-developed and in no distress Eyes: no proptosis Cardiovascular: regular rhythm Pulmonary/Chest: effort normal Neurological: alert and oriented, no focal deficits, no tremors, DTRs normal Skin: warm Psychiatric: appropriate affect Lab/Imaging Data: Lab Results Component Value Date WBC 4.91 08/28/2023 HGB 14.3 08/28/2023 HCT 45.5 08/28/2023 MCV 92.3 08/28/2023 PLT 251 08/28/2023 No results found for: GLUCOSE , NA , K , CL , BUN , CREATININE Lab Results Component Value Date ALT 53 (H) 05/20/2024 AST 34 (H) 05/20/2024 ALKPHOS 132 (H) 05/20/2024 BILITOT 0.2 (L) 05/20/2024 Lab Results Component Value Date TSH 1.71 05/20/2024 [id number] 242 (H) 08/28/2023 No results found for: PTH , CALCIUM , YUDITH , PHOS No results found for: LDLCALC , CHOL , HDL , TRIG , CHOLHDL THYROID ULTRASOUND 12/01/2022: COMPARISON: None. HISTORY: ORDERING SYSTEM PROVIDED HISTORY: Thyromegaly TECHNOLOGIST PROVIDED HISTORY: This procedure can be scheduled via [facility]. Access your [facility] account by visiting [facility]. thyromegaly FINDINGS: Right thyroid lobe: 50 x [...] 1 (range 0.92-1.68), T3 93 (range 80-200). Assessment and plan: Ms. Huynh is a 49 y.o. female with hx [...] with improved thyroid levels. Patient notified via [employer] message. Repeat liver enzymes, TFT orders mailed [...] sooner in case of change in symptoms. Return in about 11 weeks (around 09/19/2024) for Graves f/u . Nj Paul MD Endocrinology documented in this [id number] History of Present illness Narrative* Nj Paul MD - 07/04/2024 8:45 AM EST Images from the original note were not included. Reason for visit/chief complaint: hyperthyroidism Date: 07/04/2024 Referring Provider: No ref. provider found Primary Care Provider: Kaykay Isaac DO HPI: Interval hx/subjective: 07/04/2024: She has been on MMI 5 [...] note from 08/28/2023: Ms. Huynh is a 49 y.o. female with hx [...] Resource Strain: Low Risk (03/25/2024) Received from [facility] Overall Financial Resource Strain (CARDIA) Difficulty of Paying Living Expenses: Not hard at all Food Insecurity: No Food Insecurity (03/25/2024) Received from [facility] Hunger Vital Sign Worried About Running Out of Food in the Last Year: Never true Ran Out of Food in the Last Year: Never true Transportation Needs: Unknown (03/25/2024) Received from [facility] PRAPARE - Transportation Lack of Transportation (Non-Medical): No Housing Stability: Unknown (03/25/2024) Received from [facility] Housing Stability Vital Sign Homeless in the Last Year: No Allergies: [...] (GLYCOLAX) 17 gram/dose powder 1/2 capful daily methIMAzole (TAPAZOLE) 5 MG tablet Take 1 (one) tablet (5 mg total) by mouth daily For only 5 days a week and skip 2 days in the week . 22 tablet 11 No current facility-administered medications for this visit. Patient is not taking Norethindrone since 01/23. Physical Exam: Vitals: BP 103/72 (BP Location: Right arm, Patient Position: Sitting) Pulse 69 Wt 92.9 kg (204 lb 12.8 oz) BMI 30.24 kg/m , Body mass index is 30.24 kg/m ., Wt Readings from Last 3 Encounters: 07/04/24 92.9 kg (204 lb 12.8 oz) 03/22/24 84.2 kg (185 lb 9.6 oz) 11/27/23 82.4 kg (181 lb 9.6 oz) General/Constitutional: , well-developed and in no distress Eyes: no proptosis Cardiovascular: regular rhythm Pulmonary/Chest: effort normal Neurological: alert and oriented, no focal deficits, no tremors, DTRs normal Skin: warm Psychiatric: appropriate affect Lab/Imaging Data: Lab Results Component Value Date WBC 4.91 08/28/2023 HGB 14.3 08/28/2023 HCT 45.5 08/28/2023 MCV 92.3 08/28/2023 PLT 251 08/28/2023 No results found for: GLUCOSE , NA , K , CL , BUN , CREATININE Lab Results Component Value Date ALT 53 (H) 05/20/2024 AST 34 (H) 05/20/2024 ALKPHOS 132 (H) 05/20/2024 BILITOT 0.2 (L) 05/20/2024 Lab Results Component Value Date TSH 1.71 05/20/2024 [id number] 242 (H) 08/28/2023 No results found for: PTH , CALCIUM , YUDITH , PHOS No results found for: LDLCALC , CHOL , HDL , TRIG , CHOLHDL THYROID ULTRASOUND 12/01/2022: COMPARISON: None. HISTORY: ORDERING SYSTEM PROVIDED HISTORY: Thyromegaly TECHNOLOGIST PROVIDED HISTORY: This procedure can be scheduled via [employer]. Access your [employer] account by visiting [employer]. thyromegaly FINDINGS: Right thyroid lobe: 50 x [...] 1 (range 0.92-1.68), T3 93 (range 80-200). Assessment and plan: Ms. Huynh is a 49 y.o. female with hx [...] with improved thyroid levels. Patient notified via [employer] message. Repeat liver enzymes, TFT orders mailed [...] sooner in case of change in symptoms. Return in about 11 weeks (around 09/19/2024) for Graves f/u . Nj Paul MD Endocrinology documented in this [id number] NoteReason for visit/chief complaint: hyperthyroidism Date: 07/04/2024 Referring Provider: No ref. provider found Primary Care Provider: Kaykay Isaac DO HPI: Interval hx/subjective: 07/04/2024: She has been on MMI 5 mg 5 days a week since ~05/23/2024 (skipping Mon/thurs). No missed doses. No side effects. No [...] note from 08/28/2023: Ms. Huynh is a 49 y.o. female with hx [...] Resource Strain: Low Risk (03/25/2024) Received from [facility] Overall Financial Resource Strain (CARDIA) Difficulty of Paying Living Expenses (more content not included)...[facility]08-20-2024 Instructions* Patient Instructions* Nj Paul MD - 03/22/2024 8:28 AM [...] thyroid labs checked sooner. documented in this [id number] History of Present illness Narrative* Nj Paul MD - 03/22/2024 8:00 AM EDT Images from the original note were not included. Reason for visit/chief complaint: hyperthyroidism Date: 03/22/2024 Referring Provider: No ref. provider found Primary Care Provider: Kaykay Isaac DO HPI: Interval hx/subjective: 03/22/2024: She [...] Resource Strain: Low Risk (10/27/2022) Received from [facility] Overall Financial Resource Strain (CARDIA) Difficulty of Paying Living Expenses: Not hard at all Food Insecurity: No Food Insecurity (10/27/2022) Received from [facility] Hunger Vital Sign Worried About Running Out of Food in the Last Year: Never true Ran Out of Food in the Last Year: Never true Transportation Needs: Unknown (10/27/2022) Received from [facility] PRAPARE - Transportation Lack of Transportation (Non-Medical): No Housing Stability: Unknown (10/27/2022) Received from [facility] Housing Stability Vital Sign Unstable Housing [...] BMI 27.41 kg/m , Body mass index is27.41 kg/m ., Wt Readings from Last 3 [...] Component Value Date TSH <0.01 (L) 08/28/2023 [id number] 242 (H) 08/28/2023 No results found for: PTH , CALCIUM , YUDITH , PHOS No results found for: LDLCALC , CHOL , HDL , TRIG , CHOLHDL THYROID ULTRASOUND 12/01/2022: COMPARISON: None. HISTORY: ORDERING SYSTEM PROVIDED HISTORY: Thyromegaly TECHNOLOGIST PROVIDED HISTORY: This procedure can be scheduled via [facility]. Access your [employer] account by visiting [employer]. thyromegaly FINDINGS: Right thyroid lobe: 50 x [...] (high, range <33), edilia 0.3, albumin 3.9 Assessment and plan: Ms. [...] with improved thyroid levels. Patient notified via [employer] message. Repeat liver enzymes, TFT orders mailed [...] Nj Paul MD Endocrinology documented in this [id number] Telephone encounter Note* Telephone Encounter - Garima Dubose CNP - 03/16/2024 4:[address] Paul, could you please renew for patient since you saw patient last? Thank you [id number] Miscellaneous Notes* Telephone Encounter - Garima Dubose CNP - 03/16/2024 4:[address] Paul, could you please renew for patient since you saw patient last? Thank you documented in this [id number] Instructions* Patient Instructions* Nj Paul MD - 11/27/2023 8:40 AM [...] concerning side effects otherwise. documented in this [id number] History of Present illness Narrative* Nj Paul MD - 11/27/2023 7:58 AM EDT Images from the original note were not included. Reason for visit/chief complaint: hyperthyroidism Date: 11/27/2023 Referring Provider: No ref. provider found Primary Care Provider: Kaykay Isaac DO HPI: Interval hx/subjective: 11/27/2023: She [...] kg (181 lb 9.6 oz) BMI 26.82 kg/m, Body mass index is 26.82 kg/m ., [...] Component Value Date TSH <0.01 (L) 08/28/2023 [id number] 242 (H) 08/28/2023 No results found for: PTH , CALCIUM , YUDITH , PHOS No results found for: LDLCALC , CHOL , HDL , TRIG , CHOLHDL THYROID ULTRASOUND 12/01/2022: COMPARISON: None. HISTORY: ORDERING SYSTEM PROVIDED HISTORY: Thyromegaly TECHNOLOGIST PROVIDED HISTORY: This procedure can be scheduled via [facility]. Access your [employer] account by visiting [employer]. thyromegaly FINDINGS: Right thyroid lobe: 50 x [...] with improved thyroid levels. Patient notified via [employer] message. Repeat liver enzymes, TFT orders mailed [...] continuity over time. . documented in this [id number] Instructions* Patient Instructions* Garima Dubose CNP - 08/28/2023 10:20 AM EST Please have labs done today. documented in this [id number] History of Present illness Narrative* Garima Dubose CNP - 08/28/2023 10:00 AM EST Reason for visit/chief complaint: hyperthyroidism Date: 08/28/2023 Referring Provider: Kaykay Isaac DO Primary Care Provider: Kaykay Isaac DO HPI: Ms. Huynh is a [...] intermittent, since spring--has tried topical steroidswithout improvement Medical History: Past Medical History: Diagnosis [...] HISTORY: This procedure can be scheduled via [employer]. Access your [employer] account by visiting [employer]. thyromegaly FINDINGS: Right thyroid lobe: 50 x [...] BILITOT No results found for: TSH , M3UUTPT , THYROIDAB No results found for: PTH [...] TRAb 4.96 (<1.75),TPO 79, thyroglobulin antibody 275 Assessment and plan: [...] with improved thyroid levels. Patient notified via [employer] message. Repeat liver enzymes, TFT orders mailed to patient to do in 4 weeks. Patient is advised to notify us of any symptom changes or possible signs of side effects related to the medication interim. . documented in this [id number] History of Present illness Narrative* Nani Lyles LPN - 01/30/2023 3:12 PM EDT Images from the original note were not included. * Wenceslao Becker, - 01/08/2023 9:54 AM EDT Subjective Patient ID: Sara Huynh is a 47 y.o. 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 (+) decreased hearing Also, has abnormal TM, rightear. Pressure/discomfort in right ear x 3 months [...] past medical history, past social history, past surgicalhistory, and problem list. Review of Systems Constitutional: [...] through the audiogram which was also reviewed withthe patient. Unfortunately, there is no cure for [...] it will seem louder, if you are startledand your fight or flight system kicks in [...] work which we discussed. documented in this [id number] Instructions* Patient Instructions* Wenceslao Becker DO - 01/08/2023 10:38 AM [...] through the audiogram which was also reviewed withthe patient. Unfortunately, there is no cure for [...] it will seem louder, if you are startledand your fight or flight system kicks in [...] work which we discussed. documented in this [id number] Instructions* Patient Instructions* Wenceslao Becker DO - 01/08/2023 10:38 AM [...] through the audiogram which was also reviewed withthe patient. Unfortunately, there is no cure for [...] it will seem louder, if you are startledand your fight or flight system kicks in [...] work which we discussed. documented in this [id number] History of Present illness Narrative* Sana Ward AuD - 01/08/2023 9:59 AM EDT Images from the original note were not included. [facility] [address] [address] Name: Sara Huynh : 1975 Date: 01/08/23 History & Purpose of Evaluation: Ms. Huynh was seen today for audiologic evaluation at the kind request of Dr. Becker. Ms. Huynh reports having tinnitus at right ear and muffled hearing. She reports the tinnitus is constant, high-pitched ringing, and non- bothersome. She also reports having abnormal TM at [...] results reveal essentially normal hearing, bilaterally. Ms. Huynh's hearing shouldbe adequate for speech understanding in most listening situations. Middle ear testing is consistentwith a normal middle ear system, bilaterally. Ms. Huynh is not hearing aid candidate at this time. Discussed tinnitus management strategies and encouraged her to use them prn. Encouraged useof hearing protection prn. Recommendations: Follow up with Dr. Becker. Re-evaluate upon referral. Use of hearing protection prn and tinnitus management strategies prn is recommended. The above was explained to the patient and/or their guardian and they expressed understanding. Electronically Signed by: Josh Hines, CCC-A 01/08/23 9:59 AM documented in this [id number] History of Present illness Narrative* EugenioWenceslao Dylan, DO - 01/08/2023 9:54 AM EDT Subjective Patient ID: Sara Huynh is a 47 y.o. 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 (+) decreased hearing Also, has abnormal TM, rightear. Pressure/discomfort in right ear x 3 months tinnitus Patient states she feels soreness on right neck. Sometimes, she has to stop speaking due to sensation her airway is cut off. She states this feeling started before the right ear complaint. She denies sore throats, denies swallowing difficulty. No choking Last hearing test approx 1991 at [employer] job. The following portions of the patient's history were reviewed and updated as appropriate: allergies, current medications, past family history, past medical history, past social history, past surgicalhistory, and problem list. Review of Systems Constitutional: [...] through the audiogram which was also reviewed withthe patient. Unfortunately, there is no cure for tinnitus though 1 in 10 patients have stated they have improvement with lipoflavenoid vitamin supplements. Currently, the best treatment for tinnitus i s called masking techniques. This involves background noise to mask or decrease attention on the noise in the ears. This involves having a tv, or radio, or fan on in the background to produce ambient noise. However, any time you start focusing on the sound it will seem louder, if you are startledand your fight or flight system kicks in [...] work which we discussed. documented in this [id number] History of Present illness Narrative* Nickie Correa, PT - 12/12/2022 7:30 AM EDT Images from the original note were not included. [facility] Out[facility] Physical Therapy Daily Note Date: 12/12/2022 Patient Name: Sara Huynh : 1975 (47 y.o.) Referring Provider (secondary): Dr. Isaac Diagnosis: Chronic bilateral low back pain without sciatica Treatment Diagnosis: Back Pain Onset Date: 10/27/22 PT Insurance Information: [facility] Total # of Visits Approved: 12 Per Physician Order Total # of Visits to Date: 11 Plan of Care/Certification Expiration Date: 12/19/22 Pre-Treatment Pain: 2/10 Assessment Assessment: Patient reports back pain 2/10 today. Pain varies 2-5/10, uncertain why pain acts up attimes. Completed therex and manual therapy per Doc [...] Increase trunk ROM B rotation to WFL-met Custodial Goals Time Frame for Custodial Goals : 12 Custodial Goal 1: Decrease back pain 2/10 at worst x3 days- Not Met Custodial Goal 2: Patient to transfer sit to stand with normal body mechanics without hand support-Met Kick Press Setter Goal 3: Improve functional mobility with Oswestry score < 9/45-Not Met Post Treatment Pain: 2/10 Time In: 7:30 Time Out : 8:05 Timed Code Treatment Minutes: 35 Minutes Total Treatment Time: 35 Minutes Nickie Correa, PT Date: 12/12/2022 documented in this encounterBON ZENT Phone: [phone] Hospital course Narrative* Nickie Correa PT - 12/12/2022 7:30 AM EDT Images from the original note were not included. [facility] Outpatient Physical Therapy Discharge Summary Patient: Sara Huynh : 1975 Referring Provider (secondary): Dr. Isaac Diagnosis: Chronic bilateral low back pain without sciatica Date Treatment Initiated: 11/07/22 Date of Last Treatment: 12/12/22 PT Visit Information Onset Date: 10/27/22 PT Insurance Information: [facility] Total # of Visits Approved: 12 Total # of Visits to Date: 11 Plan of Care/Certification Expiration Date: 12/19/22 Frequency/Duration Days: 2 times per week Weeks: 6 weeks Treatment Received Patient Education/HEP, Back Education, Therapeutic Exercise, Manual Therapy: Myofacial Release/Cupping, and Manual Therapy: Mobilization/Manipulation Pain Level: 2 Assessment Assessment: Patient reports back pain 2/10 today. Pain varies 2-5/10, uncertain why pain acts up attimes. Completed therex and manual therapy per Doc Flow. Reviewed HEP, patient independent. Trunk ROM WFL all planes. Strength B LE 5/5. Oswestry score 17/50. Discharged. Reason for Discharge Completion of Prescribed visits and Optimal Function Achieved Comments: Thank you for this referral Nickie Correa, PT Date: 12/12/2022 documented in this encounterBON ZENT Phone: [phone]) 959-193305-04-2023 History of Present illness Narrative* Renetta Alvarez - 12/04/2022 7:30 AM EDT Images from the original note were not included. [facility] Out[facility] Physical Therapy Daily Note Date: 12/04/2022 Patient Name: Sara Huynh : 1975 (47 y.o.) Referring Provider (secondary): Dr. Isaac Diagnosis: Chronic bilateral low back pain without sciatica Treatment Diagnosis: Back Pain Onset Date: 10/27/22 PT Insurance Information: [facility] Total # of Visits Approved: 12 Per [...] Increase trunk ROM B rotation to WFL-met Custodial Goals Time Frame for Kick Press Setter Goals : 12 Custodial Goal 1: Decrease back pain 2/10 at worst x3 days Kick Press Setter Goal 2: Patient to transfer sit to stand with normal body mechanics without hand support Kick Press Setter Goal 3: Improve functional mobility with Oswestry score < 9/45 Post Treatment Pain: 4-5/10 Time In: 0730 Time Out : 0805 Timed and total 35 min Renetta Alvarez DIESEL PILE HAMMER OPERATOR Date: 12/04/2022 [facility] [employer] Phone: [phone] 402-431205-01-2023 History of Present illness Narrative* Renetta Alvarez - 12/01/2022 7:30 AM EDT Images from the original note were not included. [facility] Out[facility] Physical Therapy Daily Note Date: 12/01/2022 Patient Name: Sara Huynh : 1975 (47 y.o.) Referring Provider (secondary): Dr. Isaac Diagnosis: Chronic bilateral low back pain without sciatica Treatment Diagnosis: Back Pain Onset Date: 10/27/22 PT Insurance Information: [employer] Total # of Visits Approved: 12 Per [...] Increase trunk ROM B rotation to WFL-met Custodial Goals Time Frame for Custodial Goals : 12 Custodial Goal 1: Decrease back pain 2/10 at worst x3 days Custodial Goal 2: Patient to transfer sit to stand with normal body mechanics without hand support Kick Press Setter Goal 3: Improve functional mobility with Oswestry score < 9/45 Post Treatment Pain: 2-3/10 Time In: 0727 Time Out : 0805 Timed Code Treatment Minutes: 38 Minutes Total Treatment Time: 38 Minutes Renetta Alvarez DIESEL PILE HAMMER OPERATOR Date: 12/01/2022 documented in this encounterBON ZENT Phone: [phone] 572-193904-24-2023 History of Present illness Narrative* Renetta Alvarez - 11/24/2022 7:30 AM EDT Images from the original note were not included. [facility] Out[facility] Physical Therapy Daily Note Date: 11/24/2022 Patient Name: Sara Huynh : 1975 (47 y.o.) Referring Provider (secondary): Dr. Isaac Diagnosis: Chronic bilateral low back pain without sciatica Treatment Diagnosis: Back Pain Onset Date: 10/27/22 PT Insurance Information: [facility] Total # of Visits Approved: 12 Per [...] Increase trunk ROM B rotation to WFL Kick Press Setter Goals Time Frame for Custodial Goals : 12 Custodial Goal 1: Decrease back pain 2/10 at worst x3 days Custodial Goal 2: Patient to transfer sit to stand with normal body mechanics without hand support Custodial Goal 3: Improve functional mobility with Oswestry score < 9/45 Post Treatment Pain: 4-5/10 Time In: 0729 Time Out : 0809 Timed and total 40 min Renetta Alvarez DIESEL PILE HAMMER OPERATOR Date: 11/24/2022 documented in this encounterB[facility] [employer] Phone: 1(260) 801-558304-20-2023 History of Present illness Narrative* Nickie Correa, PT - 11/20/2022 7:30 AM EDT Images from the original note were not included. [facility] Therapy Daily Note Date: 11/20/2022 Patient Name: Sara Huynh : 1975 (47 y.o.) Referring Provider (secondary): Dr. Isaac Diagnosis: Chronic bilateral low back pain without sciatica Treatment Diagnosis: Back Pain Onset Date: 10/27/22 PT Insurance Information: [facility] Total # of Visits Approved: 12 Per Physician Order Total # of Visits to Date: 5 Plan of Care/Certification Expiration Date: 12/19/22 Pre-Treatment Pain: 08/12 Assessment Assessment: Pain 1/10 low back, feeling a little better. Patient has improved posture with less side shift. However, Trunk flexion 50% limited still. Completed therex and manual therapy per Doc Flow.Pain increased after session 10/10. Plan Continue with [...] Increase trunk ROM B rotation to WFL Kick Press Setter Goals Time Frame for Custodial Goals : 12 Kick Press Setter Goal 1: Decrease back pain 2/10 at worst x3 days Custodial Goal 2: Patient to transfer sit to stand with normal body mechanics without hand support Kick Press Setter Goal 3: Improve functional mobility with Oswestry score < 9/45 Post Treatment Pain: 3/10 Time In: 7:30 Time Out : 8:14 Timed Code Treatment Minutes: 44 Minutes Total Treatment Time: 44 Minutes Nickie Correa, PT Date: 11/20/2022 documented in this encounterBON ZENT Phone: [phone] History of Present illness Narrative* Nickie Correa, PT - 11/19/2022 7:30 AM EDT Images from the original note were not included. [facility] Physical Therapy Daily Note Date: 11/19/2022 Patient Name: Sara Huynh : 1975 (47 y.o.) Referring Provider (secondary): Dr. Isaac Diagnosis: Chronic bilateral low back pain without sciatica Treatment Diagnosis: Back Pain Onset Date: 10/27/22 PT Insurance Information: [facility] Total # of Visits Approved: 12 Per Physician Order Total # of Visits to Date: 4 Plan of Care/Certification Expiration Date: 12/19/22 Pre-Treatment Pain: 2/10 Assessment Assessment: Pain 2/10 low back. Patient reports overall no change in symptoms. Completed therex andmanual therapy per Doc Flow. R lumbar thoracic [...] Increase trunk ROM B rotation to WFL Kick Press Setter Goals Time Frame for Custodial Goals : 12 Kick Press Setter Goal 1: Decrease back pain 2/10 at worst x3 days Custodial Goal 2: Patient to transfer sit to stand with normal body mechanics without hand support Custodial Goal 3: Improve functional mobility with Oswestry score < 9/45 Post Treatment Pain: 2/10 Time In: 7:28 Time Out : 8:10 Timed Code Treatment Minutes: 42 Minutes Total Treatment Time: 42 Minutes Nickie Correa, PT Date: 11/19/2022 documented in [facility] [employer] Phone: [phone] History of Present illness Narrative* Nickie Correa, PT - 11/11/2022 7:30 AM EDT Images from the original note were not included. [facility] Therapy Daily Note Date: 11/11/2022 Patient Name: Sara Huynh : 1975 (47 y.o.) Referring Provider (secondary): Dr. Isaac Diagnosis: Chronic bilateral low back pain without sciatica Treatment Diagnosis: Back Pain Onset Date: 10/27/22 PT Insurance Information: [facility] Total # of Visits Approved: 12 Per Physician Order Total # of Visits to Date: 2 Plan of Care/Certification Expiration Date: 12/19/22 Pre-Treatment Pain: 2/10 Assessment Assessment: Pain 2/10 low back today. Reports a little increase pain after last session that lastedone day. Completed manual therapy and therex per [...] Increase trunk ROM B rotation to WFL Kick Press Setter Goals Time Frame for Custodial Goals : 12 Kick Press Setter Goal 1: Decrease back pain 2/10 at worst x3 days Custodial Goal 2: Patient to transfer sit to stand with normal body mechanics without hand support Kick Press Setter Goal 3: Improve functional mobility with Oswestry score < 9/45 Post Treatment Pain: 4/10 Time In: 7:30 Time Out : 8:15 Timed Code Treatment Minutes: 45 Minutes Total Treatment Time: 45 Minutes Nickie Correa, PT Date: 11/11/2022 documented in [facility] [employer] Phone: [phone] History of Present illness Narrative* Nickie Correa, PT - 11/07/2022 7:30 AM EDT Images from the original note were not included. [facility] Out[facility] Physical Therapy Evaluation Date: 11/07/2022 Patient: Sara Huynh : 1975 Referring Provider (secondary): Dr. Isaac Diagnosis: Chronic bilateral low back pain without sciatica Treatment Diagnosis: Back Pain Onset Date: 10/27/22 PT Insurance Information: [employer] Total # of Visits Approved: 12 Per [...] to stand 6/10 pain. MRI- . 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 [...] Increase trunk ROM B rotation to WFL Kick Press Setter Goals Time Frame for Custodial Goals : 12 Custodial Goal 1: Decrease back pain 2/10 at worst x3 days Custodial Goal 2: Patient to transfer sit to stand with normal body mechanics without hand support Custodial Goal 3: Improve functional mobility with Oswestry score < 9/45 Patient's Goal: Patient wants to be rid of back pain and be able to do activities/ movements normally without being fearful of pain Timed Code Treatment Minutes: 20 Minutes Total Treatment Time: 55 Time In: 7:30 Time Out: 8:25 Nickie Corrae, PT Date: 11/07/2022 [facility]: evaluation note* Diagnosis Chronic bilateral low back pain with right-sided sciatica Severe low back pain Lumbago documented in this encounter [employer] Phone: evaluation note* Diagnosis Weight gain Abnormal weight gain Abnormal glucose Other abnormal glucose Screening for cardiovascular condition Screening for other and unspecified cardiovascular conditions documented in this encounter [facility] Phone: evaluation note* Diagnosis Thyromegaly Goiter, unspecified documented in this encounter [facility] Phone: [email or web address] note* Diagnosis Globus sensation- Primary Gastrointestinal malfunction arising from mental factors Right-sided tinnitus Unspecified tinnitus Abnormal tympanic membrane of right ear Dysphagia, unspecified type [facility] Diagnosis Tinnitus of right ear- Primary Right-sided tinnitus Unspecified tinnitus [facility]* Diagnosis Globus sensation- Primary Gastrointestinal malfunction arising from mental factors Right-sided tinnitus Unspecified tinnitus Abnormal tympanic membrane of right ear Dysphagia, unspecified type [facility]* Diagnosis Hyperthyroidism- Primary Thyrotoxicosis without mention of goiter or other cause, without mention of thyrotoxic crisis or storm [facility]* Diagnosis Graves disease- Primary Toxic diffuse [...] abnormal blood chemistry [facility] Diagnosis Graves disease- Primary Toxic diffuse goiter without mention of thyrotoxic crisis or storm Elevated LFTs Other abnormal blood chemistry Hyperthyroidism Thyrotoxicosis without mention of goiter or other cause, without mention of thyrotoxic crisis or storm [facility]* Diagnosis Graves disease- Primary Toxic diffuse goiter without mention of thyrotoxic crisis or storm [facility]* Diagnosis Graves disease- Primary Toxic diffuse goiter without mention of thyrotoxic crisis or storm Swallowing problem [facility]* Diagnosis Graves disease- Primary Toxic diffuse goiter without mention of thyrotoxic crisis or storm Hyperthyroidism Thyrotoxicosis without mention of goiter or other cause, without mention of thyrotoxic crisis or storm [facility]* Diagnosis Graves disease- Primary Toxic diffuse goiter without mention of thyrotoxic crisis or storm Thyroid nodule Nontoxic uninodular goiter [facility] Diagnosis Chronic bilateral low back pain without sciatica Diagnosis Vaginal discharge Leukorrhea, not specified as infective Cervical cancer screening Screening for malignant neoplasm of the cervix Advance Directives TypeDate RecordedPatient RepresentativeExplanationAdvance Directives and Living WillPower of AttorneyTypeDate RecordedPatient RepresentativeExplanationAdvance Directives and Living WillPower of AttorneyTypeDate RecordedPatient RepresentativeExplanationACP-Advance DirectiveACP-Power of AttorneyTypeDate RecordedPatient RepresentativeExplanationACP-Advance DirectiveACP-Power of AttorneyNameRelationshipHealthcare Agent RelationshipCommunicationTom HeibertshausenSpousePrimary Decision Maker* (Home) * (Mobile) NameRelationshipHealthcare Agent RelationshipCommunicationTom Heibertshausen SpousePrimary Decision Maker* (Home) * (Mobile) NameRelationshipHealthcare Agent RelationshipCommunicationTom Sheri SpousePrimary Decision Maker* (Home) * (Mobile) NameRelationshipHealthcare Agent RelationshipCommunicationTom Sheri SpousePrimary Decision Maker* (Home) * (Mobile) NameRelationshipHealthcare Agent RelationshipCommunicationTom Sheri SpousePrimary Decision Maker* (Home) * (Mobile) NameRelationshipHealthcare Agent RelationshipCommunicationTom Sheri SpousePrimary Decision Maker* (Home) * (Mobile) NameRelationshipHealthcare Agent RelationshipCommunicationTom Sheri SpousePrimary Decision Maker* (Home) * (Mobile) NameRelationshipHealthcare Agent RelationshipCommunicationTom Sheri SpousePrimary Decision Maker* (Home) * (Mobile) NameRelationshipHealthcare Agent RelationshipCommunicationTom Sheri SpousePrimary Decision Maker* (Home) * (Mobile) NameRelationshipHealthcare Agent RelationshipCommunicationTom Sheri SpousePrimary Decision Maker* (Home) * (Mobile) NameRelationshipHealthcare Agent RelationshipCommunicationTom Sheri SpousePrimary Decision Maker* (Home) * (Mobile) NameRelationshipHealthcare Agent RelationshipCommunicationTom Sheri SpousePrimary Decision Maker* (Home) * (Mobile) Date ActivatedDate InactivatedComments12/22/2024 9:11 AM12/23/2024 3:44 AMDate ActivatedDate InactivatedComments12/22/2024 9:11 AM12/23/2024 3:44 AM History of Present Illness * Nickie Correa, PT - 03/19/2020 8:00 AM EDT [facility] Out[facility] Physical Therapy Evaluation Date: 03/19/2020 Patient: Sara Huynh : 1975 Referring Practitioner: Dr. Kaykay Isaac Referral Date : 03/14/20 Diagnosis: Chronic bilateral low back pain without sciatica Treatment Diagnosis: Back Pain Onset Date: 03/14/20(Referral) PT Insurance Information: [employer] Total # of Visits Approved: 4 Per [...] chirpractor; pain 0/10 today. Patient works at [employer] in [place]. Hx- not significant other than recurrent back pain. 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 Lumbar: WFL Special Tests: SLR- [...] PROM: WFL Ambulation 1 Quality of Gait: WFL Assessment Body structures, Functions, Activity limitations: Decreased [...] Time Frame for Short term goals: NA penitentiary goals Time Frame for penitentiary goals : 4 penitentiary goal 1: Patient to be independent with HEP for core strengthening extermination supervisor goal 2: Patient to denmonstrate correct body mechanics with lifting following back education extermination supervisor goal 3: No pain in low back x 2 week with return to normal activities Patient's Goal: To be able to complete normal activities without recurrence of back pain Timed Code Treatment Minutes: 15 Minutes Total Treatment Time: 45 Time In: 8:00 Time Out: 8:45 Nickie Correa, PT Date: 03/19/2020 documented in this encounter* Nickie Correa, PT - 03/27/2020 8:00 AM EDT [facility] Out[facility] Physical Therapy Daily Note Date: 03/27/2020 Patient Name: Sara Huynh : 1975 (44 y.o.) Referring Practitioner: Dr. Kaykay Isaac Referral Date : 03/14/20 Diagnosis: Chronic bilateral low back pain without sciatica Treatment Diagnosis: Back Pain Onset Date: 03/14/20(Referral) PT Insurance Information: [employer] Total # of Visits Approved: 4 Per [...] Time Frame for Short term goals: NA Kick Press Setter Goals - Time Frame for penitentiary goals : 4 extermination supervisor goal 1: Patient to be independent with HEP for core strengthening extermination supervisor goal 2: Patient to denmonstrate correct body mechanics with lifting following back education extermination supervisor goal 3: No pain in low back x 2 week with return to normal activities Post Treatment Pain: 0/10 Time In: 8:00 Time Out : 8:45 Timed Code Treatment Minutes: 45 Minutes Total Treatment Time: 45 Minutes Nickie Correa, PT Date: 03/27/2020 documented in this encounter* Nickie Correa, PT - 04/02/2020 8:00 AM EDT [facility] Out[facility] Physical Therapy Daily Note Date: 04/02/2020 Patient Name: Sara Huynh : 1975 (44 y.o.) Referring Practitioner: Dr. Kaykay Isaac Referral Date : 03/14/20 Diagnosis: Chronic bilateral low back pain without sciatica Treatment Diagnosis: Back Pain Onset Date: 03/14/20(Referral) PT Insurance Information: [employer] Total # of Visits Approved: 4 Per [...] Time Frame for Short term goals: NA Kick Press Setter Goals - Time Frame for penitentiary goals : 4 penitentiary goal 1: Patient to be independent with HEP for core strengthening-Met penitentiary goal 2: Patient to denmonstrate correct body mechanics with lifting following back education-Met penitentiary goal 3: No pain in low back x 2 week with return to normal activities-Met Post Treatment Pain: 0/10 Time In: 8:00 Time Out : 8:45 Timed Code Treatment Minutes: 45 Minutes Total Treatment Time: 45 Minutes Nickie Correa, PT Date: 04/02/2020 documented in this encounter Hospital Course * Nickie Correa, PT - 04/02/2020 8:00 AM EDT [facility] Therapy Discharge Summary Patient: Sara Huynh : 1975 Referring Practitioner: Dr. Kaykay Isaac Diagnosis: Chronic bilateral low back pain without sciatica Date Treatment Initiated: 03/19/20 Date of Last Treatment: 04/02/20 PT Visit Information Onset Date: 03/14/20(Referral) PT Insurance Information: [employer] Total # of Visits Approved: 4 Total [...] documented in this encounter Reason for Referral StatusReasonSpecialtyDiagnoses / ProceduresReferred By ContactReferred To ContactClosedRadiology Diagnoses Chronic bilateral low back pain with right-sided sciatica Severe low back pain Procedures MRI LUMBAR SPINE WO CONTRAST 20229 Kaykay Isaac DO [address] [place] [address] [facility] [address] [place] [address] SpecialtyDiagnoses / ProceduresReferred By ContactReferred To ContactRadiology Diagnoses Thyromegaly Procedures US THYROID Kaykay Isaac, DO [address] [place] [address] Referral IDStatusReasonStart DateExpiration DateVisits RequestedVisits [id number] / Procedures Referred By ContactReferred To ContactAudiology / Otolaryngology Diagnoses Right-sided tinnitus Wenceslao Becker, DO [address] [phone] Sana Ward, AuD [address] [place] [address] Referral IDStatusReasonStart DateExpiration DateVisits RequestedVisits [id number] Specialty Services Required/Patient's Best Interest / Summary Purpose Family History No Family History Records FoundNo Family History Records FoundNo Family History Records FoundNo Family History Records FoundNo Family History Records FoundNo Family History Records FoundNo Family History Records Found Additional Source Comments Reason for Visit (unrecogniz ed section and content) StatusReasonSpecialtyDiagnoses / ProceduresReferred By ContactReferred To ContactOpen Specialty Services Required Physical Therapy Diagnoses Chronic bilateral low back pain without sciatica Kaykay Isaac, DO [address] [place] [address] [facility] [address] [place] [address] StatusReasonSpecialtyDiagnoses / ProceduresReferred By ContactReferred To ContactClosedRadiology Diagnoses Chronic bilateral low back pain with right-sided sciatica Severe low back pain Procedures MRI LUMBAR SPINE WO CONTRAST [address]32 Kaykay Isaac, DO [address] [place] [address] [facility] [address] [place] [address] SpecialtyDiagnoses / ProceduresReferred By ContactReferred To ContactPhysical Therapist / Physical Therapy Diagnoses Chronic bilateral low back pain without sciatica Kaykay Isaac, DO [address] [place] [address] [facility] [address] [place] [address] Referral IDStatusReasonStart DateExpiration DateVisits RequestedVisits [id number] Specialty Services Required /[id number] / ProceduresReferred By ContactReferred To ContactRadiology Diagnoses Thyromegaly Procedures US THYROID RayKaykay avina, DO [address] [facility] [place] [address] Referral IDStatusReasonStart DateExpiration DateVisits RequestedVisits [id number], Dr. Yonley referral for tinnitus, right ear. (+) decreased hearing Also, has abnormal TM, rightear. Pressure/discomfort in right ear x 3 months tinnitusPatient states she feels soreness on rightneck. Sometimes, she has to stop speaking due to sensation her airway is cut off. She states this feeling started before the right ear complaint. She denies sore throats, denies swallowing difficulty. 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.SpecialtyDiagnoses / ProceduresReferred By ContactReferred To ContactOtolaryngology Diagnoses Right-sided tinnitus Abnormal tympanic membrane of right ear Kaykay Isaac, DO [address] [place] [address] Wenceslao Becker, DO [address] [place] [address] Referral IDStatusReasonStart DateExpiration DateVisits RequestedVisits [id number] Specialty Services Required/Patient's Best Interest /[id number] / ProceduresReferred By ContactReferred To ContactAudiology / Otolaryngology Diagnoses Right-sided tinnitus Wenceslao Becker, DO [address] [phone] AdinDinaSana Whitehead, AuD [address] [phone] Referral IDStatusReasonStart DateExpiration DateVisits RequestedVisits [id number] Specialty Services Required/Patient's Best Interest [id number] / ProceduresReferred By ContactReferred To ContactOtolaryngology Diagnoses Right-sided tinnitus Abnormal tympanic membrane of right ear Kaykay Isaac, DO [address] [place] [phone] Wenceslao Becker, DO [address] [phone] ReasonCommentsHyperthyroidismSpecialtyDiagnoses / ProceduresReferred By Contact Referred To ContactEndocrinology Diagnoses Hyperthyroidism Kaykay Isaac, DO [address] [place] [phone] Nj Paul MD [address] [place], [place] [phone] Referral IDStatusReasonStart DateExpiration DateVisits RequestedVisits [id number] DateCommentsMedication [id number]' DiseaseReasonCommentsGraves' Disease INFORMATION SOURCE (unrecogn ized section and content) DATE CREATED AUTHOR 06/16/2022 [facility] DATE CREATED AUTHOR AUTHOR'S ORGANIZ ATION 06/25/2023 [facility] DATE CREATED AUTHOR AUTHOR'S ORGANIZ ATION 10/30/2023 [facility] DATE CREATED AUTHOR AUTHOR'S ORGANIZ ATION 12/28/2024 [facility] DATE CREATED AUTHOR AUTHOR'S ORGANIZ ATION 02/01/2025 [facility] DATE CREATED AUTHOR AUTHOR'S ORGANIZ ATION 06/10/2025 [facility] DATE CREATED AUTHOR AUTHOR'S ORGANIZ ATION 06/12/2025 [facility] Director Of Development And Marketing Teams (unrecognized sec tion and content) Team MemberRelationshipSpecialtyStart DateEnd Date Kaykay Isaac, DO [address] [place] [address] PCP - GeneralFamily Medicine03/14/20Team MemberRelationshipSpecialtyStart DateEnd Date Kaykay Isaac, DO [address] [place] [address] PCP - GeneralFamily Medicine03/14/20Team MemberRelationshipSpecialtyStart DateEnd Date Kaykay Isaac, DO [address] [place] [address] PCP - GeneralFamily Medicine03/14/20Team MemberRelationshipSpecialtyStart DateEnd Date Kaykay Isaac, DO [address] [place] [address] PCP - GeneralFamily Medicine03/14/20Team MemberRelationshipSpecialtyStart DateEnd Date Kaykay Isaac, DO [address] [place] [address] PCP - GeneralFamily Medicine03/14/20Team MemberRelationshipSpecialtyStart DateEnd Date Kaykay Isaac, [address] [place] [address] PCP - GeneralFamily Medicine01/01/23Team MemberRelationshipSpecialtyStart DateEnd Date Kaykay Isaac, [address] [place] [phone] PCP - GeneralFamily Medicine01/01/23Team MemberRelationshipSpecialtyStart DateEnd Date Kaykay Isaac, [address] [place] [phone] PCP - Generalmily Medicine01/01/23Team MemberRelationshipSpecialtyStart DateEnd Date Kaykya Isaac, [address] [place] [address] PCP - GeneralFamily Medicine01/01/23Team MemberRelationshipSpecialtyStart DateEnd Date Kaykay Isaac, [address] [place] [address] PCP - GeneralFamily Medicine01/01/23Team MemberRelationshipSpecialtyStart DateEnd Date Kaykay Isaac, [address] [place] [address] PCP - GeneralFamily Medicine01/01/23Team MemberRelationshipSpecialtyStart DateEnd Date Kaykay Isaac DO [address] [place] [address] PCP - Generalmily Medicine03/14/20Team MemberRelationshipSpecialtyStart DateEnd Date Kaykay Isaac DO [address] [place] [phone] PCP - Generalmily Medicine01/01/23Team MemberRelationshipSpecialtyStart DateEnd Date Kaykay Isaac DO [address] [place] [address] PCP - [facility] Medicine03/14/20Team MemberRelationshipSpecialtyStart DateEnd Date Kaykay Isaac, [address] [place] [phone] PCP - Generalmi Medicine01/01/23am MemberRelationshipSpecialtyStart DateEnd Date Kaykay Isaac DO [address] [place] [address] PCP - Generalmi Medicine03/14/20Team MemberRelationshipSpecialtyStart DateEnd Date Kaykay Isaac DO [address] [place] [address] PCP - Generalmily Medicine03/14/20Team MemberRelationshipSpecialtyStart DateEnd Date Kaykay Isaac, [address] [place] [phone] [facility]01/01/23Team MemberRelationshipSpecialtyStart DateEnd Date Kaykay Isaac DO [address] [place] [address] [facility]03/14/20Team MemberRelationshipSpecialtyStart DateEnd Date Kaykay Isaac, [address] [place] [address] [facility]01/01/23Team MemberRelationshipSpecialtyStart DateEnd Date Kaykay Isaac DO [address] [place] [address] [facility]03/14/20Team MemberRelationshipSpecialtyStart DateEnd Date Kaykay Isaac, [address] [place] [address] [facility]01/01/23Team MemberRelationshipSpecialtyStart DateEnd Date Kaykay Isaac, [address] [place] [address] [facility]01/01/23 FOR RECORDS PERTAINING TO PATIENTS WHO ARE [...] BE BASED ON THE PRIMARY CLINICAL RECORDS. [facility] provides no warranty or guarantee of the accuracy or completeness of information in this document.
== END 2025-06-26 10:44 | disposition home or self-care (01) ==
LOC: MAMMO 10:43
PROVIDERS: PCP Student in an Organized Health Care Education/Training Program; Visit Provider Student in an Organized Health Care Education/Training Program
DX: Z12.31 Encounter for screening mammogram for malignant neoplasm of breast (principal)
CPT/HCPCS: 77063; 77067